=== PATIENT | male | born 1940 | race Caucasian/White ===

== ENCOUNTER 2020-08-05 14:21 | Outpatient (REF) | payer MEDICARE, SELFPAY ==
[2020-08-05 15:05] LABS: MANUAL DIFF FLAG NO
[2020-08-05 15:07] LABS: Basophils Percent Auto 0.3 % (0-2); Eosinophils Absolute Auto 0.1 X10*3/uL (0.0-0.4); Eosinophils Percent Auto 1.1 % (0-4); Hematocrit 33.3 % (42-52); Hemoglobin 10.8 g/dl (14.0-18.0); Imm Gran Abs Auto 0.03 X10*3/uL (0.00-0.03); Imm Gran Pct Auto 0.3 % (0.0-0.4); Lymphocytes Absolute Auto 2.2 X10*3/uL (1.2-4.9); Lymphocytes Percent Auto 25.1 % (20-40); Mean Corpuscular HGB Conc 32.4 g/dl (31.0-36.0); Mean Corpuscular Hemoglobin 29.4 pg (27.0-33.0); Mean Corpuscular Volume 90.7 fL (80-98); Monocytes Absolute Auto 0.6 X10*3/uL (0.1-1.2); Monocytes Percent Auto 7.1 % (2-11); Neutrophils Absolute Auto 5.9 X10*3/uL (2.0-8.3); Neutrophils Percent Auto 66.1 % (45-73); Platelet Count 236 X10*3/uL (160-400); Red Blood Count 3.67 X10*6/uL (4.60-5.80); Red Cell Distribution Width 13.2 % (11.0-16.0); White Blood Count 8.9 X10*3/uL (4.8-10.8)
[2020-08-05 15:17] LABS: Estimated Average Glucose 217 mg/dL; Hemoglobin A1c % 9.2 %
[2020-08-05 15:38] LABS: Alanine Aminotransferase 11 U/L (0-40); Albumin Level 4.3 g/dL (3.5-5.0); Alkaline Phosphatase 71 U/L (39-117); Anion Gap 13 (12-20); Aspartate Amino Transferase 10 U/L (5-37); Bilirubin Total 0.5 mg/dL (0.0-1.0); Blood Urea Nitrogen 25 mg/dL (9-16); Calcium 9.2 mg/dL (8.4-10.2); Carbon Dioxide 28 mmol/L (22-29); Chloride 103 mmol/L (96-108); Cholesterol 125 mg/dL; Estimated Glomerular Filt Rate 54; Glucose Random 172 mg/dL (60-115); HDL Cholesterol 30 mg/dL; LDL Cholesterol Calculated 58 mg/dl; Sodium 139 mmol/L (135-145); Total Protein 7.5 g/dL (6.5-8.0); Triglycerides 185 mg/dL
[2020-08-05 15:38] LABS: Creatinine Urine 34.52 mg/dL; Microalbum/Creatinine Ratio Ur 63.7 ug/mg cr
[2020-08-05 15:58] LABS: Thyroid Stimulating Hormone 2.07 uIU/mL (0.32-4.0)
== END 2020-08-05 14:22 | disposition home or self-care (01) ==
LOC: HO.LAB 14:21
PROVIDERS: PCP Internal Medicine; Visit Provider Internal Medicine
DX: Z00.00 Encounter for general adult medical examination without abnormal findings (principal); E11.21 Type 2 diabetes mellitus with diabetic nephropathy; E78.00 Pure hypercholesterolemia, unspecified; I10 Essential (primary) hypertension
CPT/HCPCS: 36415; 80053; 80061; 82043; 83036; 84443; 85025

== ENCOUNTER → 2020-08-20 11:12 | Outpatient (BNVA) | payer MEDICARE, SELFPAY | PROVIDERS: PCP Internal Medicine; Referring Provider Internal Medicine; Visit Provider Nurse Practitioner Family | DX: Z13.89 Encounter for screening for other disorder (principal) | CPT/HCPCS: 93005; 99212 ==

== ENCOUNTER 2020-08-20 12:36 | Inpatient (IN) | payer MEDICARE, SELFPAY ==
[2020-08-20] VITALS (7 sets, daily range): BP systolic 120–139; BP diastolic 48–67; PULSE 62–73; RESP 12–20; TEMP 35.9–37; O2SAT 95–99; BMI 29.0
--- NOTE | 2020-08-20 12:45 | ED_ITS ---
HPI - Chest Pain General Chief Complaint: Chest Pain Stated Complaint: CHEST PAIN,JAW PAIN Time Seen by Provider: 08/20/20 12:45 Source: patient Mode of arrival: ambulatory Limitations: language barrier History of Present Illness HPI narrative: patient sent down from cardiology clinic. significant cardiac history with Jaw pain x 10 radiating down to his chest. Woke him from sleep at 3am. MD complaint: chest pain Pertinent past history: coronary artery disease Onset (ago): hour(s) Timing of current episode: episodic Related Data Home Medications Medication Instructions Recorded Confirmed amlodipine 10 mg tablet 10 mg PO DAILY 08/20/20 08/20/20 ascorbate calcium (vitamin C) 500 500 mg PO DAILY 08/20/20 08/20/20 mg tablet atorvastatin 40 mg tablet 40 mg PO BEDTIME 08/20/20 08/20/20 docusate sodium 100 mg capsule 100 mg PO BID 08/20/20 08/20/20 ferrous sulfate 324 mg (65 mg 324 mg PO DAILY 08/20/20 08/20/20 iron) tablet,delayed release folic acid 1 mg PO DAILY 08/20/20 08/20/20 gabapentin 300 mg capsule 300 mg PO TID 08/20/20 08/20/20 insulin glargine [Lantus Solostar 15 unit SUBCUT BID 08/20/20 08/20/20 U-100 Insulin] insulin lispro [Humalog KwikPen 30 unit SUBCUT TID 08/20/20 08/20/20 Insulin] lisinopril 40 mg tablet 40 mg PO DAILY 08/20/20 08/20/20 methotrexate sodium 2.5 mg tablet 17.5 mg PO TU 08/20/20 08/20/20 metoprolol succinate 100 mg 100 mg PO DAILY 08/20/20 08/20/20 tablet,extended release 24 hr omeprazole 20 mg capsule,delayed 20 mg PO DAILY 08/20/20 08/20/20 release trazodone 50 mg tablet 50 mg PO BEDTIME 08/20/20 08/20/20 Previous Rx's Medication Instructions Recorded furosemide 40 mg tablet 40 mg PO DAILY 90 Days #90 tab 07/14/20 tamsulosin 0.4 mg capsule 0.4 mg PO BEDTIME #90 cap 07/27/20 Allergies Allergy/AdvReac Type Severity Reaction Status Date / Time naproxen [From NAPROSYN] Allergy Intermediate ITCHY Unverified 06/03/20 15:48 Penicillins [PENICILLINS] Allergy Mild ITCHY Unverified 06/03/20 15:48 sulfasalazine Allergy Unknown anxiety Verified 04/21/20 00:00 Review of Systems Constitutional: Constitutional: Reports no additional constitutional compla ints Eyes: Eyes: Reports no additional eye complaints ENT: Denies dizziness Cardiovascular: Cardiovascular: Reports no additional cardiovascular complaints Respiratory: Respiratory: Reports as per HPI Gastrointestinal: Gastrointestinal: Reports no additional gastrointestinal complaints Musculoskeletal: Musculoskeletal: Reports no additional musculoskeletal complaints Integumentary/Breasts: Skin/Breast: Denies rash Neurologic: Reports system reviewed and no additional complaints, except as documented, Denies dizziness and Denies Sensory deficit (Neuro) Psychiatric: Psychiatric: Denies anxiety [facility] Past Medical History Medical History Aortic stenosis BPH (benign prostatic hyperplasia) CHB (complete heart block) CVA (cerebral vascular accident) Diabetes Diastolic CHF HLD (hyperlipidemia) HTN (hypertension) Hx of cardiac pacemaker Pacemaker (~06/2015) PAF (paroxysmal atrial fibrillation) Surgical History (Updated 08/20/20 @ 16:17 by REGLA Lovelace) History of appendectomy History of lumbar surgery History of prostate surgery Hx of cholecystectomy Family History Family History Father Cancer Mother Cancer Social History Social History (Updated 08/20/20 @ 16:18 by REGLA Lovelace) Household Members: None Alcohol intake: never Smoking Status: Former smoker Years Smoked: smoke for 30 yrs Use of substances other than those prescribed or required for medical reasons: No Advance Directives: No Advance Directives Information Provided: No Physical Exam Vital Signs: Vital Signs: Last Vital Signs Temp 98.2 F 08/20/20 16:23 Pulse 62 08/20/20 16:23 Resp 18 08/20/20 16:23 BP 133/56 L 08/20/20 16:23 Pulse Ox 96 08/20/20 16:23 Body Mass Index 29.0 Const: General: healthy appearing Nutritional Appearance: average body habitus Orientation/consciousness: oriented to person and patient oriented x3 Limitations: no limitations HENMT: Head: Yes normal to inspection Ears: external ears normal General nose exam: Normal external nose present Mouth: Normal oral and palatal mucosa present and oropharynx normal Throat: Yes posterior oropharynx normal Eyes: General: appearance normal, both eyes and all related structures Neck: Other: supple Neck: Yes normal visual inspection Chest: Chest palpation & inspection: normal inspection of the chest Resp: Auscultation: clear to auscultation bilaterally Cardio: Jugular venous distension: no JVD Rate: regular rate Rhythm: regular rhythm Heart sounds: S1 normal heart sound present and S2 normal heart sound present GI: Inspection: Yes normal to inspection Palpation (GI): Soft to palpation, nontender and No hepatosplenomegaly present Auscultation: normal bowel sounds : General: Yes no CVA tenderness Back/Spine/Pelvis: Back: no CVA tenderness Skin: General skin exam: no rashes or lesions noted Neuro: General: oriented to person and patient oriented x3 Cranial nerves: Yes CN's II-XII intact bilaterally Motor exam (neuro): 5/5 motor strength present throughout Sensory Exam: No Sensory deficit (Neuro) Extrem: General: Yes normal to inspection Psych: Appearance: grossly normal Course Course Course Narrative: pain free MDM - Chest Pain MDM Narrative Medical decision making narrative: patient with multiple cardiac risk factors, intermediate troponin will admit Lab Data Result diagrams: 08/20/20 13:24 08/20/20 13:24 Labs: Lab Results 08/20/20 08/20/20 08/20/20 Range/Units 13:24 13:24 13:24 WBC 9.2 (4.8-10.8) X10*3/uL RBC 3.68 L (4.60-5.80) X10*6/uL Hgb 10.9 L (14.0-18.0) g/dl Hct 33.4 L (42-52) % MCV 90.8 (80-98) fL MCH 29.6 (27.0-33.0) pg MCHC 32.6 (31.0-36.0) g/dl RDW 13.4 (11.0-16.0) % Plt Count 228 (160-400) X10*3/uL MPV 11.9 (9.4-12.4) fL Immature Gran % (Auto) 0.3 (0.0-0.4) % Neut % (Auto) 73.7 H (45-73) % Lymph % (Auto) 17.8 L (20-40) % [place] % (Auto) 7.3 (2-11) % Eos % (Auto) 0.7 (0-4) % Baso % (Auto) 0.2 (0-2) % Lymph # (Auto) 1.6 (1.2-4.9) X10*3/uL [place] # (Auto) 0.7 (0.1-1.2) X10*3/uL Eos # (Auto) 0.1 (0.0-0.4) X10*3/uL Baso # (Auto) 0.0 (0.0-0.2) X10*3/uL Abs Immat Gran (auto) 0.03 (0.00-0.03) X10*3/uL Absolute Neuts (auto) 6.8 (2.0-8.3) X10*3/uL Absolute Nucleated RBC 0.000 (0.0-0.012) X10*3/uL Nucleated RBC % (auto) 0.0 (0.0-0.2) /100WBC Sodium 139 (135-145) mmol/L Potassium 4.6 (3.3-5.1) mmol/l Chloride 103 (96-108) mmol/L Carbon Dioxide 27 (22-29) mmol/L Anion Gap 14 (12-20) BUN 27 H (9-16) mg/dL Creatinine 1.46 H (0.5-1.4) mg/dL Estim Creat Clear Calc 45.3 Estimated GFR 47 Random Glucose 206 H (60-115) mg/dL Calcium 9.0 (8.4-10.2) mg/dL Troponin I High Sens 74.0 H (<3.5-35.0) ng/L B-Natriuretic Peptide (<100) pg/mL COVID-19 (HIEU) (Negative) COVID-19 Clin Com 08/20/20 08/20/20 Range/Units 13:56 15:39 WBC (4.8-10.8) X10*3/uL RBC (4.60-5.80) X10*6/uL Hgb (14.0-18.0) g/dl Hct (42-52) % MCV (80-98) fL MCH (27.0-33.0) pg MCHC (31.0-36.0) g/dl RDW (11.0-16.0) % Plt Count (160-400) X10*3/uL MPV (9.4-12.4) fL Immature Gran % (Auto) (0.0-0.4) % Neut % (Auto) (45-73) % Lymph % (Auto) (20-40) % [place] % (Auto) (2-11) % Eos % (Auto) (0-4) % Baso % (Auto) (0-2) % Lymph # (Auto) (1.2-4.9) X10*3/uL [place] # (Auto) (0.1-1.2) X10*3/uL Eos # (Auto) (0.0-0.4) X10*3/uL Baso # (Auto) (0.0-0.2) X10*3/uL Abs Immat Gran (auto) (0.00-0.03) X10*3/uL Absolute Neuts (auto) (2.0-8.3) X10*3/uL Absolute Nucleated RBC (0.0-0.012) X10*3/uL Nucleated RBC % (auto) (0.0-0.2) /100WBC Sodium (135-145) mmol/L Potassium (3.3-5.1) mmol/l Chloride (96-108) mmol/L Carbon Dioxide (22-29) mmol/L Anion Gap (12-20) BUN (9-16) mg/dL Creatinine (0.5-1.4) mg/dL Estim Creat Clear Calc Estimated GFR Random Glucose (60-115) mg/dL Calcium (8.4-10.2) mg/dL Troponin I High Sens (<3.5-35.0) ng/L B-Natriuretic Peptide 221 H (<100) pg/mL COVID-19 (HIEU) Negative (Negative) COVID-19 Clin Com See Note ECG Data ECG #1: Attestation: I personally reviewed and interpreted this ECG as follows: Interpretation: atrial paced with wide QRS complexes flipped ts laterally Discharge Plan Discharge Clinical Impression: Acute coronary syndrome Chest pain Qualifiers: Chest pain type: unspecified Qualified Code(s): R07.9 - Chest pain, unspecified Patient Disposition: Admitted As Inpatient
--- NOTE | 2020-08-20 12:46 | ECG_ITS ---
Test Reason : CP Blood Pressure : / mmHG Vent. Rate : 075 BPM Atrial Rate : 075 BPM P-R Int : 210 ms QRS Dur : 164 ms QT Int : 438 ms P-R-T Axes : 070 -44 119 degrees QTc Int : 489 ms Atrial-sensed ventricular-paced rhythm with prolonged AV conduction Abnormal ECG When compared to the previous EKG of No significant changes seen Referred By: Moreno Azveedo Electronically Signed By:LYNNE MICHAEL MD
[2020-08-20] MEDS: Aspirin 81 MG TAB.CHEW 162 MG PO (13:11)
[2020-08-20] MEDS: Nitroglycerin 2 % Oint 1 GM Packet 1 INCH TRANSDERMA (13:11)
[2020-08-20 13:46] LABS: MANUAL DIFF FLAG NO
[2020-08-20 13:51] LABS: Basophils Percent Auto 0.2 % (0-2); Eosinophils Absolute Auto 0.1 X10*3/uL (0.0-0.4); Eosinophils Percent Auto 0.7 % (0-4); Hematocrit 33.4 % (42-52); Hemoglobin 10.9 g/dl (14.0-18.0); Imm Gran Abs Auto 0.03 X10*3/uL (0.00-0.03); Imm Gran Pct Auto 0.3 % (0.0-0.4); Lymphocytes Absolute Auto 1.6 X10*3/uL (1.2-4.9); Lymphocytes Percent Auto 17.8 % (20-40); Mean Corpuscular HGB Conc 32.6 g/dl (31.0-36.0); Mean Corpuscular Hemoglobin 29.6 pg (27.0-33.0); Mean Corpuscular Volume 90.8 fL (80-98); Mean Platelet Volume 11.9 fL (9.4-12.4); Monocytes Absolute Auto 0.7 X10*3/uL (0.1-1.2); Monocytes Percent Auto 7.3 % (2-11); Neutrophils Absolute Auto 6.8 X10*3/uL (2.0-8.3); Neutrophils Percent Auto 73.7 % (45-73); Platelet Count 228 X10*3/uL (160-400); Red Blood Count 3.68 X10*6/uL (4.60-5.80); Red Cell Distribution Width 13.4 % (11.0-16.0); White Blood Count 9.2 X10*3/uL (4.8-10.8)
[2020-08-20 14:14] LABS: Anion Gap 14 (12-20); Blood Urea Nitrogen 27 mg/dL (9-16); Carbon Dioxide 27 mmol/L (22-29); Chloride 103 mmol/L (96-108); Creatinine Clr Calc Pharmacy 45.3; Estimated Glomerular Filt Rate 47; Glucose Random 206 mg/dL (60-115); Potassium 4.6 mmol/l (3.3-5.1); Sodium 139 mmol/L (135-145)
--- NOTE | 2020-08-20 15:54 | XR_ITS ---
EXAMINATION: XR CHEST CLINICAL INFORMATION: Chest pain COMPARISON: December 06, 2019, August 07, 2016, and July 05, 2015 TECHNIQUE: 2 views of the chest were obtained. FINDINGS: There is a focus of disease seen within the left lower lobe which may be related to pneumonitis or atelectasis. The cardiopericardial silhouette is mildly enlarged. No evidence of pulmonary edema. No pneumothorax or pleural effusion. Dual-chamber pacemaker in place. XR/XR chest 2V IMPRESSION: Small focus of density within the left lower lobe which may be related to atelectasis or pneumonitis.
--- NOTE | 2020-08-20 15:55 | PM.IMHP ---
History of Present Illness Date of Service: 08/20/20 <REGLA Lovelace - Last Filed: 08/20/20 17:07> Chief Complaint: chest pain <REGLA Lovelace Last Filed: 08/20/20 17:07> This is a 80-year-old male with multiple medical problems who presents the emergency department with complaints of chest pain. Patient reports chest pain beginning last evening. He was seen in the cardiology office today and sent to the emergency for evaluation. He reports left-sided chest pain with radiation to his jaw on bilateral sides. Is unable to describe pain. There is pain lateral to his pacemaker which is also uncomfortable and is reproducible on exam. He reports orthopnea and some dyspnea on exertion. He denies any change in his lower extremity. He reports compliance with his medication. In the emergency department he had a paced rhythm. Initial troponin was 74.0. Remainder of his labs were in his baseline. Given multiple cardiac risk factors and elevated troponin the decision was made to admit him for further workup. <REGLA Lovelace - Last Filed: 08/20/20 17:07> Review of Systems Review of Systems: Yes all other systems are reviewed and are negative <REGLA oLvelace - Last Filed: 08/20/20 17:07> Constitutional: Constitutional: Denies chills and Denies fever(s) <REGLA Lovelace - Last Filed: 08/20/20 17:07> ENT: Denies dizziness <REGLA Lovelace Last Filed: 08/20/20 17:07> Cardiovascular: Cardiovascular: Reports chest pain <REGLA Lovelace Last Filed: 08/20/20 17:07> Respiratory: Respiratory: Denies cough <REGLA Lovelace Last Filed: 08/20/20 17:07> Gastrointestinal: Gastrointestinal: Denies abdominal pain <REGLA Lovelace Last Filed: 08/20/20 17:07> Neurologic: Reports system reviewed and no additional complaints, except as documented, Denies dizziness and Denies Sensory deficit (Neuro) <REGLA Lovelace Last Filed: 08/20/20 17:07> [facility] Medical History: Medical History Aortic stenosis BPH (benign prostatic hyperplasia) CHB (complete heart block) CVA (cerebral vascular accident) Diabetes Diastolic CHF HLD (hyperlipidemia) HTN (hypertension) Hx of cardiac pacemaker Pacemaker (~06/2015) PAF (paroxysmal atrial fibrillation) <REGLA Lovelace - Last Filed: 08/20/20 17:07> Family History: Family History Father Cancer Mother Cancer <REGLA Lovelace - Last Filed: 08/20/20 17:07> Surgical History: Surgical History History of appendectomy History of lumbar surgery History of prostate surgery Hx of cholecystectomy <REGLA Lovelace - Last Filed: 08/20/20 17:07> Social History: Social History Household Members: None Alcohol intake: never Smoking Status: Former smoker Years Smoked: smoke for 30 yrs Use of substances other than those prescribed or required for medical reasons: No Advance Directives: No Advance Directives Information Provided: No <REGLA Lovelace Last Filed: 08/20/20 17:07> Meds Allergies/Adverse reactions: Allergies Allergy/AdvReac Type Severity Reaction Status Date / Time naproxen [From NAPROSYN] Allergy Intermediate ITCHY Unverified 06/03/20 15:48 Penicillins [PENICILLINS] Allergy Mild ITCHY Unverified 06/03/20 15:48 sulfasalazine Allergy Unknown anxiety Verified 04/21/20 00:00 <REGLA Lovelace - Last Filed: 08/20/20 17:07> Home medications: Home Medications Medication Instructions Recorded Confirmed Type amlodipine 10 mg tablet 10 mg PO DAILY 08/20/20 08/20/20 History ascorbate calcium (vitamin C) 500 500 mg PO DAILY 08/20/20 08/20/20 History mg tablet atorvastatin 40 mg tablet 40 mg PO BEDTIME 08/20/20 08/20/20 History docusate sodium 100 mg capsule 100 mg PO BID 08/20/20 08/20/20 History ferrous sulfate 324 mg (65 mg 324 mg PO DAILY 08/20/20 08/20/20 History iron) tablet,delayed release folic acid 1 mg PO DAILY 08/20/20 08/20/20 History gabapentin 300 mg capsule 300 mg PO TID 08/20/20 08/20/20 History insulin glargine [Lantus Solostar 15 unit SUBCUT BID 08/20/20 08/20/20 History U-100 Insulin] insulin lispro [Humalog KwikPen 30 unit SUBCUT TID 08/20/20 08/20/20 History Insulin] lisinopril 40 mg tablet 40 mg PO DAILY 08/20/20 08/20/20 History methotrexate sodium 2.5 mg tablet 17.5 mg PO TU 08/20/20 08/20/20 History metoprolol succinate 100 mg 100 mg PO DAILY 08/20/20 08/20/20 History tablet,extended release 24 hr omeprazole 20 mg capsule,delayed 20 mg PO DAILY 08/20/20 08/20/20 History release trazodone 50 mg tablet 50 mg PO BEDTIME 08/20/20 08/20/20 History <REGLA Lovelace - Last Filed: 08/20/20 17:07> Physical Exam Vital Signs and Narrative: Vital Signs: Last Vital Signs Temp 98.1 F 08/20/20 14:43 Pulse 66 08/20/20 14:43 Resp 15 08/20/20 14:43 BP 139/58 L 08/20/20 14:43 Pulse Ox 95 08/20/20 14:43 Body Mass Index 29.0 <REGLA Lovelace - Last Filed: 08/20/20 17:07> Const: Nutritional Appearance: well nourished <REGLA Lovelace Last Filed: 08/20/20 17:07> Orientation/consciousness: patient oriented x3 <REGLA Lovelace - Last Filed: 08/20/20 17:07> HENMT: Head: Yes normocephalic and Yes atraumatic <REGLA Lovelace Last Filed: 08/20/20 17:07> Eyes: Sclerae: sclerae normal <REGLA Lovelace Last Filed: 08/20/20 17:07> Chest: Chest palpation & inspection: normal inspection of the chest <REGLA Lovelace - Last Filed: 08/20/20 17:07> Resp: Effort & Inspection: normal respiratory effort and no respiratory distress <REGLA Lovelace - Last Filed: 08/20/20 17:07> Auscultation: clear to auscultation bilaterally <REGLA Lovelace - Last Filed: 08/20/20 17:07> Cardio: Other: systolic murmur <REGLA Lovelace - Last Filed: 08/20/20 17:07> Rate: regular rate <REGLA Lovelace - Last Filed: 08/20/20 17:07> Rhythm: regular rhythm <REGLA Lovelace - Last Filed: 08/20/20 17:07> GI: Palpation (GI): Soft to palpation and nontender <REGLA Lovelace - Last Filed: 08/20/20 17:07> Skin: General skin exam: no rashes or lesions noted <REGLA Lovelace - Last Filed: 08/20/20 17:07> Neuro: General: patient oriented x3 <REGLA Lovelace - Last Filed: 08/20/20 17:07> Cranial nerves: Yes CN's II-XII intact bilaterally and Yes Bilaterally intact EOM present <REGLA Lovelace - Last Filed: 08/20/20 17:07> Sensory Exam: No Sensory deficit (Neuro) <REGLA Lovelace - Last Filed: 08/20/20 17:07> Extrem: Other: trace edema b/l <REGLA Lovelace - Last Filed: 08/20/20 17:07> General: Yes normal to inspection <REGLA Lovelace - Last Filed: 08/20/20 17:07> Results Labs CBC and Chem 7: : 08/21/20 10:50 08/21/20 05:39 <REGLA Lovelace - Last Filed: 08/20/20 17:07> Labs: Laboratory Results - last 24 hr 08/20/20 08/20/20 08/20/20 13:24 13:24 13:24 MCV 90.8 MCH 29.6 MCHC 32.6 RDW 13.4 Plt Count 228 MPV 11.9 Immature Gran % (Auto) 0.3 Neut % (Auto) 73.7 H Lymph % (Auto) 17.8 L [place] % (Auto) 7.3 Eos % (Auto) 0.7 Baso % (Auto) 0.2 Lymph # (Auto) 1.6 [place] # (Auto) 0.7 Eos # (Auto) 0.1 Baso # (Auto) 0.0 Abs Immat Gran (auto) 0.03 Absolute Neuts (auto) 6.8 Absolute Nucleated RBC 0.000 Nucleated RBC % (auto) 0.0 Anion Gap 14 Estim Creat Clear Calc 45.3 Estimated GFR 47 Random Glucose 206 H Calcium 9.0 Troponin I High Sens 74.0 H <RELGA Lovelace - Last Filed: 08/20/20 17:07> Assessment and Plan (1) Chest pain: Qualifiers: Chest pain type: unspecified Qualified Code(s): R07.9 - Chest pain, unspecified <REGLA Lovelace - Last Filed: 08/20/20 17:07> Status: Acute <REGLA Lovelace - Last Filed: 08/20/20 17:07> This is a 80-year-old male with a history of CVA, hypertension, dyslipidemia, CKD, diabetes, pacemaker who was sent from Cardiology office with chest pain Chest pain No known coronary artery disease but cardiac risk factors including hypertension, dyslipidemia, diabetes Initial troponin 74 Will admit to telemetry and repeat troponin Echo, Cardiology consult Continue home statin, beta-randy. start asa HTN Continue Norvasc, lisinopril, metoprolol Atrial fibrillation EKG with paced rhythm Continue metoprolol No longer on anticoagulation, unclear reason Diabetes Continue Lantus POC, SSI GERD Continue PPI Chronic diastolic CHF Reports some orthopnea, mild leg edema. Check BMP chest x-ray Continue home dose Lasix for now Follow-up echocardiogram CKD 3 Creatinine near baseline Follow BNP Anemia H/H near baseline Follow CBC on methotrexate unclear reason DVT prophylaxis-heparin Code status-full code This case was discussed with Dr. Bentley <REGLA Lovelace - Last Filed: 08/20/20 17:07>
[2020-08-20 16:12] LABS: COVID-19 Test Negative (Negative)
[2020-08-20 16:18] LABS: B Type Natriuretic Peptide 221 pg/mL (<100)
--- NOTE | 2020-08-20 17:31 | PM.EVENT ---
Event Note Date of Service: 08/20/20 Event Note: Addendum to H and P by Mid-level Provider I saw and examined the patient and participated in the cali portion of the E/M service. I agree with the history and exam as documented by PA. Exam: as per PA note. Patient likely has chest pain and concern for ACS. Will admit for rule ACS and work up. Otherwise, I agree with assessment and plan as outlined in the H and P. late entry for 08/20
[2020-08-20 20:27] LABS: Troponin-I High Sensitivity 92.6 ng/L (<3.5-35.0)
[2020-08-20 20:45] LABS: Glucose, Whole Blood 156 mg/dL (60-115)
[2020-08-20] MEDS: traZODone HCL 50 MG TABLET PO (20:51)
[2020-08-20] MEDS: Heparin Sodium,Porcine 5,000 UNIT/ML VIAL 5000 UNIT SUBCUT (20:51)
[2020-08-20] MEDS: Atorvastatin Calcium 40 MG TABLET PO (20:51)
[2020-08-20] MEDS: Gabapentin 300 MG CAPSULE PO (20:51)
[2020-08-20] MEDS: 0.9 % Sodium Chloride Flush 3 ML SYRINGE IVFLUSH (20:51)
[2020-08-20] MEDS: Tamsulosin HCL 0.4 MG CAPSULE PO (20:51)
[2020-08-20] MEDS: Docusate Sodium 100 MG CAPSULE PO (20:51)
[2020-08-21] VITALS (7 sets, daily range): BP systolic 107–140; BP diastolic 49–64; PULSE 63–81; RESP 18–19; TEMP 36–36.7; O2SAT 94–98
[2020-08-21] MEDS: Omeprazole 20 MG CAPSULE.DR PO (05:39)
[2020-08-21] MEDS: Heparin Sodium,Porcine 5,000 UNIT/ML VIAL 5000 UNIT SUBCUT (05:39)
[2020-08-21 06:32] LABS: MANUAL DIFF FLAG NO
[2020-08-21 07:07] LABS: Basophils Percent Auto 0.4 % (0-2); Eosinophils Absolute Auto 0.1 X10*3/uL (0.0-0.4); Eosinophils Percent Auto 1.3 % (0-4); Hematocrit 29.6 % (42-52); Hemoglobin 9.7 g/dl (14.0-18.0); Imm Gran Abs Auto 0.03 X10*3/uL (0.00-0.03); Imm Gran Pct Auto 0.4 % (0.0-0.4); Lymphocytes Percent Auto 26.2 % (20-40); Mean Corpuscular HGB Conc 32.8 g/dl (31.0-36.0); Mean Corpuscular Hemoglobin 29.4 pg (27.0-33.0); Mean Corpuscular Volume 89.7 fL (80-98); Mean Platelet Volume 12.2 fL (9.4-12.4); Monocytes Absolute Auto 0.6 X10*3/uL (0.1-1.2); Monocytes Percent Auto 8.1 % (2-11); Neutrophils Absolute Auto 4.9 X10*3/uL (2.0-8.3); Neutrophils Percent Auto 63.6 % (45-73); Platelet Count 208 X10*3/uL (160-400); Red Cell Distribution Width 13.4 % (11.0-16.0); White Blood Count 7.8 X10*3/uL (4.8-10.8)
[2020-08-21 07:28] LABS: Glucose, Whole Blood 156 mg/dL (60-115)
[2020-08-21] MEDS: Gabapentin 300 MG CAPSULE PO ×3 (07:55→20:34)
[2020-08-21] MEDS: Metoprolol Succinate ER 100 MG TAB.ER.24H PO (07:55)
[2020-08-21] MEDS: Aspirin Enteric Coated 81 MG TABLET.DR PO (07:55)
[2020-08-21] MEDS: 0.9 % Sodium Chloride Flush 3 ML SYRINGE IVFLUSH ×3 (07:55→23:26)
[2020-08-21] MEDS: Ferrous Sulfate 324 MG TABLET.DR PO (07:55)
[2020-08-21] MEDS: Docusate Sodium 100 MG CAPSULE PO ×2 (07:55→20:34)
[2020-08-21] MEDS: Folic Acid 1 MG TABLET PO (07:56)
[2020-08-21] MEDS: lisinopriL 40 MG TABLET PO (07:56)
[2020-08-21] MEDS: amLODIPine Besylate 10 MG TABLET PO (07:56)
[2020-08-21] MEDS: Furosemide 40 MG TABLET PO (07:56)
[2020-08-21] MEDS: Ascorbic Acid 500 MG TABLET PO (07:56)
[2020-08-21] MEDS: Insulin Lispro 100 UNIT/ML 3 ML VIAL SUBCUT ×3 (07:57→20:45)
[2020-08-21 08:01] LABS: Anion Gap 13 (12-20); Blood Urea Nitrogen 31 mg/dL (9-16); Calcium 8.5 mg/dL (8.4-10.2); Carbon Dioxide 27 mmol/L (22-29); Chloride 102 mmol/L (96-108); Cholesterol 97 mg/dL; Creatinine Clr Calc Pharmacy 49.4; Estimated Glomerular Filt Rate 51; Glucose Random 177 mg/dL (60-115); HDL Cholesterol 24 mg/dL; LDL Cholesterol Calculated 53 mg/dl; Potassium 4.3 mmol/l (3.3-5.1); Sodium 138 mmol/L (135-145); Triglycerides 102 mg/dL
[2020-08-21] MEDS: Insulin Glargine,Hum.rec.anlog 100 UNIT/ML 10 ML VIAL 15 UNIT SUBCUT ×2 (09:46→20:45)
--- NOTE | 2020-08-21 10:27 | P.CONCA_ITS ---
History of Present Illness History of Present Illness Date of Service: 08/21/20 Requesting physician: [facility] Consult reason: chest pain Chief complaint: chest pain Narrative: Thank you for inviting us on consult on Rafy, for symptoms of jaw discomfort radiating to his chest. He is a pleasant 80-year-old man, who is active overall over the last couple days he has been having intermittent jaw discomfort bilaterally with radiation to the chest feeling like tightness/pressure. He was seen in the office yesterday, EKG showed ventr icularly paced rhythm, nondiagnostic and therefore was sent to the emergency room for further management as symptoms were concerning for unstable angina. His initial troponin was 74 which increased to 96. He says with a nitro basis chest pressure is much better and rest he has had no discomfort and including going to the bathroom. However if he walks a longer distance in the hallways continues to get those discomfort. He denies any other symptoms. No nausea vomiting, diaphoresis, lightheadedness, syncope. His past medical history of pacemaker placement for complete heart block, moderate aortic stenosis, last echocardiogram in the system is from 2015 which shows mild aortic stenosis. He has insulin-requiring diabetes, hypertension cortical diastolic heart failure. Review of Systems Constitutional: Constitutional: Denies body ache(s), Denies chills, Denies fever(s) and Denies malaise Eyes: Eyes: Reports no additional eye complaints ENT: Reports system reviewed and no additional complaints, except as documented and Denies dizziness Cardiovascular: Cardiovascular: Reports chest pain with activity, Denies lightheadedness, Denies Loss of Consciousness, Denies palpitations and Denies dyspnea Respiratory: Respiratory: Reports no additional respiratory complaints and Denies dyspnea Gastrointestinal: Gastrointestinal: Reports no additional gastrointestinal complaints Musculoskeletal: Musculoskeletal: Reports no additional musculoskeletal complaints Neurologic: Reports system reviewed and no additional complaints, except as documented and Denies dizziness Psychiatric: Psychiatric: Reports no additional psychiatric complaints Endocrine: Endocrine: Denies palpitations Hematologic/Lymphatic: Hematologic/Lymphatic: Reports no additional hematologic/lymphatic complaints Allergic/Immunologic: Allergic/Immunologic: Reports no additional allergic/immunologic complaints [facility] Past Medical History Medical History Aortic stenosis BPH (benign prostatic hyperplasia) CHB (complete heart block) CVA (cerebral vascular accident) Diabetes Diastolic CHF HLD (hyperlipidemia) HTN (hypertension) Hx of cardiac pacemaker Pacemaker (~06/2015) PAF (paroxysmal atrial fibrillation) Family History Family History Father Cancer Mother Cancer Surgical History Surgical History History of appendectomy History of lumbar surgery History of prostate surgery Hx of cholecystectomy Social History Social History Household Members: None Alcohol intake: never Smoking Status: Former smoker Years Smoked: smoke for 30 yrs Use of substances other than those prescribed or required for medical reasons: No Advance Directives: No Advance Directives Information Provided: No Meds Allergies Allergy/AdvReac Type Severity Reaction Status Date / Time naproxen [From NAPROSYN] Allergy Intermediate ITCHY Unverified 06/03/20 15:48 Penicillins [PENICILLINS] Allergy Mild ITCHY Unverified 06/03/20 15:48 sulfasalazine Allergy Unknown anxiety Verified 04/21/20 00:00 Home Medications Medication Instructions Recorded Confirmed Type amlodipine 10 mg tablet 10 mg PO DAILY 08/20/20 08/20/20 History ascorbate calcium (vitamin C) 500 500 mg PO DAILY 08/20/20 08/20/20 History mg tablet atorvastatin 40 mg tablet 40 mg PO BEDTIME 08/20/20 08/20/20 History docusate sodium 100 mg capsule 100 mg PO BID 08/20/20 08/20/20 History ferrous sulfate 324 mg (65 mg 324 mg PO DAILY 08/20/20 08/20/20 History iron) tablet,delayed release folic acid 1 mg PO DAILY 08/20/20 08/20/20 History gabapentin 300 mg capsule 300 mg PO TID 08/20/20 08/20/20 History insulin glargine [Lantus Solostar 15 unit SUBCUT BID 08/20/20 08/20/20 History U-100 Insulin] insulin lispro [Humalog KwikPen 30 unit SUBCUT TID 08/20/20 08/20/20 History Insulin] lisinopril 40 mg tablet 40 mg PO DAILY 08/20/20 08/20/20 History methotrexate sodium 2.5 mg tablet 17.5 mg PO TU 08/20/20 08/20/20 History metoprolol succinate 100 mg 100 mg PO DAILY 08/20/20 08/20/20 History tablet,extended release 24 hr omeprazole 20 mg capsule,delayed 20 mg PO DAILY 08/20/20 08/20/20 History release trazodone 50 mg tablet 50 mg PO BEDTIME 08/20/20 08/20/20 History Physical Exam Vital Signs: Vital Signs: Last Vital Signs Temp 97.5 F 08/21/20 07:39 Pulse 63 08/21/20 07:55 Resp 18 08/21/20 07:39 BP 140/50 H 08/21/20 07:55 Pulse Ox 95 08/21/20 07:39 Body Mass Index 29.0 Const: General: cooperative, no acute distress, alert and awake Nutritional Appearance: average body habitus Orientation/consciousness: patient oriented x3 Limitations: no limitations HENMT: Head: Yes normal to inspection, Yes normocephalic and Yes atraumatic Eyes: General: appearance normal, both eyes and all related structures Neck: Neck: Yes trachea midline, Yes supple and Yes no JVD Chest: Chest palpation & inspection: normal inspection of the chest Resp: Effort & Inspection: normal respiratory effort Auscultation: clear to auscultation bilaterally Cardio: Jugular venous distension: no JVD Palpation: normal PMI Rate: regular rate Rhythm: regular rhythm Heart sounds: S1 normal heart sound present, Murmur heart sound present systolic mid, decrescendo, crescendo, II/ and at the right sternal border and Other heart sounds present (Soft S2, S4 present) GI: Auscultation: normal bowel sounds Skin: General skin exam: no rashes or lesions noted Neuro: General: patient oriented x3 and no focal motor deficits Extrem: General: Yes no clubbing, cyanosis or edema Psych: Appearance: grossly normal Results Labs and Meds Result diagrams: 08/21/20 05:39 08/21/20 05:39 Lab results: Laboratory Results - last 24 hr 08/20/20 08/20/20 08/20/20 13:24 13:24 13:24 WBC 9.2 RBC 3.68 L Hgb 10.9 L Hct 33.4 L MCV 90.8 MCH 29.6 MCHC 32.6 RDW 13.4 Plt Count 228 MPV 11.9 Immature Gran % (Auto) 0.3 Neut % (Auto) 73.7 H Lymph % (Auto) 17.8 L Leake % (Auto) 7.3 Eos % (Auto) 0.7 Baso % (Auto) 0.2 Lymph # (Auto) 1.6 Leake # (Auto) 0.7 Eos # (Auto) 0.1 Baso # (Auto) 0.0 Abs Immat Gran (auto) 0.03 Absolute Neuts (auto) 6.8 Absolute Nucleated RBC 0.000 Nucleated RBC % (auto) 0.0 Sodium 139 Potassium 4.6 Chloride 103 Carbon Dioxide 27 Anion Gap 14 BUN 27 H Creatinine 1.46 H Estim Creat Clear Calc 45.3 Estimated GFR 47 POC Glucose Random Glucose 206 H Calcium 9.0 Troponin I High Sens 74.0 H B-Natriuretic Peptide Triglycerides Cholesterol LDL Cholesterol, Calc HDL Cholesterol COVID-19 (HIEU) COVID-Nacuii 08/20/20 08/20/20 08/20/20 13:56 15:39 19:38 WBC RBC Hgb Hct MCV MCH MCHC RDW Plt Count MPV Immature Gran % (Auto) Neut % (Auto) Lymph % (Auto) Leake % (Auto) Eos % (Auto) Baso % (Auto) Lymph # (Auto) Leake # (Auto) Eos # (Auto) Baso # (Auto) Abs Immat Gran (auto) Absolute Neuts (auto) Absolute Nucleated RBC Nucleated RBC % (auto) Sodium Potassium Chloride Carbon Dioxide Anion Gap BUN Creatinine Estim Creat Clear Calc Estimated GFR POC Glucose Random Glucose Calcium Troponin I High Sens 92.6 H B-Natriuretic Peptide 221 H Triglycerides Cholesterol LDL Cholesterol, Calc HDL Cholesterol COVID-19 (HIEU) Negative COVID-19 Clin Com See Note 08/20/20 08/21/20 08/21/20 20:42 05:39 05:39 WBC 7.8 RBC 3.30 L Hgb 9.7 L Hct 29.6 L MCV 89.7 MCH 29.4 MCHC 32.8 RDW 13.4 Plt Count 208 MPV 12.2 Immature Gran % (Auto) 0.4 Neut % (Auto) 63.6 Lymph % (Auto) 26.2 Leake % (Auto) 8.1 Eos % (Auto) 1.3 Baso % (Auto) 0.4 Lymph # (Auto) 2.0 Leake # (Auto) 0.6 Eos # (Auto) 0.1 Baso # (Auto) 0.0 Abs Immat Gran (auto) 0.03 Absolute Neuts (auto) 4.9 Absolute Nucleated RBC 0.000 Nucleated RBC % (auto) 0.0 Sodium 138 Potassium 4.3 Chloride 102 Carbon Dioxide 27 Anion Gap 13 BUN 31 H Creatinine 1.34 Estim Creat Clear Calc 49.4 Estimated GFR 51 POC Glucose 156 H Random Glucose 177 H Calcium 8.5 Troponin I High Sens B-Natriuretic Peptide Triglycerides 102 Cholesterol 97 D LDL Cholesterol, Calc 53 HDL Cholesterol 24 COVID-19 (HIEU) COVID-19 Clin Com 08/21/20 07:10 WBC RBC Hgb Hct MCV MCH MCHC RDW Plt Count MPV Immature Gran % (Auto) Neut % (Auto) Lymph % (Auto) Leake % (Auto) Eos % (Auto) Baso % (Auto) Lymph # (Auto) Leake # (Auto) Eos # (Auto) Baso # (Auto) Abs Immat Gran (auto) Absolute Neuts (auto) Absolute Nucleated RBC Nucleated RBC % (auto) Sodium Potassium Chloride Carbon Dioxide Anion Gap BUN Creatinine Estim Creat Clear Calc Estimated GFR POC Glucose 156 H Random Glucose Calcium Troponin I High Sens B-Natriuretic Peptide Triglycerides Cholesterol LDL Cholesterol, Calc HDL Cholesterol COVID-19 (HIEU) COVID-19 Clin Com EKG shows normal sinus rhythm with ventricularly paced rhythm Assessment and Plan (1) Acute coronary syndrome: Status: Acute Patient's presentation is highly consistent with acute coronary syndrome. Troponins are mildly elevated. He has multiple risk factors for coronary artery disease given his advanced age, diabetes, hypertension, hyperlipidemia. Clinically still has symptoms with exertion but this has improved at rest. Continue anti ischemic therapy with nitrates. Advised to avoid on a too much activity. Start on IV heparin. Continue aspirin therapy. Continue high- intensity statin therapy, LDL well optimized at current time. Will most likely will require cardiac catheterization, was discussed with him. He is agreeable. Will need transfer to [facility] probably on Sunday after an echocardiogram see below. Advised if worsening symptoms at rest. (2) Aortic stenosis: Status: Acute Aortic stenosis, clinically appears to be at least moderate. Will need echocardiogram prior to transfer to [facility] to assess the s everity as this will need planning in during cardiac catheterization as to the mode of intervention required. This will probably happen on Sunday. Continue medical therapy as above. Will follow with the patient. (3) Pacemaker: Problem details: Biotronik dual chamber Status: Acute Pacemaker function appears to be appropriate on EKG.
[2020-08-21 11:03] LABS: Hematocrit 33.3 % (42-52); Hemoglobin 10.7 g/dl (14.0-18.0); Mean Corpuscular HGB Conc 32.1 g/dl (31.0-36.0); Mean Corpuscular Hemoglobin 29.2 pg (27.0-33.0); Mean Corpuscular Volume 90.7 fL (80-98); Mean Platelet Volume 11.8 fL (9.4-12.4); Platelet Count 236 X10*3/uL (160-400); Red Blood Count 3.67 X10*6/uL (4.60-5.80); Red Cell Distribution Width 13.3 % (11.0-16.0); White Blood Count 8.8 X10*3/uL (4.8-10.8)
[2020-08-21 11:07] LABS: Troponin-I High Sensitivity 85.1 ng/L (<3.5-35.0)
[2020-08-21 11:16] LABS: INTERNATIONAL NORM RATIO 1.1 (0.9-1.1); Prothrombin Time 12.9 SEC (10.8-13.0)
[2020-08-21 11:19] LABS: PTT Heparin Drip 41.2 SEC (53-77.9)
--- NOTE | 2020-08-21 11:33 | HO.PM.IMPN ---
Subjective Subjective Date of Service: 08/21/20 Interval History: Seen in f/u for chest pain, NSTEMI/ACS. He denies pain this morning. Review of Systems Gen: no fever Resp: no sob, no cough CV: no chest, no BANKS, no leg edema GI: No n/v, no abd pain Neuro: No confusion Physical Exam Vital Signs: Vital Signs: Last Vital Signs Temp 97.0 F 08/21/20 10:57 Pulse 69 08/21/20 10:57 Resp 18 08/21/20 10:57 BP 124/52 L 08/21/20 10:57 Pulse Ox 98 08/21/20 10:57 Body Mass Index 29.0 General: AO X 3, no acute distress Resp: CTA bilateral CVS: S1,S2,RRR GI: +BS, NT, no distention Skin: No rash Neuro: motor grossly intact Psych: appropriate affect Objective Data Current Medications Generic Name Dose Route Start Last Admin Trade Name Freq PRN Reason Stop Dose Admin Acetaminophen 650 mg 08/20/20 17:58 Acetaminophen 325 Mg Tablet PO Q6H PRN Pain, Mild (Pain Scale 1-3) Amlodipine Besylate 10 mg 08/21/20 09:00 08/21/20 07:56 Amlodipine Besylate 10 Mg Tablet PO 10 mg DAILY FEROZ Administration Protocol Ascorbic Acid 500 mg 08/21/20 09:00 08/21/20 07:56 Ascorbic Acid 500 Mg Tablet PO 500 mg DAILY FEROZ Administration Aspirin 81 mg 08/21/20 09:00 08/21/20 07:55 Aspirin Enteric Coated 81 Mg Tablet. PO 81 mg DAILY FEROZ Administration Atorvastatin Calcium 40 mg 08/20/20 21:00 08/20/20 20:51 Atorvastatin Calcium 40 Mg Tablet PO 40 mg BEDTIME FEROZ Administration Docusate Sodium 100 mg 08/20/20 21:00 08/21/20 07:55 Docusate Sodium 100 Mg Capsule PO 100 mg BID FEROZ Administration Ferrous Sulfate 324 mg 08/21/20 09:00 08/21/20 07:55 Ferrous Sulfate 324 Mg Tablet. PO 324 mg DAILY FEROZ Administration Folic Acid 1 mg 08/21/20 09:00 08/21/20 07:56 Folic Acid 1 Mg Tablet PO 1 mg DAILY FEROZ Administration Furosemide 40 mg 08/21/20 09:00 08/21/20 07:56 Furosemide 40 Mg Tablet PO 40 mg DAILY FEROZ Administration Protocol Gabapentin 300 mg 08/20/20 21:00 08/21/20 07:55 Gabapentin 300 Mg Capsule PO 300 mg TID FEROZ Administration Heparin Sodium (Porcine) 7,148.64 unit 08/21/20 10:40 Heparin Sodium,Porcine 5,000 Unit/Ml Vial 80 unit/kg (7148.64 unit) IVPUSH BOLUS PRN 80 unit/kg - Heparin Protocol Heparin Sodium (Porcine) 3,574.32 unit 08/21/20 10:40 Heparin Sodium,Porcine 5,000 Unit/Ml Vial 40 unit/kg (3574.32 unit) IVPUSH BOLUS PRN HEPARINPRO Heparin Sodium/Sodium Chloride 25,000 unit in 250 mls @ 0 mls/hr 08/21/20 10:45 IVCONT .Q0M [facility] Protocol Per Protocol Insulin Glargine 15 unit 08/20/20 21:00 08/21/20 09:46 Insulin Glargine,Hum.Rec.Anlog 100 Unit/Ml 10 Ml Vial SUBCUT 15 unit BID FEROZ Administration Insulin Human Lispro 0 unit 08/20/20 17:58 08/21/20 07:57 Insulin Lispro 100 Unit/Ml 3 Ml Vial SUBCUT 2 unit QIDACHS [facility] Administration Protocol Lisinopril 40 mg 08/21/20 09:00 08/21/20 07:56 Lisinopril 40 Mg Tablet PO 40 mg DAILY [facility] Administration Protocol Metoprolol Succinate 100 mg 08/21/20 09:00 08/21/20 07:55 Metoprolol Succinate Er 100 Mg Tab.Er.24h PO 100 mg DAILY [facility] Administration Protocol Omeprazole 20 mg 08/21/20 06:30 08/21/20 05:39 Omeprazole 20 Mg Capsule.Dr PO 20 mg DAILY@0630 [facility] Administration Ondansetron HCl 4 mg 08/20/20 17:58 Ondansetron Hcl 4 Mg/2 Ml Vial IVPUSH Q8H PRN Nausea and Vomiting Pharmacy Consult 1 each 08/20/20 15:01 Consult Rx Perform Med Rec MISCELLANE ONCE PRN Consult order Sodium Chloride 3 ml 08/20/20 17:58 08/21/20 07:55 0.9 % Sodium Chloride Flush 3 Ml Syringe IVFLUSH 3 ml QSHIFT [facility] Administration Tamsulosin HCl 0.4 mg 08/20/20 21:00 08/20/20 20:51 Tamsulosin Hcl 0.4 Mg Capsule PO 0.4 mg BEDTIME FEROZ Administration Trazodone HCl 50 mg 08/20/20 21:00 08/20/20 20:51 Trazodone Hcl 50 Mg Tablet PO 50 mg BEDTIME FEROZ Administration Labs CBC & Chem 7: 08/21/20 10:50 08/21/20 05:39 Assessment and Plan (1) Chest pain: Status: Acute Assessment and Plan: 80-year-old male with a history of CVA, hypertension, dyslipidemia, CKD, diabetes, pacemaker who was sent from Cardiology office with chest pain Chest pain/elevated troponin consistent with ACS -Start IV heparin -ASA, metoprolol, Statin -Echo -To [facility] for cath by sunday HTN--Continue Norvasc, lisinopril, metoprolol Atrial fibrillation EKG with paced rhythm Continue metoprolol Heparin as above Diabetes Continue Lantus POC, SSI GERD Continue PPI Chronic diastolic CHF Reports some orthopnea, mild leg edema. Check BMP chest x-ray Continue home dose Lasix for now Follow-up echocardiogram CKD 3 Creatinine near baseline Follow BNP Anemia H/H near baseline Follow CBC on methotrexate unclear reason DVT prophylaxis-heparin
[2020-08-21 11:41] LABS: Glucose, Whole Blood 231 mg/dL (60-115)
[2020-08-21] MEDS: Heparin Sodium,Porcine/1/2NS 25,000 UNIT/250 ML IV.SOLN 12.51 UNIT IVCONT (12:17)
[2020-08-21 15:53] LABS: Glucose, Whole Blood 136 mg/dL (60-115)
[2020-08-21 18:44] LABS: PTT Heparin Drip > 200.0 SEC (53-77.9)
[2020-08-21 20:26] LABS: PTT Heparin Drip 157.2 SEC (53-77.9)
[2020-08-21] MEDS: Tamsulosin HCL 0.4 MG CAPSULE PO (20:34)
[2020-08-21] MEDS: traZODone HCL 50 MG TABLET PO (20:34)
[2020-08-21] MEDS: Atorvastatin Calcium 40 MG TABLET PO (20:34)
[2020-08-21 20:54] LABS: Glucose, Whole Blood 187 mg/dL (60-115)
[2020-08-21 22:01] LABS: PTT Heparin Drip 111.7 SEC (53-77.9)
[2020-08-21 23:03] LABS: PTT Heparin Drip 73.8 SEC (53-77.9)
[2020-08-22] VITALS (8 sets, daily range): BP systolic 110–139; BP diastolic 53–71; PULSE 62–74; RESP 16–19; TEMP 36–37; O2SAT 96–98
[2020-08-22 05:22] LABS: Hematocrit 32.3 % (42-52); Hemoglobin 10.7 g/dl (14.0-18.0); Mean Corpuscular HGB Conc 33.1 g/dl (31.0-36.0); Mean Corpuscular Hemoglobin 29.4 pg (27.0-33.0); Mean Corpuscular Volume 88.7 fL (80-98); Mean Platelet Volume 11.8 fL (9.4-12.4); Platelet Count 219 X10*3/uL (160-400); Red Blood Count 3.64 X10*6/uL (4.60-5.80); Red Cell Distribution Width 13.2 % (11.0-16.0); White Blood Count 8.8 X10*3/uL (4.8-10.8)
[2020-08-22] MEDS: Omeprazole 20 MG CAPSULE.DR PO (05:30)
[2020-08-22 05:31] LABS: INTERNATIONAL NORM RATIO 1.1 (0.9-1.1)
[2020-08-22 06:00] LABS: PTT Heparin Drip 193.8 SEC (53-77.9)
[2020-08-22 07:35] LABS: Glucose, Whole Blood 140 mg/dL (60-115)
[2020-08-22 07:39] LABS: PTT Heparin Drip 87.9 SEC (53-77.9)
[2020-08-22] MEDS: Insulin Glargine,Hum.rec.anlog 100 UNIT/ML 10 ML VIAL 15 UNIT SUBCUT ×2 (08:40→21:43)
[2020-08-22] MEDS: Gabapentin 300 MG CAPSULE PO ×3 (08:40→21:43)
[2020-08-22] MEDS: 0.9 % Sodium Chloride Flush 3 ML SYRINGE IVFLUSH ×2 (08:40→15:30)
[2020-08-22] MEDS: Metoprolol Succinate ER 100 MG TAB.ER.24H PO (08:40)
[2020-08-22] MEDS: amLODIPine Besylate 10 MG TABLET PO (08:40)
[2020-08-22] MEDS: Ferrous Sulfate 324 MG TABLET.DR PO (08:41)
[2020-08-22] MEDS: Furosemide 40 MG TABLET PO (08:41)
[2020-08-22] MEDS: Folic Acid 1 MG TABLET PO (08:41)
[2020-08-22] MEDS: Ascorbic Acid 500 MG TABLET PO (08:41)
[2020-08-22] MEDS: lisinopriL 40 MG TABLET PO (08:41)
[2020-08-22] MEDS: Docusate Sodium 100 MG CAPSULE PO ×2 (08:41→21:43)
[2020-08-22] MEDS: Aspirin Enteric Coated 81 MG TABLET.DR PO (08:41)
[2020-08-22] MEDS: Heparin Sodium,Porcine/1/2NS 25,000 UNIT/250 ML IV.SOLN 5.36 UNIT IVCONT (11:01)
[2020-08-22 11:41] LABS: Glucose, Whole Blood 190 mg/dL (60-115)
[2020-08-22] MEDS: Insulin Lispro 100 UNIT/ML 3 ML VIAL SUBCUT ×3 (12:04→21:43)
--- NOTE | 2020-08-22 13:16 | HO.PM.IMPN ---
Subjective Subjective Date of Service: 08/22/20 Interval History: Seen in f/u for chest pain, NSTEMI/ACS. No chest pain, hemodynamically stable Physical Exam Vital Signs: Vital Signs: Last Vital Signs Temp 97.2 F 08/22/20 11:42 Pulse 63 08/22/20 11:42 Resp 16 08/22/20 11:42 BP 110/57 L 08/22/20 11:42 Pulse Ox 98 08/22/20 11:42 Body Mass Index 29.0 General: AO X 3, no acute distress Resp: CTA bilateral CVS: S1,S2,RRR GI: +BS, NT, no distention Skin: No rash Neuro: motor grossly intact Psych: appropriate affect Objective Data Current Medications Generic Name Dose Route Start Last Admin Trade Name Freq PRN Reason Stop Dose Admin Acetaminophen 650 mg 08/20/20 17:58 Acetaminophen 325 Mg Tablet PO Q6H PRN Pain, Mild (Pain Scale 1-3) Amlodipine Besylate 10 mg 08/21/20 09:00 08/22/20 08:40 Amlodipine Besylate 10 Mg Tablet PO 10 mg DAILY FEROZ Administration Protocol Ascorbic Acid 500 mg 08/21/20 09:00 08/22/20 08:41 Ascorbic Acid 500 Mg Tablet PO 500 mg DAILY FEROZ Administration Aspirin 81 mg 08/21/20 09:00 08/22/20 08:41 Aspirin Enteric Coated 81 Mg Tablet. PO 81 mg DAILY FEROZ Administration Atorvastatin Calcium 40 mg 08/20/20 21:00 08/21/20 20:34 Atorvastatin Calcium 40 Mg Tablet PO 40 mg BEDTIME FEROZ Administration Docusate Sodium 100 mg 08/20/20 21:00 08/22/20 08:41 Docusate Sodium 100 Mg Capsule PO 100 mg BID FEROZ Administration Ferrous Sulfate 324 mg 08/21/20 09:00 08/22/20 08:41 Ferrous Sulfate 324 Mg Tablet. PO 324 mg DAILY FEROZ Administration Folic Acid 1 mg 08/21/20 09:00 08/22/20 08:41 Folic Acid 1 Mg Tablet PO 1 mg DAILY FEROZ Administration Furosemide 40 mg 08/21/20 09:00 08/22/20 08:41 Furosemide 40 Mg Tablet PO 40 mg DAILY [facility]EROZ Administration Protocol Gabapentin 300 mg 08/20/20 21:00 08/22/20 08:40 Gabapentin 300 Mg Capsule PO 300 mg TID FEROZ Administration Heparin Sodium (Porcine) 7,148.64 unit 12/05/20 10:40 Heparin Sodium,Porcine 5,000 Unit/Ml Vial 80 unit/kg (7148.64 unit) IVPUSH BOLUS PRN 80 unit/kg - Heparin Protocol Heparin Sodium (Porcine) 3,574.32 unit 08/21/20 10:40 Heparin Sodium,Porcine 5,000 Unit/Ml Vial 40 unit/kg (3574.32 unit) IVPUSH BOLUS PRN HEPARINPRO Heparin Sodium/Sodium Chloride 25,000 unit in 250 mls @ 0 mls/hr 08/21/20 10:45 08/22/20 11:01 IVCONT 6 units/kg/hr .Q0M FEROZ 5.36 mls/hr Administration Protocol Per Protocol Insulin Glargine 15 unit 08/20/20 21:00 08/22/20 08:40 Insulin Glargine,Hum.Rec.Anlog 100 Unit/Ml 10 Ml Vial SUBCUT 15 unit BID FEROZ Administration Insulin Human Lispro 0 unit 08/20/20 17:58 08/22/20 12:04 Insulin Lispro 100 Unit/Ml 3 Ml Vial SUBCUT 2 unit QIDACHS [facility] Administration Protocol Lisinopril 40 mg 08/21/20 09:00 08/22/20 08:41 Lisinopril 40 Mg Tablet PO 40 mg DAILY [facility] Administration Protocol Metoprolol Succinate 100 mg 08/21/20 09:00 08/22/20 08:40 Metoprolol Succinate Er 100 Mg Tab.Er.24h PO 100 mg DAILY [facility] Administration Protocol Omeprazole 20 mg 08/21/20 06:30 08/22/20 05:30 Omeprazole 20 Mg Capsule.Dr PO 20 mg DAILY@0630 [facility] Administration Ondansetron HCl 4 mg 08/20/20 17:58 Ondansetron Hcl 4 Mg/2 Ml Vial IVPUSH Q8H PRN Nausea and Vomiting Pharmacy Consult 1 each 08/20/20 15:01 Consult Rx Perform Med Rec MISCELLANE ONCE PRN Consult order Sodium Chloride 3 ml 08/20/20 17:58 08/22/20 08:40 0.9 % Sodium Chloride Flush 3 Ml Syringe IVFLUSH 3 ml QSHIFT [facility]Z Administration Tamsulosin HCl 0.4 mg 08/20/20 21:00 08/21/20 20:34 Tamsulosin Hcl 0.4 Mg Capsule PO 0.4 mg BEDTIME FEROZ Administration Trazodone HCl 50 mg 08/20/20 21:00 08/21/20 20:34 Trazodone Hcl 50 Mg Tablet PO 50 mg BEDTIME FEROZ Administration Labs CBC & Chem 7: 08/22/20 05:09 08/21/20 05:39 Assessment and Plan (1) Chest pain: Status: Acute Assessment and Plan: 80-year-old male with a history of CVA, hypertension, dyslipidemia, CKD, diabetes, pacemaker who was sent from Cardiology office with chest pain Chest pain/elevated troponin consistent with ACS -Start IV heparin -ASA, metoprolol, Statin -Echo first thing tomorrow before transfer to [facility] -To [facility] for cath by sunday HTN--Continue Norvasc, lisinopril, metoprolol Atrial fibrillation EKG with paced rhythm Continue metoprolol Heparin as above Diabetes Continue Lantus POC, SSI GERD Continue PPI Chronic diastolic CHF Reports some orthopnea, mild leg edema. Check BMP chest x-ray Continue home dose Lasix for now Follow-up echocardiogram CKD 3 Creatinine near baseline Follow BNP Anemia H/H near baseline Follow CBC on methotrexate unclear reason DVT prophylaxis-heparin
[2020-08-22 14:17] LABS: PTT Heparin Drip 98.2 SEC (53-77.9)
--- NOTE | 2020-08-22 14:57 | MHC.CM.PN ---
CM contacted pts daughter, Jessica ([phone]) who reports the pt does live alone but has a [employer] that comes in daily. She reports the pt has both a cane and a walker and uses them both depending on how he is feeling. Jessica reports the pt has a aHCP and the PCP on file is accurate. Jessica asks that she be contacted when the pt is clear for DC. Her brother will provide transportation for the pt. Current DC plan is home with resumption of services
[2020-08-22 16:12] LABS: Glucose, Whole Blood 177 mg/dL (60-115)
[2020-08-22 19:55] LABS: Glucose, Whole Blood 194 mg/dL (60-115)
[2020-08-22 20:32] LABS: PTT Heparin Drip 53.9 SEC (53-77.9)
--- NOTE | 2020-08-22 20:32 | PC.NURSE ---
PTT-HD 53.9 no change per protocol. Next PTT-HD order placed for 08/23 0220. Continue to monitor
[2020-08-22] MEDS: Tamsulosin HCL 0.4 MG CAPSULE PO (21:43)
[2020-08-22] MEDS: Atorvastatin Calcium 40 MG TABLET PO (21:43)
[2020-08-22] MEDS: traZODone HCL 50 MG TABLET PO (21:43)
[2020-08-23] MEDS: Acetaminophen 325 MG TABLET 650 MG PO ×2 (02:02→16:02)
[2020-08-23 02:59] VITALS: BP 102/49; PULSE 64; RESP 18; TEMP 36.6; O2SAT 98
[2020-08-23 07:44] VITALS: BP 128/56; PULSE 66; RESP 18; TEMP 36.3; O2SAT 98
[2020-08-23] MEDS: Docusate Sodium 100 MG CAPSULE PO (07:44)
[2020-08-23] MEDS: Furosemide 40 MG TABLET PO (07:44)
[2020-08-23 07:45] VITALS: BP 102/49; PULSE 64
[2020-08-23] MEDS: Omeprazole 20 MG CAPSULE.DR PO (07:45)
[2020-08-23] MEDS: Gabapentin 300 MG CAPSULE PO ×2 (07:45→16:03)
[2020-08-23] MEDS: Ascorbic Acid 500 MG TABLET PO (07:45)
[2020-08-23] MEDS: lisinopriL 40 MG TABLET PO (07:45)
[2020-08-23] MEDS: Aspirin Enteric Coated 81 MG TABLET.DR PO (07:45)
[2020-08-23] MEDS: Folic Acid 1 MG TABLET PO (07:45)
[2020-08-23] MEDS: Metoprolol Succinate ER 100 MG TAB.ER.24H PO (07:45)
[2020-08-23] MEDS: amLODIPine Besylate 10 MG TABLET PO (07:45)
[2020-08-23 07:46] LABS: Glucose, Whole Blood 119 mg/dL (60-115)
[2020-08-23] MEDS: Ferrous Sulfate 324 MG TABLET.DR PO (07:46)
[2020-08-23] MEDS: 0.9 % Sodium Chloride Flush 3 ML SYRINGE IVFLUSH ×2 (07:46→16:03)
[2020-08-23 07:53] LABS: PTT Heparin Drip 50.3 SEC (53-77.9)
[2020-08-23] MEDS: Heparin Sodium,Porcine 5,000 UNIT/ML VIAL 3574.32 UNIT IVPUSH (08:33)
--- NOTE | 2020-08-23 08:36 | PM.DS ---
DS: Providers Provider Date of admission: 08/20/20 15:54 <Fabián Bentley MD - Last Filed: 09/14/20 08:27> Primary care physician: Karolina Carroll MD <Fabián Bentley MD - Last Filed: 09/14/20 08:27> Consults: 08/20/20 15:54 Consult to Cardiology Routine Consulting Provider: Daniel Pina Reason for consultation: chest pain Has provider been notified: No <Fabián Bentley MD - Last Filed: 09/14/20 08:27> DS: Diagnosis Discharge Diagnosis (1) Chest pain: Status: Resolved <Fabián Bentley MD - Last Filed: 09/14/20 08:27> DS: Medications Discharge Medications Home Medications: Home Medications Medication Instructions Recorded Confirmed amlodipine 10 mg tablet 10 mg PO DAILY 08/20/20 08/20/20 ascorbate calcium (vitamin C) 500 500 mg PO DAILY 08/20/20 08/20/20 mg tablet atorvastatin 40 mg tablet 40 mg PO BEDTIME 08/20/20 08/20/20 docusate sodium 100 mg capsule 100 mg PO BID 08/20/20 08/20/20 ferrous sulfate 324 mg (65 mg 324 mg PO DAILY 08/20/20 08/20/20 iron) tablet,delayed release folic acid 1 mg PO DAILY 08/20/20 08/20/20 gabapentin 300 mg capsule 300 mg PO TID 08/20/20 08/20/20 insulin glargine [Lantus Solostar 15 unit SUBCUT BID 08/20/20 08/20/20 U-100 Insulin] insulin lispro [Humalog KwikPen 30 unit SUBCUT TID 08/20/20 08/20/20 Insulin] lisinopril 40 mg tablet 40 mg PO DAILY 08/20/20 08/20/20 methotrexate sodium 2.5 mg tablet 17.5 mg PO TU 08/20/20 08/20/20 metoprolol succinate 100 mg 100 mg PO DAILY 08/20/20 08/20/20 tablet,extended release 24 hr omeprazole 20 mg capsule,delayed 20 mg PO DAILY 08/20/20 08/20/20 release trazodone 50 mg tablet 50 mg PO BEDTIME 12/04/20 12/04/20 Previous Rx's Medication Instructions Recorded furosemide 40 mg tablet 40 mg PO DAILY 90 Days #90 tab 07/14/20 tamsulosin 0.4 mg capsule 0.4 mg PO BEDTIME #90 cap 07/27/20 <Fabián Bentley MD - Last Filed: 09/14/20 08:27> DS: Summary Hospital Course Hospital Course: HPI from admission on 08/20/20:80-year-old male with multiple medical problems (HTN, HLD, , PAF, CKD, ? RA, chronic anemia, GERD) who presents the emergency department with complaints of chest pain. Patient reports chest pain beginning last evening. He was seen in the cardiology office today and sent to the emergency for evaluation. He reports left-sided chest pain with radiation to his jaw on bilateral sides. Is unable to describe pain. There is pain lateral to his pacemaker which is also uncomfortable and is reproducible on exam. He reports orthopnea and some dyspnea on exertion. He denies any change in his lower extremity. He reports compliance with his medication. In the emergency department he had a paced rhythm. Initial troponin was 74.0. Remainder of his labs were in his baseline. Given multiple cardiac risk factors and elevated troponin the decision was made to admit him for further workup. Hospital course: ACS:Patient was admitted for ACS rule, highly sensitive troponin jump from 74 to 92. His ECG showed showed ventriculary paced rythm that is not diagnostic, however given exertional dyspnea and rise in troponin I, ACS was diagnosed. His medical has consisted of high intensity statin, Metoprolol, ASA and IV heparin. Cardiology recommend further management with cardiac catherization which he is agreable to and will therefor be transfer to [facility]. Echocardiogram revealed EF between 50-55% with severe calcification of aortic valve with moderate aortic valve stenosis and no wall motion abnormality, it showed evidence of mild diastolic dysfunction grade 1. HTN--Continue Norvasc 10, lisinopril 40, metoprolol XR 100 HLD--Lipitor 40 Atrial fibrillation--ventricularly paced. Continue Metoprolol, has not been on anticoagulation with no clear reason, eliquis should be considered at discharge Diabetes--- Continue Lantus POC, SSI GERD Continue PPI Chronic diastolic CHF--continue homed Lasix, Echo pending CKD 3 Creatinine near baseline Follow BNP Anemia H/H near baseline BPH--Tamsulosin 0.4 at bedtime He is Methotraxte 2.5 mg , 7 tabs weekly likely for RA, check with PCP office when open <Fabián Bentley MD - Last Filed: 09/14/20 08:27> Status at Discharge Functional status at discharge: independent ambulation <Fabián Bentley MD - Last Filed: 09/14/20 08:27> Overall status at discharge: patient is progressing back to baseline <Fabián Bentley MD - Last Filed: 09/14/20 08:27> Time Spent with Patient Time attestation: Total time spent providing and/or coordinating discharge services: <Fabián Bentley MD - Last Filed: 09/14/20 08:27> Discharge coordination time: Greater than 30 minutes <Fabián Bentley MD - Last Filed: 09/14/20 08:27> Physical Exam Vital Signs: Vital Signs: Last Vital Signs Temp 97.4 F 08/23/20 07:44 Pulse 64 08/23/20 07:45 Resp 18 08/23/20 07:44 BP 102/49 L 08/23/20 07:45 Pulse Ox 98 08/23/20 07:44 Body Mass Index 29.0 <Fabián Bentley MD - Last Filed: 09/14/20 08:27> General: AO X 3, no acute distress Resp: CTA bilateral CVS: S1,S2,RRR GI: +BS, NT, no distention Skin: No rash Neuro: motor grossly intact Psych: appropriate affect <Fabián Bentley MD - Last Filed: 09/14/20 08:27> DS: Data Data Completed and Pending Labs on day of discharge: 08/20/20 12:46 ECG 12 lead EKG Stat EKG Documentation DIRECTED 08/20/20 13:03 Aspirin 162 mg PO ONCE ONE Nitroglycerin 2 % Oint [Nitro-Bid] 1 inch TRANSDERMA ONCE ONE 08/20/20 13:24 Basic Metabolic Panel Stat Complete Blood Count Auto Diff Stat Troponin-I High Sensitivity Stat 08/20/20 13:56 B Type Natriuretic Peptide Stat 08/20/20 15:37 Transfer Order Routine 08/20/20 15:39 COVID-19 ID NOW (Perez) Stat 08/20/20 15:43 Add Laboratory Test Stat 08/20/20 15:54 XR chest 2V Stat 08/20/20 18:00 Heparin Sodium,Porcine 5,000 unit SUBCUT Q12H 08/20/20 19:38 Troponin-I High Sensitivity Routine 08/20/20 20:42 Glucose, Whole Blood Routine 08/21/20 05:39 Basic Metabolic Panel DAILY@0600 Complete Blood Count Auto Diff DAILY@0600 Lipid Panel Routine 08/21/20 07:10 Glucose, Whole Blood Routine 08/21/20 10:16 Troponin-I High Sensitivity Stat 08/21/20 10:45 Heparin Sodium,Porcine 7,148.64 unit IVPUSH ONCE 08/21/20 10:50 Complete Blood Count no Diff Stat PTT Heparin Drip Stat Prothrombin Time INR Stat 08/21/20 10:55 Glucose, Whole Blood Routine 08/21/20 15:37 Glucose, Whole Blood Routine 08/21/20 18:14 PTT Heparin Drip Stat 08/21/20 19:39 PTT Heparin Drip Stat 08/21/20 20:34 Glucose, Whole Blood Routine 08/21/20 20:55 PTT Heparin Drip Stat 08/21/20 22:27 PTT Heparin Drip Stat 08/22/20 05:09 Complete Blood Count no Diff Routine PTT Heparin Drip Stat Prothrombin Time INR Stat 08/22/20 07:13 PTT Heparin Drip Stat 08/22/20 07:29 Glucose, Whole Blood Routine 08/22/20 11:36 Glucose, Whole Blood Routine 08/22/20 14:02 PTT Heparin Drip Stat 08/22/20 16:03 Glucose, Whole Blood Routine 08/22/20 19:47 Glucose, Whole Blood Routine 08/22/20 20:09 PTT Heparin Drip Stat 08/23/20 02:16 PTT Heparin Drip Routine 08/23/20 07:30 PTT Heparin Drip Routine 08/23/20 07:40 Glucose, Whole Blood Routine Laboratory Last Values WBC 8.8 X10*3/uL (4.8-10.8) 08/22/20 05:09 RBC 3.64 X10*6/uL (4.60-5.80) L 08/22/20 05:09 Hgb 10.7 g/dl (14.0-18.0) L 08/22/20 05:09 Hct 32.3 % (42-52) L 08/22/20 05:09 MCV 88.7 fL (80-98) 08/22/20 05:09 MCH 29.4 pg (27.0-33.0) 08/22/20 05:09 MCHC 33.1 g/dl (31.0-36.0) 08/22/20 05:09 RDW 13.2 % (11.0-16.0) 08/22/20 05:09 Plt Count 219 X10*3/uL (160-400) 08/22/20 05:09 MPV 11.8 fL (9.4-12.4) 08/22/20 05:09 Immature Gran % (Auto) 0.4 % (0.0-0.4) 08/21/20 05:39 Neut % (Auto) 63.6 % (45-73) 08/21/20 05:39 Lymph % (Auto) 26.2 % (20-40) 08/21/20 05:39 [place] % (Auto) 8.1 % (2-11) 08/21/20 05:39 Eos % (Auto) 1.3 % (0-4) 08/21/20 05:39 Baso % (Auto) 0.4 % (0-2) 08/21/20 05:39 Lymph # (Auto) 2.0 X10*3/uL (1.2-4.9) 08/21/20 05:39 [place] # (Auto) 0.6 X10*3/uL (0.1-1.2) 08/21/20 05:39 Eos # (Auto) 0.1 X10*3/uL (0.0-0.4) 08/21/20 05:39 Baso # (Auto) 0.0 X10*3/uL (0.0-0.2) 08/21/20 05:39 Abs Immat Gran (auto) 0.03 X10*3/uL (0.00-0.03) 08/21/20 05:39 Absolute Neuts (auto) 4.9 X10*3/uL (2.0-8.3) 08/21/20 05:39 Absolute Nucleated RBC 0.000 X10*3/uL (0.0-0.012) 08/22/20 05:09 Nucleated RBC % (auto) 0.0 /100WBC (0.0-0.2) 08/22/20 05:09 PT 13.0 SEC (10.8-13.0) 08/22/20 05:09 PT Cancelled 08/22/20 05:09 INR 1.1 (0.9-1.1) 08/22/20 05:09 INR Cancelled 08/22/20 05:09 PTT (Heparin Protocol) 50.3 SEC (53-77.9) L 08/23/20 07:30 Sodium 138 mmol/L (135-145) 08/21/20 05:39 Potassium 4.3 mmol/l (3.3-5.1) 08/21/20 05:39 Chloride 102 mmol/L (96-108) 08/21/20 05:39 Carbon Dioxide 27 mmol/L (22-29) 08/21/20 05:39 Anion Gap 13 (-20) 08/21/20 05:39 BUN 31 mg/dL (9-16) H 08/21/20 05:39 Creatinine 1.34 mg/dL (0.5-1.4) 08/21/20 05:39 Estim Creat Clear Calc 49.4 08/21/20 05:39 Estimated GFR 51 08/21/20 05:39 POC Glucose 119 mg/dL (60-115) H 08/23/20 07:40 Random Glucose 177 mg/dL (60-115) H 08/21/20 05:39 Calcium 8.5 mg/dL (8.4-10.2) 08/21/20 05:39 Troponin I High Sens 85.1 ng/L (<3.5-35.0) H 08/21/20 10:16 B-Natriuretic Peptide 221 pg/mL (<100) H 08/20/20 13:56 Triglycerides 102 mg/dL 08/21/20 05:39 Cholesterol 97 mg/dL D 08/21/20 05:39 LDL Cholesterol, Calc 53 mg/dl 08/21/20 05:39 HDL Cholesterol 24 mg/dL 08/21/20 05:39 COVID-19 (HIEU) Negative (Negative) 08/20/20 15:39 COVID-19 Clin Com See Note 08/20/20 15:39 <Fabiánsheldon Bentley MD - Last Filed: 09/14/20 08:27> Discharge Plan Discharge Anticipated Discharge Date/Time: 08/23/20 08:55 <Fabián Bentley MD - Last Filed: 09/14/20 08:27> Patient Disposition: [facility] <Fabián Bentley MD - Last Filed: 09/14/20 08:27> Referrals: Karolina Carroll MD [Primary Care Provider] - <Fabián Bentley MD - Last Filed: 09/14/20 08:27> Discharge Medications: New aspirin 81 mg Tablet,Delayed Release (Dr/Ec) 81 mg PO DAILY Qty: 30 RF: 0 heparin (porcine) 5,000 unit/mL Solution 7,148.64 unit IVPUSH BOLUS PRN (Reason: 80 Unit/Kg - Heparin Protocol) Qty: 1 RF: 0 heparin (porcine) 5,000 unit/mL Solution 3,574.32 unit IVPUSH BOLUS PRN (Reason: HEPARINPRO) Qty: 1 RF: 0 heparin(porcine) in 0.45% NaCl 25,000 unit/250 mL Parenteral Solution 25,000 unit continuous IV infusion .Q0M Qty: 250 RF: 0 insulin lispro [Humalog U-100 Insulin] 100 unit/mL Solution See Protocol unit subcut QIDACHS Qty: 100 RF: 0 Continued furosemide [Lasix] 40 mg tablet 40 mg PO DAILY 90 Days Qty: 90 RF: 1 tamsulosin 0.4 mg capsule 0.4 mg PO BEDTIME Qty: 90 RF: 5 folic acid 1 mg Tablet 1 mg PO DAILY RF: 0 Lantus Solostar U-100 Insulin 100 unit/mL (3 mL) Insulin Pen 15 unit SUBCUT BID RF: 0 trazodone 50 mg tablet 50 mg PO BEDTIME RF: 0 ferrous sulfate 324 mg (65 mg iron) tablet,delayed release (DR/EC) 324 mg PO DAILY RF: 0 omeprazole 20 mg capsule,delayed release(DR/EC) 20 mg PO DAILY RF: 0 amlodipine 10 mg tablet 10 mg PO DAILY RF: 0 atorvastatin 40 mg tablet 40 mg PO BEDTIME RF: 0 docusate sodium 100 mg capsule 100 mg PO BID RF: 0 metoprolol succinate 100 mg tablet extended release 24 hr 100 mg PO DAILY RF: 0 methotrexate sodium 2.5 mg tablet 17.5 mg PO TU RF: 0 lisinopril 40 mg tablet 40 mg PO DAILY RF: 0 gabapentin 300 mg capsule 300 mg PO TID RF: 0 ascorbate calcium (vitamin C) 500 mg tablet 500 mg PO DAILY RF: 0 Discontinued insulin lispro [Humalog KwikPen Insulin] 100 unit/mL Insulin Pen 30 unit SUBCUT TID RF: 0 No Action clopidogrel 75 mg tablet 75 mg PO DAILY RF: 0 insulin lispro 100 unit/mL insulin pen subcut RF: 0 <Fabián Bentley MD - Last Filed: 09/14/20 08:27> Discharge Orders: Discharge Order (Routine); Ordered 08/23/20 Ordered By: Tanika Henry <Fabián Bentley MD - Last Filed: 09/14/20 08:27> Diet: advance to usual diet and diabetic diet <Fabián Bentley MD - Last Filed: 09/14/20 08:27> advance to usual diet and diabetic diet <Tanika Henry MD - Last Filed: 08/24/20 08:08> Activity on Discharge: As tolerated <Fabián Bentley MD - Last Filed: 09/14/20 08:27> As tolerated <Tanika Henry MD - Last Filed: 08/24/20 08:08> Discharge Date/Time: 08/23/20 20:20 <Fabián Bentley MD - Last Filed: 09/14/20 08:27> Care Plan Goals: Work up for ACS <Fabián Bentley MD - Last Filed: 09/14/20 08:27> Health Concerns: Acute coronary syndrome <Fabián Bentley MD - Last Filed: 09/14/20 08:27> Plan of Treatment: Transfer to [facility] for cardiac cath, continue medical therapy with heparin, aspirin, metoprolol, lipitor, norvsc and lisinopril <Fabián Bentley MD - Last Filed: 09/14/20 08:27>
--- NOTE | 2020-08-23 10:33 | PM.PNCARD ---
Subjective Subjective Date of Service: 08/23/20 Interval history: He states that he feels okay and does not have any further chest pain. Review of Systems Denies dizziness Cardiovascular: Reports as per HPI, Reports no additional cardiovascular complaints, Denies Abdominal Distension, Denies chest pain, Denies chest pain at rest, Denies edema, Denies irregular heart rhythm, Denies lightheadedness, Denies Loss of Consciousness and Denies dyspnea Respiratory: Denies dyspnea Reports system reviewed and no additional complaints, except as documented, Denies dizziness and Denies Sensory deficit (Neuro) Physical Exam Vital Signs: Last Vital Signs Temp 97.4 F 08/23/20 07:44 Pulse 64 08/23/20 07:45 Resp 18 08/23/20 07:44 BP 102/49 L 08/23/20 07:45 Pulse Ox 98 08/23/20 07:44 Body Mass Index 29.0 Const General: cooperative, comfortable and no acute distress Orientation/consciousness: patient oriented x3 HENMT Other: Unremarkable Neck Neck: Yes normal visual inspection Chest Chest palpation & inspection: normal inspection of the chest Resp Auscultation: clear to auscultation bilaterally, no crackles and no wheezes Cardio Jugular venous distension: no JVD Palpation: normal PMI Heart sounds: S1 normal heart sound present, S2 abnormal (soft), no gallops, Murmur heart sound present systolic early, III/ and at the right sternal border and no rubs GI Palpation (GI): Soft to palpation Back/Spine/Pelvis Other: unremarkable Skin General skin exam: no rashes or lesions noted Neuro General: patient oriented x3 Sensory Exam: No Sensory deficit (Neuro) Extrem General: Yes no clubbing, cyanosis or edema Psych Mental Status: mental status grossly normal Results Labs and Meds Result diagrams: 08/22/20 05:09 08/21/20 05:39 Lab results: Laboratory Results - last 24 hr 08/22/20 08/22/20 08/22/20 11:36 14:02 16:03 PTT (Heparin Protocol) 98.2 H POC Glucose 190 H 177 H 08/22/20 08/22/20 08/23/20 19:47 20:09 02:16 PTT (Heparin Protocol) 53.9 D 53.0 POC Glucose 194 H 08/23/20 08/23/20 07:30 07:40 PTT (Heparin Protocol) 50.3 L POC Glucose 119 H Progress Note: A&P Assessment and plan (1) NSTEMI (non-ST elevated myocardial infarction): Status: Acute (2) Non-rheumatic aortic stenosis: Status: Acute Assessment and Plan: Admitted from the office due to complaints of chest pain and jaw discomfort. Slight troponin leak. Has not had any further symptoms. Echocardiogram is unchanged and shows the moderate aortic stenosis. We will transfer him to [facility] for cardiac catheterization. Fall Risk Details Current Medications: Current Medications Generic Name Dose Route Start Last Admin Trade Name Freq PRN Reason Stop Dose Admin Acetaminophen 650 mg 08/20/20 17:58 08/23/20 02:02 Acetaminophen 325 Mg Tablet PO 650 mg Q6H PRN Administration Pain, Mild (Pain Scale 1-3) Amlodipine Besylate 10 mg 08/21/20 09:00 08/23/20 07:45 Amlodipine Besylate 10 Mg Tablet PO 10 mg DAILY FEROZ Administration Protocol Ascorbic Acid 500 mg 08/21/20 09:00 08/23/20 07:45 Ascorbic Acid 500 Mg Tablet PO 500 mg DAILY FEROZ Administration Aspirin 81 mg 08/21/20 09:00 08/23/20 07:45 Aspirin Enteric Coated 81 Mg Tablet. PO 81 mg DAILY FEROZ Administration Atorvastatin Calcium 40 mg 08/20/20 21:00 08/22/20 21:43 Atorvastatin Calcium 40 Mg Tablet PO 40 mg BEDTIME FEROZ Administration Docusate Sodium 100 mg 08/20/20 21:00 08/23/20 07:44 Docusate Sodium 100 Mg Capsule PO 100 mg BID FEROZ Administration Ferrous Sulfate 324 mg 08/21/20 09:00 08/23/20 07:46 Ferrous Sulfate 324 Mg Tablet. PO 324 mg DAILY FEROZ Administration Folic Acid 1 mg 08/21/20 09:00 08/23/20 07:45 Folic Acid 1 Mg Tablet PO 1 mg DAILY FEROZ Administration Furosemide 40 mg 08/21/20 09:00 08/23/20 07:44 Furosemide 40 Mg Tablet PO 40 mg DAILY FEROZ Administration Protocol Gabapentin 300 mg 08/20/20 21:00 08/23/20 07:45 Gabapentin 300 Mg Capsule PO 300 mg TID FEROZ Administration Heparin Sodium (Porcine) 7,148.64 unit 08/21/20 10:40 Heparin Sodium,Porcine 5,000 Unit/Ml Vial 80 unit/kg (7148.64 unit) IVPUSH BOLUS PRN 80 unit/kg - Heparin Protocol Heparin Sodium (Porcine) 3,574.32 unit 08/21/20 10:40 08/23/20 08:33 Heparin Sodium,Porcine 5,000 Unit/Ml Vial 40 unit/kg (3574.32 unit) 3,574.32 unit IVPUSH Administration BOLUS PRN HEPARINPRO Heparin Sodium/Sodium Chloride 25,000 unit in 250 mls @ 0 mls/hr 08/21/20 10:45 08/23/20 08:34 IVCONT 5 units/kg/hr .Q0M FEROZ 4.47 mls/hr Titration Protocol Per Protocol Insulin Glargine 15 unit 08/20/20 21:00 08/23/20 08:12 Insulin Glargine,Hum.Rec.Anlog 100 Unit/Ml 10 Ml Vial SUBCUT Not Given BID [facility] Insulin Human Lispro 0 unit 08/20/20 17:58 08/23/20 07:49 Insulin Lispro 100 Unit/Ml 3 Ml Vial SUBCUT Not Given QIDACHS [facility] Protocol Lisinopril 40 mg 08/21/20 09:00 08/23/20 07:45 Lisinopril 40 Mg Tablet PO 40 mg DAILY [facility] Administration Protocol Metoprolol Succinate 100 mg 08/21/20 09:00 08/23/20 07:45 Metoprolol Succinate Er 100 Mg Tab.Er.24h PO 100 mg DAILY [facility] Administration Protocol Omeprazole 20 mg 08/21/20 06:30 08/23/20 07:45 Omeprazole 20 Mg Capsule.Dr PO 20 mg DAILY@0630 [facility] Administration Ondansetron HCl 4 mg 08/20/20 17:58 Ondansetron Hcl 4 Mg/2 Ml Vial IVPUSH Q8H PRN Nausea and Vomiting Pharmacy Consult 1 each 08/20/20 15:01 Consult Rx Perform Med Rec MISCELLANE ONCE PRN Consult order Sodium Chloride 3 ml 08/20/20 17:58 08/23/20 07:46 0.9 % Sodium Chloride Flush 3 Ml Syringe IVFLUSH 3 ml QSHIFT FEROZ Administration Tamsulosin HCl 0.4 mg 08/20/20 21:00 08/22/20 21:43 Tamsulosin Hcl 0.4 Mg Capsule PO 0.4 mg BEDTIME [facility] Administration Trazodone HCl 50 mg 08/20/20 21:00 08/22/20 21:43 Trazodone Hcl 50 Mg Tablet PO 50 mg BEDTIME FEROZ Administration Time Spent With Patient Time: Total time spent is greater than 50% in coordination of care (as documented) at patient's floor/unit and/or counseling patient: Time with patient: 15 - 24 minutes
--- NOTE | 2020-08-23 11:31 | MHC.INPTTRAN ---
patient admitted 08/20 from his cardiology office d/t jaw pain as well as left arm pain with chest pressure/tightness. troponins: 74/92.6/85.1. Patient did receive sublingual nitro with chest pain while in the hospital with good effect, chest pain/tightness develops with excertion. Echocardiogram was done this am, decision was made to transfer for cardiac cath to r/o ACS. Patient has been on a heparin gtt, PTT-HS @ 0800 50.3, a 40un/kg bolus was given and the gtt was increased by 2 un/kg/hr. Now running at 5un/kg/hr (4.46ml/hr) Next PTT-HD is due for 1430. Patient is alert and oriented x 3, serbian speaking only. V-pacing on tele (history of complete heart block). Pt is ambulatory to the bathroom with steady gait and cane.
[2020-08-23 11:32] LABS: Glucose, Whole Blood 142 mg/dL (60-115)
[2020-08-23 11:41] VITALS: BP 105/47; PULSE 60; RESP 18; TEMP 35.9; O2SAT 99
--- NOTE | 2020-08-23 11:44 | MHC.CM.PN ---
Patient is being transferred acutely to [facility] for cariac cath.
[2020-08-23 15:06] LABS: PTT Heparin Drip 124.1 SEC (53-77.9)
[2020-08-23 15:45] VITALS: BP 118/56; PULSE 61; RESP 19; TEMP 36.6; O2SAT 99
--- NOTE | 2020-08-23 15:54 | CA_ITS ---
Transthoracic Echocardiogram Patient (Last, First, Middle): Rafy Crystal, Gender: Male Date of : 1940 Age: 80 Procedure Date: 08/23/2020 Procedure Type: Transthoracic Echocardiogram Location: [facility] [place] Height: 175.26 cm Weight: 89.36 kg BSA: 2.05 m2 Heart Rate: bpm BP: 102 / 49 mmHg Embedded Software Test Engineer: Referring MD: Kristi ARAUZ Symptoms: chest pain, dizziness Study Quality: Fair ECG Rhythm: Sinus Conclusions: - The left ventricular systolic function is low normal. The visually estimated ejection fraction is between 50-55%. - There is severe calcification of the aortic valve. There is moderate aortic valve stenosis. - There is mild mitral annular calcification. There is mild mitral valve regurgitation. - There is mild to moderate tricuspid valve regurgitation. Findings Left Ventricle Normal left ventricular cavity size. There is moderately increased left ventricular wall thickness. The left ventricular systolic function is low normal. The visually estimated ejection fraction is between 50-55%. There is no evidence of regional wall motion abnormalities. There is paradoxical septal motion consistent with a right ventricular pacemaker. E/E prime ratio is >15, consistent with elevated filling pressures. Evidence suggests grade I (mild) diastolic dysfunction. Right Ventricle Normal right ventricular cavity size and systolic function. Atria The left atrium is moderately dilated. The right atrium is normal in size. Aortic Valve There is severe calcification of the aortic valve. There is moderate aortic valve stenosis. The peak aortic velocity is 2.78 m/s with a calculated peak gradient of 31 mmHg. The mean gradient is 17 mmHg. The aortic valve area is 1.00 cm2. There is trace (trivial) aortic valve regurgitation. Mitral Valve There is mild mitral annular calcification. There is mild mitral valve regurgitation. There is no mitral valve stenosis. Pulmonic Valve The pulmonic valve was not well visualized. Tricuspid Valve Normal tricuspid valve structure. There is mild to moderate tricuspid valve regurgitation. The pulmonary artery systolic pressure is normal. Great Vessels The aortic annulus, sinuses of valsalva, and asc aorta are normal in size. Venous The inferior vena cava is normal in size and collapses greater than 50% with inspiration. Pericardium/Pleural There is a trivial pericardial effusion. Prior Study Comparison No significant change compared to prior study dated: 12/02/2019. Measurements 2D Linear Measurements IVSd: 1.54 0.6-0.9/0.6-1.0 cm LVIDd: 3.89 3.9-5.3/4.2-5.9 cm LVIDd Index: 1.90 2.4-3.2/2.2-3.1 cm/m2 LVIDs: 2.62 2.0-3.6 cm LVPWd: 1.41 0.7-1.1 cm Ao Root: 2.80 2.1-3.5 cm LA Diam: 4.40 2.7-3.8/3.0-4.0 cm LAIDs Index: 2.15 1.5-2.3 cm/m2 LV Mass: 271.60 67-162/88-224 g LV Mass Index: 132.49 43-95/49-115 g/m2 LVOT Diam: 2.00 3.0+(-)1.3 cm 2D Systolic Function EF 4C: 21.10 >55% EF 2C: 41.70 >55% Mitral Valve MV Pk E: 0.81 MV PK A: 1.17 MV Decel Time: 151.00 E/A: 0.70 E'Lateral: 3.38 E'Medial: 3.48 E/E' Med: 23.10 E/E' Lat: 23.80 PHT: 44.00 MVA PHT: 5.00 Decel [place]: 5.32 Aortic Valve AoV Pk Ziggy: 2.78 AoV Mn Ziggy: 1.95 AoV VTI: 0.74 AoV Pk Grad: 31.00 Aov Mn Grad: 17.00 VANI Cont.VTI: 1.00 LVOT LVOT Pk Ziggy: 0.84 LVOT Mn Ziggy: 0.60 LVOT VTI: 0.24 LVOT Pk Grad: 3.00 LVOT Mn Grad: 2.00 LVOT Diam: 2.00 LVOT Area: 3.14 Diastolic Function MV Pk E: 0.81 MV Pk A: 1.17 E/A: 0.70 E'Medial: 3.48 E/E' Med: 23.10 E' Laterial: 3.38 E/E' Lat: 23.80 Tricuspid Valve TR Pk Ziggy: 2.72 TR Pk Grad: 30.00 RA Press: 3.00 RVSP: 33.00 Great Vessels Aorta Ao Root-2D: 2.80 2.0-3.7 cm Ao Asc: 3.20 2.1-3.4 cm Pulmonary Valve PV Pk Ziggy: 1.43 Peak PV Grad: 8.00 Updated in Other Vendor System with Status of Final Saleem Hill MD electronically signed on 08/23/2020 10:32:37 AM with status of Final
[2020-08-23 16:27] LABS: Glucose, Whole Blood 102 mg/dL (60-115)
[2020-08-23 16:32] LABS: PTT Heparin Drip 89.2 SEC (53-77.9)
[2020-08-23] MEDS: Heparin Sodium,Porcine/1/2NS 25,000 UNIT/250 ML IV.SOLN 0.89 UNIT IVCONT ×2 (16:54→20:26)
--- NOTE | 2020-08-23 18:29 | HO.PM.IMPN ---
Subjective Subjective Date of Service: 08/23/20 Interval History: patient being followed for acute coronary syndrome patient denies any chest pain just returned from echocardiogram. Review of Systems General no headache , no dizziness no fever chills. CVS no chest pain, no palpitation. Respiratory no cough,no respiratory distress. Gastrointestinal no nausea, no vomiting, no abdominal pain Physical Exam Vital Signs: Vital Signs: Last Vital Signs Temp 97.8 F 08/23/20 15:45 Pulse 61 08/23/20 15:45 Resp 19 08/23/20 15:45 BP 118/56 L 08/23/20 15:45 Pulse Ox 99 08/23/20 15:45 Body Mass Index 29.0 General patient resting comfortably in no acute distress. Neck is supple no JVD. CVS regular rate rhythm, systolic murmur Respiratory lungs clear to auscultation, no respiratory distress Gastrointestinal abdomen soft, nontender, bowel sounds audible Extremities no edema. Neuro nonfocal patient moving all 4 extremity speech clear. Skin no rash Objective Data Current Medications Generic Name Dose Route Start Last Admin Trade Name Christq PRN Reason Stop Dose Admin Acetaminophen 650 mg 08/20/20 17:58 08/23/20 16:02 Acetaminophen 325 Mg Tablet PO 650 mg Q6H PRN Administration Pain, Mild (Pain Scale 1-3) Amlodipine Besylate 10 mg 08/21/20 09:00 08/23/20 07:45 Amlodipine Besylate 10 Mg Tablet PO 10 mg DAILY FEROZ Administration Protocol Ascorbic Acid 500 mg 08/21/20 09:00 08/23/20 07:45 Ascorbic Acid 500 Mg Tablet PO 500 mg DAILY FEROZ Administration Aspirin 81 mg 08/21/20 09:00 08/23/20 07:45 Aspirin Enteric Coated 81 Mg Tablet. PO 81 mg DAILY FEROZ Administration Atorvastatin Calcium 40 mg 08/20/20 21:00 08/22/20 21:43 Atorvastatin Calcium 40 Mg Tablet PO 40 mg BEDTIME FEROZ Administration Docusate Sodium 100 mg 08/20/20 21:00 08/23/20 07:44 Docusate Sodium 100 Mg Capsule PO 100 mg BID FERZO Administration Ferrous Sulfate 324 mg 08/21/20 09:00 08/23/20 07:46 Ferrous Sulfate 324 Mg Tablet. PO 324 mg DAILY FEROZ Administration Folic Acid 1 mg 08/21/20 09:00 08/23/20 07:45 Folic Acid 1 Mg Tablet PO 1 mg DAILY FEROZ Administration Furosemide 40 mg 08/21/20 09:00 08/23/20 07:44 Furosemide 40 Mg Tablet PO 40 mg DAILY [facility] Administration Protocol Gabapentin 300 mg 08/20/20 21:00 08/23/20 16:03 Gabapentin 300 Mg Capsule PO 300 mg TID FEROZ Administration Heparin Sodium (Porcine) 7,148.64 unit 08/21/20 10:40 Heparin Sodium,Porcine 5,000 Unit/Ml Vial 80 unit/kg (7148.64 unit) IVPUSH BOLUS PRN 80 unit/kg - Heparin Protocol Heparin Sodium (Porcine) 3,574.32 unit 08/21/20 10:40 08/23/20 08:33 Heparin Sodium,Porcine 5,000 Unit/Ml Vial 40 unit/kg (3574.32 unit) 3,574.32 unit IVPUSH Administration BOLUS PRN HEPARINPRO Heparin Sodium/Sodium Chloride 25,000 unit in 250 mls @ 0 mls/hr 08/21/20 10:45 08/23/20 16:54 IVCONT 1 units/kg/hr .Q0M [facility] 0.89 mls/hr Administration Protocol Per Protocol Insulin Glargine 15 unit 08/20/20 21:00 08/23/20 08:12 Insulin Glargine,Hum.Rec.Anlog 100 Unit/Ml 10 Ml Vial SUBCUT Not Given BID [facility] Insulin Human Lispro 0 unit 08/20/20 17:58 08/23/20 17:55 Insulin Lispro 100 Unit/Ml 3 Ml Vial SUBCUT Not Given QIDACHS [facility] Protocol Lisinopril 40 mg 08/21/20 09:00 08/23/20 07:45 Lisinopril 40 Mg Tablet PO 40 mg DAILY [facility] Administration Protocol Metoprolol Succinate 100 mg 08/21/20 09:00 08/23/20 07:45 Metoprolol Succinate Er 100 Mg Tab.Er.24h PO 100 mg DAILY [facility] Administration Protocol Omeprazole 20 mg 08/21/20 06:30 08/23/20 07:45 Omeprazole 20 Mg Capsule.Dr PO 20 mg DAILY@0630 [facility] Administration Ondansetron HCl 4 mg 08/20/20 17:58 Ondansetron Hcl 4 Mg/2 Ml Vial IVPUSH Q8H PRN Nausea and Vomiting Pharmacy Consult 1 each 08/20/20 15:01 Consult Rx Perform Med Rec MISCELLANE ONCE PRN Consult order Sodium Chloride 3 ml 08/20/20 17:58 08/23/20 16:03 0.9 % Sodium Chloride Flush 3 Ml Syringe IVFLUSH 3 ml QSHIFT FEROZ Administration Tamsulosin HCl 0.4 mg 08/20/20 21:00 08/22/20 21:43 Tamsulosin Hcl 0.4 Mg Capsule PO 0.4 mg BEDTIME FEROZ Administration Trazodone HCl 50 mg 08/20/20 21:00 08/22/20 21:43 Trazodone Hcl 50 Mg Tablet PO 50 mg BEDTIME FEROZ Administration Labs CBC & Chem 7: 08/22/20 05:09 08/21/20 05:39 Assessment and Plan (1) Non-rheumatic aortic stenosis: Status: Acute (2) NSTEMI (non-ST elevated myocardial infarction): Status: Acute (3) Acute coronary syndrome: Status: Acute (4) Chest pain: Status: Acute (5) Pacemaker: Problem details: Biotronik dual chamber Status: Acute (6) PAF (paroxysmal atrial fibrillation): Status: Acute (7) HLD (hyperlipidemia): Status: Acute (8) HTN (hypertension): Status: Acute Assessment and Plan: 80-year-old male with a history of CVA, hypertension, dyslipidemia, CKD, diabetes, pacemaker who was sent from Cardiology office with chest pain Chest pain/elevated troponin consistent with ACS continue IV heparin,ASA, metoprolol, Statin, echo obtained report is pending patient is being transferred to [facility] for cardiac catheterization, case discussed with Dr. Hill HTN-- BP stable will continue Continue Norvasc, lisinopril, and metoprolol Atrial fibrillation EKG with paced rhythm continue metoprolol and heparin Diabetes blood sugars stable,Continue Lantus and POC, SSI GERD Continue PPI Chronic diastolic CHF no evidence of acute congestive heart failure continue home dose of Lasix follow echocardiogram, BNP 221 close to baseline CKD 3 Creatinine near baseline Anemia H/H near baseline, hematocrit greater than 30 DVT prophylaxis-heparin
== END 2020-08-23 20:20 | disposition short-term general hospital (02) | DRG 311 ==
LOC: HO.ED 14:46 → HO.IMC 17:27
PROVIDERS: Physician Assistant Medical; Admitting Provider Internal Medicine; Emergency Provider Emergency Medicine; PCP Internal Medicine; Visit Provider Hospitalist
DX: I24.9 Acute ischemic heart disease, unspecified (principal); I69.954 Hemiplegia and hemiparesis following unspecified cerebrovascular disease affecting left non-dominant side; I50.32 Chronic diastolic (congestive) heart failure; I13.0 Hypertensive heart and chronic kidney disease with heart failure and stage 1 through stage 4 chronic kidney disease, or unspecified chronic kidney disease; E78.5 Hyperlipidemia, unspecified; Z95.0 Presence of cardiac pacemaker; I48.0 Paroxysmal atrial fibrillation; E11.22 Type 2 diabetes mellitus with diabetic chronic kidney disease; N18.30 Chronic kidney disease, stage 3 unspecified; I35.0 Nonrheumatic aortic (valve) stenosis; D63.1 Anemia in chronic kidney disease; Z20.828 Contact with and (suspected) exposure to other viral communicable diseases; Z87.891 Personal history of nicotine dependence; Z88.0 Allergy status to penicillin; Z88.2 Allergy status to sulfonamides; Z88.6 Allergy status to analgesic agent; Z79.4 Long term (current) use of insulin; Z79.82 Long term (current) use of aspirin; Z79.899 Other long term (current) drug therapy
CPT/HCPCS: 36415; 71046; 80048; 80061; 82947; 83880; 84484; 85025; 85027; 85610; 85730; 87635; 93005; 93306; 99212; 99285

== ENCOUNTER 2020-08-31 08:46 | Outpatient (REF) | payer MEDICARE, SELFPAY ==
[2020-08-31 11:39] LABS: Hematocrit 30.5 % (42-52); Hemoglobin 9.8 g/dl (14.0-18.0); Mean Corpuscular HGB Conc 32.1 g/dl (31.0-36.0); Mean Corpuscular Hemoglobin 29.3 pg (27.0-33.0); Mean Platelet Volume 11.8 fL (9.4-12.4); Platelet Count 244 X10*3/uL (160-400); Red Blood Count 3.35 X10*6/uL (4.60-5.80); Red Cell Distribution Width 13.9 % (11.0-16.0); White Blood Count 8.5 X10*3/uL (4.8-10.8)
[2020-08-31 12:13] LABS: Anion Gap 14 (12-20); Blood Urea Nitrogen 35 mg/dL (9-16); Calcium 8.4 mg/dL (8.4-10.2); Carbon Dioxide 23 mmol/L (22-29); Chloride 109 mmol/L (96-108); Estimated Glomerular Filt Rate 50; Glucose Random 95 mg/dL (60-115); Potassium 4.5 mmol/l (3.3-5.1); Sodium 141 mmol/L (135-145)
== END 2020-08-31 08:47 | disposition home or self-care (01) ==
LOC: HO.LAB 08:46
PROVIDERS: PCP Internal Medicine; Visit Provider Internal Medicine
DX: I21.4 Non-ST elevation (NSTEMI) myocardial infarction (principal); I35.0 Nonrheumatic aortic (valve) stenosis; I48.0 Paroxysmal atrial fibrillation; I10 Essential (primary) hypertension; E11.8 Type 2 diabetes mellitus with unspecified complications; Z95.0 Presence of cardiac pacemaker
CPT/HCPCS: 36415; 80048; 85027; 85610; 99212

== ENCOUNTER → 2020-09-16 12:30 | Outpatient (BNVA) | payer MEDICARE, SELFPAY | PROVIDERS: PCP Internal Medicine; Visit Provider Internal Medicine | DX: I21.4 Non-ST elevation (NSTEMI) myocardial infarction (principal); I25.5 Ischemic cardiomyopathy; I35.0 Nonrheumatic aortic (valve) stenosis; I48.0 Paroxysmal atrial fibrillation; I65.22 Occlusion and stenosis of left carotid artery; I10 Essential (primary) hypertension; E11.8 Type 2 diabetes mellitus with unspecified complications; K92.2 Gastrointestinal hemorrhage, unspecified; Z95.0 Presence of cardiac pacemaker; Z87.891 Personal history of nicotine dependence | CPT/HCPCS: 99212 ==

== ENCOUNTER 2020-09-27 09:14 | Outpatient (REF) | payer MEDICARE, SELFPAY ==
[2020-09-27 10:52] LABS: Hematocrit 23.5 % (42-52); Hemoglobin 7.5 g/dl (14.0-18.0); Mean Corpuscular HGB Conc 31.9 g/dl (31.0-36.0); Mean Corpuscular Hemoglobin 29.4 pg (27.0-33.0); Mean Corpuscular Volume 92.2 fL (80-98); Mean Platelet Volume 11.2 fL (9.4-12.4); Platelet Count 278 X10*3/uL (160-400); Red Blood Count 2.55 X10*6/uL (4.60-5.80); Red Cell Distribution Width 14.6 % (11.0-16.0); White Blood Count 6.9 X10*3/uL (4.8-10.8)
== END 2020-09-27 09:15 | disposition home or self-care (01) ==
LOC: HO.LAB 09:14
PROVIDERS: PCP Internal Medicine; Visit Provider Internal Medicine
DX: I21.4 Non-ST elevation (NSTEMI) myocardial infarction (principal)
CPT/HCPCS: 36415; 85027

== ENCOUNTER → 2020-10-01 13:02 | Outpatient (BNVA) | payer MEDICARE, SELFPAY | PROVIDERS: PCP Internal Medicine; Visit Provider Internal Medicine Gastroenterology | DX: D64.9 Anemia, unspecified (principal); K92.2 Gastrointestinal hemorrhage, unspecified; I21.4 Non-ST elevation (NSTEMI) myocardial infarction | CPT/HCPCS: Q3014 ==

== ENCOUNTER 2020-10-02 09:23 | Outpatient (REF) | payer MEDICARE, SELFPAY ==
[2020-10-02 09:57] LABS: MANUAL DIFF FLAG NO
[2020-10-02 10:00] LABS: Basophils Percent Auto 0.3 % (0-2); Eosinophils Absolute Auto 0.1 X10*3/uL (0.0-0.4); Eosinophils Percent Auto 1.9 % (0-4); Hematocrit 25.3 % (42-52); Hemoglobin 7.9 g/dl (14.0-18.0); Imm Gran Abs Auto 0.01 X10*3/uL (0.00-0.03); Imm Gran Pct Auto 0.1 % (0.0-0.4); Immature Retic Fraction 12.4 % (2.3-13.4); Lymphocytes Absolute Auto 1.8 X10*3/uL (1.2-4.9); Lymphocytes Percent Auto 25.4 % (20-40); Mean Corpuscular HGB Conc 31.2 g/dl (31.0-36.0); Mean Corpuscular Hemoglobin 29.3 pg (27.0-33.0); Mean Corpuscular Volume 93.7 fL (80-98); Mean Platelet Volume 10.8 fL (9.4-12.4); Monocytes Absolute Auto 0.6 X10*3/uL (0.1-1.2); Monocytes Percent Auto 8.7 % (2-11); Neutrophils Absolute Auto 4.6 X10*3/uL (2.0-8.3); Neutrophils Percent Auto 63.6 % (45-73); Platelet Count 257 X10*3/uL (160-400); Red Cell Distribution Width 14.6 % (11.0-16.0); Retic HGB Equivalent 29.2 pg (30.0-35.0); Reticulocyte Percent 2.1 % (0.5-1.8); Reticulocytes Absolute 0.057 X10*6/uL (0.026-0.095); White Blood Count 7.2 X10*3/uL (4.8-10.8)
[2020-10-02 10:24] LABS: Alanine Aminotransferase 12 U/L (0-40); Albumin Level 3.8 g/dL (3.5-5.0); Alkaline Phosphatase 66 U/L (39-117); Anion Gap 13 (12-20); Aspartate Amino Transferase 10 U/L (5-37); Bilirubin Total 0.3 mg/dL (0.0-1.0); Blood Urea Nitrogen 14 mg/dL (9-16); Calcium 8.4 mg/dL (8.4-10.2); Carbon Dioxide 24 mmol/L (22-29); Chloride 108 mmol/L (96-108); Estimated Glomerular Filt Rate > 60; Glucose Random 101 mg/dL (60-115); Lactate Dehydrogenase 140 U/L (118-273); Potassium 4.4 mmol/l (3.3-5.1); Sodium 141 mmol/L (135-145); Total Protein 6.8 g/dL (6.5-8.0)
[2020-10-02 11:23] LABS: INTERNATIONAL NORM RATIO 1.1 (0.9-1.1); Prothrombin Time 13.3 SEC (10.8-13.0)
== END 2020-10-02 09:24 | disposition home or self-care (01) ==
LOC: HO.LAB 09:23
PROVIDERS: PCP Internal Medicine; Visit Provider Internal Medicine Gastroenterology
DX: D64.9 Anemia, unspecified (principal)
CPT/HCPCS: 36415; 80053; 83615; 85025; 85045; 85610

== ENCOUNTER → 2020-10-07 10:43 | Outpatient (BNVA) | payer MEDICARE, SELFPAY | PROVIDERS: PCP Internal Medicine; Visit Provider Nurse Practitioner Family | DX: I21.4 Non-ST elevation (NSTEMI) myocardial infarction (principal); I25.10 Atherosclerotic heart disease of native coronary artery without angina pectoris; I25.5 Ischemic cardiomyopathy; D64.9 Anemia, unspecified; I10 Essential (primary) hypertension; I35.0 Nonrheumatic aortic (valve) stenosis; I44.2 Atrioventricular block, complete; I48.0 Paroxysmal atrial fibrillation; Z98.890 Other specified postprocedural states | CPT/HCPCS: Q3014 ==

== ENCOUNTER 2020-10-09 10:36 | Outpatient (REF) | payer MEDICARE, SELFPAY ==
[2020-10-09 11:04] LABS: MANUAL DIFF FLAG NO
[2020-10-09 11:08] LABS: Basophils Percent Auto 0.2 % (0-2); Eosinophils Absolute Auto 0.2 X10*3/uL (0.0-0.4); Eosinophils Percent Auto 1.7 % (0-4); Hematocrit 26.9 % (42-52); Hemoglobin 8.4 g/dl (14.0-18.0); Imm Gran Abs Auto 0.04 X10*3/uL (0.00-0.03); Imm Gran Pct Auto 0.4 % (0.0-0.4); Lymphocytes Absolute Auto 1.3 X10*3/uL (1.2-4.9); Mean Corpuscular HGB Conc 31.2 g/dl (31.0-36.0); Mean Corpuscular Hemoglobin 28.9 pg (27.0-33.0); Mean Corpuscular Volume 92.4 fL (80-98); Mean Platelet Volume 11.7 fL (9.4-12.4); Monocytes Absolute Auto 0.7 X10*3/uL (0.1-1.2); Neutrophils Absolute Auto 7.3 X10*3/uL (2.0-8.3); Neutrophils Percent Auto 76.7 % (45-73); Platelet Count 255 X10*3/uL (160-400); Red Blood Count 2.91 X10*6/uL (4.60-5.80); Red Cell Distribution Width 14.6 % (11.0-16.0); White Blood Count 9.6 X10*3/uL (4.8-10.8)
[2020-10-09 12:00] LABS: Ferritin 93 ng/mL (20-250)
== END 2020-10-09 10:37 | disposition home or self-care (01) ==
LOC: HO.LAB 10:36
PROVIDERS: PCP Internal Medicine; Visit Provider Internal Medicine Gastroenterology
DX: D64.9 Anemia, unspecified (principal)
CPT/HCPCS: 36415; 82728; 85025

== ENCOUNTER 2020-10-18 06:55 | Day surgery (SDC) | payer MEDICARE, SELFPAY ==
[2020-10-12 14:20] VITALS: BMI 25.7
--- NOTE | 2020-10-12 14:38 | P.CONAN_ITS ---
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 Underwent PCI. Remaining on DAPT. Cardiology recommend GI w/u. Case reviewed with Dr Artem FRYE Past Medical History Medical History Acute coronary syndrome Aortic stenosis BPH (benign prostatic hyperplasia) CAD (coronary artery disease) CHB (complete heart block) CVA (cerebral vascular accident) Diastolic CHF Essential hypertension HLD (hyperlipidemia) HTN (hypertension) Hx of cardiac pacemaker Left carotid stenosis Non-rheumatic aortic stenosis Normally functioning cardiac pacemaker present On anticoagulant therapy On beta randy at home Pacemaker (~06/2015) PAF (paroxysmal atrial fibrillation) Rheumatoid arthritis Type 2 diabetes mellitus with unspecified complications Family History Family History Father Cancer Mother Cancer Surgical History Surgical History H/O colonoscopy History of appendectomy History of esophagogastroduodenoscopy History of lumbar surgery History of prostate surgery Hx of cholecystectomy S/P cardiac cath (~08/2020) Social History Social History Household Members: None Alcohol intake: former Smoking Status: Former smoker Tobacco Type: Cigarette Years Smoked: 25 Smoked in Last 30 Days: No Smoking Quit Date: 2009 Use of substances other than those prescribed or required for medical reasons: No Advance Directives Information Provided: No Recently lost weight without trying: No service: No Current occupational status: retired Narrative Narrative: Per cardiology, patient is not a good cadidate for CABG d/t porcelain aorta and underwent PCI of proximal left circumflex and left main into proximal LAD. Cardiology aware of GI eval of dark stools and recommend no disruption of DAPT. Meds Allergies Allergy/AdvReac Type Severity Reaction Status Date / Time naproxen [From NAPROSYN] Allergy Intermediate ITCHY Verified 10/18/20 08:36 sulfasalazine Allergy Intermediate anxiety Verified 10/18/20 08:36 Penicillins [PENICILLINS] Allergy Mild ITCHY Verified 10/18/20 08:36 Home Medications Medication Instructions Recorded Confirmed Type Lantus Solostar U-100 Insulin 15 unit SUBCUT BID 08/20/20 10/12/20 History ascorbate calcium (vitamin C) 500 500 mg PO DAILY 08/20/20 10/12/20 History mg tablet atorvastatin 40 mg tablet 40 mg PO BEDTIME 08/20/20 10/12/20 History docusate sodium 100 mg capsule 100 mg PO BID 08/20/20 10/12/20 History ferrous sulfate 324 mg (65 mg 324 mg PO DAILY 08/20/20 10/12/20 History iron) tablet,delayed release gabapentin 300 mg capsule 300 mg PO TID 08/20/20 10/12/20 History methotrexate sodium 2.5 mg tablet 17.5 mg PO TU 08/20/20 10/12/20 History metoprolol succinate 100 mg 100 mg PO DAILY 08/20/20 10/12/20 History tablet,extended release 24 hr omeprazole 20 mg capsule,delayed 20 mg PO DAILY 08/20/20 10/12/20 History release trazodone 50 mg tablet 50 mg PO BEDTIME 08/20/20 10/12/20 History clopidogrel 75 mg tablet 75 mg PO DAILY 08/31/20 10/12/20 History insulin lispro 100 unit/mL unit SUBCUT 08/31/20 10/07/20 History subcutaneous pen furosemide 20 mg tablet 20 mg PO DAILY 09/16/20 10/12/20 History sacubitril 49 mg-valsartan 51 mg 1 tab PO BID 09/16/20 10/12/20 History tablet Exam Exam Date and Time: October 12, 2020 1438 Height,Weight and Vital Signs: Height 5 ft 5 in Weight 70.307 kg Pertinent Lab Results Pertinent Lab Results: Laboratory Tests 10/02/20 10/09/20 09:40 10:45 WBC 9.6 Hgb 8.4 L Hct 26.9 L Plt Count 255 Sodium 141 Potassium 4.4 Chloride 108 Carbon Dioxide 24 BUN 14 D Creatinine 1.16 Narrative Narrative: Pacer BIOTRONIK interr 10/07/20 DDD-60 AP 1%, RVP 100% Battery 70% EKG 08/2020 Asensed, Vpaced rhythm with prolonged AV conduction ECHO 08/2020 LVEF 50-55% Severe calc of aortic valve. mod Mild MAC, mild MR mild to mod TR Assessment and Plan Assessment Anesthesia Assessment: Chart Reviewed Documented by User: Manuela Duque 10/18/20 09:38 PMFSH Past Medical History Medical History Acute coronary syndrome Aortic stenosis BPH (benign prostatic hyperplasia) CAD (coronary artery disease) CHB (complete heart block) CVA (cerebral vascular accident) Diastolic CHF Essential hypertension HLD (hyperlipidemia) HTN (hypertension) Hx of cardiac pacemaker Left carotid stenosis Non-rheumatic aortic stenosis Normally functioning cardiac pacemaker present On anticoagulant therapy On beta randy at home Pacemaker (~06/2015) PAF (paroxysmal atrial fibrillation) Rheumatoid arthritis Type 2 diabetes mellitus with unspecified complications Family History Family History Father Cancer Mother Cancer Surgical History Surgical History H/O colonoscopy History of appendectomy History of esophagogastroduodenoscopy History of lumbar surgery History of prostate surgery Hx of cholecystectomy S/P cardiac cath (~08/2020) Social History Social History Household Members: None Alcohol intake: former Smoking Status: Former smoker Tobacco Type: Cigarette Years Smoked: 25 Smoked in Last 30 Days: No Smoking Quit Date: 2009 Use of substances other than those prescribed or required for medical reasons: No Advance Directives Information Provided: No Recently lost weight without trying: No service: No Current occupational status: retired Meds Allergies Allergy/AdvReac Type Severity Reaction Status Date / Time naproxen [From NAPROSYN] Allergy Intermediate ITCHY Verified 10/18/20 08:36 sulfasalazine Allergy Intermediate anxiety Verified 10/18/20 08:36 Penicillins [PENICILLINS] Allergy Mild ITCHY Verified 10/18/20 08:36 Home Medications Medication Instructions Recorded Confirmed Type Lantus Solostar U-100 Insulin 15 unit SUBCUT BID 08/20/20 10/12/20 History ascorbate calcium (vitamin C) 500 500 mg PO DAILY 08/20/20 10/12/20 History mg tablet atorvastatin 40 mg tablet 40 mg PO BEDTIME 08/20/20 10/12/20 History docusate sodium 100 mg capsule 100 mg PO BID 08/20/20 10/12/20 History ferrous sulfate 324 mg (65 mg 324 mg PO DAILY 08/20/20 10/12/20 History iron) tablet,delayed release gabapentin 300 mg capsule 300 mg PO TID 08/20/20 10/12/20 History methotrexate sodium 2.5 mg tablet 17.5 mg PO TU 08/20/20 10/12/20 History metoprolol succinate 100 mg 100 mg PO DAILY 08/20/20 10/12/20 History tablet,extended release 24 hr omeprazole 20 mg capsule,delayed 20 mg PO DAILY 08/20/20 10/12/20 History release trazodone 50 mg tablet 50 mg PO BEDTIME 08/20/20 10/12/20 History clopidogrel 75 mg tablet 75 mg PO DAILY 08/31/20 10/12/20 History insulin lispro 100 unit/mL unit SUBCUT 08/31/20 10/07/20 History subcutaneous pen furosemide 20 mg tablet 20 mg PO DAILY 09/16/20 10/12/20 History sacubitril 49 mg-valsartan 51 mg 1 tab PO BID 09/16/20 10/12/20 History tablet Exam Airway Mallampati Class: II (Edentulous) TM Dist: >3cm Loose/Missing/Broken Teeth: Upper and Lower Heart: RRR Lungs: CTA Assessment and Plan Assessment Anesthesia Assessment: Anesthesia Plan Discussed and Chart Reviewed (Pt was instructed not to stop his ASA or plavix, however his last dose ws 10/15/20. Consulted with his eco industrial development consultant Dr. Hill who advises to proceed, and to instruct pt to take Plavix 300 mg and ASA 81 mg tonight, then proceed with usual regimen tomorrow. Dr. Shelton aar of plan.) Final Anesthetic Review NPO: Yes ASA Class: IV Final Preanesthetic Review: Meds/Allgs Chart Reviewed, Consent Obtained/Reviewed and Anes Risks/Benef Reviewed Patient Risk: High Procedure Risk: Intermediate Anesthetic Plan Anesthetic Plan: MAC: Disposition: Standard PACU
[2020-10-18 08:25] VITALS: BP 131/47; PULSE 78; RESP 18; TEMP 36.1; O2SAT 99
[2020-10-18 08:28] LABS: Glucose, Whole Blood 92 mg/dL (60-115)
[2020-10-18] MEDS: Lactated Ringers 1,000 ML 50 ML IVCONT (09:12)
--- NOTE | 2020-10-18 09:31 | P.OP_ITS ---
Operative Note Operative Note Date of Service: 10/18/20 Narrative: Pre-op diagnosis: GI Bleeding, anemia Post-op diagnosis: other (Gastritis, healed duodenal ulcer) Procedure: FLEXIBLE TRANSORAL UPPER GASTROINTESTINAL ENDOSCOPY Consent: Indications for the procedure and potential complications of bleeding, perforation, reaction to medications and missed diagnosis were discussed with the patient and informed consent was obtained. Instrument: Olympus GIF H 190 mid size upper endoscope Monitoring: Vital signs and clinical assessment, continuous EKG monitoring, Pulse oximetry, Carbon Dioxide monitoring and blood pressure monitoring were done throughout the procedure. Procedure: The patient was placed in the left lateral decubitis position and pre-procedure medications were administered and a bite block was placed. The endoscope was inserted into the mouth and advanced under direct vision to the third part of duodenum. A careful inspection was made as the upper endoscope was withdrawn including a retroflexed examination of the proximal stomach; Findings and interventions are described below. Findings: Larynx: Normal Esophagus: GE junction at 38 cms. 1 cms tongue of suspected Reese's Stomach: Mild gastric erythema with nodular appearing gastric mucosa. Biopsies were not obtained since pt is to resume Plavix today. Grade 2 flap valve on retroflexed examination of the cardia. Duodenum: Scar of healed ulcer in the apex of the bulb and normal descending duodenum Intervention: Biopsies as noted above Impression and Post Procedure Diagnosis: Endoscopy Findings: ESOPHAGUS: 1 cms tongue of suspected Reese's - no biopsies were obtained since pt is on Plavix and aspirin STOMACH: Nodular gastritis DUODENUM: Scar of healed ulcer in the apex of the bulb Plan: Await pathology results. Needs repeat EGD with esophageal biopsies in 1 year once he is able to hold Plavix. Patient has an appointment on 11/18/20 in the GI [facility] with Jose Shelton M.D. Above findings were reviewed with the patient. Repeat CBC today. Surgeon: Jose Shelton MD Anesthesia: MAC (GLASS CUTTER HAND Cuff and Dr Anti) Estimated blood loss (mL): 0 Pathology: none sent Condition: stable Disposition: PACU
--- NOTE | 2020-10-18 09:31 | MHC.SHP ---
Pre-Procedural Eval Section B Chief Complaint: anemia Details of Present Illness: Complains of decreased appetite and some difficulty swallowing Patient denies symptoms of heartburn, nausea, vomiting. Weight loss of 8 to 10 lbs. Notes intermittent black stools alternating with normal stools - last episode of black stools was a week ago. Relevant Family History (Specify if Yes): Yes Relevant Social History: Tobacco Use (past smoker) Present Medications: see Short Stay Collaborative assessment Medical History: Significant History (Acute coronary syndrome Aortic stenosis BPH (benign prostatic hyperplasia) CHB (complete heart block) CVA (cerebral vascular accident) Diastolic CHF Essential hypertension HLD (hyperlipidemia) HTN (hypertension) Hx of cardiac pacemaker Left carotid stenosis Non-rheumatic aortic stenosis Normally fun) History of Previous Operations: Relevant previous surgery/procedure and date(s) (History of appendectomy History of esophagogastroduodenoscopy History of lumbar surgery History of prostate surgery Hx of cholecystectomy) Allergies: Allergies Allergy/AdvReac Type Severity Reaction Status Date / Time naproxen [From NAPROSYN] Allergy Intermediate ITCHY Verified 10/18/20 08:36 sulfasalazine Allergy Intermediate anxiety Verified 10/18/20 08:36 Penicillins [PENICILLINS] Allergy Mild ITCHY Verified 10/18/20 08:36 Review of Systems Sugical H&P ROS: Negative: Cardiovascular and Yes, Specify: Respiratory (shortness of breath) and Gastrointestinal (decreased appetite) Exam Surgical H&P Exam: Normal: Lungs and Normal: Abdomen and Significant Findings: Heart (III/ systolic murmur and at the right sternal border ) and Significant Findings: Extremities (1-2+ pitting edema) Plan Diagnosis/Plan: Unchanged I have reviewed the history and physical and performed a pertinent physical examination on my patient. No changes have occurred unless specified.
[2020-10-18 10:06] VITALS: BP 98/41; PULSE 73; RESP 20; TEMP 36.2; O2SAT 99
[2020-10-18 10:21] VITALS: BP 121/44; PULSE 82; RESP 20; TEMP 36.2; O2SAT 98
[2020-10-18 10:51] LABS: Hematocrit 25.6 % (42-52); Mean Corpuscular HGB Conc 31.3 g/dl (31.0-36.0); Mean Corpuscular Hemoglobin 29.2 pg (27.0-33.0); Mean Corpuscular Volume 93.4 fL (80-98); Platelet Count 249 X10*3/uL (160-400); Red Blood Count 2.74 X10*6/uL (4.60-5.80); Red Cell Distribution Width 14.7 % (11.0-16.0)
--- NOTE | 2020-10-18 10:58 | HO.POSTANES ---
Post Anesthesia Evaluation Post Anesthesia Evaluation Vital Signs: Vital Signs Temp Pulse Resp BP Pulse Ox 10/18/20 10:21 97.1 F 82 20 121/44 L 98 10/18/20 10:06 97.1 F 73 20 98/41 L 99 10/18/20 08:25 96.9 F 78 18 131/47 L 99 Anesthesia: Monitored Mental Status: Awake Pain Control: Satisfactory Nausea/Vomiting: None Hydration: Adequate Anesthesia-Related Issues: No Anes. Related Issues (Reinforced plavix/asa orders for today.)
[2020-10-18 18:40] LABS: Folate > 20.0 ng/mL (> or = 4.0); Vitamin B12 258 pg/mL (200-900)
== END 2020-10-18 10:46 | disposition home or self-care (01) ==
PROVIDERS: PCP Internal Medicine; Visit Provider Internal Medicine Gastroenterology
PROC: 0DJ08ZZ Inspection of Upper Intestinal Tract, Via Natural or Artificial Opening Endoscopic (ICD-10-PCS; CPT 43235; principal; 2020-10-18 09:40)
DX: D64.9 Anemia, unspecified (principal); K29.70 Gastritis, unspecified, without bleeding; K26.9 Duodenal ulcer, unspecified as acute or chronic, without hemorrhage or perforation; I11.0 Hypertensive heart disease with heart failure; I50.30 Unspecified diastolic (congestive) heart failure; E11.9 Type 2 diabetes mellitus without complications; I48.0 Paroxysmal atrial fibrillation; Z79.01 Long term (current) use of anticoagulants; Z95.0 Presence of cardiac pacemaker; M06.9 Rheumatoid arthritis, unspecified; Z90.49 Acquired absence of other specified parts of digestive tract; Z79.82 Long term (current) use of aspirin; Z79.4 Long term (current) use of insulin; Z79.899 Other long term (current) drug therapy
CPT/HCPCS: 43235; 36415; 82607; 82746; 82947; 85027

== ENCOUNTER 2020-10-28 10:52 | Outpatient (REF) | payer MEDICARE, SELFPAY ==
--- NOTE | ~2020-10-28 | US_ITS ---
EXAMINATION: US VENOUS WITH DOPPLER LOWER EXTREMITY, LEFT CLINICAL INFORMATION: Leg edema COMPARISON: None TECHNIQUE: Ultrasound of the deep veins is performed from the hip to the calf with compression sonography and color and pulse Doppler assessment. Spectral analysis with color-flow imaging is performed. FINDINGS: The left common femoral vein could not be compressed completely due to patient discomfort. Otherwise there is normal venous compression and respiratory variation and augmented flow. The visualized common femoral vein, superficial femoral vein, profunda femoral vein, popliteal vein, and the trifurcation region shows no evidence of deep venous thrombosis. There is no significant popliteal fossa cyst. There is a small lymph node in the left groin measuring 1.5 x 1.2 x 0.9 cm. US/US venous duplex LE LT IMPRESSION: No DVT demonstrated in the left lower extremity.
== END 2020-10-28 10:53 | disposition home or self-care (01) ==
LOC: HO.US 10:52
PROVIDERS: PCP Internal Medicine; Visit Provider Internal Medicine
DX: R60.9 Edema, unspecified (principal)
CPT/HCPCS: 93971

== ENCOUNTER → 2020-11-18 12:38 | Outpatient (BNVA) | payer MEDICARE, SELFPAY | PROVIDERS: PCP Internal Medicine; Visit Provider Internal Medicine Gastroenterology | CPT/HCPCS: Q3014 ==

== ENCOUNTER 2020-11-22 10:54 | Outpatient (REF) | payer MEDICARE, SELFPAY ==
[2020-11-22 12:38] LABS: MANUAL DIFF FLAG NO
[2020-11-22 12:46] LABS: Basophils Percent Auto 0.3 % (0-2); Eosinophils Absolute Auto 0.1 X10*3/uL (0.0-0.4); Eosinophils Percent Auto 1.1 % (0-4); Hematocrit 31.6 % (42-52); Hemoglobin 9.9 g/dl (14.0-18.0); Imm Gran Abs Auto 0.02 X10*3/uL (0.00-0.03); Imm Gran Pct Auto 0.2 % (0.0-0.4); Lymphocytes Absolute Auto 1.7 X10*3/uL (1.2-4.9); Lymphocytes Percent Auto 17.7 % (20-40); Mean Corpuscular HGB Conc 31.3 g/dl (31.0-36.0); Mean Corpuscular Hemoglobin 27.9 pg (27.0-33.0); Mean Platelet Volume 11.3 fL (9.4-12.4); Monocytes Absolute Auto 0.6 X10*3/uL (0.1-1.2); Monocytes Percent Auto 6.2 % (2-11); Neutrophils Absolute Auto 7.2 X10*3/uL (2.0-8.3); Neutrophils Percent Auto 74.5 % (45-73); Platelet Count 380 X10*3/uL (160-400); Red Blood Count 3.55 X10*6/uL (4.60-5.80); Red Cell Distribution Width 14.1 % (11.0-16.0); White Blood Count 9.7 X10*3/uL (4.8-10.8)
[2020-11-22 13:13] LABS: B Type Natriuretic Peptide 266 pg/mL (<100)
[2020-11-22 13:33] LABS: Alanine Aminotransferase 11 U/L (0-40); Alkaline Phosphatase 64 U/L (39-117); Anion Gap 16 (12-20); Aspartate Amino Transferase 12 U/L (5-37); Bilirubin Total 0.4 mg/dL (0.0-1.0); Blood Urea Nitrogen 56 mg/dL (9-16); Calcium 9.1 mg/dL (8.4-10.2); Carbon Dioxide 27 mmol/L (22-29); Chloride 99 mmol/L (96-108); Estimated Glomerular Filt Rate 35; Glucose Random 245 mg/dL (60-115); Sodium 137 mmol/L (135-145); Total Protein 7.9 g/dL (6.5-8.0)
== END 2020-11-22 10:55 | disposition home or self-care (01) ==
LOC: HO.LAB 10:54
PROVIDERS: PCP Internal Medicine; Visit Provider Nurse Practitioner Family
DX: I11.0 Hypertensive heart disease with heart failure (principal); I50.40 Unspecified combined systolic (congestive) and diastolic (congestive) heart failure; I25.10 Atherosclerotic heart disease of native coronary artery without angina pectoris; I25.5 Ischemic cardiomyopathy; I35.0 Nonrheumatic aortic (valve) stenosis; I48.0 Paroxysmal atrial fibrillation; D64.9 Anemia, unspecified; I25.2 Old myocardial infarction; Z86.79 Personal history of other diseases of the circulatory system; Z79.02 Long term (current) use of antithrombotics/antiplatelets; Z79.82 Long term (current) use of aspirin; Z95.0 Presence of cardiac pacemaker
CPT/HCPCS: 36415; 80053; 83880; 85025; 99212

== ENCOUNTER → 2021-01-10 13:01 | Outpatient (BNVA) | payer MEDICARE, SELFPAY | PROVIDERS: PCP Internal Medicine; Visit Provider Internal Medicine | DX: Z45.018 Encounter for adjustment and management of other part of cardiac pacemaker (principal); I21.4 Non-ST elevation (NSTEMI) myocardial infarction; I25.5 Ischemic cardiomyopathy; I35.0 Nonrheumatic aortic (valve) stenosis; I48.0 Paroxysmal atrial fibrillation; I65.22 Occlusion and stenosis of left carotid artery; I10 Essential (primary) hypertension; E11.8 Type 2 diabetes mellitus with unspecified complications; K92.2 Gastrointestinal hemorrhage, unspecified | CPT/HCPCS: 99212 ==

== ENCOUNTER 2021-02-04 09:08 | Outpatient (REF) | payer MEDICARE, SELFPAY ==
--- NOTE | ~2021-02-04 | XR_ITS ---
EXAMINATION: XR HIP, LEFT CLINICAL INFORMATION: Left hip arthritis COMPARISON: None TECHNIQUE: Two views of the left hip. FINDINGS: Bone alignment is normal. No fracture or dislocation is seen. There are are small left acetabular osteophytes. The joint space is otherwise normal. There is evidence of atherosclerotic disease. XR/XR hip LT min 2V IMPRESSION: Mild arthritis at the left hip joint.
[2021-02-04 10:08] LABS: MANUAL DIFF FLAG NO
[2021-02-04 10:13] LABS: Basophils Percent Auto 0.3 % (0-2); Eosinophils Absolute Auto 0.1 X10*3/uL (0.0-0.4); Eosinophils Percent Auto 1.8 % (0-4); Hematocrit 23.1 % (42-52); Hemoglobin 7.4 g/dl (14.0-18.0); Imm Gran Abs Auto 0.04 X10*3/uL (0.00-0.03); Imm Gran Pct Auto 0.5 % (0.0-0.4); Lymphocytes Absolute Auto 2.1 X10*3/uL (1.2-4.9); Lymphocytes Percent Auto 29.1 % (20-40); Mean Corpuscular Hemoglobin 27.9 pg (27.0-33.0); Mean Corpuscular Volume 87.2 fL (80-98); Mean Platelet Volume 11.4 fL (9.4-12.4); Monocytes Absolute Auto 0.6 X10*3/uL (0.1-1.2); Monocytes Percent Auto 8.2 % (2-11); Neutrophils Absolute Auto 4.4 X10*3/uL (2.0-8.3); Neutrophils Percent Auto 60.1 % (45-73); Platelet Count 224 X10*3/uL (160-400); Red Blood Count 2.65 X10*6/uL (4.60-5.80); Red Cell Distribution Width 16.1 % (11.0-16.0); White Blood Count 7.3 X10*3/uL (4.8-10.8)
[2021-02-04 10:53] LABS: Alanine Aminotransferase 8 U/L (0-40); Albumin Level 3.9 g/dL (3.5-5.0); Alkaline Phosphatase 70 U/L (39-117); Anion Gap 15 (12-20); Aspartate Amino Transferase 9 U/L (5-37); Bilirubin Total 0.3 mg/dL (0.0-1.0); Blood Urea Nitrogen 48 mg/dL (9-16); Calcium 8.8 mg/dL (8.4-10.2); Carbon Dioxide 28 mmol/L (22-29); Chloride 100 mmol/L (96-108); Cholesterol 111 mg/dL; Estimated Glomerular Filt Rate 33; Glucose Random 219 mg/dL (60-115); HDL Cholesterol 28 mg/dL; LDL Cholesterol Calculated 59 mg/dl; Potassium 5.2 mmol/L (3.3-5.1); Sodium 138 mmol/L (135-145); Total Protein 6.9 g/dL (6.5-8.0); Triglycerides 121 mg/dL
[2021-02-04 11:03] LABS: Estimated Average Glucose 229 mg/dL; Hemoglobin A1c % 9.6 %
== END 2021-02-04 09:09 | disposition home or self-care (01) ==
LOC: HO.XRAY 09:08
PROVIDERS: PCP Internal Medicine; Visit Provider Internal Medicine
DX: I12.9 Hypertensive chronic kidney disease with stage 1 through stage 4 chronic kidney disease, or unspecified chronic kidney disease (principal); E11.22 Type 2 diabetes mellitus with diabetic chronic kidney disease; N18.9 Chronic kidney disease, unspecified; D63.1 Anemia in chronic kidney disease; E78.2 Mixed hyperlipidemia; R27.0 Ataxia, unspecified; M16.12 Unilateral primary osteoarthritis, left hip
CPT/HCPCS: 36415; 73502; 80053; 80061; 83036; 85025

== ENCOUNTER → 2021-02-17 12:27 | Outpatient (BNVA) | payer MEDICARE, SELFPAY | PROVIDERS: PCP Internal Medicine; Visit Provider Internal Medicine | DX: I21.4 Non-ST elevation (NSTEMI) myocardial infarction (principal); I25.5 Ischemic cardiomyopathy; I35.0 Nonrheumatic aortic (valve) stenosis; I48.0 Paroxysmal atrial fibrillation; I65.22 Occlusion and stenosis of left carotid artery; I10 Essential (primary) hypertension; E11.8 Type 2 diabetes mellitus with unspecified complications; K92.2 Gastrointestinal hemorrhage, unspecified; Z95.0 Presence of cardiac pacemaker | CPT/HCPCS: 99212 ==

== ENCOUNTER → 2021-03-14 12:02 | Outpatient (BNVA) | payer MEDICARE, SELFPAY | PROVIDERS: PCP Internal Medicine; Referring Provider Internal Medicine; Visit Provider Internal Medicine | DX: Z45.018 Encounter for adjustment and management of other part of cardiac pacemaker (principal); I21.4 Non-ST elevation (NSTEMI) myocardial infarction; I25.5 Ischemic cardiomyopathy; I35.0 Nonrheumatic aortic (valve) stenosis; I48.0 Paroxysmal atrial fibrillation; I65.22 Occlusion and stenosis of left carotid artery; I10 Essential (primary) hypertension; E11.8 Type 2 diabetes mellitus with unspecified complications; K92.2 Gastrointestinal hemorrhage, unspecified | CPT/HCPCS: 99212 ==

== ENCOUNTER → 2021-03-23 13:01 | Outpatient (BNVA) | payer MEDICARE, SELFPAY | PROVIDERS: PCP Internal Medicine; Visit Provider Internal Medicine | DX: I21.4 Non-ST elevation (NSTEMI) myocardial infarction (principal); I10 Essential (primary) hypertension; I25.5 Ischemic cardiomyopathy; I35.0 Nonrheumatic aortic (valve) stenosis; I48.0 Paroxysmal atrial fibrillation; I65.22 Occlusion and stenosis of left carotid artery; E11.8 Type 2 diabetes mellitus with unspecified complications; K92.2 Gastrointestinal hemorrhage, unspecified; Z95.0 Presence of cardiac pacemaker | CPT/HCPCS: 99212 ==

== ENCOUNTER 2021-03-30 10:41 | Outpatient (REF) | payer MEDICARE, SELFPAY ==
[2021-03-30 13:16] LABS: Hematocrit 29.3 % (42-52); Hemoglobin 8.8 g/dl (14.0-18.0); Mean Corpuscular Volume 93.3 fL (80-98); Mean Platelet Volume 11.3 fL (9.4-12.4); Platelet Count 317 X10*3/uL (160-400); Red Blood Count 3.14 X10*6/uL (4.60-5.80)
[2021-03-30 13:25] LABS: Anion Gap 14 (12-20); Blood Urea Nitrogen 24 mg/dL (9-16); Calcium 9.1 mg/dL (8.4-10.2); Carbon Dioxide 21 mmol/L (22-29); Chloride 110 mmol/L (96-108); Estimated Glomerular Filt Rate 48; Glucose Random 162 mg/dL (60-115); Potassium 4.9 mmol/L (3.3-5.1); Sodium 140 mmol/L (135-145)
== END 2021-03-30 10:42 | disposition home or self-care (01) ==
LOC: HO.LAB 10:41
PROVIDERS: PCP Internal Medicine; Referring Provider Internal Medicine; Visit Provider Internal Medicine
DX: I21.4 Non-ST elevation (NSTEMI) myocardial infarction (principal); I25.5 Ischemic cardiomyopathy; I35.0 Nonrheumatic aortic (valve) stenosis; I48.0 Paroxysmal atrial fibrillation; I65.22 Occlusion and stenosis of left carotid artery; I10 Essential (primary) hypertension; E11.8 Type 2 diabetes mellitus with unspecified complications; K92.2 Gastrointestinal hemorrhage, unspecified; Z95.0 Presence of cardiac pacemaker; Z79.899 Other long term (current) drug therapy
CPT/HCPCS: 36415; 80048; 85027; 93005; 99212

== ENCOUNTER → 2021-04-07 09:35 | Outpatient (BNVA) | payer MEDICARE, SELFPAY | PROVIDERS: PCP Internal Medicine; Visit Provider Internal Medicine Gastroenterology | DX: K92.2 Gastrointestinal hemorrhage, unspecified (principal); D64.9 Anemia, unspecified | CPT/HCPCS: 99212 ==

== ENCOUNTER 2021-04-11 10:43 | Inpatient (IN) | payer MEDICARE, SELFPAY ==
[2021-04-11] VITALS (11 sets, daily range): BP systolic 111–123; BP diastolic 54–65; PULSE 90–120; RESP 18–26; TEMP 36.7–36.8; O2SAT 93–99; BMI 30.2
--- NOTE | ~2021-04-11 | XR_ITS ---
EXAMINATION: XR CHEST CLINICAL INFORMATION: Chest pain. COMPARISON: None TECHNIQUE: Frontal view of the chest was obtained. FINDINGS: The lungs are well-expanded with increased pulmonary vascularity but no acute infiltrate seen. Heart size is borderline normal. There are pacer electrodes in right atrium and right ventricle. No gross bony abnormality seen. XR/XR chest 1V IMPRESSION: Mild pulmonary vascular congestion with borderline normal heart.
--- NOTE | 2021-04-11 11:00 | PC.NURSE ---
Pt alert and oriented x3, he reports last night he started having chest pain that radiates to jaw. Pt has pacemaker but does not remember when it was placed. He states he gets chest pain every 2 to 3 months. He does have a VALET MANAGER and a visiting nurse to assist him at home. Since arriving to the ed pt's HR has been in the low 100s, he denies SOB/difficulty breathing. Pt in no apparent distress, resting quietly. Lab results pending.
--- NOTE | 2021-04-11 11:50 | ED.CHESTPAIN ---
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 Patient had a SLNitro in the ambulance with improvement. Patient feels that the pain is the same as his heart pain. Patient has a pacemaker and had cardiac cath in 09/05. Patient is unsure if he has a stent. Patient gets chest pain every 2 month or three months. Pain radiates up into his jaw. MD complaint: chest pain Pertinent past history: coronary artery disease and prior AR Onset (ago): hour(s) Timing of current episode: episodic Prior episodes: Yes Onset: during rest Pain location: substernal Pain radiation: jaw/teeth Severity: mild Quality: sharp Relieving factors: nothing Risk Factors Coronary artery disease risk factors: diabetes, hyperlipidemia, hypertension and family history of CAD before age 50 Related Data Home Medications Medication Instructions Recorded Confirmed Lantus Solostar U-100 Insulin 15 unit SUBCUT BID 08/20/20 04/07/21 ascorbate calcium (vitamin C) 500 500 mg PO DAILY 08/20/20 04/07/21 mg tablet atorvastatin 40 mg tablet 40 mg PO BEDTIME 08/20/20 04/07/21 docusate sodium 100 mg capsule 100 mg PO BID 08/20/20 04/07/21 ferrous sulfate 324 mg (65 mg 324 mg PO DAILY 08/20/20 04/07/21 iron) tablet,delayed release omeprazole 20 mg capsule,delayed 20 mg PO DAILY 08/20/20 04/07/21 release trazodone 50 mg tablet 50 mg PO BEDTIME 08/20/20 04/07/21 insulin lispro 100 unit/mL unit SUBCUT 08/31/20 04/07/21 subcutaneous pen gabapentin 300 mg capsule 300 mg PO BID cap 11/18/20 04/07/21 ticagrelor 90 mg tablet 90 mg PO BID 03/14/21 04/07/21 aspirin 81 mg tablet,delayed 81 mg PO DAILY 03/23/21 04/07/21 release pantoprazole 40 mg tablet,delayed 40 mg PO DAILY 03/23/21 04/07/21 release Previous Rx's Medication Instructions Recorded tamsulosin 0.4 mg capsule 0.4 mg PO BEDTIME #90 cap 07/27/20 insulin lispro [Humalog U-100 See Protocol SUBCUT QIDACHS #100 ml 08/23/20 Insulin] folic acid 1 mg tablet 1 mg PO DAILY #90 tab 10/06/20 Allergies Allergy/AdvReac Type Severity Reaction Status Date / Time naproxen [From NAPROSYN] Allergy Intermediate ITCHY Verified 04/07/21 09:37 sulfasalazine Allergy Intermediate anxiety Verified 04/07/21 09:37 Penicillins [PENICILLINS] Allergy Mild ITCHY Verified 04/07/21 09:37 Review of Systems Constitutional: Constitutional: Reports no additional constitutional complaints Eyes: Eyes: Reports no additional eye complaints ENT: Denies dizziness Cardiovascular: Cardiovascular: Reports no additional cardiovascular complaints Respiratory: Respiratory: Reports as per HPI Gastrointestinal: Gastrointestinal: Reports no additional gastrointestinal complaints Musculoskeletal: Musculoskeletal: Reports no additional musculoskeletal complaints Integumentary/Breasts: Skin/Breast: Denies rash Neurologic: Denies dizziness and Denies Sensory deficit (Neuro) Psychiatric: Psychiatric: Denies anxiety [facility] Past Medical History Medical History Acute coronary syndrome Aortic stenosis BPH (benign prostatic hyperplasia) CAD (coronary artery disease) CHB (complete heart block) CVA (cerebral vascular accident) Diastolic CHF Essential hypertension HLD (hyperlipidemia) HTN (hypertension) Hx of cardiac pacemaker Left carotid stenosis Non-rheumatic aortic stenosis Normally functioning cardiac pacemaker present On anticoagulant therapy On beta randy at home Pacemaker (~06/2015) PAF (paroxysmal atrial fibrillation) Rheumatoid arthritis Type 2 diabetes mellitus with unspecified complications Surgical History H/O colonoscopy History of appendectomy History of esophagogastroduodenoscopy History of lumbar surgery History of prostate surgery Hx of cholecystectomy S/P cardiac cath (~08/2020) Status post biventricular pacemaker (~10/2020) Family History Family History Father Cancer Mother Cancer Social History Social History Household Members: Other Household Members Other:: 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 Alcohol intake: former Patient Tobacco Use Status: Former Tobacco user Years Smoked: 25 Advance Directives: Yes Advance Directives Information Provided: Yes Advance Directives on File: No service: No Current occupational status: retired Physical Exam Vital Signs: Vital Signs: Last Vital Signs Temp 98.0 F 04/11/21 11:29 Pulse 96 04/11/21 12:36 Resp 22 H 04/11/21 12:36 BP 113/54 L 04/11/21 12:36 Pulse Ox 97 04/11/21 12:36 Body Mass Index 30.2 Const: Other: elderly male General: healthy appearing Nutritional Appearance: average body habitus Orientation/consciousness: oriented to person and patient oriented x3 Limitations: no limitations HENMT: Head: Yes normal to inspection Ears: external ears normal General nose exam: Normal external nose present Mouth: Normal oral and palatal mucosa present and oropharynx normal Throat: Yes posterior oropharynx normal Eyes: General: appearance normal, both eyes and all related structures Neck: Other: supple Neck: Yes normal visual inspection Chest: Chest palpation & inspection: normal inspection of the chest Resp: Other: basilar crackles Cardio: Jugular venous distension: no JVD Rate: regular rate Rhythm: regular rhythm Heart sounds: S1 normal heart sound present and S2 normal heart sound present GI: Inspection: Yes normal to inspection Palpation (GI): Soft to palpation, nontender and No hepatosplenomegaly present Auscultation: normal bowel sounds : General: Yes no CVA tenderness Back/Spine/Pelvis: Back: no CVA tenderness Skin: General skin exam: no rashes or lesions noted Neuro: General: oriented to person and patient oriented x3 Cranial nerves: Yes CN's II-XII intact bilaterally Motor exam (neuro): 5/5 motor strength present throughout Sensory Exam: No Sensory deficit (Neuro) Extrem: Other: 2+ edema bilaterally Psych: Appearance: grossly normal Course Reevaluation(s) Reevaluation #1: Patient with positive troponin and high BNP. Definitely looks like he had a cardiac event over the past few days. Will give ASA, NTP and lasix and admit for NSTEMI and CHF Time: 13:28 Reevaluation #2: I spent 40 minutes of critical care, with interventions, assessments, speaking to patient, consultants, and family. Discussed with Dr. Hill Time: 13:28 MDM - Chest Pain Lab Data Result diagrams: 04/11/21 12:13 04/11/21 12:13 Labs: Lab Results 07/04/11/21 04/11/21 Range/Units 12:13 12:13 12:13 WBC 7.4 (4.8-10.8) X10*3/uL RBC 2.77 L (4.60-5.80) X10*6/uL Hgb 7.9 L (14.0-18.0) g/dl Hct 25.3 L (42-52) % MCV 91.3 (80-98) fL MCH 28.5 (27.0-33.0) pg MCHC 31.2 (31.0-36.0) g/dl RDW 15.1 (11.0-16.0) % Plt Count 361 (160-400) X10*3/uL MPV 10.9 (9.4-12.4) fL Immature Gran % (Auto) 0.4 (0.0-0.4) % Neut % (Auto) 78.5 H (45-73) % Lymph % (Auto) 13.8 L (20-40) % [place] % (Auto) 6.5 (2-11) % Eos % (Auto) 0.4 (0-4) % Baso % (Auto) 0.4 (0-2) % Lymph # (Auto) 1.0 L (1.2-4.9) X10*3/uL [place] # (Auto) 0.5 (0.1-1.2) X10*3/uL Eos # (Auto) 0.0 (0.0-0.4) X10*3/uL Baso # (Auto) 0.0 (0.0-0.2) X10*3/uL Abs Immat Gran (auto) 0.03 (0.00-0.03) X10*3/uL Absolute Neuts (auto) 5.8 (2.0-8.3) X10*3/uL Absolute Nucleated RBC 0.000 (0.0-0.012) X10*3/uL Nucleated RBC % (auto) 0.0 (0.0-0.2) /100WBC Sodium 138 (135-145) mmol/L Potassium 4.6 (3.3-5.1) mmol/L Chloride 107 (96-108) mmol/L Carbon Dioxide 22 (22-29) mmol/L Anion Gap 14 (12-20) BUN 27 H (9-16) mg/dL Creatinine 1.70 H (0.5-1.4) mg/dL Estim Creat Clear Calc 33.0 Estimated GFR 39 Random Glucose 207 H (60-115) mg/dL Calcium 8.5 D (8.4-10.2) mg/dL Troponin I High Sens 1254.0 H* (<3.5-35.0) ng/L B-Natriuretic Peptide 1556 H (<100) pg/mL Imaging Data Chest x-ray: Radiologist's impression: vascular congestion ECG Data ECG #1: Attestation: I personally reviewed and interpreted this ECG as follows: Interpretation: sinus with ventricular pacing at [address] or twave changes Discharge Plan Discharge Clinical Impression: Chest discomfort, NSTEMI (non-ST elevated myocardial infarction) Congestive heart failure (CHF) Qualifiers: Heart failure type: combined systolic and diastolic Heart failure chronicity: acute on chronic Qualified Code(s): I50.43 - Acute on chronic combined systolic (congestive) and diastolic (congestive) heart failure Patient Disposition: Admitted As Inpatient
--- NOTE | 2021-04-11 12:02 | ECG_ITS ---
Test Reason : CP LAST NIGHT Blood Pressure : / mmHG Vent. Rate : 103 BPM Atrial Rate : 103 BPM P-R Int : 144 ms QRS Dur : 142 ms QT Int : 388 ms P-R-T Axes : 077 -67 115 degrees QTc Int : 508 ms Atrial-sensed ventricular-paced rhythm Abnormal ECG When compared with ECG of 20-AUG-2020 13:00, Vent. rate has increased BY 28 BPM Referred By: Moreno Azevedo Electronically Signed By:MAGUE BULL
[2021-04-11] MEDS: Nitroglycerin 2 % Oint 1 GM Packet 1 INCH TRANSDERMA (12:18)
[2021-04-11 12:20] LABS: MANUAL DIFF FLAG NO
[2021-04-11 12:23] LABS: Basophils Percent Auto 0.4 % (0-2); Eosinophils Percent Auto 0.4 % (0-4); Hematocrit 25.3 % (42-52); Hemoglobin 7.9 g/dl (14.0-18.0); Imm Gran Abs Auto 0.03 X10*3/uL (0.00-0.03); Imm Gran Pct Auto 0.4 % (0.0-0.4); Lymphocytes Percent Auto 13.8 % (20-40); Mean Corpuscular HGB Conc 31.2 g/dl (31.0-36.0); Mean Corpuscular Hemoglobin 28.5 pg (27.0-33.0); Mean Corpuscular Volume 91.3 fL (80-98); Mean Platelet Volume 10.9 fL (9.4-12.4); Monocytes Absolute Auto 0.5 X10*3/uL (0.1-1.2); Monocytes Percent Auto 6.5 % (2-11); Neutrophils Absolute Auto 5.8 X10*3/uL (2.0-8.3); Neutrophils Percent Auto 78.5 % (45-73); Platelet Count 361 X10*3/uL (160-400); Red Blood Count 2.77 X10*6/uL (4.60-5.80); Red Cell Distribution Width 15.1 % (11.0-16.0); White Blood Count 7.4 X10*3/uL (4.8-10.8)
[2021-04-11 12:46] LABS: Anion Gap 14 (12-20); Blood Urea Nitrogen 27 mg/dL (9-16); Calcium 8.5 mg/dL (8.4-10.2); Carbon Dioxide 22 mmol/L (22-29); Chloride 107 mmol/L (96-108); Estimated Glomerular Filt Rate 39; Glucose Random 207 mg/dL (60-115); Potassium 4.6 mmol/L (3.3-5.1); Sodium 138 mmol/L (135-145)
[2021-04-11 12:58] LABS: B Type Natriuretic Peptide 1556 pg/mL (<100)
--- NOTE | 2021-04-11 13:13 | PC.NURSE ---
Critical Troponin (7537), Dr. Azevedo was notified.
[2021-04-11] MEDS: Furosemide 40 MG/4 ML VIAL IVPUSH (13:46)
[2021-04-11] MEDS: Aspirin Enteric Coated 81 MG TABLET.DR 162 MG PO (13:47)
[2021-04-11 14:03] LABS: COVID-19 Test Negative (Negative)
--- NOTE | 2021-04-11 14:57 | P.HPHOSP_ITS ---
History of Present Illness Date of Service: 04/11/21 Chief Complaint: chest pain This is an 81-year-old male with a past medical history of CAD status post stenting drug-eluting stent on dual antiplatelet with aspirin and Brilinta(for full details, see Dr. Hill is outpatient clinic note from 03/30/2021), rec ent GI bleed managed conservatively at [facility], paroxysmal atrial fibrillation, type 2 diabetes mellitus who presented to the hospital with complaints of substernal chest pain which radiated to his jaw which he 1st noticed yesterday evening while ambulating to the bathroom. Patient reports that his pain did not really subside and so he presented to the emergency room. History is obtained with the help of a rn procedure. It appears that the patient has quite a complex coronary history. He has had multiple cardiac catheterizations with stenting in the proximal circumflex as well as left main into the proximal LAD. He has been deemed a nonsurgical candidate by cardiothoracic surgery. It also appears that at the end of February 2021 patient was admitted to [facility] for what appears to be a gastrointestinal bleed. Due to his high risk cardiac history, he was managed conservatively with IV PPI and required transfusion of multiple packed red cells. During 1 of the recent admissions, he also was found to have a left- sided stroke and upon interrogation of his pacemaker was noted that he had paroxysmal AFib. Upon arrival to the emergency room, his workup revealed an elevated high sensitivity of 1254 and a BNP of 1556. His EKG was atrial sensed, ventricular paced. His chest x-ray was consistent with acute CHF findings. The case was discussed with the powerhouse mechanic supervisor by the ED provider and decision was made to admit the patient here Review of Systems Review of Systems: General - denies fevers or chills, denies weakness or fatigue HEENT -denies blurred vision, denies headache, denies sore throat Cardiovascular - +chest pain Respiratory - +sob GI- denies abdominal pain, nausea, vomiting, diarrhea, no dark blood - denies flank pain, denies dysuria, denies frequency or urgency Musculoskeletal - denies back pain, denies hip pain, denies knee pain, denies shoulder pain Neurological - denies any focal weakness or numbness Skin, denies any bruising or redness Psychiatric - denies any suicidal ideation, hallucinations, homicidal ideation Endocrinology - denies intolerance to hot / cold temperatures [facility] Medical History Acute coronary syndrome Aortic stenosis BPH (benign prostatic hyperplasia) CAD (coronary artery disease) CHB (complete heart block) CVA (cerebral vascular accident) Diastolic CHF Essential hypertension HLD (hyperlipidemia) HTN (hypertension) Hx of cardiac pacemaker Left carotid stenosis Non-rheumatic aortic stenosis Normally functioning cardiac pacemaker present On anticoagulant therapy On beta randy at home Pacemaker (~06/2015) PAF (paroxysmal atrial fibrillation) Rheumatoid arthritis Type 2 diabetes mellitus with unspecified complications Family History Father Cancer Mother Cancer Surgical History H/O colonoscopy History of appendectomy History of esophagogastroduodenoscopy History of lumbar surgery History of prostate surgery Hx of cholecystectomy S/P cardiac cath (~08/2020) Status post biventricular pacemaker (~10/2020) Social History Household Members: Other Household Members 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 Alcohol intake: former Patient Tobacco Use Status: Former Tobacco user Years Smoked: 25 Advance Directives: Yes Advance Directives Information Provided: Yes Advance Directives on File: No service: No Current occupational status: retired Meds Allergies Allergy/AdvReac Type Severity Reaction Status Date / Time naproxen [From NAPROSYN] Allergy Intermediate ITCHY Verified 04/07/21 09:37 sulfasalazine Allergy Intermediate anxiety Verified 04/07/21 09:37 Penicillins [PENICILLINS] Allergy Mild ITCHY Verified 04/07/21 09:37 Active Medications: Current Medications Generic Name Dose Route Start Last Admin Trade Name Freq PRN Reason Stop Dose Admin Acetaminophen 650 mg 04/11/21 14:27 Acetaminophen 325 Mg Tablet PO Q6H PRN Pain, Mild (Pain Scale 1-3) Aspirin 162 mg 04/11/21 13:45 04/11/21 13:47 Aspirin Enteric Coated 81 Mg Tablet.Dr PO 162 mg DAILY FEROZ Administration Heparin Sodium/Sodium Chloride 25,000 unit in 250 mls @ 0 mls/hr 04/11/21 15:00 IVCONT .Q0M FEROZ Protocol Per Protocol Insulin Glargine 10 unit 04/11/21 21:00 Insulin Glargine,Hum.Rec.Anlog 100 Unit/Ml 10 Ml Vial SUBCUT BEDTIME [facility] Insulin Human Lispro 0 unit 04/11/21 16:30 Insulin Lispro 100 Unit/Ml 3 Ml Vial SUBCUT QIDACHS [facility] Protocol Omeprazole 40 mg 04/11/21 16:30 Omeprazole 40 Mg Capsule.Dr PO BID@0630,3030 [facility] Ondansetron HCl 4 mg 04/11/21 14:27 Ondansetron Hcl 4 Mg/2 Ml Vial IVPUSH Q8H PRN Nausea and Vomiting Pharmacy Consult 1 each 04/11/21 13:29 Consult Rx Perform Med Rec MISCELLANE ONCE PRN Consult order Sodium Chloride 3 ml 04/11/21 16:00 0.9 % Sodium Chloride Flush 3 Ml Syringe IVFLUSH QSHIFT [facility] Home Medications Medication Instructions Recorded Confirmed Last Taken Type Lantus Solostar U-100 Insulin 20 unit SUBCUT BEDTIME 08/20/20 04/11/21 04/10/21 History ferrous sulfate 324 mg (65 mg 324 mg PO DAILY 08/20/20 04/11/21 04/10/21 History iron) tablet,delayed release trazodone 50 mg tablet 50 mg PO BEDTIME 08/20/20 04/11/21 04/10/21 History gabapentin 300 mg capsule 300 mg PO TID cap 11/18/20 04/11/21 04/10/21 History ticagrelor 90 mg tablet 90 mg PO BID 03/14/21 04/11/21 04/10/21 History aspirin 81 mg tablet,delayed 81 mg PO DAILY 03/23/21 04/11/21 04/10/21 History release pantoprazole 40 mg tablet,delayed 40 mg PO DAILY 03/23/21 04/11/21 04/10/21 History release amlodipine 10 mg PO DAILY 04/11/21 04/11/21 04/10/21 History atorvastatin 80 mg PO BEDTIME 04/11/21 04/11/21 04/10/21 History insulin lispro [Humalog U-100 See Rx Instructions .ROUTE .COMPLEX 04/11/21 04/11/21 04/10/21 History Insulin] sacubitril-valsartan [Entresto] 1 tab PO BID 0704/11/21 04/10/21 History Physical Exam Vital Signs and Narrative: Vital Signs: Last Vital Signs Temp 98.0 F 04/11/21 11:29 Pulse 98 04/11/21 13:45 Resp 25 H 04/11/21 13:45 BP 120/58 L 04/11/21 13:45 Pulse Ox 99 04/11/21 13:45 Body Mass Index 30.2 Const: Other: Constitutional - Awake and Alert, No apparent distress Eyes - PERRLA, EOMI Cardiovascular - S1S2, audible 3rd heart sound, 2+ bilateral pittind edema Respiratory - trace rales at the bilateral bases Gastrointestinal - NT / ND; +BS; No rebound or guarding - No CVA tenderness Extremities - no calf tenderness bilaterally, no swelling Musculoskeletal - Normal inspection, normal ROM Skin - Warm/Dry Neurological - Awake and alert, oriented to place and time Psychological - Appropriate affect Results Labs CBC and Chem 7: 04/11/21 12:13 04/11/21 12:13 Labs: Laboratory Results - last 24 hr 04/11/21 04/11/21 04/11/21 12:13 12:13 12:13 MCV 91.3 MCH 28.5 MCHC 31.2 RDW 15.1 Plt Count 361 MPV 10.9 Immature Gran % (Auto) 0.4 Neut % (Auto) 78.5 H Lymph % (Auto) 13.8 L [place] % (Auto) 6.5 Eos % (Auto) 0.4 Baso % (Auto) 0.4 Lymph # (Auto) 1.0 L [place] # (Auto) 0.5 Eos # (Auto) 0.0 Baso # (Auto) 0.0 Abs Immat Gran (auto) 0.03 Absolute Neuts (auto) 5.8 Absolute Nucleated RBC 0.000 Nucleated RBC % (auto) 0.0 Anion Gap 14 Estim Creat Clear Calc 33.0 Estimated GFR 39 Random Glucose 207 H Calcium 8.5 D Troponin I High Sens 1254.0 H* B-Natriuretic Peptide 1556 H COVID-19 (HIEU) COVID-19 Clin Com 04/11/21 13:41 MCV MCH MCHC RDW Plt Count MPV Immature Gran % (Auto) Neut % (Auto) Lymph % (Auto) [place] % (Auto) Eos % (Auto) Baso % (Auto) Lymph # (Auto) [place] # (Auto) Eos # (Auto) Baso # (Auto) Abs Immat Gran (auto) Absolute Neuts (auto) Absolute Nucleated RBC Nucleated RBC % (auto) Anion Gap Estim Creat Clear Calc Estimated GFR Random Glucose Calcium Troponin I High Sens B-Natriuretic Peptide COVID-19 (HIEU) Negative COVID-19 Clin Com See Note Imaging Radiologist's Impressions: Impressions Chest X-Ray 04/11/21 12:02 IMPRESSION: Mild pulmonary vascular congestion with borderline normal heart. Assessment and Plan (1) NSTEMI (non-ST elevated myocardial infarction): Status: Acute (2) Congestive heart failure (CHF): Qualifiers: Heart failure chronicity: acute on chronic Heart failure type: combined systolic and diastolic Qualified Code(s): I50.43 - Acute on chronic combined systolic (congestive) and diastolic (congestive) heart failure Status: Acute This is an 81 yo M with a PMH of CAD - s/p multiple stents on DAPT with asa+brillinta, recent GI bleed (managed conservatively), PAF no on OAC due to GI bleed, who presents to the hospital with complaints of chest pain and will be admitted for the management of his NSTEMI. 1. NSTEMI known advanced CAD -- deemded not a surgical candidate for CABG d/w the Dr. Hill -- will treat with IV heparin drip. (The risk of bleeding was discussed with the patients daughter Jessica over the phone with the help of rn procedure. She understood the risks and is agreeable on IV heparin gtt). Will transfuse 1 unit PRBC now and trend h/h q6 hours. Will start heparin gtt without initial loading bolus. continue DAPT, continue statin, add low dose BB - metoprolol 12.5mg BID will get limited echo to eval for wall motion trend HS-trop 2. Acute CHF, diastolic Echo from [facility] records from December showed preserved EF with grade 2 diastolic dysfunction received IV lasix 40mg in the ED, still appears voluem overloaded, will give lower dose of 20mg monitor renal function closely 3. Recent GI bleed no evidence of active GI bleed at this time. He is on iron replacement at home, hence FOBT maybe be false positive. Will instead give GI prophylaxis and increase his PPI to BID Check h/h q6 hours while on heparin gtt 4. DM lantus 10 units qhs + sliding scale POC QIDAC 5. CKD stage 4 monitor renal function continue other baseline meds as appropriate. DVT pptx -- on IV heparin gtt HCP - Daughter Jessica Full Code Goals of care discussion held with keisha Lopez on the phone with Michelle olivares. She reports that her fathers wishes were to do everything possible to treat his medical condition and hence she wishes for him to be full code. She has been made aware that his condition is very tenuous and that he may decompensate. Quality Stroke Does the patient have a stroke diagnosis?: No VTE Prior VTE?: No VTE Risk Level:: Medical - moderate - high VTE Device Contraindication: N/A - Device Ordered VTE Drug Contraindication: N/A - Med Ordered
--- NOTE | 2021-04-11 15:30 | PC.NURSE ---
Repeat troponin 2331.2, Dr. Azevedo aware.
[2021-04-11 15:33] LABS: INTERNATIONAL NORM RATIO 1.1 (0.9-1.1); Prothrombin Time 12.2 SEC (9.9-13.0)
[2021-04-11 15:36] LABS: PTT Heparin Drip 39.7 SEC (53-77.9)
[2021-04-11] MEDS: Metoprolol Tartrate 12.5 MG HALFTAB PO (15:43)
[2021-04-11] MEDS: Heparin Sodium,Porcine/1/2NS 25,000 UNIT/250 ML IV.SOLN 9.6 UNIT IVCONT (15:45)
[2021-04-11] MEDS: Gabapentin 300 MG CAPSULE PO ×2 (16:11→22:05)
[2021-04-11] MEDS: 0.9 % Sodium Chloride Flush 3 ML SYRINGE IVFLUSH (16:11)
--- NOTE | 2021-04-11 16:15 | PC.NURSE ---
1 UNIT RBC READY,RN AWARE
--- NOTE | 2021-04-11 16:15 | PC.NURSE ---
Heparin infusing per protocol and as documented, pt tolerating well. Vss stable, no sob/difficulty breathing, no apparent distress noted. Awaiting bed assignment.
[2021-04-11] MEDS: Omeprazole 40 MG CAPSULE.DR PO (16:26)
--- NOTE | 2021-04-11 16:30 | PC.NURSE ---
Case management at bedside
--- NOTE | 2021-04-11 16:33 | MHC.CM.PN ---
CM met with admitted pt, bed assignment pending, with manager medical writing, as pt is Hungarian speaking only. IMM reviewed and signed 04/11/21@4684. HCP/daughter Jessica Crystal ([phone]). HCP is not on file. Copy requested. PCP Dr. Carroll. Pt tells CM he has a [employer]-40 hours/week during day and 19 hours/nightly. Pt states [employer] transports him to MD visits. Pt states he has daily [facility] for medication management. Pt is unsure what company provides these services. Pt tells CM he has a cane, walker and Wheelchair. Also has diabetic testing supplies and bathroom modifications. D/C plan per pt is home with resumption of services. Transport is [employer] vs wheelchair van. CM will follow for d/c needs.
[2021-04-11 16:36] LABS: Glucose, Whole Blood 153 mg/dL (60-115)
[2021-04-11] MEDS: Insulin Lispro 100 UNIT/ML 3 ML VIAL SUBCUT ×2 (16:39→22:47)
[2021-04-11] MEDS: Furosemide 20 MG/2 ML VIAL IVPUSH (18:30)
--- NOTE | 2021-04-11 19:19 | PC.NURSE ---
Pt difficult stick, second IV line established by Dr. Azevedo via ultra sound. Blood verified and is currently infusing as documented, without difficulty. Pt tolerating well. vss, no sob/difficulty breathing, no apparent distress noted. Pt awaiting bed placement
[2021-04-11] MEDS: Ticagrelor 90 MG TABLET PO (22:05)
[2021-04-11] MEDS: Atorvastatin Calcium 80 MG TABLET PO (22:05)
[2021-04-11] MEDS: Tamsulosin HCL 0.4 MG CAPSULE PO (22:05)
[2021-04-11] MEDS: Insulin Glargine,Hum.rec.anlog 100 UNIT/ML 10 ML VIAL 10 UNIT SUBCUT (22:05)
[2021-04-11] MEDS: traZODone HCL 50 MG TABLET PO (22:05)
[2021-04-11 22:07] LABS: Glucose, Whole Blood 199 mg/dL (60-115)
[2021-04-11 22:11] LABS: Hematocrit 29.7 % (42-52); Hemoglobin 9.3 g/dl (14.0-18.0); Mean Corpuscular HGB Conc 31.3 g/dl (31.0-36.0); Mean Corpuscular Hemoglobin 29.1 pg (27.0-33.0); Mean Corpuscular Volume 92.8 fL (80-98); Platelet Count 356 X10*3/uL (160-400); Red Cell Distribution Width 15.3 % (11.0-16.0); White Blood Count 8.8 X10*3/uL (4.8-10.8)
[2021-04-11 22:35] LABS: PTT Heparin Drip 106.7 SEC (53-77.9)
[2021-04-12] VITALS (11 sets, daily range): BP systolic 92–121; BP diastolic 46–80; PULSE 82–101; RESP 14–20; TEMP 36.5–36.8; O2SAT 96–100
[2021-04-12] MEDS: 0.9 % Sodium Chloride Flush 3 ML SYRINGE IVFLUSH ×3 (00:03→21:00)
[2021-04-12 04:28] LABS: Hematocrit 27.1 % (42-52); Hemoglobin 8.7 g/dl (14.0-18.0); Mean Corpuscular HGB Conc 32.1 g/dl (31.0-36.0); Mean Corpuscular Hemoglobin 29.2 pg (27.0-33.0); Mean Corpuscular Volume 90.9 fL (80-98); Platelet Count 331 X10*3/uL (160-400); Red Blood Count 2.98 X10*6/uL (4.60-5.80); Red Cell Distribution Width 14.9 % (11.0-16.0); White Blood Count 8.3 X10*3/uL (4.8-10.8)
[2021-04-12 04:36] LABS: PTT Heparin Drip 79.7 SEC (53-77.9)
[2021-04-12 05:05] LABS: Anion Gap 14 (12-20); Blood Urea Nitrogen 27 mg/dL (9-16); Calcium 8.4 mg/dL (8.4-10.2); Carbon Dioxide 21 mmol/L (22-29); Chloride 107 mmol/L (96-108); Creatinine Clr Calc Pharmacy 37.7; Estimated Glomerular Filt Rate 45; Glucose Random 140 mg/dL (60-115); Potassium 4.1 mmol/L (3.3-5.1); Sodium 138 mmol/L (135-145)
[2021-04-12 05:09] LABS: Troponin-I High Sensitivity 2117.5 ng/L (<3.5-35.0)
--- NOTE | 2021-04-12 07:30 | CA_ITS ---
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 The visually estimated ejection fraction is between 25-30%. - Wall motion difficult to assess. Globally hypokinetic, with additional regionality in the mid to distal inferior septum, inferolateral wall. Distal part of inferior wall appears akinetic. Most basal inferior wall also akinetic. - There is moderate aortic valve stenosis. - There is moderate mitral valve regurgitation. - There is mild to moderate tricuspid valve regurgitation. - Mild pulmonary hypertension is present. Findings Left Ventricle Normal left ventricular cavity size. There is moderately increased left ventricular wall thickness. The left ventricular systolic function is severely decreased. The visually estimated ejection fraction is between 25 30%. There is evidence of regional wall motion abnormalities. E/E prime ratio is >15, consistent with elevated filling pressures. Evidence suggests grade I (mild) diastolic dysfunction. Wall motion difficult to assess. Globally hypokinetic With additional regionality in the mid to distal inferior septum, inferolateral wall. Distal part of inferior wall appears akinetic. Most basal inferior wall also akinetic. Right Ventricle Normal right ventricular cavity size and systolic function. Atria The left atrium is moderately dilated. The right atrium is normal in size. Aortic Valve There is moderate calcification of the aortic valve. There is moderate aortic valve stenosis. The peak aortic velocity is 2.55 m/s with a calculated peak gradient of 26 mmHg. The mean gradient is 17 mmHg. The aortic valve area is 1.12 cm2. There is no aortic valve regurgitation. Mitral Valve There is mild mitral annular calcification. There is moderate mitral valve regurgitation. There is no mitral valve stenosis. Pulmonic Valve The pulmonic valve was not well visualized. Tricuspid Valve There is mild to moderate tricuspid valve regurgitation. The right ventricular systolic pressure is 47 mmHg. Mild pulmonary hypertension is present. Great Vessels The asc aorta is normal in size. Venous The inferior vena cava is normal in size and collapses greater than 50% with inspiration. Pericardium/Pleural There is a small loculated pericardial effusion overlying the left ventricle and right atrium. There are no definitive echocardiographic findings of tamponade physiology. Prior Study Comparison Significant changes compared to prior study dated: 08/23/2020. Measurements 2D Linear Measurements IVSd: 1.24 0.6-0.9/0.6-1.0 cm LVIDd: 5.35 3.9-5.3/4.2-5.9 cm LVIDd Index: 2.89 2.4-3.2/2.2-3.1 cm/m2 LVIDs: 4.61 2.0-3.6 cm LVPWd: 1.12 0.7-1.1 cm Ao Root: 3.10 2.1-3.5 cm LV Mass: 317.39 67-162/88-224 g LV Mass Index: 171.56 43-95/49-115 g/m2 LVOT Diam: 2.10 3.0+(-)1.3 cm 2D Systolic Function EF 4C: 32.50 >55% EF 2C: 30.60 >55% EF BiP: 28.00 >55% Mitral Valve MV Pk E: 0.88 MV PK A: 1.04 MV Decel Time: 102.00 E/A: 0.80 E'Lateral: 5.33 E'Medial: 4.57 E/E' Med: 19.20 E/E' Lat: 16.50 PHT: 30.00 MVA PHT: 7.33 Decel [place]: 8.58 MR Vol - PW Dopp: 43.20 MR VTI: 1.44 MR ERO: 30.00 MR Alias Ziggy: 0.59 MR RAD: 0.60 Aortic Valve AoV Pk Ziggy: 2.55 AoV Mn Ziggy: 1.91 AoV VTI: 0.58 AoV Pk Grad: 26.00 Aov Mn Grad: 17.00 VANI Cont.VTI: 1.12 LVOT LVOT Pk Ziggy: 0.82 LVOT Mn Ziggy: 0.55 LVOT VTI: 0.19 LVOT Pk Grad: 3.00 LVOT Mn Grad: 1.00 LVOT Diam: 2.10 LVOT Area: 3.46 Diastolic Function MV Pk E: 0.88 MV Pk A: 1.04 E/A: 0.80 E'Medial: 4.57 E/E' Med: 19.20 E' Laterial: 5.33 E/E' Lat: 16.50 Tricuspid Valve TR Pk Ziggy: 3.12 TR Pk Grad: 39.00 RA Press: 3.00 RVSP: 47.00 Great Vessels Aorta Ao Root-2D: 3.10 2.0-3.7 cm Pulmonary Valve PV Pk Ziggy: 1.07 Peak PV Grad: 5.00 Updated in Other Vendor System with Status of Final Saleem Hill MD electronically signed on 04/12/2021 5:02:37 PM with status of Final
[2021-04-12 08:02] LABS: Glucose, Whole Blood 140 mg/dL (60-115)
[2021-04-12] MEDS: Ferrous Sulfate 324 MG TABLET.DR PO (09:31)
[2021-04-12] MEDS: Aspirin Enteric Coated 81 MG TABLET.DR PO (09:31)
[2021-04-12] MEDS: Gabapentin 300 MG CAPSULE PO ×3 (09:31→20:59)
[2021-04-12] MEDS: Ticagrelor 90 MG TABLET PO ×2 (09:32→21:00)
[2021-04-12] MEDS: Furosemide 20 MG/2 ML VIAL IVPUSH (09:32)
[2021-04-12] MEDS: Omeprazole 40 MG CAPSULE.DR PO ×2 (09:32→16:47)
[2021-04-12] MEDS: Folic Acid 1 MG TABLET PO (09:32)
--- NOTE | 2021-04-12 10:02 | HO.PM.IMPN ---
Subjective Subjective Date of Service: 04/12/21 Interval History: seen and examined no chest pain feeling regular ROS General - no fevers or chills Cardiovascular - no chest pain Respiratory - no shortness of breath or cough Abdominal- no abdominal pain, nausea, vomiting, diarrhea Physical Exam Vital Signs: Vital Signs: Last Vital Signs Temp 98.0 F 04/12/21 08:00 Pulse 98 04/12/21 08:00 Resp 20 04/12/21 08:00 BP 121/80 04/12/21 08:00 Pulse Ox 98 04/12/21 08:00 Body Mass Index 30.2 Const: Other: Constitutional - Awake and Alert, No apparent distress Eyes - PERRLA, EOMI Cardiovascular - S1S2, edema persists, still 1-2+ Respiratory - no rales Gastrointestinal - NT / ND; +BS; No rebound or guarding - No CVA tenderness Extremities - no calf tenderness bilaterally, no swelling Musculoskeletal - Normal inspection, normal ROM Skin - Warm/Dry Neurological - Awake and alert, oriented to place and time Psychological - Appropriate affect Objective Data Current Medications Generic Name Dose Route Start Last Admin Trade Name Christq PRN Reason Stop Dose Admin Acetaminophen 650 mg 04/11/21 14:27 Acetaminophen 325 Mg Tablet PO Q6H PRN Pain, Mild (Pain Scale 1-3) Aspirin 81 mg 04/12/21 09:00 04/12/21 09:31 Aspirin Enteric Coated 81 Mg Tablet. PO 81 mg DAILY FEROZ Administration Atorvastatin Calcium 80 mg 04/11/21 21:00 04/11/21 22:05 Atorvastatin Calcium 80 Mg Tablet PO 80 mg BEDTIME FEROZ Administration Ferrous Sulfate 324 mg 04/12/21 09:00 04/12/21 09:31 Ferrous Sulfate 324 Mg Tablet. PO 324 mg DAILY FEROZ Administration Folic Acid 1 mg 04/12/21 09:00 04/12/21 09:32 Folic Acid 1 Mg Tablet PO 1 mg DAILY FEROZ Administration Furosemide 20 mg 04/11/21 18:00 04/12/21 09:32 Furosemide 20 Mg/2 Ml Vial IVPUSH 20 mg BID@0900,1800 FEROZ Administration Protocol Gabapentin 300 mg 04/11/21 15:00 04/12/21 09:31 Gabapentin 300 Mg Capsule PO 300 mg TID FEROZ Administration Heparin Sodium (Porcine) 6,400 unit 04/11/21 15:03 Heparin Sodium,Porcine 5,000 Unit/Ml Vial 80 unit/kg (6400 unit) IVPUSH PROTOCOL BOLUS PRN 80 unit/kg - Heparin Protocol Protocol Heparin Sodium (Porcine) 3,200 unit 04/11/21 15:03 Heparin Sodium,Porcine 5,000 Unit/Ml Vial 40 unit/kg (3200 unit) IVPUSH PROTOCOL BOLUS PRN 40 unit/kg - Heparin Protocol Protocol Heparin Sodium/Sodium Chloride 25,000 unit in 250 mls @ 0 mls/hr 04/11/21 15:15 04/12/21 05:03 IVCONT 7 units/kg/hr .Q0M FEROZ 5.6 mls/hr Titration Protocol Per Protocol Insulin Glargine 10 unit 04/11/21 21:00 04/11/21 22:05 Insulin Glargine,Hum.Rec.Anlog 100 Unit/Ml 10 Ml Vial SUBCUT 10 unit BEDTIME EFROZ Administration Insulin Human Lispro 0 unit 04/11/21 16:30 04/12/21 08:13 Insulin Lispro 100 Unit/Ml 3 Ml Vial SUBCUT Not Given QIDACHS [facility] Protocol Metoprolol Tartrate 12.5 mg 04/11/21 15:30 04/12/21 03:30 Metoprolol Tartrate 12.5 Mg Halftab PO Not Given Q12H [facility] Protocol Omeprazole 40 mg 04/11/21 16:30 04/12/21 09:32 Omeprazole 40 Mg Capsule.Dr PO 40 mg BID@0630,1630 FEROZ Administration Ondansetron HCl 4 mg 04/11/21 14:27 Ondansetron Hcl 4 Mg/2 Ml Vial IVPUSH Q8H PRN Nausea and Vomiting Pharmacy Consult 1 each 04/11/21 13:29 Consult Rx Perform Med Rec MISCELLANE ONCE PRN Consult order Sodium Chloride 3 ml 04/11/21 16:00 04/12/21 09:31 0.9 % Sodium Chloride Flush 3 Ml Syringe IVFLUSH 3 ml QSHIFT FEROZ Administration Tamsulosin HCl 0.4 mg 04/11/21 21:00 04/11/21 22:05 Tamsulosin Hcl 0.4 Mg Capsule PO 0.4 mg BEDTIME FEROZ Administration Ticagrelor 90 mg 04/11/21 21:00 04/12/21 09:32 Ticagrelor 90 Mg Tablet PO 90 mg BID FEROZ Administration Trazodone HCl 50 mg 04/11/21 21:00 04/11/21 22:05 Trazodone Hcl 50 Mg Tablet PO 50 mg BEDTIME FEROZ Administration Labs CBC & Chem 7: 04/12/21 04:23 04/12/21 04:23 Labs: Laboratory Results - last 24 hr 04/11/21 04/11/21 04/11/21 12:13 12:13 12:13 WBC 7.4 RBC 2.77 L Hgb 7.9 L Hct 25.3 L MCV 91.3 MCH 28.5 MCHC 31.2 RDW 15.1 Plt Count 361 MPV 10.9 Immature Gran % (Auto) 0.4 Neut % (Auto) 78.5 H Lymph % (Auto) 13.8 L [place] % (Auto) 6.5 Eos % (Auto) 0.4 Baso % (Auto) 0.4 Lymph # (Auto) 1.0 L [place] # (Auto) 0.5 Eos # (Auto) 0.0 Baso # (Auto) 0.0 Abs Immat Gran (auto) 0.03 Absolute Neuts (auto) 5.8 Absolute Nucleated RBC 0.000 Nucleated RBC % (auto) 0.0 PT INR PTT (Heparin Protocol) Sodium 138 Potassium 4.6 Chloride 107 Carbon Dioxide 22 Anion Gap 14 BUN 27 H Creatinine 1.70 H Estim Creat Clear Calc 33.0 Estimated GFR 39 POC Glucose Random Glucose 207 H Calcium 8.5 D Troponin I High Sens 1254.0 H* B-Natriuretic Peptide 1556 H COVID-19 (HIEU) COVID-19 Clin Com Blood Type Antibody Screen Crossmatch 04/11/21 04/11/21 04/11/21 13:41 15:18 15:18 WBC RBC Hgb Hct MCV MCH MCHC RDW Plt Count MPV Immature Gran % (Auto) Neut % (Auto) Lymph % (Auto) [place] % (Auto) Eos % (Auto) Baso % (Auto) Lymph # (Auto) [place] # (Auto) Eos # (Auto) Baso # (Auto) Abs Immat Gran (auto) Absolute Neuts (auto) Absolute Nucleated RBC Nucleated RBC % (auto) PT 12.2 INR 1.1 PTT (Heparin Protocol) 39.7 L Sodium Potassium Chloride Carbon Dioxide Anion Gap BUN Creatinine Estim Creat Clear Calc Estimated GFR POC Glucose Random Glucose Calcium Troponin I High Sens 2331.2 H* D B-Natriuretic Peptide COVID-19 (HIEU) Negative COVID-19 Clin Com See Note Blood Type Antibody Screen Crossmatch 04/11/21 04/11/21 04/11/21 15:18 16:32 22:02 WBC RBC Hgb Hct MCV MCH MCHC RDW Plt Count MPV Immature Gran % (Auto) Neut % (Auto) Lymph % (Auto) [place] % (Auto) Eos % (Auto) Baso % (Auto) Lymph # (Auto) [place] # (Auto) Eos # (Auto) Baso # (Auto) Abs Immat Gran (auto) Absolute Neuts (auto) Absolute Nucleated RBC Nucleated RBC % (auto) PT INR PTT (Heparin Protocol) Sodium Potassium Chloride Carbon Dioxide Anion Gap BUN Creatinine Estim Creat Clear Calc Estimated GFR POC Glucose 153 H 199 H Random Glucose Calcium Troponin I High Sens B-Natriuretic Peptide COVID-19 ([facility]IEU) COVID-Novaled Clin Com Blood Type A Positive Antibody Screen NEGATIVE Crossmatch See Detail 04/11/21 04/11/21 04/12/21 22:06 22:06 04:23 WBC 8.8 RBC 3.20 L Hgb 9.3 L Hct 29.7 L MCV 92.8 MCH 29.1 MCHC 31.3 RDW 15.3 Plt Count 356 MPV 11.0 Immature Gran % (Auto) Neut % (Auto) Lymph % (Auto) [place] % (Auto) Eos % (Auto) Baso % (Auto) Lymph # (Auto) [place] # (Auto) Eos # (Auto) Baso # (Auto) Abs Immat Gran (auto) Absolute Neuts (auto) Absolute Nucleated RBC 0.000 Nucleated RBC % (auto) 0.0 PT INR PTT (Heparin Protocol) 106.7 H D Sodium Potassium Chloride Carbon Dioxide Anion Gap BUN Creatinine Estim Creat Clear Calc Estimated GFR POC Glucose Random Glucose Calcium Troponin I High Sens 2117.5 H* B-Natriuretic Peptide COVID-19 ([facility]IEU) COVID-19 [place] [place] Com Blood Type Antibody Screen Crossmatch 04/12/21 04/12/21 04/12/21 04:23 04:23 04:23 WBC 8.3 RBC 2.98 L Hgb 8.7 L Hct 27.1 L MCV 90.9 MCH 29.2 MCHC 32.1 RDW 14.9 Plt Count 331 MPV 11.0 Immature Gran % (Auto) Neut % (Auto) Lymph % (Auto) [place] % (Auto) Eos % (Auto) Baso % (Auto) Lymph # (Auto) [place] # (Auto) Eos # (Auto) Baso # (Auto) Abs Immat Gran (auto) Absolute Neuts (auto) Absolute Nucleated RBC 0.000 Nucleated RBC % (auto) 0.0 PT INR PTT (Heparin Protocol) 79.7 H D Sodium 138 Potassium 4.1 Chloride 107 Carbon Dioxide 21 L Anion Gap 14 BUN 27 H Creatinine 1.49 H Estim Creat Clear Calc 37.7 Estimated GFR 45 POC Glucose Random Glucose 140 H Calcium 8.4 Troponin I High Sens B-Natriuretic Peptide COVID-19 ([facility]IEU) COVID-19 [place] [place] Com Blood Type Antibody Screen Crossmatch 04/12/21 07:58 WBC RBC Hgb Hct MCV MCH MCHC RDW Plt Count MPV Immature Gran % (Auto) Neut % (Auto) Lymph % (Auto) [place] % (Auto) Eos % (Auto) Baso % (Auto) Lymph # (Auto) [place] # (Auto) Eos # (Auto) Baso # (Auto) Abs Immat Gran (auto) Absolute Neuts (auto) Absolute Nucleated RBC Nucleated RBC % (auto) PT INR PTT (Heparin Protocol) Sodium Potassium Chloride Carbon Dioxide Anion Gap BUN Creatinine Estim Creat Clear Calc Estimated GFR POC Glucose 140 H Random Glucose Calcium Troponin I High Sens B-Natriuretic Peptide COVID-19 ([facility]IEU) COVID-19 Clin Com Blood Type Antibody Screen Crossmatch Imaging Chest x-ray: Radiologist's impression: Impressions Chest X-Ray 04/11/21 12:02 IMPRESSION: Mild pulmonary vascular congestion with borderline normal heart. Assessment and Plan (1) NSTEMI (non-ST elevated myocardial infarction): Status: Acute (2) Congestive heart failure (CHF): Status: Acute Assessment and Plan: This is an 81 yo M with a PMH of CAD - s/p multiple stents on DAPT with asa+brillinta, recent GI bleed (managed conservatively), PAF no on OAC due to GI bleed, who presents to the hospital with complaints of chest pain and will be admitted for the management of his NSTEMI. 1. NSTEMI known advanced CAD -- deemded not a surgical candidate for CABG continue heparin gtt x 48 hours, DAPT, continue statin, add low dose BB - metoprolol 12.5mg BID will get limited echo to eval for wall motion HS trop I down trending from peak of 2331 2. Acute CHF, diastolic [place] [facility] [place] showed preserved EF with grade 2 diastolic dysfunction continue IV lasix BID today 3. Recent GI bleed ([place] [facility] [place] no evidence of GI bleed continue trending h/h while on heparin s/p 1 unit PRBC at time of admission 4. DM lantus 10 units qhs + sliding scale POC QIDAC 5. CKD stage 4 monitor renal function improving with diuresis continue other baseline meds as appropriate. DVT pptx -- on IV heparin gtt HCP - Keisha Lopez Full Code Goals of care discussion held with keisha Lopez (at the time of admission) on the phone with industrial electrician. She reports that her fathers wishes were to do everything possible to treat his medical condition and hence she wishes for him to be full code. She has been made aware that his condition is very tenuous and that he may decompensate. Quality Stroke Does the patient have a stroke diagnosis?: No VTE Prior VTE?: No VTE Risk Level:: Medical - moderate - high VTE Device Contraindication: N/A - Device Ordered VTE Drug Contraindication: N/A - Med Ordered
--- NOTE | 2021-04-12 10:25 | MHC.CLN ---
RE: WT LOSS 2-13# PREVIOUS WT HX REVEALS 194# (11/2019) CURRENTLY DOES NOT TRIGGER FOR SIGNIFICANT WT LOSS AT THIS TIME
[2021-04-12 10:30] LABS: Hematocrit 28.5 % (42-52); Hemoglobin 9.1 g/dl (14.0-18.0)
[2021-04-12 10:57] LABS: PTT Heparin Drip 59.6 SEC (53-77.9)
--- NOTE | 2021-04-12 10:57 | PM.CNCAR ---
History of Present Illness History of Present Illness Date of Service: 04/12/21 Consult reason: myocardial infarction Chief complaint: chest pain Narrative: This is a cardiology consultation regarding chest pain and elevated troponins. He has a very complicated patient with numerous hospitalizations in the last few months. Around 08/2020, he was admitted with anginal-type complaints. Diagnosed to have NSTEMI. Underwent cardiac catheterization that showed multivessel CAD including left main stenosis. He also has moderate aortic stenosis. He was seen by Cardiac surgery but deemed too high a risk due to severe calcification of the ascending aorta. We then saw him in the office and arranged elective date for intervention but he was admitted with acute symptoms and hence had to go for urgent stenting of the proximal circumflex as well as left main into the proximal LAD. Subsequently, he was seen by GI due to concerns for black stools and underwent endoscopy workup. Another admission where it seems that he was in cardiogenic shock. He had mechanical assist support with a balloon pump. Pacemaker upgraded to SPA [employer]ORDINATOR-P. Successfully recovered and was discharged home. Then another admission to [facility] when he was also in hypoxic respiratory failure. Then sent over to [facility] where it seems that he was treated for UTI and secondary NSTEMI and possibly some heart failure as well. He recovered from that as well. Then another admission to [facility] when he again had NSTEMI. He was offered cardiac catheterization but patient declined it. Most recent cardiac catheterization was from few weeks ago where he had congestive heart failure, left-sided stroke, acute kidney injury among others. It seems that he also got some blood transfusion for anemia. Then another admission few days ago, when he had severe anemia and hemoglobin was around 5. It seems he got transfused several units of blood. This time, he is admitted because of an episode of chest pain around 05:00 or so. Last for about an hour and then resolved completely. Now back to his usual self. Review of Systems Review of Systems: Yes all other systems are reviewed and are negative Cardiovascular: Cardiovascular: Reports as per HPI, Reports no additional cardiovascular complaints, Denies acrocyanosis, Denies cool extremities, Denies painful fingertips, Reports chest pain, Reports chest pain at rest, Denies diaphoresis, Denies syncope, Denies irregular heart rhythm, Denies claudication, Denies leg edema, Denies lightheadedness, Denies palpitations and Denies dyspnea Respiratory: Respiratory: Denies dyspnea Neurologic: Denies syncope Endocrine: Endocrine: Denies palpitations [facility] Past Medical History Medical History Acute coronary syndrome Aortic stenosis BPH (benign prostatic hyperplasia) CAD (coronary artery disease) CHB (complete heart block) CVA (cerebral vascular accident) Diastolic CHF Essential hypertension HLD (hyperlipidemia) HTN (hypertension) Hx of cardiac pacemaker Left carotid stenosis Non-rheumatic aortic stenosis Normally functioning cardiac pacemaker present On anticoagulant therapy On beta randy at home Pacemaker (~06/2015) PAF (paroxysmal atrial fibrillation) Rheumatoid arthritis Type 2 diabetes mellitus with unspecified complications Family History Family History Father Cancer Mother Cancer Surgical History Surgical History H/O colonoscopy History of appendectomy History of esophagogastroduodenoscopy History of lumbar surgery History of prostate surgery Hx of cholecystectomy S/P cardiac cath (~08/2020) Status post biventricular pacemaker (~10/2020) Social History Social History Household Members: Children Household Members Other:: around the clock [employer] services Alcohol intake: former Patient Tobacco Use Status: Former Tobacco user Years Smoked: 25 Use of substances other than those prescribed or required for medical reasons: No Currently Displaying Signs/Symptoms of Drug Intoxication Withdrawal: No Have you been hit, kicked, punched, or otherwise hurt by someone within the past year? If so, by whom?: No Do you feel safe in your current relationship?: No Current Relationship Is there a partner from a previous relationship who is making you feel unsafe now?: No Are you made to feel afraid or neglected: No [employer] Healthcare Practices: pentecostalism Advance Directives: Yes Advance Directives Information Provided: Yes Advance Directives on File: No Advance Directives Date on File: 04/12/21 Do you have thoughts of harming others: None Do you have a plan to hurt others: No Plan How much weight loss: 2-13 pounds Eating poorly because of decreased appetite: Yes Nutrition Risks: No Nutritional Risk Poor oral hygiene: No service: No Current occupational status: retired Meds Allergies Allergy/AdvReac Type Severity Reaction Status Date / Time naproxen [From NAPROSYN] Allergy Intermediate ITCHY Verified 04/07/21 09:37 sulfasalazine Allergy Intermediate anxiety Verified 04/07/21 09:37 Penicillins [PENICILLINS] Allergy Mild ITCHY Verified 04/07/21 09:37 Active Medications: Current Medications Generic Name Dose Route Start Last Admin Trade Name Freq PRN Reason Stop Dose Admin Acetaminophen 650 mg 04/11/21 14:27 Acetaminophen 325 Mg Tablet PO Q6H PRN Pain, Mild (Pain Scale 1-3) Aspirin 81 mg 04/12/21 09:00 04/12/21 09:31 Aspirin Enteric Coated 81 Mg Tablet. PO 81 mg DAILY FEROZ Administration Atorvastatin Calcium 80 mg 04/11/21 21:00 04/11/21 22:05 Atorvastatin Calcium 80 Mg Tablet PO 80 mg BEDTIME FEROZ Administration Ferrous Sulfate 324 mg 04/12/21 09:00 04/12/21 09:31 Ferrous Sulfate 324 Mg Tablet. PO 324 mg DAILY FEROZ Administration Folic Acid 1 mg 04/12/21 09:00 04/12/21 09:32 Folic Acid 1 Mg Tablet PO 1 mg DAILY FEROZ Administration Furosemide 20 mg 04/11/21 18:00 04/12/21 09:32 Furosemide 20 Mg/2 Ml Vial IVPUSH 20 mg BID@0900,1800 FEROZ Administration Protocol Gabapentin 300 mg 04/11/21 15:00 04/12/21 09:31 Gabapentin 300 Mg Capsule PO 300 mg TID FEROZ Administration Heparin Sodium (Porcine) 6,400 unit 04/11/21 15:03 Heparin Sodium,Porcine 5,000 Unit/Ml Vial 80 unit/kg (6400 unit) IVPUSH PROTOCOL BOLUS PRN 80 unit/kg - Heparin Protocol Protocol Heparin Sodium (Porcine) 3,200 unit 04/11/21 15:03 Heparin Sodium,Porcine 5,000 Unit/Ml Vial 40 unit/kg (3200 unit) IVPUSH PROTOCOL BOLUS PRN 40 unit/kg - Heparin Protocol Protocol Heparin Sodium/Sodium Chloride 25,000 unit in 250 mls @ 0 mls/hr 04/11/21 15:15 04/12/21 05:03 IVCONT 04/13/21 15:14 7 units/kg/hr .Q0M FEROZ 5.6 mls/hr Titration Protocol Per Protocol Insulin Glargine 10 unit 04/11/21 21:00 04/11/21 22:05 Insulin Glargine,Hum.Rec.Anlog 100 Unit/Ml 10 Ml Vial SUBCUT 10 unit BEDTIME FEROZ Administration Insulin Human Lispro 0 unit 04/11/21 16:30 04/12/21 08:13 Insulin Lispro 100 Unit/Ml 3 Ml Vial SUBCUT Not Given QIDACHS [facility] Protocol Metoprolol Tartrate 12.5 mg 04/11/21 15:30 04/12/21 03:30 Metoprolol Tartrate 12.5 Mg Halftab PO Not Given Q12H [facility] Protocol Omeprazole 40 mg 04/11/21 16:30 04/12/21 09:32 Omeprazole 40 Mg Capsule. PO 40 mg BID@0630,5640 FEROZ Administration Ondansetron HCl 4 mg 04/11/21 14:27 Ondansetron Hcl 4 Mg/2 Ml Vial IVPUSH Q8H PRN Nausea and Vomiting Pharmacy Consult 1 each 04/11/21 13:29 Consult Rx Perform Med Rec MISCELLANE ONCE PRN Consult order Sodium Chloride 3 ml 04/11/21 16:00 04/12/21 09:31 0.9 % Sodium Chloride Flush 3 Ml Syringe IVFLUSH 3 ml QSHIFT FEROZ Administration Tamsulosin HCl 0.4 mg 04/11/21 21:00 04/11/21 22:05 Tamsulosin Hcl 0.4 Mg Capsule PO 0.4 mg BEDTIME FEROZ Administration Ticagrelor 90 mg 04/11/21 21:00 04/12/21 09:32 Ticagrelor 90 Mg Tablet PO 90 mg BID FEROZ Administration Trazodone HCl 50 mg 04/11/21 21:00 04/11/21 22:05 Trazodone Hcl 50 Mg Tablet PO 50 mg BEDTIME FEROZ Administration Home Medications Medication Instructions Recorded Confirmed Last Taken Type Lantus Solostar U-100 Insulin 20 unit SUBCUT BEDTIME 08/20/20 04/11/21 04/10/21 History ferrous sulfate 324 mg (65 mg 324 mg PO DAILY 08/20/20 04/11/21 04/10/21 History iron) tablet,delayed release trazodone 50 mg tablet 50 mg PO BEDTIME 08/20/20 04/11/21 04/10/21 History gabapentin 300 mg capsule 300 mg PO TID cap 11/18/20 04/11/21 04/10/21 History ticagrelor 90 mg tablet 90 mg PO BID 03/14/21 04/11/21 04/10/21 History aspirin 81 mg tablet,delayed 81 mg PO DAILY 03/23/21 04/11/21 04/10/21 History release pantoprazole 40 mg tablet,delayed 40 mg PO DAILY 03/23/21 04/11/21 04/10/21 History release amlodipine 10 mg PO DAILY 04/11/21 04/11/21 04/10/21 History atorvastatin 80 mg PO BEDTIME 04/11/21 04/11/21 04/10/21 History insulin lispro [Humalog U-100 See Rx Instructions .ROUTE .COMPLEX 04/11/21 04/11/21 04/10/21 History Insulin] sacubitril-valsartan [Entresto] 1 tab PO BID 04/11/21 04/11/21 04/10/21 History Physical Exam Vital Signs: Vital Signs: Last Vital Signs Temp 98.0 F 04/12/21 08:00 Pulse 98 04/12/21 08:00 Resp 20 04/12/21 08:00 BP 121/80 04/12/21 08:00 Pulse Ox 98 04/12/21 08:00 Body Mass Index 30.2 Const: General: cooperative and no acute distress HENMT: Other: Unremarkable Neck: Neck: Yes normal visual inspection Chest: Chest palpation & inspection: normal inspection of the chest Resp: Auscultation: clear to auscultation bilaterally, no crackles and no wheezes Cardio: Jugular venous distension: no JVD Palpation: normal PMI Heart sounds: S1 normal heart sound present, S2 normal heart sound present, no gallops, Murmur heart sound present systolic III/ and at the right sternal border and no rubs GI: Palpation (GI): Soft to palpation Back/Spine/Pelvis: Other: unremarkable Skin: General skin exam: no rashes or lesions noted Neuro: Cranial nerves: Yes Other cranial nerve findings present Extrem: General: Yes no clubbing, cyanosis or edema Psych: Mental Status: other Results Labs and Meds Result diagrams: 04/12/21 10:10 04/12/21 04:23 Lab results: Laboratory Results - last 24 hr 04/11/21 04/11/21 04/11/21 12:13 12:13 12:13 WBC 7.4 RBC 2.77 L Hgb 7.9 L Hct 25.3 L MCV 91.3 MCH 28.5 MCHC 31.2 RDW 15.1 Plt Count 361 MPV 10.9 Immature Gran % (Auto) 0.4 Neut % (Auto) 78.5 H Lymph % (Auto) 13.8 L [place] % (Auto) 6.5 Eos % (Auto) 0.4 Baso % (Auto) 0.4 Lymph # (Auto) 1.0 L [place] # (Auto) 0.5 Eos # (Auto) 0.0 Baso # (Auto) 0.0 Abs Immat Gran (auto) 0.03 Absolute Neuts (auto) 5.8 Absolute Nucleated RBC 0.000 Nucleated RBC % (auto) 0.0 PT INR PTT (Heparin Protocol) Sodium 138 Potassium 4.6 Chloride 107 Carbon Dioxide 22 Anion Gap 14 BUN 27 H Creatinine 1.70 H Estim Creat Clear Calc 33.0 Estimated GFR 39 POC Glucose Random Glucose 207 H Calcium 8.5 D Troponin I High Sens 1254.0 H* B-Natriuretic Peptide 1556 H COVID-19 (HIEU) COVID-[facility] Blood Type Antibody Screen Crossmatch 04/11/21 04/11/21 04/11/21 13:41 15:18 15:18 WBC RBC Hgb Hct MCV MCH MCHC RDW Plt Count MPV Immature Gran % (Auto) Neut % (Auto) Lymph % (Auto) [place] % (Auto) Eos % (Auto) Baso % (Auto) Lymph # (Auto) [place] # (Auto) Eos # (Auto) Baso # (Auto) Abs Immat Gran (auto) Absolute Neuts (auto) Absolute Nucleated RBC Nucleated RBC % (auto) PT 12.2 INR 1.1 PTT (Heparin Protocol) 39.7 L Sodium Potassium Chloride Carbon Dioxide Anion Gap BUN Creatinine Estim Creat Clear Calc Estimated GFR POC Glucose Random Glucose Calcium Troponin I High Sens 2331.2 H* D B-Natriuretic Peptide COVID-19 (HIEU) Negative COVID-[facility] Com See Note Blood Type Antibody Screen Crossmatch 04/11/21 04/11/21 04/11/21 15:18 16:32 22:02 WBC RBC Hgb Hct MCV MCH MCHC RDW Plt Count MPV Immature Gran % (Auto) Neut % (Auto) Lymph % (Auto) [place] % (Auto) Eos % (Auto) Baso % (Auto) Lymph # (Auto) [place] # (Auto) Eos # (Auto) Baso # (Auto) Abs Immat Gran (auto) Absolute Neuts (auto) Absolute Nucleated RBC Nucleated RBC % (auto) PT INR PTT (Heparin Protocol) Sodium Potassium Chloride Carbon Dioxide Anion Gap BUN Creatinine Estim Creat Clear Calc Estimated GFR POC Glucose 153 H 199 H Random Glucose Calcium Troponin I High Sens B-Natriuretic Peptide COVID-19 (HIEU) COVID-[facility] Blood Type A Positive Antibody Screen NEGATIVE Crossmatch See Detail 04/11/21 04/11/21 04/12/21 22:06 22:06 04:23 WBC 8.8 RBC 3.20 L Hgb 9.3 L Hct 29.7 L MCV 92.8 MCH 29.1 MCHC 31.3 RDW 15.3 Plt Count 356 MPV 11.0 Immature Gran % (Auto) Neut % (Auto) Lymph % (Auto) [place] % (Auto) Eos % (Auto) Baso % (Auto) Lymph # (Auto) [place] # (Auto) Eos # (Auto) Baso # (Auto) Abs Immat Gran (auto) Absolute Neuts (auto) Absolute Nucleated RBC 0.000 Nucleated RBC % (auto) 0.0 PT INR PTT (Heparin Protocol) 106.7 H D Sodium Potassium Chloride Carbon Dioxide Anion Gap BUN Creatinine Estim Creat Clear Calc Estimated GFR POC Glucose Random Glucose Calcium Troponin I High Sens 2117.5 H* B-Natriuretic Peptide COVID-19 (HIEU) COVID-[facility] Blood Type Antibody Screen Crossmatch 04/12/21 04/12/21 04/12/21 04:23 04:23 04:23 WBC 8.3 RBC 2.98 L Hgb 8.7 L Hct 27.1 L MCV 90.9 MCH 29.2 MCHC 32.1 RDW 14.9 Plt Count 331 MPV 11.0 Immature Gran % (Auto) Neut % (Auto) Lymph % (Auto) [place] % (Auto) Eos % (Auto) Baso % (Auto) Lymph # (Auto) [place] # (Auto) Eos # (Auto) Baso # (Auto) Abs Immat Gran (auto) Absolute Neuts (auto) Absolute Nucleated RBC 0.000 Nucleated RBC % (auto) 0.0 PT INR PTT (Heparin Protocol) 79.7 H D Sodium 138 Potassium 4.1 Chloride 107 Carbon Dioxide 21 L Anion Gap 14 BUN 27 H Creatinine 1.49 H Estim Creat Clear Calc 37.7 Estimated GFR 45 POC Glucose Random Glucose 140 H Calcium 8.4 Troponin I High Sens B-Natriuretic Peptide COVID-19 (HIEU) COVID-19 [employer] Blood Type Antibody Screen Crossmatch 04/12/21 04/12/21 07:58 10:10 WBC RBC Hgb 9.1 L Hct 28.5 L MCV MCH MCHC RDW Plt Count MPV Immature Gran % (Auto) Neut % (Auto) Lymph % (Auto) [place] % (Auto) Eos % (Auto) Baso % (Auto) Lymph # (Auto) [place] # (Auto) Eos # (Auto) Baso # (Auto) Abs Immat Gran (auto) Absolute Neuts (auto) Absolute Nucleated RBC Nucleated RBC % (auto) PT INR PTT (Heparin Protocol) Sodium Potassium Chloride Carbon Dioxide Anion Gap BUN Creatinine Estim Creat Clear Calc Estimated GFR POC Glucose 140 H Random Glucose Calcium Troponin I High Sens B-Natriuretic Peptide COVID-19 (HIEU) COVID-19 [employer] Blood Type Antibody Screen Crossmatch ECG Attestation: I personally reviewed and interpreted this ECG as follows: Interpretation: EKG shows atrial sensed rhythm at 103/Min with ventricular pacing. Imaging Radiologist's impression: Impressions Chest X-Ray 04/11/21 12:02 IMPRESSION: Mild pulmonary vascular congestion with borderline normal heart. Assessment and Plan (1) NSTEMI (non-ST elevated myocardial infarction): Status: Acute (2) PAF (paroxysmal atrial fibrillation): Status: Acute (3) Non-rheumatic aortic stenosis: Status: Acute (4) Hemorrhage of gastrointestinal tract, unspecified: Qualifiers: GI bleed type/associated pathology: unspecified gastrointestinal hemorrhage type Qualified Code(s): K92.2 - Gastrointestinal hemorrhage, unspecified Status: Acute High sensitivity troponins are clearly elevated suggesting a non ST elevation myocardial infarction. 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 Status post CELESTINO to left main into proximal LAD, CELESTINO to left circumflex; most recently cardiac catheterization showed severe ostial left circumflex stenosis status post angioplasty. He also had other lesions including D1 and in the PDA. He was on nitro patch but due to low blood pressure this was stopped. Off beta blockers too due to low BP. May resume the beta-blockers at a lower dose. Continue IV heparin for 48 hours. He is also on dual antiplatelet therapy. Options are limited and I will discuss with interventional cardiology again. Guarded prognosis. Procedures Date of Service Date of Service: 04/12/21
[2021-04-12 11:02] LABS: Glucose, Whole Blood 193 mg/dL (60-115)
[2021-04-12] MEDS: Insulin Lispro 100 UNIT/ML 3 ML VIAL SUBCUT ×2 (11:59→21:29)
[2021-04-12 16:29] LABS: Glucose, Whole Blood 123 mg/dL (60-115)
[2021-04-12] MEDS: Heparin Sodium,Porcine/1/2NS 25,000 UNIT/250 ML IV.SOLN 5.6 UNIT IVCONT (16:45)
[2021-04-12] MEDS: Metoprolol Tartrate 12.5 MG HALFTAB PO (16:47)
[2021-04-12 18:48] LABS: PTT Heparin Drip 48.4 SEC (53-77.9)
[2021-04-12] MEDS: Heparin Sodium,Porcine 5,000 UNIT/ML VIAL 3200 UNIT IVPUSH (19:26)
[2021-04-12] MEDS: Tamsulosin HCL 0.4 MG CAPSULE PO (20:59)
[2021-04-12] MEDS: traZODone HCL 50 MG TABLET PO (21:00)
[2021-04-12] MEDS: Atorvastatin Calcium 80 MG TABLET PO (21:00)
[2021-04-12 21:15] LABS: Glucose, Whole Blood 152 mg/dL (60-115)
[2021-04-12] MEDS: Insulin Glargine,Hum.rec.anlog 100 UNIT/ML 10 ML VIAL 10 UNIT SUBCUT (21:29)
[2021-04-12] MEDS: Acetaminophen 325 MG TABLET 650 MG PO (23:38)
[2021-04-13] VITALS (9 sets, daily range): BP systolic 100–125; BP diastolic 51–60; PULSE 76–105; RESP 18–23; TEMP 36.2–36.6; O2SAT 96–100
[2021-04-13 01:55] LABS: Hematocrit 26.3 % (42-52); Hemoglobin 8.5 g/dl (14.0-18.0); Mean Corpuscular HGB Conc 32.3 g/dl (31.0-36.0); Mean Corpuscular Hemoglobin 29.4 pg (27.0-33.0); Mean Platelet Volume 11.2 fL (9.4-12.4); Platelet Count 326 X10*3/uL (160-400); Red Blood Count 2.89 X10*6/uL (4.60-5.80); Red Cell Distribution Width 14.9 % (11.0-16.0); White Blood Count 8.1 X10*3/uL (4.8-10.8)
[2021-04-13 02:08] LABS: PTT Heparin Drip 94.6 SEC (53-77.9)
[2021-04-13 02:17] LABS: Anion Gap 12 (12-20); Blood Urea Nitrogen 30 mg/dL (9-16); Calcium 8.7 mg/dL (8.4-10.2); Carbon Dioxide 25 mmol/L (22-29); Chloride 106 mmol/L (96-108); Creatinine Clr Calc Pharmacy 35.1; Estimated Glomerular Filt Rate 42; Glucose Random 124 mg/dL (60-115); Potassium 4.1 mmol/L (3.3-5.1); Sodium 139 mmol/L (135-145)
[2021-04-13] MEDS: Metoprolol Tartrate 12.5 MG HALFTAB PO ×2 (02:20→15:00)
[2021-04-13] MEDS: Omeprazole 40 MG CAPSULE.DR PO ×2 (06:19→16:24)
[2021-04-13 07:09] LABS: Glucose, Whole Blood 119 mg/dL (60-115)
[2021-04-13 08:31] LABS: PTT Heparin Drip 55.9 SEC (53-77.9)
[2021-04-13] MEDS: Gabapentin 300 MG CAPSULE PO ×3 (08:42→19:45)
[2021-04-13] MEDS: Ferrous Sulfate 324 MG TABLET.DR PO (08:42)
[2021-04-13] MEDS: Folic Acid 1 MG TABLET PO (08:42)
[2021-04-13] MEDS: 0.9 % Sodium Chloride Flush 3 ML SYRINGE IVFLUSH ×2 (08:42→15:00)
[2021-04-13] MEDS: Aspirin Enteric Coated 81 MG TABLET.DR PO (08:42)
[2021-04-13] MEDS: Ticagrelor 90 MG TABLET PO ×2 (08:42→21:54)
[2021-04-13] MEDS: Acetaminophen 325 MG TABLET 650 MG PO ×2 (08:57→17:46)
[2021-04-13 11:10] LABS: Glucose, Whole Blood 157 mg/dL (60-115)
[2021-04-13] MEDS: Insulin Lispro 100 UNIT/ML 3 ML VIAL SUBCUT ×2 (11:45→16:24)
--- NOTE | 2021-04-13 11:58 | P.PNCA_ITS ---
Subjective Subjective Date of Service: 04/13/21 Interval history: He feels ok. No further angina. Review of Systems Review of Systems Yes all other systems are reviewed and are negative Cardiovascular: Reports as per HPI, Reports no additional cardiovascular complaints, Denies acrocyanosis, Denies cool extremities, Denies painful fingertips, Reports chest pain, Reports chest pain at rest, Denies diaphoresis, Denies syncope, Denies irregular heart rhythm, Denies claudication, Denies leg edema, Denies lightheadedness, Denies palpitations and Denies dyspnea Respiratory: Denies dyspnea Denies syncope Endocrine: Denies palpitations Physical Exam Vital Signs: Last Vital Signs Temp 97.2 F 04/13/21 11:11 Pulse 105 H 04/13/21 11:11 Resp 20 04/13/21 11:11 BP 110/58 L 04/13/21 11:11 Pulse Ox 99 04/13/21 11:11 Body Mass Index 30.2 Const General: cooperative and no acute distress [facility] Other: Unremarkable Neck Neck: Yes normal visual inspection Chest Chest palpation & inspection: normal inspection of the chest Resp Auscultation: clear to auscultation bilaterally, no crackles and no wheezes Cardio Jugular venous distension: no JVD Palpation: normal PMI Heart sounds: S1 normal heart sound present, S2 normal heart sound present, no gallops, Murmur heart sound present systolic III/ and at the right sternal border and no rubs GI Palpation (GI): Soft to palpation Back/Spine/Pelvis Other: unremarkable Skin General skin exam: no rashes or lesions noted Neuro Cranial nerves: Yes Other cranial nerve findings present Extrem General: Yes no clubbing, cyanosis or edema Psych Mental Status: other Results Labs and Meds Result diagrams: 04/13/21 01:38 04/13/21 01:38 Lab results: Laboratory Results - last 24 hr 04/12/21 04/12/21 04/12/21 16:26 18:22 21:08 WBC RBC Hgb Hct MCV MCH MCHC RDW Plt Count MPV Absolute Nucleated RBC Nucleated RBC % (auto) PTT (Heparin Protocol) 48.4 L Sodium Potassium Chloride Carbon Dioxide Anion Gap BUN Creatinine Estim Creat Clear Calc Estimated GFR POC Glucose 123 H 152 H Random Glucose Calcium 04/13/21 04/13/21 04/13/21 01:29 01:38 01:38 WBC 8.1 RBC 2.89 L Hgb 8.5 L Hct 26.3 L MCV 91.0 MCH 29.4 MCHC 32.3 RDW 14.9 Plt Count 326 MPV 11.2 Absolute Nucleated RBC 0.000 Nucleated RBC % (auto) 0.0 PTT (Heparin Protocol) 94.6 H D Sodium 139 Potassium 4.1 Chloride 106 Carbon Dioxide 25 Anion Gap 12 BUN 30 H Creatinine 1.60 H Estim Creat Clear Calc 35.1 Estimated GFR 42 POC Glucose Random Glucose 124 H Calcium 8.7 04/13/21 04/13/21 04/13/21 07:05 08:15 10:59 WBC RBC Hgb Hct MCV MCH MCHC RDW Plt Count MPV Absolute Nucleated RBC Nucleated RBC % (auto) PTT (Heparin Protocol) 55.9 D Sodium Potassium Chloride Carbon Dioxide Anion Gap BUN Creatinine Estim Creat Clear Calc Estimated GFR POC Glucose 119 H 157 H Random Glucose Calcium Progress Note: A&P Assessment and plan (1) NSTEMI (non-ST elevated myocardial infarction): Status: Acute (2) PAF (paroxysmal atrial fibrillation): Status: Acute (3) Non-rheumatic aortic stenosis: Status: Acute (4) Hemorrhage of gastrointestinal tract, unspecified: Status: Acute Assessment and Plan: High sensitivity troponins are clearly elevated suggesting a non ST elevation myocardial infarction. 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 Status post CELESTINO to left main into proximal L AD, CELESTINO to left circumflex; most recently cardiac catheterization showed severe ostial left circumflex stenosis status post angioplasty. He also had other lesions including D1 and in the PDA. He was on nitro patch but due to low blood pressure this was stopped. Off beta blockers too due to low BP. On beta- blockers at a lower dose. Continue IV heparin. He is also on dual antiplatelet therapy. Discussed with interventional cardiology (); plans for another cath this sunday. Will follow. Fall Risk Details Current Medications: Current Medications Generic Name Dose Route Start Last Admin Trade Name Freq PRN Reason Stop Dose Admin Acetaminophen 650 mg 04/11/21 14:27 04/13/21 08:57 Acetaminophen 325 Mg Tablet PO 650 mg Q6H PRN Administration Pain, Mild (Pain Scale 1-3) Aspirin 81 mg 04/12/21 09:00 04/13/21 08:42 Aspirin Enteric Coated 81 Mg Tablet. PO 81 mg DAILY FEROZ Administration Atorvastatin Calcium 80 mg 04/11/21 21:00 04/12/21 21:00 Atorvastatin Calcium 80 Mg Tablet PO 80 mg BEDTIME FEROZ Administration Ferrous Sulfate 324 mg 04/12/21 09:00 04/13/21 08:42 Ferrous Sulfate 324 Mg Tablet. PO 324 mg DAILY FEROZ Administration Folic Acid 1 mg 04/12/21 09:00 04/13/21 08:42 Folic Acid 1 Mg Tablet PO 1 mg DAILY FEROZ Administration Gabapentin 300 mg 04/11/21 15:00 04/13/21 08:42 Gabapentin 300 Mg Capsule PO 300 mg TID FEROZ Administration Heparin Sodium (Porcine) 6,400 unit 04/11/21 15:03 Heparin Sodium,Porcine 5,000 Unit/Ml Vial 80 unit/kg (6400 unit) IVPUSH PROTOCOL BOLUS PRN 80 unit/kg - Heparin Protocol Protocol Heparin Sodium (Porcine) 3,200 unit 04/11/21 15:03 04/12/21 19:26 Heparin Sodium,Porcine 5,000 Unit/Ml Vial 40 unit/kg (3200 unit) 3,200 unit IVPUSH Administration PROTOCOL BOLUS PRN 40 unit/kg - Heparin Protocol Protocol Heparin Sodium/Sodium Chloride 25,000 unit in 250 mls @ 0 mls/hr 04/11/21 15:15 04/13/21 08:49 IVCONT 6 units/kg/hr .Q0M FEROZ 4.8 mls/hr Titration Protocol Per Protocol Insulin Glargine 10 unit 04/11/21 21:00 04/12/21 21:29 Insulin Glargine,Hum.Rec.Anlog 100 Unit/Ml 10 Ml Vial SUBCUT 10 unit BEDTIME FEROZ Administration Insulin Human Lispro 0 unit 04/11/21 16:30 04/13/21 11:45 Insulin Lispro 100 Unit/Ml 3 Ml Vial SUBCUT 2 unit QIDACHS FEROZ Administration Protocol Metoprolol Tartrate 12.5 mg 04/11/21 15:30 04/13/21 02:20 Metoprolol Tartrate 12.5 Mg Halftab PO 12.5 mg Q12H FEROZ Administration Protocol Omeprazole 40 mg 04/11/21 16:30 04/13/21 06:19 Omeprazole 40 Mg Capsule. PO 40 mg BID@0630,1630 FEROZ Administration Ondansetron HCl 4 mg 04/11/21 14:27 Ondansetron Hcl 4 Mg/2 Ml Vial IVPUSH Q8H PRN Nausea and Vomiting Pharmacy Consult 1 each 04/11/21 13:29 Consult Rx Perform Med Rec MISCELLANE ONCE PRN Consult order Sodium Chloride 3 ml 04/11/21 16:00 04/13/21 08:42 0.9 % Sodium Chloride Flush 3 Ml Syringe IVFLUSH 3 ml QSHIFT FEROZ Administration Tamsulosin HCl 0.4 mg 04/11/21 21:00 04/12/21 20:59 Tamsulosin Hcl 0.4 Mg Capsule PO 0.4 mg BEDTIME FEROZ Administration Ticagrelor 90 mg 04/11/21 21:00 04/13/21 08:42 Ticagrelor 90 Mg Tablet PO 90 mg BID FEROZ Administration Trazodone HCl 50 mg 04/11/21 21:00 04/12/21 21:00 Trazodone Hcl 50 Mg Tablet PO 50 mg BEDTIME FEROZ Administration Time Spent With Patient Time: Total time spent is greater than 50% in coordination of care (as documente d) at patient's floor/unit and/or counseling patient: Time with patient: less than 15 minutes Progress Note: Quality Stroke Does the patient have a stroke diagnosis?: No Procedures Date of Service Date of Service: 04/13/21
--- NOTE | 2021-04-13 13:10 | MHC.CM.PN ---
Male 81 DX NSTEMI Per cardiology, a cath is planned this Sunday. CM will follow.
[2021-04-13 13:53] LABS: PTT Heparin Drip 57.9 SEC (53-77.9)
--- NOTE | 2021-04-13 15:16 | HO.PM.IMPN ---
Subjective Subjective Date of Service: 04/13/21 Interval History: seen and examined with floor RN TRANSPORT who interprets no chest pain no sob Physical Exam Vital Signs: Vital Signs: Last Vital Signs Temp 97.5 F 04/13/21 15:10 Pulse 97 04/13/21 15:10 Resp 18 04/13/21 15:10 BP 125/60 04/13/21 15:10 Pulse Ox 100 04/13/21 15:10 Body Mass Index 30.2 Const: Other: Constitutional - Awake and Alert, No apparent distress Eyes - PERRLA, EOMI Cardiovascular - S1S2, edema persists, still 1-2+ Respiratory - no rales Gastrointestinal - NT / ND; +BS; No rebound or guarding - No CVA tenderness Extremities - no calf tenderness bilaterally, no swelling Musculoskeletal - Normal inspection, normal ROM Skin - Warm/Dry Neurological - Awake and alert, oriented to place and time Psychological - Appropriate affect Objective Data Current Medications Generic Name Dose Route Start Last Admin Trade Name Freq PRN Reason Stop Dose Admin Acetaminophen 650 mg 04/11/21 14:27 04/13/21 08:57 Acetaminophen 325 Mg Tablet PO 650 mg Q6H PRN Administration Pain, Mild (Pain Scale 1-3) Aspirin 81 mg 04/12/21 09:00 04/13/21 08:42 Aspirin Enteric Coated 81 Mg Tablet. PO 81 mg DAILY FEROZ Administration Atorvastatin Calcium 80 mg 04/11/21 21:00 04/12/21 21:00 Atorvastatin Calcium 80 Mg Tablet PO 80 mg BEDTIME FEROZ Administration Ferrous Sulfate 324 mg 04/12/21 09:00 04/13/21 08:42 Ferrous Sulfate 324 Mg Tablet. PO 324 mg DAILY FEROZ Administration Folic Acid 1 mg 04/12/21 09:00 04/13/21 08:42 Folic Acid 1 Mg Tablet PO 1 mg DAILY FEROZ Administration Gabapentin 300 mg 04/11/21 15:00 04/13/21 15:00 Gabapentin 300 Mg Capsule PO 300 mg TID FEROZ Administration Heparin Sodium (Porcine) 6,400 unit 04/11/21 15:03 Heparin Sodium,Porcine 5,000 Unit/Ml Vial 80 unit/kg (6400 unit) IVPUSH PROTOCOL BOLUS PRN 80 unit/kg - Heparin Protocol Protocol Heparin Sodium (Porcine) 3,200 unit 04/11/21 15:03 04/12/21 19:26 Heparin Sodium,Porcine 5,000 Unit/Ml Vial 40 unit/kg (3200 unit) 3,200 unit IVPUSH Administration PROTOCOL BOLUS PRN 40 unit/kg - Heparin Protocol Protocol Heparin Sodium/Sodium Chloride 25,000 unit in 250 mls @ 0 mls/hr 04/11/21 15:15 04/13/21 14:02 IVCONT 6 units/kg/hr .Q0M FEROZ 4.8 mls/hr Titration Protocol Per Protocol Insulin Glargine 10 unit 04/11/21 21:00 04/12/21 21:29 Insulin Glargine,Hum.Rec.Anlog 100 Unit/Ml 10 Ml Vial SUBCUT 10 unit BEDTIME FEROZ Administration Insulin Human Lispro 0 unit 04/11/21 16:30 04/13/21 11:45 Insulin Lispro 100 Unit/Ml 3 Ml Vial SUBCUT 2 unit QIDACHS FEROZ Administration Protocol Metoprolol Tartrate 12.5 mg 04/11/21 15:30 04/13/21 15:00 Metoprolol Tartrate 12.5 Mg Halftab PO 12.5 mg Q12H FEROZ Administration Protocol Omeprazole 40 mg 04/11/21 16:30 04/13/21 06:19 Omeprazole 40 Mg Capsule.Dr PO 40 mg BID@0630,1630 FEROZ Administration Ondansetron HCl 4 mg 04/11/21 14:27 Ondansetron Hcl 4 Mg/2 Ml Vial IVPUSH Q8H PRN Nausea and Vomiting Pharmacy Consult 1 each 04/11/21 13:29 Consult Rx Perform Med Rec MISCELLANE ONCE PRN Consult order Sodium Chloride 3 ml 04/11/21 16:00 04/13/21 15:00 0.9 % Sodium Chloride Flush 3 Ml Syringe IVFLUSH 3 ml QSHIFT FEROZ Administration Tamsulosin HCl 0.4 mg 04/11/21 21:00 04/12/21 20:59 Tamsulosin Hcl 0.4 Mg Capsule PO 0.4 mg BEDTIME FEROZ Administration Ticagrelor 90 mg 04/11/21 21:00 04/13/21 08:42 Ticagrelor 90 Mg Tablet PO 90 mg BID FEROZ Administration Trazodone HCl 50 mg 04/11/21 21:00 04/12/21 21:00 Trazodone Hcl 50 Mg Tablet PO 50 mg BEDTIME FEROZ Administration Labs CBC & Chem 7: 04/13/21 01:38 07/28/21 01:38 Labs: Laboratory Results - last 24 hr 04/12/21 04/12/21 04/12/21 16:26 18:22 21:08 MCV MCH MCHC RDW Plt Count MPV Absolute Nucleated RBC Nucleated RBC % (auto) PTT (Heparin Protocol) 48.4 L Anion Gap Estim Creat Clear Calc Estimated GFR POC Glucose 123 H 152 H Random Glucose Calcium 04/13/21 04/13/21 04/13/21 01:29 01:38 01:38 MCV 91.0 MCH 29.4 MCHC 32.3 RDW 14.9 Plt Count 326 MPV 11.2 Absolute Nucleated RBC 0.000 Nucleated RBC % (auto) 0.0 PTT (Heparin Protocol) 94.6 H D Anion Gap 12 Estim Creat Clear Calc 35.1 Estimated GFR 42 POC Glucose Random Glucose 124 H Calcium 8.7 04/13/21 04/13/21 04/13/21 07:05 08:15 10:59 MCV MCH MCHC RDW Plt Count MPV Absolute Nucleated RBC Nucleated RBC % (auto) PTT (Heparin Protocol) 55.9 D Anion Gap Estim Creat Clear Calc Estimated GFR POC Glucose 119 H 157 H Random Glucose Calcium 04/13/21 13:21 MCV MCH MCHC RDW Plt Count MPV Absolute Nucleated RBC Nucleated RBC % (auto) PTT (Heparin Protocol) 57.9 Anion Gap Estim Creat Clear Calc Estimated GFR POC Glucose Random Glucose Calcium Assessment and Plan (1) NSTEMI (non-ST elevated myocardial infarction): Status: Acute Assessment and Plan: This is an 81 yo M with a PMH of CAD - s/p multiple stents on DAPT with asa+brillinta, recent GI bleed (managed conservatively), PAF no on OAC due to GI bleed, who presents to the hospital with complaints of chest pain and will be admitted for the management of his NSTEMI. 1. NSTEMI known advanced CAD -- deemded not a surgical candidate for CABG previously at [facility] continue heparin gtt -- plan for cardiac cath at [facility], timing to be determined continue statin, bb continue heparin gtt x 48 hours, DAPT, continue statin, add low dose BB - metoprolol 12.5mg BID will get limited echo to eval for wall motion HS trop I down trending from peak of 2331 2. Acute CHF, systolic + diastolic Echo from [facility] records from December showed preserved EF with grade 2 diastolic dysfunction, repeat during this admission shows EF 25-30% + grade 1 diastolic CHF hold lasix, SCr slight bump up and BP on softer side diursed with neg 1.5L balance 3. Recent GI bleed (at [facility]) no evidence of GI bleed continue trending h/h while on heparin s/p 1 unit PRBC at time of admission h/h stable 4. DM lantus 10 units qhs + sliding scale POC QIDAC 5. CKD stage 4 monitor continue other baseline meds as appropriate. DVT pptx -- on IV heparin gtt HCP - Keisha Lopez Full Code Goals of care discussion held with keisha Lopez (at the time of admission) on the phone with radio station engineer. She reports that her fathers wishes were to do everything possible to treat his medical condition and hence she wishes for him to be full code. She has been made aware that his condition is very tenuous and that he may decompensate. Quality Stroke Does the patient have a stroke diagnosis?: No VTE Prior VTE?: No VTE Risk Level:: Medical - moderate - high VTE Device Contraindication: N/A - Device Ordered VTE Drug Contraindication: N/A - Med Ordered
[2021-04-13 15:49] LABS: Glucose, Whole Blood 159 mg/dL (60-115)
[2021-04-13] MEDS: Heparin Sodium,Porcine/1/2NS 25,000 UNIT/250 ML IV.SOLN 4.8 UNIT IVCONT (16:45)
[2021-04-13 20:26] LABS: Glucose, Whole Blood 110 mg/dL (60-115)
[2021-04-13] MEDS: Atorvastatin Calcium 80 MG TABLET PO (21:54)
[2021-04-13] MEDS: traZODone HCL 50 MG TABLET PO (21:54)
[2021-04-13] MEDS: Insulin Glargine,Hum.rec.anlog 100 UNIT/ML 10 ML VIAL 10 UNIT SUBCUT (21:54)
[2021-04-13] MEDS: Tamsulosin HCL 0.4 MG CAPSULE PO (21:54)
[2021-04-14 03:07] VITALS: BP 108/46; PULSE 73; RESP 18; TEMP 36.4; O2SAT 98
[2021-04-14] MEDS: Metoprolol Tartrate 12.5 MG HALFTAB PO ×2 (03:11→15:38)
[2021-04-14] MEDS: Omeprazole 40 MG CAPSULE.DR PO ×2 (05:33→15:39)
[2021-04-14] MEDS: Acetaminophen 325 MG TABLET 650 MG PO ×2 (05:34→11:12)
[2021-04-14 06:41] LABS: Hematocrit 25.3 % (42-52); Mean Corpuscular HGB Conc 31.6 g/dl (31.0-36.0); Mean Corpuscular Hemoglobin 28.7 pg (27.0-33.0); Mean Corpuscular Volume 90.7 fL (80-98); Mean Platelet Volume 11.4 fL (9.4-12.4); Platelet Count 316 X10*3/uL (160-400); Red Blood Count 2.79 X10*6/uL (4.60-5.80); White Blood Count 6.9 X10*3/uL (4.8-10.8)
[2021-04-14 06:46] LABS: PTT Heparin Drip 64.4 SEC (53-77.9)
[2021-04-14 07:03] LABS: Glucose, Whole Blood 108 mg/dL (60-115)
[2021-04-14 07:16] LABS: Anion Gap 13 (12-20); Blood Urea Nitrogen 23 mg/dL (9-16); Calcium 8.7 mg/dL (8.4-10.2); Carbon Dioxide 23 mmol/L (22-29); Chloride 109 mmol/L (96-108); Creatinine Clr Calc Pharmacy 45.3; Estimated Glomerular Filt Rate 56; Glucose Random 109 mg/dL (60-115); Sodium 141 mmol/L (135-145)
[2021-04-14 07:22] VITALS: BP 110/58; PULSE 80; RESP 18; TEMP 36.2; O2SAT 100
--- NOTE | 2021-04-14 09:12 | MHC.CM.PN ---
Addendum entered by Maryuri Navarro 04/14/21 09:19: Patient ambulated independently with use of a walker. He has TAILER OFF services 40h/wk. Original Note: Male 81 DX Chest pain. He is independent. DP Acute care transfer to [facility] via ALS for Cardiac cath.
--- NOTE | 2021-04-14 10:16 | PM.DS ---
DS: Providers Provider Date of Service: 04/14/21 Date of admission: 04/11/21 14:22 Primary care physician: Karolina Carroll MD Consults: 04/12/21 08:34 Consult to Cardiology Routine Consulting Provider: [facility] Cardiovascular Services Reason for consultation: nstemi DS: Diagnosis Discharge Diagnosis (1) NSTEMI (non-ST elevated myocardial infarction): Status: Acute DS: Medications Discharge Medications Home Medications: Home Medications Medication Instructions Recorded Confirmed ferrous sulfate 324 mg (65 mg 324 mg PO DAILY 08/20/20 04/11/21 iron) tablet,delayed release insulin glargine 100 unit/mL (3 20 unit SUBCUT BEDTIME 08/20/20 04/11/21 mL) subcutaneous pen (Lantus Solostar U-100 Insulin) trazodone 50 mg tablet 50 mg PO BEDTIME 08/20/20 04/11/21 gabapentin 300 mg capsule 300 mg PO TID cap 11/18/20 04/11/21 ticagrelor 90 mg tablet 90 mg PO BID 03/14/21 04/11/21 aspirin 81 mg tablet,delayed 81 mg PO DAILY 03/23/21 04/11/21 release pantoprazole 40 mg tablet,delayed 40 mg PO DAILY 03/23/21 04/11/21 release atorvastatin 80 mg tablet 80 mg PO BEDTIME 04/11/21 04/11/21 insulin lispro 100 unit/mL See Rx Instructions .ROUTE .COMPLEX 04/11/21 04/11/21 subcutaneous solution (Humalog U-100 Insulin) sacubitril 49 mg-valsartan 51 mg 1 tab PO BID 04/11/21 04/11/21 tablet (Entresto) Previous Rx's Medication Instructions Recorded tamsulosin 0.4 mg capsule 0.4 mg PO BEDTIME #90 cap 07/27/20 folic acid 1 mg tablet 1 mg PO DAILY #90 tab 10/06/20 heparin (porcine) 25,000 unit/250 25,000 unit CONTINUOUS IV INFUSION 04/14/21 mL in 0.45 % sodium chloride IV .Q0M #1 ml soln metoprolol tartrate 25 mg tablet 12.5 mg PO BID #30 tab 04/14/21 DS: Summary Hospital Course Hospital Course: Discharge Diagnosi: 1. NSTEMI 2. Acute on chronic combined systolic and diastolic heart failure 3. Chronic anemia, recent GI bleed 4. DM 5. CKD stage 4 HPI: This is an 81-year-old male with a past medical history of CAD status post stenting drug-eluting stent on dual antiplatelet with aspirin and Brilinta(for full details, see Dr. Hill is outpatient clinic note from 03/30/2021), recent GI bleed managed conservatively at [facility], paroxysmal atrial fibrillation, type 2 diabetes mellitus who presented to the hospital with complaints of substernal chest pain which radiated to his jaw which he 1st noticed yesterday evening while ambulating to the bathroom.? Patient reports that his pain did not really subside and so he presented to the emergency room. History is obtained with the help of a roofing machine operator. It appears that the patient has quite a complex coronary history.? He has had multiple cardiac catheterizations with stenting in the proximal circumflex as well as left main into the proximal LAD.? He has been deemed a nonsurgical candidate by cardiothoracic surgery.? It also appears that at the end of February 2021 patient was admitted to [facility] for what appears to be a gastrointestinal bleed.? Due to his high risk cardiac history, he was managed conservatively with IV PPI and required transfusion of multiple packed red cells.? During 1 of the recent admissions, he also was found to have a left-sided stroke and upon interrogation of his pacemaker was noted that he had paroxysmal AFib. Upon arrival to the emergency room, his workup revealed an elevated high sensitivity of 1254 and a BNP of 1556. His EKG was atrial sensed, ventricular paced.? His chest x-ray was consistent with acute CHF findings.? The case was discussed with the iap displays analyst by the ED provider and decision was made to admit the patient here Hospital Course: Patient was started on IV heparin drip and Cardiology was consulted. He was continued on his baseline dual antiplatelet therapy with aspirin and Brilinta. Patient was also transfused 1 unit packed red cells, however had no gastrointestinal bleeding in the hospital. Patient was previously on multiple antihypertensives which were discontinued in the past due to low blood pressure. He was initiated on metoprolol 12.5 mg twice daily. He also had CHF and was diuresed with IV Lasix. He underwent a 2D echo which showed reduced ejection fraction which was changed from his echo performed at [facility] in December 2019. Case was discussed with interventional cardiology (Dr. Ortiz) and decision was made to transfer the patient to [facility] for cardiac catheterization. Time Spent with Patient Time attestation: Total time spent providing and/or coordinating discharge services: Discharge coordination time: Greater than 30 minutes Quality: Stroke Does the patient have a stroke diagnosis?: No Physical Exam Vital Signs: Vital Signs: Last Vital Signs Temp 97.2 F 04/14/21 07:22 Pulse 80 04/14/21 07:22 Resp 18 04/14/21 07:22 BP 110/58 L 04/14/21 07:22 Pulse Ox 100 04/14/21 07:22 Body Mass Index 30.2 General - no acute distress, appears comfortable Cardiovascular - regular rate and rhythm, S1-S2 Lungs - normal respiratory effort, clear to auscultation bilaterally, no wheezing Abdomen - soft, nontender, no rebound or guarding Extremities - no edema bilaterally Neuro - awake and alert, no focal deficits DS: Data Data Completed and Pending Labs on day of discharge: Laboratory Results - last 24 hr 04/13/21 04/13/21 04/13/21 10:59 13:21 15:43 WBC RBC Hgb Hct MCV MCH MCHC RDW Plt Count MPV Absolute Nucleated RBC Nucleated RBC % (auto) PTT (Heparin Protocol) 57.9 Sodium Potassium Chloride Carbon Dioxide Anion Gap BUN Creatinine Estim Creat Clear Calc Estimated GFR POC Glucose 157 H 159 H Random Glucose Calcium 04/13/21 04/14/21 04/14/21 20:19 05:55 05:55 WBC 6.9 RBC 2.79 L Hgb 8.0 L Hct 25.3 L MCV 90.7 MCH 28.7 MCHC 31.6 RDW 15.0 Plt Count 316 MPV 11.4 Absolute Nucleated RBC 0.000 Nucleated RBC % (auto) 0.0 PTT (Heparin Protocol) 64.4 Sodium Potassium Chloride Carbon Dioxide Anion Gap BUN Creatinine Estim Creat Clear Calc Estimated GFR POC Glucose 110 Random Glucose Calcium 04/14/21 04/14/21 05:55 06:57 WBC RBC Hgb Hct MCV MCH MCHC RDW Plt Count MPV Absolute Nucleated RBC Nucleated RBC % (auto) PTT (Heparin Protocol) Sodium 141 Potassium 4.0 Chloride 109 H Carbon Dioxide 23 Anion Gap 13 BUN 23 H Creatinine 1.24 Estim Creat Clear Calc 45.3 Estimated GFR 56 POC Glucose 108 Random Glucose 109 Calcium 8.7 Discharge Plan Discharge Patient Disposition: Xfer Acute Care Hospital Discharge Diagnosis: NSTEMI Referrals: [facility] [Outside] - 1 Week Karolina Carroll MD [Primary Care Provider] - 1 Week Discharge Medications: New metoprolol tartrate 25 mg tablet 12.5 mg PO BID Qty: 30 RF: 0 heparin(porcine) in 0.45% NaCl 25,000 unit/250 mL Parenteral Solution 25,000 unit continuous IV infusion .Q0M Qty: 1 RF: 0 Continued tamsulosin 0.4 mg capsule 0.4 mg PO BEDTIME Qty: 90 RF: 5 folic acid 1 mg tablet 1 mg PO DAILY Qty: 90 RF: 1 Lantus Solostar U-100 Insulin 100 unit/mL (3 mL) Insulin Pen 20 unit SUBCUT BEDTIME RF: 0 atorvastatin 80 mg Tablet 80 mg PO BEDTIME RF: 0 insulin lispro [Humalog U-100 Insulin] 100 unit/mL solution See Rx Instructions unit .ROUTE .COMPLEX RF: 0 trazodone 50 mg tablet 50 mg PO BEDTIME RF: 0 ferrous sulfate 324 mg (65 mg iron) tablet,delayed release (DR/EC) 324 mg PO DAILY RF: 0 gabapentin 300 mg capsule 300 mg PO TID RF: 0 ticagrelor 90 mg tablet 90 mg PO BID RF: 0 pantoprazole 40 mg tablet,delayed release (DR/EC) 40 mg PO DAILY RF: 0 aspirin 81 mg tablet,delayed release (DR/EC) 81 mg PO DAILY RF: 0 Held Entresto 49-51 mg Tablet 1 tab PO BID RF: 0 Hold Instructions: Resume on 04/21/21. Hold until evluated at [facility] Discontinued amlodipine 10 mg tablet 10 mg PO DAILY RF: 0 Discharge Orders: Discharge Order (Routine); Ordered 04/14/21 Ordered By: Alex Machuca Diet: advance to usual diet Activity on Discharge: As tolerated Stand Alone Forms: Patient Portal Discharge page Care Plan Goals: To stay healthy and out of the hospital. Health Concerns: NSTEMI Plan of Treatment: You are being transferred to [facility] for further care. Assessment: 81-year-old male with a history of complex coronary disease who presented to the hospital with NSTEMI. Was treated with IV heparin. Case was discussed by Cardiology with Interventional Cardiology and determination made for transfer to [facility] for cardiac catheterization.
[2021-04-14 10:57] LABS: Glucose, Whole Blood 157 mg/dL (60-115)
[2021-04-14] MEDS: Aspirin Enteric Coated 81 MG TABLET.DR PO (11:03)
[2021-04-14] MEDS: Folic Acid 1 MG TABLET PO (11:03)
[2021-04-14] MEDS: 0.9 % Sodium Chloride Flush 3 ML SYRINGE IVFLUSH (11:03)
[2021-04-14] MEDS: Insulin Lispro 100 UNIT/ML 3 ML VIAL SUBCUT (11:04)
[2021-04-14] MEDS: Ferrous Sulfate 324 MG TABLET.DR PO (11:04)
[2021-04-14] MEDS: Gabapentin 300 MG CAPSULE PO ×2 (11:04→15:39)
[2021-04-14] MEDS: Ticagrelor 90 MG TABLET PO (11:04)
[2021-04-14 11:11] VITALS: BP 121/70; PULSE 84; RESP 16; TEMP 36.1; O2SAT 100
--- NOTE | 2021-04-14 11:26 | P.PNCA_ITS ---
Subjective Subjective Date of Service: 04/14/21 Interval history: Feels OK. No chest pain. Review of Systems Review of Systems Yes all other systems are reviewed and are negative Cardiovascular: Reports as per HPI, Reports no additional cardiovascular complaints, Denies acrocyanosis, Denies cool extremities, Denies painful fingertips, Reports chest pain, Reports chest pain at rest, Denies diaphoresis, Denies syncope, Denies irregular heart rhythm, Denies claudication, Denies leg edema, Denies lightheadedness, Denies palpitations and Denies dyspnea Respiratory: Denies dyspnea Denies syncope Endocrine: Denies palpitations Physical Exam Vital Signs: Last Vital Signs Temp 97 F 04/14/21 11:11 Pulse 84 04/14/21 11:11 Resp 16 04/14/21 11:11 BP 121/70 04/14/21 11:11 Pulse Ox 100 04/14/21 11:11 Body Mass Index 30.2 Const General: cooperative and no acute distress HENCO Other: Unremarkable Neck Neck: Yes normal visual inspection Chest Chest palpation & inspection: normal inspection of the chest Resp Auscultation: clear to auscultation bilaterally, no crackles and no wheezes Cardio Jugular venous distension: no JVD Palpation: normal PMI Heart sounds: S1 normal heart sound present, S2 normal heart sound present, no gallops, Murmur heart sound present systolic III/ and at the right sternal border and no rubs GI Palpation (GI): Soft to palpation Back/Spine/Pelvis Other: unremarkable Skin General skin exam: no rashes or lesions noted Neuro Cranial nerves: Yes Other cranial nerve findings present Extrem General: Yes no clubbing, cyanosis or edema Psych Mental Status: other Results Labs and Meds Result diagrams: 04/14/21 05:55 04/14/21 05:55 Lab results: Laboratory Results - last 24 hr 04/13/21 04/13/21 04/13/21 13:21 15:43 20:19 WBC RBC Hgb Hct MCV MCH MCHC RDW Plt Count MPV Absolute Nucleated RBC Nucleated RBC % (auto) PTT (Heparin Protocol) 57.9 Sodium Potassium Chloride Carbon Dioxide Anion Gap BUN Creatinine Estim Creat Clear Calc Estimated GFR POC Glucose 159 H 110 Random Glucose Calcium 04/14/21 04/14/21 04/14/21 05:55 05:55 05:55 WBC 6.9 RBC 2.79 L Hgb 8.0 L Hct 25.3 L MCV 90.7 MCH 28.7 MCHC 31.6 RDW 15.0 Plt Count 316 MPV 11.4 Absolute Nucleated RBC 0.000 Nucleated RBC % (auto) 0.0 PTT (Heparin Protocol) 64.4 Sodium 141 Potassium 4.0 Chloride 109 H Carbon Dioxide 23 Anion Gap 13 BUN 23 H Creatinine 1.24 Estim Creat Clear Calc 45.3 Estimated GFR 56 POC Glucose Random Glucose 109 Calcium 8.7 04/14/21 04/14/21 06:57 10:49 WBC RBC Hgb Hct MCV MCH MCHC RDW Plt Count MPV Absolute Nucleated RBC Nucleated RBC % (auto) PTT (Heparin Protocol) Sodium Potassium Chloride Carbon Dioxide Anion Gap BUN Creatinine Estim Creat Clear Calc Estimated GFR POC Glucose 108 157 H Random Glucose Calcium Progress Note: A&P Assessment and plan (1) NSTEMI (non-ST elevated myocardial infarction): Status: Acute (2) PAF (paroxysmal atrial fibrillation): Status: Acute (3) Non-rheumatic aortic stenosis: Status: Acute (4) Hemorrhage of gastrointestinal tract, unspecified: Status: Acute Assessment and Plan: High sensitivity troponins are clearly elevated suggesting a non ST elevation myocardial infarction. 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 Status post CELESTINO to left main into proximal LAD, CELESTINO to left circumflex; most recently cardiac catheterization showed severe ostial left circumflex stenosis status post angioplasty. He also had other lesions including D1 and in the PDA. He was on nitro patch but due to low blood pressure this was stopped. He was off beta blockers too due to low BP, but now back on at a lower dose. Continue IV heparin. He is also on dual antiplatelet therapy. Discussed with interventional cardiology (); plans for another cath this sunday. Transferred to [facility]. Fall Risk Details Current Medications: Current Medications Generic Name Dose Route Start Last Admin Trade Name Freq PRN Reason Stop Dose Admin Acetaminophen 650 mg 04/11/21 14:27 04/14/21 11:12 Acetaminophen 325 Mg Tablet PO 650 mg Q6H PRN Administration Pain, Mild (Pain Scale 1-3) Aspirin 81 mg 04/12/21 09:00 04/14/21 11:03 Aspirin Enteric Coated 81 Mg Tablet. PO 81 mg DAILY FEROZ Administration Atorvastatin Calcium 80 mg 04/11/21 21:00 04/13/21 21:54 Atorvastatin Calcium 80 Mg Tablet PO 80 mg BEDTIME FEROZ Administration Ferrous Sulfate 324 mg 04/12/21 09:00 04/14/21 11:04 Ferrous Sulfate 324 Mg Tablet. PO 324 mg DAILY FEROZ Administration Folic Acid 1 mg 04/12/21 09:00 04/14/21 11:03 Folic Acid 1 Mg Tablet PO 1 mg DAILY FEROZ Administration Gabapentin 300 mg 04/11/21 15:00 04/14/21 11:04 Gabapentin 300 Mg Capsule PO 300 mg TID FEROZ Administration Heparin Sodium (Porcine) 6,400 unit 04/11/21 15:03 Heparin Sodium,Porcine 5,000 Unit/Ml Vial 80 unit/kg (6400 unit) IVPUSH PROTOCOL BOLUS PRN 80 unit/kg - Heparin Protocol Protocol Heparin Sodium (Porcine) 3,200 unit 04/11/21 15:03 04/12/21 19:26 Heparin Sodium,Porcine 5,000 Unit/Ml Vial 40 unit/kg (3200 unit) 3,200 unit IVPUSH Administration PROTOCOL BOLUS PRN 40 unit/kg - Heparin Protocol Protocol Heparin Sodium/Sodium Chloride 25,000 unit in 250 mls @ 0 mls/hr 04/11/21 15:15 04/13/21 16:45 IVCONT 6 units/kg/hr .Q0M FEROZ 4.8 mls/hr Administration Protocol Per Protocol Insulin Glargine 10 unit 04/11/21 21:00 04/13/21 21:54 Insulin Glargine,Hum.Rec.Anlog 100 Unit/Ml 10 Ml Vial SUBCUT 10 unit BEDTIME FEROZ Administration Insulin Human Lispro 0 unit 04/11/21 16:30 04/14/21 11:04 Insulin Lispro 100 Unit/Ml 3 Ml Vial SUBCUT 2 unit QIDACHS FEROZ Administration Protocol Metoprolol Tartrate 12.5 mg 04/11/21 15:30 04/14/21 03:11 Metoprolol Tartrate 12.5 Mg Halftab PO 12.5 mg Q12H FEROZ Administration Protocol Omeprazole 40 mg 04/11/21 16:30 04/14/21 05:33 Omeprazole 40 Mg Capsule. PO 40 mg BID@0630,1630 FEROZ Administration Ondansetron HCl 4 mg 04/11/21 14:27 Ondansetron Hcl 4 Mg/2 Ml Vial IVPUSH Q8H PRN Nausea and Vomiting Pharmacy Consult 1 each 04/11/21 13:29 Consult Rx Perform Med Rec MISCELLANE ONCE PRN Consult order Sodium Chloride 3 ml 04/11/21 16:00 04/14/21 11:03 0.9 % Sodium Chloride Flush 3 Ml Syringe IVFLUSH 3 ml QSHIFT FEROZ Administration Tamsulosin HCl 0.4 mg 04/11/21 21:00 04/13/21 21:54 Tamsulosin Hcl 0.4 Mg Capsule PO 0.4 mg BEDTIME FEROZ Administration Ticagrelor 90 mg 04/11/21 21:00 04/14/21 11:04 Ticagrelor 90 Mg Tablet PO 90 mg BID FEROZ Administration Trazodone HCl 50 mg 04/11/21 21:00 04/13/21 21:54 Trazodone Hcl 50 Mg Tablet PO 50 mg BEDTIME FEROZ Administration Time Spent With Patient Time: Total time spent is greater than 50% in coordination of care (as documented) at patient's floor/unit and/or counseling patient: Time with patient: less than 15 minutes Progress Note: Quality Stroke Does the patient have a stroke diagnosis?: No Procedures Date of Service Date of Service: 04/14/21
[2021-04-14] MEDS: Heparin Sodium,Porcine/1/2NS 25,000 UNIT/250 ML IV.SOLN 4.8 UNIT IVCONT (15:29)
[2021-04-14 15:38] VITALS: BP 111/59; PULSE 75; RESP 18; TEMP 36.3; O2SAT 100
[2021-04-14 16:22] LABS: Glucose, Whole Blood 111 mg/dL (60-115)
== END 2021-04-14 18:45 | disposition short-term general hospital (02) | DRG 280 ==
LOC: HO.ED 13:34 → HO.EDOVER 15:28 → HO.IMC 04-12 07:22
PROVIDERS: Hospitalist; Admitting Provider Family Medicine; Emergency Provider Emergency Medicine; PCP Internal Medicine; Visit Provider Family Medicine
DX: I21.4 Non-ST elevation (NSTEMI) myocardial infarction (principal); I50.43 Acute on chronic combined systolic (congestive) and diastolic (congestive) heart failure; I13.0 Hypertensive heart and chronic kidney disease with heart failure and stage 1 through stage 4 chronic kidney disease, or unspecified chronic kidney disease; N18.4 Chronic kidney disease, stage 4 (severe); I48.0 Paroxysmal atrial fibrillation; E11.22 Type 2 diabetes mellitus with diabetic chronic kidney disease; I25.10 Atherosclerotic heart disease of native coronary artery without angina pectoris; I35.0 Nonrheumatic aortic (valve) stenosis; Z20.822 Contact with and (suspected) exposure to COVID-19; Z95.0 Presence of cardiac pacemaker; D63.1 Anemia in chronic kidney disease; Z87.891 Personal history of nicotine dependence; Z88.0 Allergy status to penicillin; Z88.2 Allergy status to sulfonamides; Z95.1 Presence of aortocoronary bypass graft; Z88.6 Allergy status to analgesic agent; Z79.4 Long term (current) use of insulin; Z79.82 Long term (current) use of aspirin; Z79.899 Other long term (current) drug therapy
CPT/HCPCS: 36415; 71045; 80048; 82947; 83880; 84484; 85014; 85018; 85025; 85027; 85610; 85730; 86850; 86900; 86901; 86923; 87635; 93005; 93306; 99285; J1940; P9016

== ENCOUNTER 2021-05-04 10:32 | Inpatient (IN) | payer MEDICARE, SELFPAY ==
[2021-05-04] VITALS (11 sets, daily range): BP systolic 100–115; BP diastolic 39–57; PULSE 83–102; RESP 13–18; TEMP 36.4–36.7; O2SAT 96–100; BMI 29.5
--- NOTE | 2021-05-04 11:08 | ECG_ITS ---
Test Reason : ANEMIA Blood Pressure : / mmHG Vent. Rate : 090 BPM Atrial Rate : 090 BPM P-R Int : 154 ms QRS Dur : 150 ms QT Int : 400 ms P-R-T Axes : 065 -78 111 degrees QTc Int : 489 ms Atrial-sensed ventricular-paced rhythm Abnormal ECG When compared with ECG of 11-APR-2021 12:20, Vent. rate has decreased BY 13 BPM Referred By: Santi Anguiano Electronically Signed By:SULMA BARRIOS
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
[2021-05-04 11:28] LABS: MANUAL DIFF FLAG NO
[2021-05-04 11:33] LABS: Basophils Percent Auto 0.2 % (0-2); Eosinophils Percent Auto 0.5 % (0-4); Imm Gran Abs Auto 0.03 X10*3/uL (0.00-0.03); Imm Gran Pct Auto 0.3 % (0.0-0.4); Lymphocytes Absolute Auto 1.3 X10*3/uL (1.2-4.9); Lymphocytes Percent Auto 15.2 % (20-40); Mean Corpuscular HGB Conc 31.8 g/dl (31.0-36.0); Mean Corpuscular Hemoglobin 29.3 pg (27.0-33.0); Mean Corpuscular Volume 92.1 fL (80-98); Mean Platelet Volume 11.1 fL (9.4-12.4); Monocytes Absolute Auto 0.6 X10*3/uL (0.1-1.2); Monocytes Percent Auto 6.4 % (2-11); Neutrophils Absolute Auto 6.8 X10*3/uL (2.0-8.3); Neutrophils Percent Auto 77.4 % (45-73); Platelet Count 269 X10*3/uL (160-400); Red Blood Count 1.91 X10*6/uL (4.60-5.80); Red Cell Distribution Width 14.6 % (11.0-16.0); White Blood Count 8.8 X10*3/uL (4.8-10.8)
[2021-05-04 11:45] LABS: Hemoglobin 5.6 g/dl (14.0-18.0)
[2021-05-04 11:46] LABS: Hematocrit 17.6 % (42-52)
[2021-05-04 12:08] LABS: Alanine Aminotransferase 9 U/L (0-40); Albumin Level 3.8 g/dL (3.5-5.0); Alkaline Phosphatase 52 U/L (39-117); Anion Gap 16 (12-20); Aspartate Amino Transferase 7 U/L (5-37); Bilirubin Total 0.4 mg/dL (0.0-1.0); Blood Urea Nitrogen 61 mg/dL (9-16); Calcium 8.9 mg/dL (8.4-10.2); Carbon Dioxide 22 mmol/L (22-29); Chloride 103 mmol/L (96-108); Creatinine Clr Calc Pharmacy 27.7; Estimated Glomerular Filt Rate 34; Glucose Random 261 mg/dL (60-115); Potassium 4.4 mmol/L (3.3-5.1); Sodium 137 mmol/L (135-145); Total Protein 6.6 g/dL (6.5-8.0)
[2021-05-04] MEDS: Acetaminophen 325 MG TABLET 650 MG PO (12:27)
[2021-05-04 13:54] LABS: COVID-19 Test Negative (Negative); IDNOW Serial# 9DD0AD1C
--- NOTE | 2021-05-04 14:18 | PHA.MEDREC ---
MED REC COMPLETE, N O ISSUES Pharmacy Consult ? Medication Reconciliation Pharmacy has completed the medication reconciliation.
--- NOTE | 2021-05-04 14:19 | PC.NURSE ---
jordy [facility] [phone]
[2021-05-04] MEDS: Pantoprazole Sodium 40 MG/10 ML VIAL 80 MG IVPUSH (15:44)
--- NOTE | 2021-05-04 16:08 | P.HPHOSP_ITS ---
History of Present Illness Date of Service: 05/04/21 Chief Complaint: melena 81M presented with melena for 3 days. last episode AM of presentation. denies sob or chest pain, denies hematemisis. patient had recent NSTEMI with LAD CELESTINO placement 04/15/2021 at [facility], followed by episodes of melena and EGD on 04/22/21 that was reported as unremarkable, was transfused at that time, continued on PPI and restarted on aspirin and brillinta. he had also had EGD 10/18/20 with suspected barretts, gastritis, and healed duodenal ulcer. in ED patient's hgb 5.6, given 1 unit prbc. labs also significant for JAMA with creaitnine of 1.93, up from 1.6 on 04/22. Review of Systems Review of Systems: Constitutional: Denies fever, denies Chills Eyes: denies blurry vision ENT: denies sore throat CVS: denies chest pain Respiratory: Denies dyspnea GI: melena : denies dysuria MSK: denies neck pain Skin: denies rash Neuro: denies specific motor weakness Psych: denies suicidal ideation Endocrine: denies heat/cold intolerance Hematologic: denies easy bleeding Allergy: denies hives [facility] Medical History Acute coronary syndrome Aortic stenosis BPH (benign prostatic hyperplasia) CAD (coronary artery disease) CHB (complete heart block) Congestive heart failure (CHF) CVA (cerebral vascular accident) Diastolic CHF Essential hypertension Hemorrhage of gastrointestinal tract, unspecified HLD (hyperlipidemia) HTN (hypertension) Hx of cardiac pacemaker Left carotid stenosis Non-rheumatic aortic stenosis Normally functioning cardiac pacemaker present On anticoagulant therapy On beta randy at home Pacemaker (~06/2015) PAF (paroxysmal atrial fibrillation) Rheumatoid arthritis Type 2 diabetes mellitus with unspecified complications Family History Father Cancer Mother Cancer Surgical History H/O colonoscopy History of appendectomy History of esophagogastroduodenoscopy History of lumbar surgery History of prostate surgery Hx of cholecystectomy S/P cardiac cath (~08/2020) Status post biventricular pacemaker (~10/2020) Social History Household Members: Children Household Members Other:: around the clock [employer] services Alcohol intake: former Patient Tobacco Use Status: Former Tobacco user Years Smoked: 25 Use of substances other than those prescribed or required for medical reasons: No Advance Directives: Yes Advance Directives Information Provided: No Advance Directives on File: No Advance Directives Date on File: 04/12/21 service: No Current occupational status: retired Meds Allergies Allergy/AdvReac Type Severity Reaction Status Date / Time naproxen [From NAPROSYN] Allergy Intermediate ITCHY Verified 04/07/21 09:37 sulfasalazine Allergy Intermediate anxiety Verified 04/07/21 09:37 Penicillins [PENICILLINS] Allergy Mild ITCHY Verified 04/07/21 09:37 Active Medications: Current Medications Generic Name Dose Route Start Last Admin Trade Name Freq PRN Reason Stop Dose Admin Aspirin 81 mg 05/05/21 09:00 Aspirin Enteric Coated 81 Mg Tablet. PO DAILY [facility] Atorvastatin Calcium 40 mg 05/05/21 09:00 Atorvastatin Calcium 40 Mg Tablet PO DAILY [facility] Dextrose 25 gm 05/04/21 15:58 Dextrose 50 % 25 Gm/50 Ml Vial IVPUSH Q15M PRN per Hypoglycemia Standing Ord. Protocol Ferrous Sulfate 324 mg 05/05/21 09:00 Ferrous Sulfate 324 Mg Tablet. PO DAILY [facility] Folic Acid 1 mg 05/05/21 09:00 Folic Acid 1 Mg Tablet PO DAILY [facility] Gabapentin 300 mg 05/04/21 21:00 Gabapentin 300 Mg Capsule PO TID [facility] Glucose 15 gm 05/04/21 15:58 Glucose Gel 15 Gm Gel..Gram. PO Q15M PRN per Hypoglycemia Standing Ord. Protocol Insulin Glargine 20 unit 05/04/21 21:00 Insulin Glargine,Hum.Rec.Anlog 100 Unit/Ml 10 Ml Vial SUBCUT BEDTIME [facility] Insulin Human Lispro 0 unit 05/04/21 16:30 Insulin Lispro 100 Unit/Ml 3 Ml Vial SUBCUT QIDACHS [facility] Protocol Metoprolol Succinate 25 mg 05/05/21 09:00 Metoprolol Succinate Er 25 Mg Tab.Er.24h PO DAILY [facility] Protocol Non-Formulary Medication 1 drop 05/04/21 21:00 Tobramycin-Lotepred [Zylet] EYE-BOTH TID [facility] Pantoprazole Sodium 40 mg 05/04/21 16:30 Pantoprazole Sodium 40 Mg/10 Ml Vial IVPUSH BID@0665,9040 [facility] Pharmacy Consult 1 each 05/04/21 12:57 Consult Rx Perform Med Rec MISCELLANE ONCE PRN Consult order Tamsulosin HCl 0.4 mg 05/04/21 21:00 Tamsulosin Hcl 0.4 Mg Capsule PO BEDTIME [facility] Ticagrelor 90 mg 05/04/21 21:00 Ticagrelor 90 Mg Tablet PO BID [facility] Trazodone HCl 50 mg 05/04/21 21:00 Trazodone Hcl 50 Mg Tablet PO BEDTIME [facility] Home Medications Medication Instructions Recorded Confirmed Last Taken Type ferrous sulfate 324 mg (65 mg 324 mg PO DAILY 08/20/20 05/04/21 05/04/21 History iron) tablet,delayed release insulin glargine 100 unit/mL (3 20 unit SUBCUT BEDTIME 08/20/20 05/04/21 05/03/21 History mL) subcutaneous pen (Lantus Solostar U-100 Insulin) trazodone 50 mg tablet 50 mg PO BEDTIME 08/20/20 05/04/21 05/03/21 History gabapentin 300 mg capsule 300 mg PO TID cap 11/18/20 05/04/21 05/04/21 History ticagrelor 90 mg tablet 90 mg PO BID 03/14/21 05/04/21 05/04/21 History aspirin 81 mg tablet,delayed 81 mg PO DAILY 03/23/21 05/04/21 05/04/21 History release pantoprazole 40 mg tablet,delayed 40 mg PO DAILY@0630 03/23/21 05/04/21 05/04/21 History release acetaminophen 325 mg tablet 975 mg PO Q6H PRN 05/04/21 05/04/21 Unknown History atorvastatin 40 mg tablet 40 mg PO DAILY 05/04/21 05/04/21 05/04/21 History docusate sodium 100 mg capsule 100 mg PO BID PRN 05/04/21 05/04/21 Unknown History insulin lispro 100 unit/mL 5 unit SUBCUT TIDAC 05/04/21 05/04/21 Unknown History subcutaneous pen (Humalog KwikPen (U-100) Insulin) metoprolol succinate 25 mg 25 mg PO DAILY 05/04/21 05/04/2121 History tablet,extended release 24 hr tobramycin 0.3 %-lotepred 0.5 % 1 drp OPHTHALMIC (EYE) TID 05/04/21 05/04/21 Unknown History eye drops,suspension (Zylet) torsemide 20 mg tablet 20 mg PO DAILY 05/04/21 05/04/21 05/04/21 History Physical Exam Vital Signs and Narrative: Vital Signs: Last Vital Signs Temp 98.0 F 05/04/21 15:16 Pulse 85 05/04/21 15:16 Resp 17 05/04/21 15:16 BP 103/43 L 05/04/21 15:16 Pulse Ox 100 05/04/21 15:16 Body Mass Index 29.5 General: no acute distress HEENT: atraumatic Neck: normal to visual inspection CVS: S1, S2, RRR Resp: CTA bilateral Chest: non tender GI: soft, non tender, non distended : no CVA tenderness Skin: no rashes Extremities: no edema Neuro: Oriented X3, grossly intact Psych: cooperative Results Labs CBC and Chem 7: 05/04/21 11:22 05/04/21 11:22 Labs: Laboratory Results - last 24 hr 05/04/21 05/04/21 05/04/21 11:22 11:22 11:42 Hgb 5.6 L* D MCV 92.1 MCH 29.3 MCHC 31.8 RDW 14.6 Plt Count 269 MPV 11.1 Immature Gran % (Auto) 0.3 Neut % (Auto) 77.4 H Lymph % (Auto) 15.2 L [place] % (Auto) 6.4 Eos % (Auto) 0.5 Baso % (Auto) 0.2 Lymph # (Auto) 1.3 [place] # (Auto) 0.6 Eos # (Auto) 0.0 Baso # (Auto) 0.0 Abs Immat Gran (auto) 0.03 Absolute Neuts (auto) 6.8 Absolute Nucleated RBC 0.000 Nucleated RBC % (auto) 0.0 Anion Gap 16 Creatinine 1.93 H Estim Creat Clear Calc 27.7 Estimated GFR 34 Random Glucose 261 H D Calcium 8.9 Total Bilirubin 0.4 AST 7 ALT 9 Alkaline Phosphatase 52 D Total Protein 6.6 Albumin 3.8 COVID-19 (HIEU) COVID-19 Clin Com Blood Type A Positive Antibody Screen NEGATIVE Crossmatch See Detail 05/04/21 13:31 Hgb MCV MCH MCHC RDW Plt Count MPV Immature Gran % (Auto) Neut % (Auto) Lymph % (Auto) [place] % (Auto) Eos % (Auto) Baso % (Auto) Lymph # (Auto) [place] # (Auto) Eos # (Auto) Baso # (Auto) Abs Immat Gran (auto) Absolute Neuts (auto) Absolute Nucleated RBC Nucleated RBC % (auto) Anion Gap Creatinine Estim Creat Clear Calc Estimated GFR Random Glucose Calcium Total Bilirubin AST ALT Alkaline Phosphatase Total Protein Albumin COVID-19 (HIEU) Negative COVID-19 Clin Com See Note Blood Type Antibody Screen Crossmatch Assessment and Plan (1) Acute GI bleeding: Status: Acute 81M presented with melena acute blood loss anemia IV PPI will transfuse a second unit, monitor prbc GI eval recent NSTEMI and LAD CELESTINO and ischemic cardiomyopathy with EF 25-30% d/w cardio and GI, will continue DAPL for now, monitor closely continue statin toprol DM inuslin vte prophylaxis - mechanical due to gi bleed Quality Stroke Does the patient have a stroke diagnosis?: No VTE Prior VTE?: No VTE Risk Level:: Medical - moderate - high VTE Device Contraindication: N/A - Device Ordered VTE Drug Contraindication: Treatment Not Indicated
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
[2021-05-04] MEDS: Insulin Lispro 100 UNIT/ML 3 ML VIAL SUBCUT (18:23)
--- NOTE | 2021-05-04 19:14 | PM.EVENT ---
Event Note Date of Service: 05/04/21 Event Note: GI Consult-Full note dictated-Hx via patient and daughter, Jessica, via a medical records custodian, and from the EMR. Imp: 81 yo on Brilinta and aspirin for CAD, s/p a stent placement earlier this month at [facility]. He has had UGI bleeds in the past and at [facility] earlier this month. The most recent EGD at [facility] earlier this month was reportedly negative. This AM he awoke with melena and weakness. His stools were brown up until this AM. His w/u in the ER revealed a significant drop in Hgb. He has had no BM's nor bleeding since this AM. He describes a colonoscopy at [facility] 2-3 years ago. Diff dx: Recurrent UGI bleed due to PUD, AVM, Dieulafoy lesion. A small bowel or colonic source may need to be ruled out as well. Rec: Cardiology consult. I will try to obtain his GI records from [facility]. Will plan for an EGD on 05/06(sooner if things worsen). Full consent obtained for the EGD, including risks of bleeding and perforation. If the EGD is negative he may then need a small bowel video capsule study and a colonoscopy for further evaluation. Continue PPI. Hold Iron for now. Check PT/INR. F/U Hgb and transfuse PRN. D/W patient and his daughter, Jessica, in detail and they are comfortable with this plan. Thanks.
--- NOTE | 2021-05-04 20:26 | CONS_ITS ---
DATE OF SERVICE: 05/04/2021 REASON FOR CONSULTATION: Melena and anemia. HISTORY OF PRESENT ILLNESS: This has been obtained from the patient and his daughter, Jessica, with a medical staff physician, as well as from the medical record. The patient is an 81-year-old male, who had been at [facility] earlier this month for placement of a coronary artery stent in relation to underlying coronary artery disease. He seems to have had a history of previous GI bleeding and had at least 2 upper endoscopies here at [place]. His most recent upper endoscopy here was earlier this year, which revealed some evidence of scarring from previous ulcer disease in the duodenum, but no evidence of any active bleeding at that time. This procedure was done in early October by Dr. Shelton. There was some evidence of some gastric nodularity; however, biopsies were not obtained at that time due to the fact that he was on Plavix and aspirin. He was also noted to have some changes of reflux and possibly a small area of Reese's esophagus. However, again, there was no evidence of any active bleeding. He also had an upper endoscopy in [address] Schulz, in which she describes some gastritis, but no other significant abnormalities. She also performed an upper endoscopy on him in 2013 with the finding of some gastritis as well. He does describe a colonoscopy at [facility] several years ago, which was reportedly unremarkable. During the hospitalization at [facility] earlier this month for the placement of coronary artery stent, he describes upper GI bleeding. The discharge summary from [facility] was available and the report describes a negative upper endoscopy. The upper endoscopy report was available for my review and was indeed unremarkable. Since discharge from [facility], he has been on Brilinta and aspirin, as well as iron. He reports that his bowel movements have been normal at home without any melena nor hematochezia. Up until this morning, he describes his bowel movements have been brown. However, this morning, he awoke and had a black stool with weakness. He came to the ER and was found to have a significant drop in his hemoglobin to a level of 5.6 as compared to 8.0 in April 14. His BUN was also elevated at 61 with a creatinine of 1.9 compared to a BUN of 23 and creatinine of 1.2 on April 14. Since the episode of black stool this morning at home, he has had no further bowel movements. He denies any hematochezia. He denies any upper GI symptoms such as significant heartburn, dysphagia, nor vomiting. At home, he was taking pantoprazole daily. He denies use of any recent NSAIDs, tobacco nor alcohol. He presently denies any abdominal pains nor jaundice. CURRENT MEDICATIONS: Include IV pantoprazole, acetaminophen, aspirin 81 mg, atorvastatin, folic acid, gabapentin, insulin, metoprolol, Brilinta, tamsulosin, and trazodone. PAST MEDICAL HISTORY: Coronary artery disease with recently placed stent as above. Multiple upper endoscopies as described above without any definitive findings of bleeding lesions, although there was some scarring in the duodenum consistent with possible old ulcer disease and some mild gastritis. Other medical issues include congestive heart failure, previous stroke, hypertension, hyperlipidemia, pacemaker, carotid artery disease, atrial fibrillation, and diabetes mellitus. PAST SURGICAL HISTORY: Surgeries include appendectomy, back surgery, prostate surgery, cholecystectomy, and pacemaker. SOCIAL HISTORY: He is single. He currently does not smoke nor use any alcohol. FAMILY HISTORY: Noncontributory. PHYSICAL EXAMINATION: GENERAL: The patient is a pleasant, elderly alert male, in no distress. SKIN: Warm and dry. HEENT: Anicteric sclerae. NECK: Supple without lymphadenopathy. ABDOMEN: Soft, nondistended, nontender. LABORATORY DATA: As above. His LFTs are normal. IMPRESSION: Given the patient's clinical history of the recurrent melena and significant drop in hemoglobin, this speaks for an upper GI bleed. His elevated BUN out of proportion to creatinine would also go long with that. However, as described above, he has had multiple upper endoscopies that have not been particularly revealing whatsoever. At this point, he appears stable. Even though he had a reported negative upper endoscopy earlier this month, I would recommend a repeat upper endoscopy while here in the hospital for re-evaluation given the recurrent presumed UGI bleeding and drop in hemoglobin. This will be done with monitored anesthesia care. Full consent has been obtained for that from the patient and his daughter, including risks of bleeding and perforation. Prior to that, he will have cardiology consultation. If the upper endoscopy is again not revealing, I would then recommend further consideration of workup with small bowel video capsule study and possible colonoscopy. In the meantime, I will continue his IV PPI and monitor his hemoglobin. I would hold his iron for the time being. I shall check a PT with INR. This has all been discussed with the patient and his daughter in detail and they are comfortable with the plan. Thank you for the consultation. MD DURAN Hull/EUGENE / [id number] MTDD
[2021-05-04] MEDS: Insulin Glargine,Hum.rec.anlog 100 UNIT/ML 10 ML VIAL 20 UNIT SUBCUT (22:00)
[2021-05-04] MEDS: traZODone HCL 50 MG TABLET PO (22:00)
[2021-05-04] MEDS: Tamsulosin HCL 0.4 MG CAPSULE PO (22:00)
[2021-05-04] MEDS: Gabapentin 300 MG CAPSULE PO (22:00)
[2021-05-04 22:43] LABS: Glucose, Whole Blood 168 mg/dL (60-115)
[2021-05-05 01:00] VITALS: BP 112/43; PULSE 106; RESP 14; O2SAT 95
[2021-05-05] MEDS: 0.9 % Sodium Chloride Flush 3 ML SYRINGE IVFLUSH ×4 (05:23→21:04)
[2021-05-05] MEDS: Pantoprazole Sodium 40 MG/10 ML VIAL IVPUSH ×2 (05:27→17:10)
[2021-05-05 05:55] VITALS: BMI 28.4
--- NOTE | 2021-05-05 06:24 | PC.NURSE ---
ADMITTED TO [facility] [place] AT APPROX 0515 VIA STRETCHER FROM ER. PATIENT CALM, COOPERATIVE. NO BLEEDING NOTED AT THIS TIME. DENIES PAIN. VITALS STABLE, VPACED ON MONITOR. PATIENT VAGUE HISTORIAN - HOSPICE OFFICE COORDINATOR NOT AVAILABLE DURING THIS SHIFT, FRISIAN SPEAKING STAFF HELPED W/ ADMISSION QUESTIONS. PATIENT REPORTED USING CANE AND WALKER AT HOME - UNABLE TO ANSWER ALL QUESTIONS. PATIENT RESTING QUIETLY - ORIENTED TO ROOM AND CALL HUMMEL. MADE HIGH FALL RISK, TELESITTER PLACED IN ROOM FOR ADDITIONAL SAFETY PRECAUTIONS.
[2021-05-05 06:36] LABS: Hematocrit 24.9 % (42-52); Hemoglobin 8.4 g/dl (14.0-18.0); Mean Corpuscular HGB Conc 33.7 g/dl (31.0-36.0); Mean Corpuscular Volume 91.9 fL (80-98); Mean Platelet Volume 11.7 fL (9.4-12.4); Platelet Count 279 X10*3/uL (160-400); Red Blood Count 2.71 X10*6/uL (4.60-5.80); Red Cell Distribution Width 14.1 % (11.0-16.0); White Blood Count 9.7 X10*3/uL (4.8-10.8)
[2021-05-05 06:56] LABS: Prothrombin Time 11.5 SEC (9.9-13.0)
[2021-05-05 07:11] LABS: Anion Gap 13 (12-20); Blood Urea Nitrogen 51 mg/dL (9-16); Calcium 8.8 mg/dL (8.4-10.2); Carbon Dioxide 24 mmol/L (22-29); Chloride 106 mmol/L (96-108); Creatinine Clr Calc Pharmacy 33.3; Estimated Glomerular Filt Rate 42; Glucose Fasting 127 mg/dL (60-99); Potassium 4.1 mmol/L (3.3-5.1); Sodium 139 mmol/L (135-145)
[2021-05-05 07:39] LABS: Glucose, Whole Blood 130 mg/dL (60-115)
[2021-05-05 07:46] VITALS: BP 107/51; PULSE 105; RESP 19; TEMP 36.6; O2SAT 97
[2021-05-05 08:44] VITALS: BP 107/51; PULSE 103
[2021-05-05] MEDS: Ticagrelor 90 MG TABLET PO ×2 (08:44→21:03)
[2021-05-05] MEDS: Folic Acid 1 MG TABLET PO (08:44)
[2021-05-05] MEDS: Gabapentin 300 MG CAPSULE PO ×3 (08:44→21:03)
[2021-05-05] MEDS: Aspirin Enteric Coated 81 MG TABLET.DR PO (08:44)
[2021-05-05] MEDS: Metoprolol Succinate ER 25 MG TAB.ER.24H PO (08:44)
[2021-05-05] MEDS: Atorvastatin Calcium 40 MG TABLET PO (08:44)
--- NOTE | 2021-05-05 10:39 | P.CONCA_ITS ---
History of Present Illness History of Present Illness Date of Service: 05/05/21 Consult reason: pre-op evaluation Chief complaint: rectal bleed Narrative: This is a cardiology consultation regarding preoperative risk stratification prior to endoscopy and possible colonoscopy. He is well known to us. Numerous hospitalizations in the last 7-8 months. Probably around 10-15 or so between [facility] and [facility]. He has had numerous cardiac catheterizations in the same time.. These include, left main into LAD, circumflex PCI; angioplasty for InStent restenoses of circumflex stent in February; stenting of left main into LAD, beginning of April. He has had recurrent episodes of GI bleeding as well and has had multiple prior endoscopies. Recently had another endoscopy in [facility]. Now he presents again with GI bleeding. He states that he has been doing okay from cardiac standpoint however in the last few days after the recent stenting. No chest pain of anginal type or shortness of breath or other complaints. However, due to melena, he is now readmitted and noted to have very low hemoglobin. From the cardiac standpoint he remains on aspirin and Brilinta. We have been asked to see him for further evaluation before he goes for GI procedures. Other procedures include upgrade of his pacemaker to [employer] due to cardiomyopathy that was done few months ago. Review of Systems Review of Systems: Yes all other systems are reviewed and are negative Cardiovascular: Cardiovascular: Reports as per HPI, Reports no additional cardiovascular complaints, Denies acrocyanosis, Denies cool extremities, Denies painful fingertips, Denies chest pain, Denies chest pain at rest, Denies diaphoresis, Denies syncope, Denies irregular heart rhythm, Denies claudication, Denies leg edema, Denies lightheadedness, Denies palpitations and Denies dyspnea Respiratory: Respiratory: Denies dyspnea Gastrointestinal: Gastrointestinal: Reports melena and Reports hematochezia Neurologic: Denies syncope Endocrine: Endocrine: Denies palpitations [facility] Past Medical History Medical History Acute coronary syndrome Aortic stenosis BPH (benign prostatic hyperplasia) CAD (coronary artery disease) CHB (complete heart block) Congestive heart failure (CHF) CVA (cerebral vascular accident) Diastolic CHF Essential hypertension Hemorrhage of gastrointestinal tract, unspecified HLD (hyperlipidemia) HTN (hypertension) Hx of cardiac pacemaker Left carotid stenosis Non-rheumatic aortic stenosis Normally functioning cardiac pacemaker present On anticoagulant therapy On beta randy at home Pacemaker (~06/2015) PAF (paroxysmal atrial fibrillation) Rheumatoid arthritis Type 2 diabetes mellitus with unspecified complications Family History Family History Father Cancer Mother Cancer Surgical History Surgical History H/O colonoscopy History of appendectomy History of esophagogastroduodenoscopy History of lumbar surgery History of prostate surgery Hx of cholecystectomy S/P cardiac cath (~08/2020) Status post biventricular pacemaker (~10/2020) Social History Social History Household Members: Family Household Members Other:: around the clock [employer] ([employer]) ELECTRICAL services Housing: Apartment Do you presently have visiting nurse or other home services: Yes Alcohol intake: former Patient Tobacco Use Status: Former Tobacco user Years Smoked: 25 Use of substances other than those prescribed or required for medical reasons: No Currently Displaying Signs/Symptoms of Drug Intoxication Withdrawal: No Have you been hit, kicked, punched, or otherwise hurt by someone within the past year? If so, by whom?: No Do you feel safe in your current relationship?: Yes Is there a partner from a previous relationship who is making you feel unsafe now?: No Are you made to feel afraid or neglected: No Spiritual Healthcare Practices: NONE Orthodox Healthcare Practices: NONE Cultural Healthcare Practices: NONE Advance Directives: Yes Advance Directives Information Provided: No Advance Directives on File: No Advance Directives Date on File: 04/12/21 Do you have thoughts of harming others: None Do you have a plan to hurt others: No Plan Recently lost weight without trying: No Eating poorly because of decreased appetite: No Nutrition Risks: No Nutritional Risk Poor oral hygiene: No service: No Current occupational status: retired Meds Allergies Allergy/AdvReac Type Severity Reaction Status Date / Time naproxen [From NAPROSYN] Allergy Intermediate ITCHY Verified 04/07/21 09:37 sulfasalazine Allergy Intermediate anxiety Verified 04/07/21 09:37 Penicillins [PENICILLINS] Allergy Mild ITCHY Verified 04/07/21 09:37 Active Medications: Current Medications Generic Name Dose Route Start Last Admin Trade Name Freq PRN Reason Stop Dose Admin Aspirin 81 mg 05/05/21 09:00 05/05/21 08:44 Aspirin Enteric Coated 81 Mg Tablet.Dr PO 81 mg DAILY FEROZ Administration Atorvastatin Calcium 40 mg 05/05/21 09:00 05/05/21 08:44 Atorvastatin Calcium 40 Mg Tablet PO 40 mg DAILY FEROZ Administration Dextrose 25 gm 05/04/21 15:58 Dextrose 50 % 25 Gm/50 Ml Vial IVPUSH Q15M PRN per Hypoglycemia Standing Ord. Protocol Folic Acid 1 mg 05/05/21 09:00 05/05/21 08:44 Folic Acid 1 Mg Tablet PO 1 mg DAILY FEROZ Administration Gabapentin 300 mg 05/04/21 21:00 05/05/21 08:44 Gabapentin 300 Mg Capsule PO 300 mg TID [facility] Administration Glucose 15 gm 05/04/21 15:58 Glucose Gel 15 Gm Gel..Gram. PO Q15M PRN per Hypoglycemia Standing Ord. Protocol Insulin Glargine 20 unit 05/04/21 21:00 05/04/21 22:00 Insulin Glargine,Hum.Rec.Anlog 100 Unit/Ml 10 Ml Vial SUBCUT 20 unit BEDTIME [facility] Administration Insulin Human Lispro 0 unit 05/04/21 16:30 05/05/21 07:41 Insulin Lispro 100 Unit/Ml 3 Ml Vial SUBCUT Not Given QIDACHS [facility] Protocol Metoprolol Succinate 25 mg 05/05/21 09:00 05/05/21 08:44 Metoprolol Succinate Er 25 Mg Tab.Er.24h PO 25 mg DAILY [facility] Administration Protocol Non-Formulary Medication 1 drop 05/04/21 21:00 Tobramycin-Lotepred [Zylet] EYE-BOTH TID [facility] Pantoprazole Sodium 40 mg 05/04/21 16:30 05/05/21 05:27 Pantoprazole Sodium 40 Mg/10 Ml Vial IVPUSH 40 mg [id number] [facility] Administration Pharmacy Consult 1 each 05/04/21 12:57 Consult Rx Perform Med Rec MISCELLANE ONCE PRN Consult order Sodium Chloride 3 ml 05/05/21 00:00 05/05/21 08:44 0.9 % Sodium Chloride Flush 3 Ml Syringe IVFLUSH 3 ml QSHIFT [facility] Administration Tamsulosin HCl 0.4 mg 05/04/21 21:00 05/04/21 22:00 Tamsulosin Hcl 0.4 Mg Capsule PO 0.4 mg BEDTIME FEROZ Administration Ticagrelor 90 mg 05/04/21 21:00 05/05/21 08:44 Ticagrelor 90 Mg Tablet PO 90 mg BID FEROZ Administration Trazodone HCl 50 mg 05/04/21 21:00 05/04/21 22:00 Trazodone Hcl 50 Mg Tablet PO 50 mg BEDTIME FEROZ Administration Home Medications Medication Instructions Recorded Confirmed Last Taken Type ferrous sulfate 324 mg (65 mg 324 mg PO DAILY 08/20/20 05/04/21 05/04/21 History iron) tablet,delayed release insulin glargine 100 unit/mL (3 20 unit SUBCUT BEDTIME 08/20/20 05/04/21 05/03/21 History mL) subcutaneous pen (Lantus Solostar U-100 Insulin) trazodone 50 mg tablet 50 mg PO BEDTIME 08/20/20 05/04/21 05/03/21 History gabapentin 300 mg capsule 300 mg PO TID cap 11/18/20 05/04/21 05/04/21 History ticagrelor 90 mg tablet 90 mg PO BID 03/14/21 05/04/21 05/04/21 History aspirin 81 mg tablet,delayed 81 mg PO DAILY 03/23/21 05/04/21 05/04/21 History release pantoprazole 40 mg tablet,delayed 40 mg PO DAILY@0630 03/23/21 05/04/21 05/04/21 History release acetaminophen 325 mg tablet 975 mg PO Q6H PRN 05/04/21 05/04/21 Unknown History atorvastatin 40 mg tablet 40 mg PO DAILY 05/04/21 05/04/21 05/04/21 History docusate sodium 100 mg capsule 100 mg PO BID PRN 05/04/21 05/04/21 Unknown History insulin lispro 100 unit/mL 5 unit SUBCUT TIDAC 05/04/21 05/04/21 Unknown History subcutaneous pen (Humalog KwikPen (U-100) Insulin) metoprolol succinate 25 mg 25 mg PO DAILY 05/04/21 05/04/21 05/04/21 History tablet,extended release 24 hr tobramycin 0.3 %-lotepred 0.5 % 1 drp OPHTHALMIC (EYE) TID 05/04/21 05/04/21 Unknown History eye drops,suspension (Zylet) torsemide 20 mg tablet 20 mg PO DAILY 05/04/21 05/04/21 05/04/21 History Physical Exam Vital Signs: Vital Signs: Last Vital Signs Temp 97.9 F 05/05/21 07:46 Pulse 103 H 05/05/21 08:44 Resp 19 05/05/21 07:46 BP 107/51 L 05/05/21 08:44 Pulse Ox 97 05/05/21 07:46 Body Mass Index 28.4 Const: General: cooperative and no acute distress HENMT: Other: Unremarkable Neck: Neck: Yes normal visual inspection Chest: Chest palpation & inspection: normal inspection of the chest Resp: Auscultation: clear to auscultation bilaterally, no crackles and no wheezes Cardio: Jugular venous distension: no JVD Palpation: normal PMI Heart sounds: S1 normal heart sound present, S2 normal heart sound present, no gallops, Murmur heart sound present (3/6 MARSHAL aortic area) and no rubs GI: Palpation (GI): Soft to palpation Back/Spine/Pelvis: Other: unremarkable Skin: General skin exam: no rashes or lesions noted Neuro: Cranial nerves: Yes Other cranial nerve findings present Extrem: General: Yes no clubbing, cyanosis or edema Psych: Mental Status: other Results Labs and Meds Result diagrams: 05/05/21 05:23 05/05/21 05:23 Lab results: Laboratory Results - last 24 hr 05/04/21 05/04/21 05/04/21 11:22 11:22 11:42 WBC 8.8 RBC 1.91 L D Hgb 5.6 L* D Hct 17.6 L* D MCV 92.1 MCH 29.3 MCHC 31.8 RDW 14.6 Plt Count 269 MPV 11.1 Immature Gran % (Auto) 0.3 Neut % (Auto) 77.4 H Lymph % (Auto) 15.2 L Walsh % (Auto) 6.4 Eos % (Auto) 0.5 Baso % (Auto) 0.2 Lymph # (Auto) 1.3 Walsh # (Auto) 0.6 Eos # (Auto) 0.0 Baso # (Auto) 0.0 Abs Immat Gran (auto) 0.03 Absolute Neuts (auto) 6.8 Absolute Nucleated RBC 0.000 Nucleated RBC % (auto) 0.0 PT INR Sodium 137 Potassium 4.4 Chloride 103 Carbon Dioxide 22 Anion Gap 16 BUN 61 H D Creatinine 1.93 H Estim Creat Clear Calc 27.7 Estimated GFR 34 POC Glucose Random Glucose 261 H D Fasting Glucose Calcium 8.9 Total Bilirubin 0.4 AST 7 ALT 9 Alkaline Phosphatase 52 D Total Protein 6.6 Albumin 3.8 COVID-19 (HIEU) COVID-19 Clin Com Blood Type A Positive Antibody Screen NEGATIVE Crossmatch See Detail 05/04/21 05/04/21 05/05/21 13:31 22:31 05:23 WBC 9.7 RBC 2.71 L D Hgb 8.4 L D Hct 24.9 L D MCV 91.9 MCH 31.0 MCHC 33.7 RDW 14.1 Plt Count 279 MPV 11.7 Immature Gran % (Auto) Neut % (Auto) Lymph % (Auto) Walsh % (Auto) Eos % (Auto) Baso % (Auto) Lymph # (Auto) Walsh # (Auto) Eos # (Auto) Baso # (Auto) Abs Immat Gran (auto) Absolute Neuts (auto) Absolute Nucleated RBC 0.000 Nucleated RBC % (auto) 0.0 PT INR Sodium Potassium Chloride Carbon Dioxide Anion Gap BUN Creatinine Estim Creat Clear Calc Estimated GFR POC Glucose 168 H Random Glucose Fasting Glucose Calcium Total Bilirubin AST ALT Alkaline Phosphatase Total Protein Albumin COVID-19 (HIEU) Negative COVID-19 Clin Com See Note Blood Type Antibody Screen Crossmatch 05/05/21 05/05/21 05/05/21 05:23 05:23 07:33 WBC RBC Hgb Hct MCV MCH MCHC RDW Plt Count MPV Immature Gran % (Auto) Neut % (Auto) Lymph % (Auto) Walsh % (Auto) Eos % (Auto) Baso % (Auto) Lymph # (Auto) Walsh # (Auto) Eos # (Auto) Baso # (Auto) Abs Immat Gran (auto) Absolute Neuts (auto) Absolute Nucleated RBC Nucleated RBC % (auto) PT 11.5 INR 1.0 Sodium 139 Potassium 4.1 Chloride 106 Carbon Dioxide 24 Anion Gap 13 BUN 51 H Creatinine 1.58 H Estim Creat Clear Calc 33.3 Estimated GFR 42 POC Glucose 130 H Random Glucose Fasting Glucose 127 H Calcium 8.8 Total Bilirubin AST ALT Alkaline Phosphatase Total Protein Albumin COVID-19 (HIEU) COVID-19 Clin Com Blood Type Antibody Screen Crossmatch ECG Interpretation: EKG shows atrial sensed ventricular paced rhythm at 90/Min. Assessment and Plan (1) Preoperative cardiovascular examination: Status: Acute (2) Acute blood loss anemia: Status: Acute (3) Atherosclerotic cardiovascular disease: Status: Acute (4) Ischemic cardiomyopathy: Status: Acute Pertinent studies reviewed. Last hemoglobin from today is 8.4 but yesterday upon arrival it was 5.6. He has been running low hemoglobin is overall due to recurrent GI bleeding. Creatinine is 1.58. BUN is 51. Potassium is 4.1. Last echocardiogram from March showed LVEF of 25-30% with multiple wall motion abnormalities. There was moderate aortic stenosis, moderate mitral regurgitation, [id number] tricuspid regurgitation and mild pulmonary hypertension as well. Most recent cardiac catheterization is from April 18 and at that time, he had drug-eluting stenting of left main to LAD. As mentioned earlier, previous stents from left main into LAD and circumflex as well as balloon inflation of ISR of circumflex stent. Overall, complicated situation as he clearly needs the dual antiplatelet therapy because of multiple prior PCIs but he also has recurrent GI bleeding. For now, due to recent stenting just a couple of weeks ago, still needs to continue the anti-platelet drugs without interruption. With regard to the when GI procedures as planned, may proceed. He will be at high cardiac risk, not modifiable. He has also been seen by cardiac surgery in the past who declined surgery and hence there were no other alternatives apart from multiple PCIs that he has had in the past. Will follow up with you. Procedures Date of Service Date of Service: 05/05/21
[2021-05-05 11:19] VITALS: BP 113/54; PULSE 84; RESP 18; TEMP 36.4; O2SAT 100
[2021-05-05 11:28] LABS: Glucose, Whole Blood 141 mg/dL (60-115)
--- NOTE | 2021-05-05 11:58 | HO.PM.IMPN ---
Subjective Subjective Date of Service: 05/05/21 Interval History: feels well, no further bleeding Constitutional Constitutional: Reports no additional constitutional complaints Eyes Eyes: Reports no additional eye complaints Physical Exam Vital Signs: Vital Signs: Last Vital Signs Temp 97.5 F 05/05/21 11:19 Pulse 84 05/05/21 11:19 Resp 18 05/05/21 11:19 BP 113/54 L 05/05/21 11:19 Pulse Ox 100 05/05/21 11:19 Body Mass Index 28.4 General: AO X 3, no acute distress Resp: CTA bilateral CVS: S1,S2,RRR GI: soft, non tender, non distended Neuro: motor grossly intact Psych: appropriate affect Objective Data Current Medications Generic Name Dose Route Start Last Admin Trade Name Freq PRN Reason Stop Dose Admin Aspirin 81 mg 05/05/21 09:00 05/05/21 08:44 Aspirin Enteric Coated 81 Mg Tablet. PO 81 mg DAILY FEROZ Administration Atorvastatin Calcium 40 mg 05/05/21 09:00 05/05/21 08:44 Atorvastatin Calcium 40 Mg Tablet PO 40 mg DAILY FEROZ Administration Dextrose 25 gm 05/04/21 15:58 Dextrose 50 % 25 Gm/50 Ml Vial IVPUSH Q15M PRN per Hypoglycemia Standing Ord. Protocol Folic Acid 1 mg 05/05/21 09:00 05/05/21 08:44 Folic Acid 1 Mg Tablet PO 1 mg DAILY FEROZ Administration Gabapentin 300 mg 05/04/21 21:00 05/05/21 08:44 Gabapentin 300 Mg Capsule PO 300 mg TID FEROZ Administration Glucose 15 gm 05/04/21 15:58 Glucose Gel 15 Gm Gel..Gram. PO Q15M PRN per Hypoglycemia Standing Ord. Protocol Insulin Glargine 20 unit 05/04/21 21:00 05/04/21 22:00 Insulin Glargine,Hum.Rec.Anlog 100 Unit/Ml 10 Ml Vial SUBCUT 20 unit BEDTIME FEROZ Administration Insulin Human Lispro 0 unit 05/04/21 16:30 05/05/21 11:41 Insulin Lispro 100 Unit/Ml 3 Ml Vial SUBCUT Not Given QIDACHS [facility] Protocol Metoprolol Succinate 25 mg 05/05/21 09:00 05/05/21 08:44 Metoprolol Succinate Er 25 Mg Tab.Er.24h PO 25 mg DAILY FEROZ Administration Protocol Non-Formulary Medication 1 drop 05/04/21 21:00 Tobramycin-Lotepred [Zylet] EYE-BOTH TID FEROZ Pantoprazole Sodium 40 mg 05/04/21 16:30 05/05/21 05:27 Pantoprazole Sodium 40 Mg/10 Ml Vial IVPUSH 40 mg [id number] [facility] Administration Pharmacy Consult 1 each 05/04/21 12:57 Consult Rx Perform Med Rec MISCELLANE ONCE PRN Consult order Sodium Chloride 3 ml 05/05/21 00:00 05/05/21 08:44 0.9 % Sodium Chloride Flush 3 Ml Syringe IVFLUSH 3 ml QSHIFT FEROZ Administration Tamsulosin HCl 0.4 mg 05/04/21 21:00 05/04/21 22:00 Tamsulosin Hcl 0.4 Mg Capsule PO 0.4 mg BEDTIME FEROZ Administration Ticagrelor 90 mg 05/04/21 21:00 05/05/21 08:44 Ticagrelor 90 Mg Tablet PO 90 mg BID FEROZ Administration Trazodone HCl 50 mg 05/04/21 21:00 05/04/21 22:00 Trazodone Hcl 50 Mg Tablet PO 50 mg BEDTIME FEROZ Administration Labs CBC & Chem 7: 05/05/21 05:23 05/05/21 05:23 Labs: Laboratory Results - last 24 hr 05/04/21 05/04/21 05/04/21 11:22 11:42 13:31 MCV MCH MCHC RDW Plt Count MPV Absolute Nucleated RBC Nucleated RBC % (auto) PT INR Anion Gap 16 Estim Creat Clear Calc 27.7 Estimated GFR 34 POC Glucose Random Glucose 261 H D Fasting Glucose Calcium 8.9 Total Bilirubin 0.4 AST 7 ALT 9 Alkaline Phosphatase 52 D Total Protein 6.6 Albumin 3.8 COVID-19 ([facility]IEU) Negative COVID-19 Clin Com See Note Blood Type A Positive Antibody Screen NEGATIVE Crossmatch See Detail 05/04/21 05/05/21 05/05/21 22:31 05:23 05:23 MCV 91.9 MCH 31.0 MCHC 33.7 RDW 14.1 Plt Count 279 MPV 11.7 Absolute Nucleated RBC 0.000 Nucleated RBC % (auto) 0.0 PT INR Anion Gap 13 Estim Creat Clear Calc 33.3 Estimated GFR 42 POC Glucose 168 H Random Glucose Fasting Glucose 127 H Calcium 8.8 Total Bilirubin AST ALT Alkaline Phosphatase Total Protein Albumin COVID-19 ([facility]U) COVID-19 Clin Com Blood Type Antibody Screen Crossmatch 05/05/21 05/05/21 05/05/21 05:23 07:33 11:22 MCV MCH MCHC RDW Plt Count MPV Absolute Nucleated RBC Nucleated RBC % (auto) PT 11.5 INR 1.0 Anion Gap Estim Creat Clear Calc Estimated GFR POC Glucose 130 H 141 H Random Glucose Fasting Glucose Calcium Total Bilirubin AST ALT Alkaline Phosphatase Total Protein Albumin COVID-19 ([facility]IEU) COVID-19 Clin Com Blood Type Antibody Screen Crossmatch Assessment and Plan (1) NSTEMI (non-ST elevated myocardial infarction): Status: Acute Assessment and Plan: 81M presented with melena acute blood loss anemia IV PPI transfused 2 units prbc on 05/04, hgb responded appropriately 5.6 to 8.4 plan for EGD 05/06 recent NSTEMI and LAD CELESTINO and ischemic cardiomyopathy with EF 25-30% d/w cardio and GI, will continue DAPL, monitor closely continue statin toprol DM inuslin vte prophylaxis - mechanical due to gi bleed Quality Stroke Does the patient have a stroke diagnosis?: No VTE Prior VTE?: No VTE Risk Level:: Medical - moderate - high VTE Device Contraindication: N/A - Device Ordered VTE Drug Contraindication: Treatment Not Indicated
--- NOTE | 2021-05-05 13:41 | MHC.SHP ---
Pre-Procedural Eval Section A Date of Service: 05/06/21 The patient is an INPATIENT: Yes The History & Physical has been completed within 30 days and I have reviewed it.: Yes Section B Chief Complaint: rectal bleed Allergies: Allergies Allergy/AdvReac Type Severity Reaction Status Date / Time naproxen [From NAPROSYN] Allergy Intermediate ITCHY Verified 04/07/21 09:37 sulfasalazine Allergy Intermediate anxiety Verified 04/07/21 09:37 Penicillins [PENICILLINS] Allergy Mild ITCHY Verified 04/07/21 09:37 Plan I have reviewed the history and physical and performed a pertinent physical examination on my patient. No changes have occurred unless specified.
[2021-05-05 15:17] VITALS: BP 98/50; PULSE 63; RESP 19; TEMP 36.6; O2SAT 100
[2021-05-05 16:16] LABS: Glucose, Whole Blood 142 mg/dL (60-115)
[2021-05-05 19:02] VITALS: BP 102/53; PULSE 78; RESP 19; TEMP 36.6; O2SAT 100
[2021-05-05 20:49] LABS: Glucose, Whole Blood 136 mg/dL (60-115)
[2021-05-05] MEDS: Tamsulosin HCL 0.4 MG CAPSULE PO (21:03)
[2021-05-05] MEDS: traZODone HCL 50 MG TABLET PO (21:03)
[2021-05-06] VITALS (16 sets, daily range): BP systolic 82–131; BP diastolic 29–65; PULSE 72–103; RESP 16–20; TEMP 36.1–36.8; O2SAT 98–100
[2021-05-06] MEDS: Pantoprazole Sodium 40 MG/10 ML VIAL IVPUSH (05:39)
[2021-05-06 06:34] LABS: Hematocrit 24.8 % (42-52); Hemoglobin 8.1 g/dl (14.0-18.0); Mean Corpuscular HGB Conc 32.7 g/dl (31.0-36.0); Mean Corpuscular Volume 91.9 fL (80-98); Mean Platelet Volume 11.5 fL (9.4-12.4); Platelet Count 291 X10*3/uL (160-400); Red Cell Distribution Width 14.4 % (11.0-16.0); White Blood Count 8.2 X10*3/uL (4.8-10.8)
[2021-05-06 07:02] LABS: Anion Gap 13 (12-20); Blood Urea Nitrogen 39 mg/dL (9-16); Carbon Dioxide 24 mmol/L (22-29); Chloride 106 mmol/L (96-108); Creatinine Clr Calc Pharmacy 37.1; Estimated Glomerular Filt Rate 48; Glucose Fasting 96 mg/dL (60-99); Potassium 4.1 mmol/L (3.3-5.1); Sodium 139 mmol/L (135-145)
[2021-05-06 07:29] LABS: Glucose, Whole Blood 112 mg/dL (60-115)
--- NOTE | 2021-05-06 09:01 | MHC.CM.PN ---
CM met with Patient at bedside and addressed IMM, providing him with the original and placing a copy on the chart. CM also spoke with Daughter/HCP/Jessica, with the assist of [employer] over the phone. Patient lives in an apartment and his Comes and goes, Jessica/Daughter assists QD, Jarad TEASEL SETTER(AM & PM) and Ade MAE QD for meds.Jessica states that Patient is never alone. PCP is DR. Karolina Carroll. Patient has a cane, walker and w/c that he uses. Patient's goal for dc is home/resume services and CM has initiated and will follow for dc planning.
[2021-05-06] MEDS: Atorvastatin Calcium 40 MG TABLET PO (09:08)
[2021-05-06] MEDS: Gabapentin 300 MG CAPSULE PO ×3 (09:08→20:14)
[2021-05-06] MEDS: Metoprolol Succinate ER 25 MG TAB.ER.24H PO (09:08)
[2021-05-06] MEDS: Ticagrelor 90 MG TABLET PO ×2 (09:08→20:14)
[2021-05-06] MEDS: 0.9 % Sodium Chloride Flush 3 ML SYRINGE IVFLUSH (09:14)
--- NOTE | 2021-05-06 11:03 | PM.PNCARD ---
Subjective Subjective Date of Service: 05/06/21 Principal diagnosis: GI bleeding, anemia, CAD Interval history: Patient overall says he is feeling better. The bleeding has been minor this morning. Plan for procedure today. No chest discomfort. Review of Systems Constitutional: Reports no additional constitutional complaints Cardiovascular: Denies chest pain, Denies lightheadedness, Denies Loss of Consciousness and Denies dyspnea on exertion Respiratory: Reports no additional respiratory complaints and Denies dyspnea on exertion Gastrointestinal: Reports melena Genitourinary: Reports no additional male genitourinary complaints Musculoskeletal: Reports no additional musculoskeletal complaints Physical Exam Vital Signs: Last Vital Signs Temp 97.7 F 05/06/21 08:00 Pulse 97 05/06/21 09:08 Resp 20 05/06/21 08:00 BP 111/56 L 05/06/21 09:08 Pulse Ox 99 05/06/21 08:00 Body Mass Index 28.4 Const General: cooperative, comfortable and no acute distress Orientation/consciousness: patient oriented x3 Neck Neck: Yes trachea midline, Yes supple and Yes no JVD Resp Effort & Inspection: normal respiratory effort Auscultation: clear to auscultation bilaterally Cardio Jugular venous distension: no JVD Rate: regular rate Rhythm: regular rhythm Heart sounds: S1 normal heart sound present, S2 normal heart sound present, no click, no gallops and no murmurs GI Auscultation: normal bowel sounds Neuro General: patient oriented x3 Extrem General: Yes no clubbing, cyanosis or edema Results Labs and Meds Result diagrams: 05/06/21 05:15 05/06/21 05:15 Lab results: Laboratory Results - last 24 hr 05/05/21 05/05/21 05/05/21 11:22 16:10 20:41 WBC RBC Hgb Hct MCV MCH MCHC RDW Plt Count MPV Absolute Nucleated RBC Nucleated RBC % (auto) Sodium Potassium Chloride Carbon Dioxide Anion Gap BUN Creatinine Estim Creat Clear Calc Estimated GFR POC Glucose 141 H 142 H 136 H Fasting Glucose Calcium 05/06/21 05/06/21 05/06/21 05:15 05:15 07:21 WBC 8.2 RBC 2.70 L Hgb 8.1 L Hct 24.8 L MCV 91.9 MCH 30.0 MCHC 32.7 RDW 14.4 Plt Count 291 MPV 11.5 Absolute Nucleated RBC 0.000 Nucleated RBC % (auto) 0.0 Sodium 139 Potassium 4.1 Chloride 106 Carbon Dioxide 24 Anion Gap 13 BUN 39 H Creatinine 1.42 H Estim Creat Clear Calc 37.1 Estimated GFR 48 POC Glucose 112 Fasting Glucose 96 Calcium 9.0 Progress Note: A&P Assessment and plan (1) Acute blood loss anemia: Status: Acute Assessment and Plan: Patient presents with severe anemia with symptoms suggestive acute GI blood loss. Plan to undergo repeat endoscopy. This is very important to determine the source of bleeding and hopefully control the source of bleeding. He is moderate to high risk for perioperative cardiovascular complication given his recent PCI. Will continue dual antiplatelet therapy without stopping. (2) Atherosclerotic cardiovascular disease: Status: Acute Assessment and Plan: CAD with multiple PCIs in the past with recent PCI of left main into LAD for significant coronary artery disease. History of ischemic cardiomyopathy. Continue uninterrupted dual antiplatelet therapy if possible. Transfuse as needed to maintain hematocrit above 30. Continue other cardiac meds including high-intensity statin therapy. Blood pressure is optimized. Will sign of the case unless cardiology care is further needed. Please re-consult Fall Risk Details Current Medications: Current Medications Generic Name Dose Route Start Last Admin Trade Name Freq PRN Reason Stop Dose Admin Aspirin 81 mg 05/05/21 09:00 05/06/21 09:09 Aspirin Enteric Coated 81 Mg Tablet.Dr PO Not Given DAILY FEROZ Atorvastatin Calcium 40 mg 05/05/21 09:00 05/06/21 09:08 Atorvastatin Calcium 40 Mg Tablet PO 40 mg DAILY FEROZ Administration Dextrose 25 gm 05/04/21 15:58 Dextrose 50 % 25 Gm/50 Ml Vial IVPUSH Q15M PRN per Hypoglycemia Standing Ord. Protocol Folic Acid 1 mg 05/05/21 09:00 05/06/21 09:09 Folic Acid 1 Mg Tablet PO Not Given DAILY FEROZ Gabapentin 300 mg 05/04/21 21:00 05/06/21 09:08 Gabapentin 300 Mg Capsule PO 300 mg TID FEROZ Administration Glucose 15 gm 05/04/21 15:58 Glucose Gel 15 Gm Gel..Gram. PO Q15M PRN per Hypoglycemia Standing Ord. Protocol Insulin Glargine 20 unit 05/04/21 21:00 05/05/21 21:04 Insulin Glargine,Hum.Rec.Anlog 100 Unit/Ml 10 Ml Vial SUBCUT Not Given BEDTIME [facility] Insulin Human Lispro 0 unit 05/04/21 16:30 05/06/21 07:36 Insulin Lispro 100 Unit/Ml 3 Ml Vial SUBCUT Not Given QIDACHS [facility] Protocol Metoprolol Succinate 25 mg 05/05/21 09:00 05/06/21 09:08 Metoprolol Succinate Er 25 Mg Tab.Er.24h PO 25 mg DAILY FEROZ Administration Protocol Pantoprazole Sodium 40 mg 05/04/21 16:30 05/06/21 05:39 Pantoprazole Sodium 40 Mg/10 Ml Vial IVPUSH 40 mg BID@[id number] [facility] Administration Pharmacy Consult 1 each 05/04/21 12:57 Consult Rx Perform Med Rec MISCELLANE ONCE PRN Consult order Sodium Chloride 3 ml 05/05/21 00:00 05/06/21 09:14 0.9 % Sodium Chloride Flush 3 Ml Syringe IVFLUSH 3 ml QSHIFT FEROZ Administration Tamsulosin HCl 0.4 mg 05/04/21 21:00 05/05/21 21:03 Tamsulosin Hcl 0.4 Mg Capsule PO 0.4 mg BEDTIME FEROZ Administration Ticagrelor 90 mg 05/04/21 21:00 05/06/21 09:08 Ticagrelor 90 Mg Tablet PO 90 mg BID FEROZ Administration Trazodone HCl 50 mg 05/04/21 21:00 05/05/21 21:03 Trazodone Hcl 50 Mg Tablet PO 50 mg BEDTIME FEROZ Administration Time Spent With Patient Time: Total time spent is greater than 50% in coordination of care (as documented) at patient's floor/unit and/or counseling patient: Time with patient: 25 - 35 minutes Progress Note: Quality Stroke Does the patient have a stroke diagnosis?: No Procedures Date of Service Date of Service: 05/06/21
[2021-05-06 11:34] LABS: Glucose, Whole Blood 111 mg/dL (60-115)
--- NOTE | 2021-05-06 12:18 | HO.PM.IMPN ---
Subjective Subjective Date of Service: 05/06/21 Interval History: feeling well, had a little more melena today Constitutional Constitutional: Reports no additional constitutional complaints Eyes Eyes: Reports no additional eye complaints Physical Exam Vital Signs: Vital Signs: Last Vital Signs Temp 97.8 F 05/06/21 11:42 Pulse 94 05/06/21 11:42 Resp 20 05/06/21 11:42 BP 109/54 L 05/06/21 11:42 Pulse Ox 100 05/06/21 11:42 Body Mass Index 28.4 General: AO X 3, no acute distress Resp: CTA bilateral CVS: S1,S2,RRR GI: soft, non tender, non distended Neuro: motor grossly intact Psych: appropriate affect Objective Data Current Medications Generic Name Dose Route Start Last Admin Trade Name Freq PRN Reason Stop Dose Admin Aspirin 81 mg 05/05/21 09:00 05/06/21 09:09 Aspirin Enteric Coated 81 Mg Tablet.Dr PO Not Given DAILY FEROZ Atorvastatin Calcium 40 mg 05/05/21 09:00 05/06/21 09:08 Atorvastatin Calcium 40 Mg Tablet PO 40 mg DAILY FEROZ Administration Dextrose 25 gm 05/04/21 15:58 Dextrose 50 % 25 Gm/50 Ml Vial IVPUSH Q15M PRN per Hypoglycemia Standing Ord. Protocol Folic Acid 1 mg 05/05/21 09:00 05/06/21 09:09 Folic Acid 1 Mg Tablet PO Not Given DAILY FEROZ Gabapentin 300 mg 05/04/21 21:00 05/06/21 09:08 Gabapentin 300 Mg Capsule PO 300 mg TID FEROZ Administration Glucose 15 gm 05/04/21 15:58 Glucose Gel 15 Gm Gel..Gram. PO Q15M PRN per Hypoglycemia Standing Ord. Protocol Insulin Glargine 20 unit 05/04/21 21:00 05/05/21 21:04 Insulin Glargine,Hum.Rec.Anlog 100 Unit/Ml 10 Ml Vial SUBCUT Not Given BEDTIME [facility] Insulin Human Lispro 0 unit 05/04/21 16:30 05/06/21 11:46 Insulin Lispro 100 Unit/Ml 3 Ml Vial SUBCUT Not Given QIDACHS [facility] Protocol Metoprolol Succinate 25 mg 05/05/21 09:00 05/06/21 09:08 Metoprolol Succinate Er 25 Mg Tab.Er.24h PO 25 mg DAILY FEROZ Administration Protocol Pantoprazole Sodium 40 mg 05/04/21 16:30 05/06/21 05:39 Pantoprazole Sodium 40 Mg/10 Ml Vial IVPUSH 40 mg BID@[id number] FEROZ Administration Pharmacy Consult 1 each 05/04/21 12:57 Consult Rx Perform Med Rec MISCELLANE ONCE PRN Consult order Sodium Chloride 3 ml 05/05/21 00:00 05/06/21 09:14 0.9 % Sodium Chloride Flush 3 Ml Syringe IVFLUSH 3 ml QSHIFT FEROZ Administration Tamsulosin HCl 0.4 mg 05/04/21 21:00 05/05/21 21:03 Tamsulosin Hcl 0.4 Mg Capsule PO 0.4 mg BEDTIME FEROZ Administration Ticagrelor 90 mg 05/04/21 21:00 05/06/21 09:08 Ticagrelor 90 Mg Tablet PO 90 mg BID FEROZ Administration Trazodone HCl 50 mg 05/04/21 21:00 05/05/21 21:03 Trazodone Hcl 50 Mg Tablet PO 50 mg BEDTIME FEROZ Administration Labs CBC & Chem 7: 05/06/21 05:15 05/06/21 05:15 Labs: Laboratory Results - last 24 hr 05/05/21 05/05/21 05/06/21 16:10 20:41 05:15 MCV 91.9 MCH 30.0 MCHC 32.7 RDW 14.4 Plt Count 291 MPV 11.5 Absolute Nucleated RBC 0.000 Nucleated RBC % (auto) 0.0 Anion Gap Estim Creat Clear Calc Estimated GFR POC Glucose 142 H 136 H Fasting Glucose Calcium 05/06/21 05/06/21 05/06/21 05:15 07:21 11:31 MCV MCH MCHC RDW Plt Count MPV Absolute Nucleated RBC Nucleated RBC % (auto) Anion Gap 13 Estim Creat Clear Calc 37.1 Estimated GFR 48 POC Glucose 112 111 Fasting Glucose 96 Calcium 9.0 Assessment and Plan (1) NSTEMI (non-ST elevated myocardial infarction): Status: Acute Assessment and Plan: 81M presented with melena acute blood loss anemia IV PPI transfused 2 units prbc on 05/04, hgb responded appropriately 5.6 to 8.4, stable at 8.1 today plan for EGD today recent NSTEMI and LAD CELESTINO and ischemic cardiomyopathy with EF 25-30% d/w cardio and GI, will continue DAPL, monitor closely continue statin toprol DM inuslin vte prophylaxis - mechanical due to gi bleed Quality Stroke Does the patient have a stroke diagnosis?: No VTE Prior VTE?: No VTE Risk Level:: Medical - moderate - high VTE Device Contraindication: N/A - Device Ordered VTE Drug Contraindication: Treatment Not Indicated
--- NOTE | 2021-05-06 13:22 | PC.NURSE ---
pt rojas snyder this am dr gonzalez aware okay to proceed
--- NOTE | 2021-05-06 14:05 | P.CONAN_ITS ---
[facility] Active Problems Active Problems: All Active Problems (Updated 05/05/21 @ 10:52 by Saleem smith MD) Preoperative cardiovascular examination (Acute) Atherosclerotic cardiovascular disease (Acute) Acute blood loss anemia (Acute) Acute GI bleeding (Acute) Anemia (Acute) Status post biventricular pacemaker (Acute ~10/2020) HFrEF (heart failure with reduced ejection fraction) (Acute) Dizziness (Acute) NSTEMI (non-ST elevated myocardial infarction) (Acute) Ischemic cardiomyopathy (Acute) Anemia (Acute) CAD (coronary artery disease) (Acute) S/P cardiac cath (Acute ~08/2020) Left carotid stenosis (Acute) Type 2 diabetes mellitus with unspecified complications (Acute) Essential hypertension (Acute) Normally functioning cardiac pacemaker present (Acute) CHB (complete heart block) (Acute) CVA (cerebral vascular accident) (Acute) Past Medical History Medical History Acute coronary syndrome Aortic stenosis BPH (benign prostatic hyperplasia) CAD (coronary artery disease) CHB (complete heart block) Congestive heart failure (CHF) CVA (cerebral vascular accident) Diastolic CHF Essential hypertension Hemorrhage of gastrointestinal tract, unspecified HLD (hyperlipidemia) HTN (hypertension) Hx of cardiac pacemaker Left carotid stenosis Non-rheumatic aortic stenosis Normally functioning cardiac pacemaker present On anticoagulant therapy On beta randy at home Pacemaker (~06/2015) PAF (paroxysmal atrial fibrillation) Rheumatoid arthritis Type 2 diabetes mellitus with unspecified complications Family History Family History Father Cancer Mother Cancer Family history of problems with anesthesia: No Surgical History Surgical History H/O colonoscopy History of appendectomy History of esophagogastroduodenoscopy History of lumbar surgery History of prostate surgery Hx of cholecystectomy S/P cardiac cath (~08/2020) Status post biventricular pacemaker (~10/2020) History of Problems with Anesthesia: No Social History Social History Household Members: Family Household Members Other:: [employer] Housing: Apartment Do you presently have visiting nurse or other home services: Yes Alcohol intake: former Patient Tobacco Use Status: Former Tobacco user Years Smoked: 25 Use of substances other than those prescribed or required for medical reasons: No Currently Displaying Signs/Symptoms of Drug Intoxication Withdrawal: No Have you been hit, kicked, punched, or otherwise hurt by someone within the past year? If so, by whom?: No Do you feel safe in your current relationship?: Yes Is there a partner from a previous relationship who is making you feel unsafe now?: No Are you made to feel afraid or neglected: No Spiritual Healthcare Practices: NONE Yazidi Healthcare Practices: NONE Cultural Healthcare Practices: NONE Are you DNR?: No Advance Directives: Yes Advance Directives Information Provided: No Advance Directives on File: No Advance Directives Date on File: 04/12/21 Do you have thoughts of harming others: None Do you have a plan to hurt others: No Plan Recently lost weight without trying: No Eating poorly because of decreased appetite: No Nutrition Risks: No Nutritional Risk Poor oral hygiene: No service: No Current occupational status: retired Meds Allergies Allergy/AdvReac Type Severity Reaction Status Date / Time naproxen [From NAPROSYN] Allergy Intermediate ITCHY Verified 04/07/21 09:37 sulfasalazine Allergy Intermediate anxiety Verified 04/07/21 09:37 Penicillins [PENICILLINS] Allergy Mild ITCHY Verified 04/07/21 09:37 Active Medications: Current Medications Generic Name Dose Route Start Last Admin Trade Name Moreno PRN Reason Stop Dose Admin Aspirin 81 mg 05/05/21 09:00 05/06/21 09:09 Aspirin Enteric Coated 81 Mg Tablet. PO Not Given DAILY FEROZ Atorvastatin Calcium 40 mg 05/05/21 09:00 05/06/21 09:08 Atorvastatin Calcium 40 Mg Tablet PO 40 mg DAILY FEROZ Administration Dextrose 25 gm 05/04/21 15:58 Dextrose 50 % 25 Gm/50 Ml Vial IVPUSH Q15M PRN per Hypoglycemia Standing Ord. Protocol Folic Acid 1 mg 05/05/21 09:00 05/06/21 09:09 Folic Acid 1 Mg Tablet PO Not Given DAILY FEROZ Gabapentin 300 mg 05/04/21 21:00 05/06/21 09:08 Gabapentin 300 Mg Capsule PO 300 mg TID FEROZ Administration Glucose 15 gm 05/04/21 15:58 Glucose Gel 15 Gm Gel..Gram. PO Q15M PRN per Hypoglycemia Standing Ord. Protocol Insulin Glargine 20 unit 05/04/21 21:00 05/05/21 21:04 Insulin Glargine,Hum.Rec.Anlog 100 Unit/Ml 10 Ml Vial SUBCUT Not Given BEDTIME [facility] Insulin Human Lispro 0 unit 05/04/21 16:30 05/06/21 11:46 Insulin Lispro 100 Unit/Ml 3 Ml Vial SUBCUT Not Given QIDACHS [facility] Protocol Metoprolol Succinate 25 mg 05/05/21 09:00 05/06/21 09:08 Metoprolol Succinate Er 25 Mg Tab.Er.24h PO 25 mg DAILY [facility] Administration Protocol Pantoprazole Sodium 40 mg 05/04/21 16:30 05/06/21 05:39 Pantoprazole Sodium 40 Mg/10 Ml Vial IVPUSH 40 mg BID@[id number],6460 [facility] Administration Pharmacy Consult 1 each 05/04/21 12:57 Consult Rx Perform Med Rec MISCELLANE ONCE PRN Consult order Sodium Chloride 3 ml 05/05/21 00:00 05/06/21 09:14 0.9 % Sodium Chloride Flush 3 Ml Syringe IVFLUSH 3 ml QSHIFT [facility] Administration Tamsulosin HCl 0.4 mg 05/04/21 21:00 05/05/21 21:03 Tamsulosin Hcl 0.4 Mg Capsule PO 0.4 mg BEDTIME [facility] Administration Ticagrelor 90 mg 05/04/21 21:00 05/06/21 09:08 Ticagrelor 90 Mg Tablet PO 90 mg BID [facility] Administration Trazodone HCl 50 mg 05/04/21 21:00 05/05/21 21:03 Trazodone Hcl 50 Mg Tablet PO 50 mg BEDTIME [facility] Administration Home Medications Medication Instructions Recorded Confirmed Last Taken Type ferrous sulfate 324 mg (65 mg 324 mg PO DAILY 08/20/20 05/04/21 05/04/21 History iron) tablet,delayed release insulin glargine 100 unit/mL (3 20 unit SUBCUT BEDTIME 08/20/20 05/04/21 05/03/21 History mL) subcutaneous pen (Lantus Solostar U-100 Insulin) trazodone 50 mg tablet 50 mg PO BEDTIME 08/20/20 05/04/21 05/03/21 History gabapentin 300 mg capsule 300 mg PO TID cap 11/18/20 05/04/21 05/04/21 History ticagrelor 90 mg tablet 90 mg PO BID 03/14/21 05/04/21 05/04/21 History aspirin 81 mg tablet,delayed 81 mg PO DAILY 03/23/21 05/04/21 05/04/21 History release pantoprazole 40 mg tablet,delayed 40 mg PO DAILY@0630 03/23/21 05/04/21 05/04/21 History release acetaminophen 325 mg tablet 975 mg PO Q6H PRN 05/04/21 05/04/21 Unknown History atorvastatin 40 mg tablet 40 mg PO DAILY 05/04/21 05/04/21 05/04/21 History docusate sodium 100 mg capsule 100 mg PO BID PRN 05/04/21 05/04/21 Unknown History insulin lispro 100 unit/mL 5 unit SUBCUT TIDAC 05/04/21 05/04/21 Unknown History subcutaneous pen (Humalog KwikPen (U-100) Insulin) metoprolol succinate 25 mg 25 mg PO DAILY 05/04/21 05/04/21 05/04/21 History tablet,extended release 24 hr tobramycin 0.3 %-lotepred 0.5 % 1 drp OPHTHALMIC (EYE) TID 05/04/21 05/04/21 Unknown History eye drops,suspension (Zylet) torsemide 20 mg tablet 20 mg PO DAILY 05/04/21 05/04/21 05/04/21 History Exam Exam Date and Time: May 06, 2021 1405 Height,Weight and Vital Signs: Height 5 ft 3 in Weight 72.9 kg Last Vital Signs Temp 97.8 F 05/06/21 13:19 Pulse 79 05/06/21 13:19 Resp 18 05/06/21 13:19 BP 113/45 L 05/06/21 13:19 Pulse Ox 99 05/06/21 13:19 Pertinent Lab Results Pertinent Lab Results: Laboratory Tests 05/04/21 05/04/21 05/04/21 11:22 11:22 11:42 WBC 8.8 RBC 1.91 L D Hgb 5.6 L* D Hct 17.6 L* D MCV 92.1 MCH 29.3 MCHC 31.8 RDW 14.6 Plt Count 269 MPV 11.1 Immature Gran % (Auto) 0.3 Neut % (Auto) 77.4 H Lymph % (Auto) 15.2 L Holmes % (Auto) 6.4 Eos % (Auto) 0.5 Baso % (Auto) 0.2 Lymph # (Auto) 1.3 Holmes # (Auto) 0.6 Eos # (Auto) 0.0 Baso # (Auto) 0.0 Abs Immat Gran (auto) 0.03 Absolute Neuts (auto) 6.8 Absolute Nucleated RBC 0.000 Nucleated RBC % (auto) 0.0 PT INR Sodium 137 Potassium 4.4 Chloride 103 Carbon Dioxide 22 Anion Gap 16 BUN 61 H D Creatinine 1.93 H Estim Creat Clear Calc 27.7 Estimated GFR 34 POC Glucose Random Glucose 261 H D Fasting Glucose Calcium 8.9 Total Bilirubin 0.4 AST 7 ALT 9 Alkaline Phosphatase 52 D Total Protein 6.6 Albumin 3.8 COVID-19 (HIEU) COVID-19 Clin Com Blood Type A Positive Antibody Screen NEGATIVE Crossmatch See Detail 05/04/21 05/04/21 05/05/21 13:31 22:31 05:23 WBC 9.7 RBC 2.71 L D Hgb 8.4 L D Hct 24.9 L D MCV 91.9 MCH 31.0 MCHC 33.7 RDW 14.1 Plt Count 279 MPV 11.7 Immature Gran % (Auto) Neut % (Auto) Lymph % (Auto) Holmes % (Auto) Eos % (Auto) Baso % (Auto) Lymph # (Auto) Holmes # (Auto) Eos # (Auto) Baso # (Auto) Abs Immat Gran (auto) Absolute Neuts (auto) Absolute Nucleated RBC 0.000 Nucleated RBC % (auto) 0.0 PT INR Sodium Potassium Chloride Carbon Dioxide Anion Gap BUN Creatinine Estim Creat Clear Calc Estimated GFR POC Glucose 168 H Random Glucose Fasting Glucose Calcium Total Bilirubin AST ALT Alkaline Phosphatase Total Protein Albumin COVID-19 (HIEU) Negative COVID-19 Clin Com See Note Blood Type Antibody Screen Crossmatch 05/05/21 05/05/21 05/05/21 05:23 05:23 07:33 WBC RBC Hgb Hct MCV MCH MCHC RDW Plt Count MPV Immature Gran % (Auto) Neut % (Auto) Lymph % (Auto) Holmes % (Auto) Eos % (Auto) Baso % (Auto) Lymph # (Auto) Holmes # (Auto) Eos # (Auto) Baso # (Auto) Abs Immat Gran (auto) Absolute Neuts (auto) Absolute Nucleated RBC Nucleated RBC % (auto) PT 11.5 INR 1.0 Sodium 139 Potassium 4.1 Chloride 106 Carbon Dioxide 24 Anion Gap 13 BUN 51 H Creatinine 1.58 H Estim Creat Clear Calc 33.3 Estimated GFR 42 POC Glucose 130 H Random Glucose Fasting Glucose 127 H Calcium 8.8 Total Bilirubin AST ALT Alkaline Phosphatase Total Protein Albumin COVID-19 (HIEU) COVID-19 [facility] Blood Type Antibody Screen Crossmatch 05/05/21 05/05/21 05/05/21 11:22 16:10 20:41 WBC RBC Hgb Hct MCV MCH MCHC RDW Plt Count MPV Immature Gran % (Auto) Neut % (Auto) Lymph % (Auto) Holmes % (Auto) Eos % (Auto) Baso % (Auto) Lymph # (Auto) Holmes # (Auto) Eos # (Auto) Baso # (Auto) Abs Immat Gran (auto) Absolute Neuts (auto) Absolute Nucleated RBC Nucleated RBC % (auto) PT INR Sodium Potassium Chloride Carbon Dioxide Anion Gap BUN Creatinine Estim Creat Clear Calc Estimated GFR POC Glucose 141 H 142 H 136 H Random Glucose Fasting Glucose Calcium Total Bilirubin AST ALT Alkaline Phosphatase Total Protein Albumin COVID-19 ([facility]IEU) COVID-[employer] [facility] Blood Type Antibody Screen Crossmatch 05/06/21 05/06/21 05/06/21 05:15 05:15 07:21 WBC 8.2 RBC 2.70 L Hgb 8.1 L Hct 24.8 L MCV 91.9 MCH 30.0 MCHC 32.7 RDW 14.4 Plt Count 291 MPV 11.5 Immature Gran % (Auto) Neut % (Auto) Lymph % (Auto) Holmes % (Auto) Eos % (Auto) Baso % (Auto) Lymph # (Auto) Holmes # (Auto) Eos # (Auto) Baso # (Auto) Abs Immat Gran (auto) Absolute Neuts (auto) Absolute Nucleated RBC 0.000 Nucleated RBC % (auto) 0.0 PT INR Sodium 139 Potassium 4.1 Chloride 106 Carbon Dioxide 24 Anion Gap 13 BUN 39 H Creatinine 1.42 H Estim Creat Clear Calc 37.1 Estimated GFR 48 POC Glucose 112 Random Glucose Fasting Glucose 96 Calcium 9.0 Total Bilirubin AST ALT Alkaline Phosphatase Total Protein Albumin COVID-19 (HIEU) COVID-[employer] [facility] Blood Type Antibody Screen Crossmatch 05/06/21 11:31 WBC RBC Hgb Hct MCV MCH MCHC RDW Plt Count MPV Immature Gran % (Auto) Neut % (Auto) Lymph % (Auto) Holmes % (Auto) Eos % (Auto) Baso % (Auto) Lymph # (Auto) Holmes # (Auto) Eos # (Auto) Baso # (Auto) Abs Immat Gran (auto) Absolute Neuts (auto) Absolute Nucleated RBC Nucleated RBC % (auto) PT INR Sodium Potassium Chloride Carbon Dioxide Anion Gap BUN Creatinine Estim Creat Clear Calc Estimated GFR POC Glucose 111 Random Glucose Fasting Glucose Calcium Total Bilirubin AST ALT Alkaline Phosphatase Total Protein Albumin COVID-19 (HIEU) COVID-19 Clin Com Blood Type Antibody Screen Crossmatch Airway Mallampati Class: II (Edentulous) TM Dist: >3cm Neck ROM: Full Heart: rrr Lungs: cta Assessment and Plan Assessment Anesthesia Assessment: Anesthesia Plan Discussed and Chart Reviewed Final Anesthetic Review Family History of Problems with Anesthesia: No History of Problems with Anesthesia: No NPO: Yes ASA Class: III Final Preanesthetic Review: No Changes in Pt Med Stat, Meds/Allgs Chart Reviewed and Consent Obtained/Reviewed Patient Risk: Intermediate Procedure Risk: Intermediate Anesthetic Plan Anesthetic Plan: MAC: Disposition: Standard PACU
--- NOTE | 2021-05-06 14:47 | P.BOP_ITS ---
Brief Operative Note Date of Service: 05/06/21 Pre-op diagnosis: GI Bleed Post-op diagnosis: other (Hiatal hernia, ? of gastric AVM on lesser curvature) Procedure: EGD Surgeon: Oc Bettencourt Anesthesia: MAC Was an Outpatient Coordinator used for this Procedure?: No Estimated blood loss (mL): 0 Pathology: none sent Condition: stable Disposition: PACU
--- NOTE | 2021-05-06 14:48 | PM.EVENT ---
Event Note Date of Service: 05/06/21 Event Note: GI-EGD-Full note dictated Findings: 1. Hiatal hernia 2. ? Small areas of Reese's esophagus, no esophagitis nor any lesions 3. ? of 4-5 mm nonbleeding gastric AVM on lesser curvature of stomach 4. Nodular proximal stomach Rec: Advance diet, change to po PPI. Will discuss colonoscopy with him and his daughter for 05/09/2021. Hold Iron. Follow Hgb. Thanks
[2021-05-06 16:58] LABS: Glucose, Whole Blood 119 mg/dL (60-115)
[2021-05-06] MEDS: traZODone HCL 50 MG TABLET PO (20:14)
[2021-05-06] MEDS: Tamsulosin HCL 0.4 MG CAPSULE PO (20:14)
[2021-05-06 20:55] LABS: Glucose, Whole Blood 195 mg/dL (60-115)
[2021-05-07] VITALS (9 sets, daily range): BP systolic 93–113; BP diastolic 40–58; PULSE 67–82; RESP 16–18; TEMP 36.4–36.9; O2SAT 99–100
[2021-05-07] MEDS: 0.9 % Sodium Chloride Flush 3 ML SYRINGE IVFLUSH ×3 (01:31→15:57)
[2021-05-07] MEDS: Acetaminophen 325 MG TABLET 650 MG PO ×2 (04:17→12:22)
[2021-05-07] MEDS: Omeprazole 20 MG CAPSULE.DR PO (06:44)
[2021-05-07 06:55] LABS: Hematocrit 23.5 % (42-52); Hemoglobin 7.7 g/dl (14.0-18.0); Mean Corpuscular HGB Conc 32.8 g/dl (31.0-36.0); Mean Corpuscular Hemoglobin 30.4 pg (27.0-33.0); Mean Corpuscular Volume 92.9 fL (80-98); Mean Platelet Volume 11.3 fL (9.4-12.4); Platelet Count 290 X10*3/uL (160-400); Red Blood Count 2.53 X10*6/uL (4.60-5.80); Red Cell Distribution Width 14.6 % (11.0-16.0); White Blood Count 8.3 X10*3/uL (4.8-10.8)
[2021-05-07 06:57] LABS: Anion Gap 13 (12-20); Blood Urea Nitrogen 29 mg/dL (9-16); Calcium 8.5 mg/dL (8.4-10.2); Carbon Dioxide 22 mmol/L (22-29); Chloride 109 mmol/L (96-108); Estimated Glomerular Filt Rate 51; Glucose Fasting 115 mg/dL (60-99); Sodium 140 mmol/L (135-145)
[2021-05-07 07:48] LABS: Glucose, Whole Blood 116 mg/dL (60-115)
[2021-05-07] MEDS: Folic Acid 1 MG TABLET PO (08:40)
[2021-05-07] MEDS: Atorvastatin Calcium 40 MG TABLET PO (08:40)
[2021-05-07] MEDS: Aspirin Enteric Coated 81 MG TABLET.DR PO (08:40)
[2021-05-07] MEDS: Gabapentin 300 MG CAPSULE PO ×3 (08:41→22:04)
[2021-05-07] MEDS: Ticagrelor 90 MG TABLET PO ×2 (08:41→22:04)
--- NOTE | 2021-05-07 10:09 | HO.PM.IMPN ---
Subjective Subjective Date of Service: 05/07/21 Interval History: feeling well Cardiovascular Cardiovascular: Reports no additional cardiovascular complaints Respiratory Respiratory: Reports no additional respiratory complaints Physical Exam Vital Signs: Vital Signs: Last Vital Signs Temp 97.9 F 05/07/21 08:00 Pulse 67 05/07/21 08:00 Resp 18 05/07/21 08:00 BP 113/50 L 05/07/21 08:00 Pulse Ox 100 05/07/21 03:27 Body Mass Index 28.4 General: AO X 3, no acute distress Resp:? CTA bilateral CVS: S1,S2,RRR GI: soft, non tender, non distended Neuro:? motor grossly intact Psych: appropriate affect Objective Data Current Medications Generic Name Dose Route Start Last Admin Trade Name Freq PRN Reason Stop Dose Admin Acetaminophen 650 mg 05/07/21 04:02 05/07/21 04:17 Acetaminophen 325 Mg Tablet PO 650 mg Q6H PRN Administration Pain, Mild (Pain Scale 1-3) Aspirin 81 mg 05/05/21 09:00 05/07/21 08:40 Aspirin Enteric Coated 81 Mg Tablet. PO 81 mg DAILY FEROZ Administration Atorvastatin Calcium 40 mg 05/05/21 09:00 05/07/21 08:40 Atorvastatin Calcium 40 Mg Tablet PO 40 mg DAILY FEROZ Administration Bisacodyl 10 mg 05/08/21 18:00 Bisacodyl 5 Mg Tablet.Dr CASAS 05/08/21 18:01 ONCE ONE Dextrose 25 gm 05/04/21 15:58 Dextrose 50 % 25 Gm/50 Ml Vial IVPUSH Q15M PRN per Hypoglycemia Standing Ord. Protocol Folic Acid 1 mg 05/05/21 09:00 05/07/21 08:40 Folic Acid 1 Mg Tablet PO 1 mg DAILY FEROZ Administration Gabapentin 300 mg 05/04/21 21:00 05/07/21 08:41 Gabapentin 300 Mg Capsule PO 300 mg TID FEROZ Administration Glucose 15 gm 05/04/21 15:58 Glucose Gel 15 Gm Gel..Gram. PO Q15M PRN per Hypoglycemia Standing Ord. Protocol Insulin Glargine 20 unit 05/04/21 21:00 05/06/21 20:21 Insulin Glargine,Hum.Rec.Anlog 100 Unit/Ml 10 Ml Vial SUBCUT Not Given BEDTIME [facility] Insulin Human Lispro 0 unit 05/04/21 16:30 05/07/21 08:33 Insulin Lispro 100 Unit/Ml 3 Ml Vial SUBCUT Not Given QIDACHS [facility] Protocol Metoprolol Succinate 25 mg 05/05/21 09:00 05/06/21 09:08 Metoprolol Succinate Er 25 Mg Tab.Er.24h PO 25 mg DAILY FEROZ Administration Protocol Omeprazole 20 mg 05/07/21 06:30 05/07/21 06:44 Omeprazole 20 Mg Capsule.Dr PO 20 mg DAILY@0630 FEROZ Administration Ondansetron HCl 4 mg 05/06/21 14:04 Ondansetron Hcl 4 Mg/2 Ml Vial IVPUSH ONCE PRN Nausea and Vomiting Pharmacy Consult 1 each 05/04/21 12:57 Consult Rx Perform Med Rec MISCELLANE ONCE PRN Consult order Polyethylene Glycol/Electrolytes 4,000 ml 05/08/21 16:00 Peg 3350/Na Sulf,Bicarb,Cl/Kcl 4,000 Ml Soln.Recon PO 05/08/21 16:01 ONCE ONE Sodium Chloride 3 ml 05/05/21 00:00 05/07/21 01:31 0.9 % Sodium Chloride Flush 3 Ml Syringe IVFLUSH 3 ml QSHIFT FEROZ Administration Tamsulosin HCl 0.4 mg 05/04/21 21:00 05/06/21 20:14 Tamsulosin Hcl 0.4 Mg Capsule PO 0.4 mg BEDTIME FEROZ Administration Ticagrelor 90 mg 05/04/21 21:00 05/07/21 08:41 Ticagrelor 90 Mg Tablet PO 90 mg BID FEROZ Administration Trazodone HCl 50 mg 05/04/21 21:00 05/06/21 20:14 Trazodone Hcl 50 Mg Tablet PO 50 mg BEDTIME FEROZ Administration Labs CBC & Chem 7: 05/07/21 05:25 05/07/21 05:25 Labs: Laboratory Results - last 24 hr 05/06/21 05/06/21 05/06/21 11:31 16:48 20:47 MCV MCH MCHC RDW Plt Count MPV Absolute Nucleated RBC Nucleated RBC % (auto) Anion Gap Estim Creat Clear Calc Estimated GFR POC Glucose 111 119 H 195 H Fasting Glucose Calcium 05/07/21 05/07/21 05/07/21 05:25 05:25 07:11 MCV 92.9 MCH 30.4 MCHC 32.8 RDW 14.6 Plt Count 290 MPV 11.3 Absolute Nucleated RBC 0.000 Nucleated RBC % (auto) 0.0 Anion Gap 13 Estim Creat Clear Calc 39.0 Estimated GFR 51 POC Glucose 116 H Fasting Glucose 115 H Calcium 8.5 Assessment and Plan (1) NSTEMI (non-ST elevated myocardial infarction): Status: Acute Assessment and Plan: 81M presented with melena acute blood loss anemia po PPI transfused 2 units prbc on 05/04, hgb responded appropriately 5.6 to 8.4, 7.7 today EGD 05/06 showed 1. Hiatal hernia 2. ? Small areas of Reese's esophagus, no esophagitis nor any lesions 3. ? of 4-5 mm nonbleeding gastric AVM on lesser curvature of stomach 4. Nodular proximal stomach plan for colonoscopy 05/09 recent NSTEMI and LAD CELESTINO and ischemic cardiomyopathy with EF 25-30% d/w cardio and GI, continue DAPL, monitor closely continue statin toprol DM inuslin vte prophylaxis - mechanical due to gi bleed Quality Stroke Does the patient have a stroke diagnosis?: No VTE Prior VTE?: No VTE Risk Level:: Medical - moderate - high VTE Device Contraindication: N/A - Device Ordered VTE Drug Contraindication: Treatment Not Indicated
[2021-05-07] MEDS: Metoprolol Succinate ER 25 MG TAB.ER.24H PO (10:58)
[2021-05-07 11:11] LABS: Glucose, Whole Blood 135 mg/dL (60-115)
[2021-05-07 12:46] LABS: Glucose, Whole Blood 253 mg/dL (60-115)
[2021-05-07] MEDS: Insulin Lispro 100 UNIT/ML 3 ML VIAL SUBCUT (12:48)
[2021-05-07 16:30] LABS: Glucose, Whole Blood 85 mg/dL (60-115)
--- NOTE | 2021-05-07 19:11 | HO.POSTANES ---
Post Anesthesia Evaluation Post Anesthesia Evaluation Vital Signs: Vital Signs Temp Pulse Resp BP Pulse Ox 05/07/21 19:08 97.6 F 73 16 110/58 L 100 05/07/21 16:00 97.8 F 70 16 93/40 L 100 05/07/21 14:05 100 05/07/21 12:00 97.5 F 74 18 94/48 L 100 05/07/21 10:58 67 113/50 L 05/07/21 08:00 97.9 F 67 18 113/50 L 05/07/21 07:59 97.9 F 67 18 113/50 L Anesthesia: Monitored Mental Status: Awake Pain Control: Satisfactory Nausea/Vomiting: None Hydration: Adequate Anesthesia-Related Issues: No Anes. Related Issues
[2021-05-07 20:49] LABS: Glucose, Whole Blood 103 mg/dL (60-115)
--- NOTE | 2021-05-07 21:53 | MHC.SHP ---
Pre-Procedural Eval Section A Date of Service: 05/09/21 The patient is an INPATIENT: Yes The History & Physical has been completed within 30 days and I have reviewed it.: Yes Section B Chief Complaint: rectal bleed Allergies: Allergies Allergy/AdvReac Type Severity Reaction Status Date / Time naproxen [From NAPROSYN] Allergy Intermediate ITCHY Verified 04/07/21 09:37 sulfasalazine Allergy Intermediate anxiety Verified 04/07/21 09:37 Penicillins [PENICILLINS] Allergy Mild ITCHY Verified 04/07/21 09:37 Plan I have reviewed the history and physical and performed a pertinent physical examination on my patient. No changes have occurred unless specified.
[2021-05-07] MEDS: Tamsulosin HCL 0.4 MG CAPSULE PO (22:04)
[2021-05-07] MEDS: traZODone HCL 50 MG TABLET PO (22:04)
[2021-05-07] MEDS: Insulin Glargine,Hum.rec.anlog 100 UNIT/ML 10 ML VIAL 20 UNIT SUBCUT (22:04)
[2021-05-08] VITALS (7 sets, daily range): BP systolic 107–134; BP diastolic 46–68; PULSE 69–86; RESP 16–18; TEMP 35.9–37.2; O2SAT 97–100
[2021-05-08] MEDS: Acetaminophen 325 MG TABLET 650 MG PO (01:15)
[2021-05-08] MEDS: 0.9 % Sodium Chloride Flush 3 ML SYRINGE IVFLUSH ×4 (04:34→22:21)
[2021-05-08] MEDS: Omeprazole 20 MG CAPSULE.DR PO (05:50)
[2021-05-08 06:31] LABS: Hematocrit 23.7 % (42-52); Hemoglobin 7.9 g/dl (14.0-18.0); Mean Corpuscular HGB Conc 33.3 g/dl (31.0-36.0); Mean Corpuscular Volume 92.9 fL (80-98); Mean Platelet Volume 10.9 fL (9.4-12.4); Platelet Count 316 X10*3/uL (160-400); Red Blood Count 2.55 X10*6/uL (4.60-5.80); Red Cell Distribution Width 14.7 % (11.0-16.0)
[2021-05-08 07:15] LABS: Anion Gap 12 (12-20); Blood Urea Nitrogen 23 mg/dL (9-16); Calcium 8.6 mg/dL (8.4-10.2); Carbon Dioxide 23 mmol/L (22-29); Chloride 109 mmol/L (96-108); Creatinine Clr Calc Pharmacy 39.3; Estimated Glomerular Filt Rate 51; Glucose Fasting 50 mg/dL (60-99); Potassium 3.8 mmol/L (3.3-5.1); Sodium 140 mmol/L (135-145)
[2021-05-08 07:47] LABS: Glucose, Whole Blood 52 mg/dL (60-115)
[2021-05-08] MEDS: Metoprolol Succinate ER 25 MG TAB.ER.24H PO (07:59)
[2021-05-08] MEDS: Folic Acid 1 MG TABLET PO (07:59)
[2021-05-08] MEDS: Aspirin Enteric Coated 81 MG TABLET.DR PO (07:59)
[2021-05-08] MEDS: Atorvastatin Calcium 40 MG TABLET PO (07:59)
[2021-05-08] MEDS: Ticagrelor 90 MG TABLET PO ×2 (07:59→22:20)
[2021-05-08] MEDS: Gabapentin 300 MG CAPSULE PO ×3 (07:59→22:20)
[2021-05-08 09:07] LABS: Glucose, Whole Blood 92 mg/dL (60-115)
--- NOTE | 2021-05-08 10:11 | HO.PM.IMPN ---
Subjective Subjective Date of Service: 05/08/21 Interval History: no complaints Cardiovascular Cardiovascular: Reports no additional cardiovascular complaints Respiratory Respiratory: Reports no additional respiratory complaints Physical Exam Vital Signs: Vital Signs: Last Vital Signs Temp 96.7 F L 05/08/21 08:00 Pulse 86 05/08/21 08:00 Resp 18 05/08/21 08:00 BP 134/63 05/08/21 08:00 Pulse Ox 97 05/08/21 08:00 Body Mass Index 28.4 General: AO X 3, no acute distress Resp: CTA bilateral CVS: S1,S2,RRR GI: soft, non tender, non distended Neuro: motor grossly intact Psych: appropriate affect Objective Data Current Medications Generic Name Dose Route Start Last Admin Trade Name Freq PRN Reason Stop Dose Admin Acetaminophen 650 mg 05/07/21 04:02 05/08/21 01:15 Acetaminophen 325 Mg Tablet PO 650 mg Q6H PRN Administration Pain, Mild (Pain Scale 1-3) Aspirin 81 mg 05/05/21 09:00 05/08/21 07:59 Aspirin Enteric Coated 81 Mg Tablet. PO 81 mg DAILY FEROZ Administration Atorvastatin Calcium 40 mg 05/05/21 09:00 05/08/21 07:59 Atorvastatin Calcium 40 Mg Tablet PO 40 mg DAILY FEROZ Administration Bisacodyl 10 mg 05/08/21 18:00 Bisacodyl 5 Mg Tablet.Dr CASAS 05/08/21 18:01 ONCE ONE Dextrose 25 gm 05/04/21 15:58 Dextrose 50 % 25 Gm/50 Ml Vial IVPUSH Q15M PRN per Hypoglycemia Standing Ord. Protocol Folic Acid 1 mg 05/05/21 09:00 05/08/21 07:59 Folic Acid 1 Mg Tablet PO 1 mg DAILY FEROZ Administration Gabapentin 300 mg 05/04/21 21:00 05/08/21 07:59 Gabapentin 300 Mg Capsule PO 300 mg TID FEROZ Administration Glucose 15 gm 05/04/21 15:58 Glucose Gel 15 Gm Gel..Gram. PO Q15M PRN per Hypoglycemia Standing Ord. Protocol Insulin Glargine 20 unit 05/04/21 21:00 05/07/21 22:04 Insulin Glargine,Hum.Rec.Anlog 100 Unit/Ml 10 Ml Vial SUBCUT 20 unit BEDTIME FEROZ Administration Insulin Human Lispro 0 unit 05/04/21 16:30 05/08/21 07:59 Insulin Lispro 100 Unit/Ml 3 Ml Vial SUBCUT Not Given QIDACHS [facility] Protocol Metoprolol Succinate 25 mg 05/05/21 09:00 05/08/21 07:59 Metoprolol Succinate Er 25 Mg Tab.Er.24h PO 25 mg DAILY FEROZ Administration Protocol Omeprazole 20 mg 05/07/21 06:30 05/08/21 05:50 Omeprazole 20 Mg Capsule.Dr PO 20 mg DAILY@0630 FEROZ Administration Ondansetron HCl 4 mg 05/06/21 14:04 Ondansetron Hcl 4 Mg/2 Ml Vial IVPUSH ONCE PRN Nausea and Vomiting Pharmacy Consult 1 each 05/04/21 12:57 Consult Rx Perform Med Rec MISCELLANE ONCE PRN Consult order Polyethylene Glycol/Electrolytes 4,000 ml 05/08/21 16:00 Peg 3350/Na Sulf,Bicarb,Cl/Kcl 4,000 Ml Soln.Recon PO 05/08/21 16:01 ONCE ONE Sodium Chloride 3 ml 05/05/21 00:00 05/08/21 07:59 0.9 % Sodium Chloride Flush 3 Ml Syringe IVFLUSH 3 ml QSHIFT FEROZ Administration Tamsulosin HCl 0.4 mg 05/04/21 21:00 05/07/21 22:04 Tamsulosin Hcl 0.4 Mg Capsule PO 0.4 mg BEDTIME FEROZ Administration Ticagrelor 90 mg 05/04/21 21:00 05/08/21 07:59 Ticagrelor 90 Mg Tablet PO 90 mg BID FEROZ Administration Trazodone HCl 50 mg 05/04/21 21:00 05/07/21 22:04 Trazodone Hcl 50 Mg Tablet PO 50 mg BEDTIME FEROZ Administration Labs CBC & Chem 7: 05/08/21 05:43 05/08/21 05:44 Labs: Laboratory Results - last 24 hr 05/07/21 05/07/21 05/07/21 11:07 12:42 16:26 MCV MCH MCHC RDW Plt Count MPV Absolute Nucleated RBC Nucleated RBC % (auto) Anion Gap Estim Creat Clear Calc Estimated GFR POC Glucose 135 H 253 H 85 Fasting Glucose Calcium 05/07/21 05/08/21 05/08/21 20:46 05:43 05:44 MCV 92.9 MCH 31.0 MCHC 33.3 RDW 14.7 Plt Count 316 MPV 10.9 Absolute Nucleated RBC 0.000 Nucleated RBC % (auto) 0.0 Anion Gap 12 Estim Creat Clear Calc 39.3 Estimated GFR 51 POC Glucose 103 Fasting Glucose 50 L* Calcium 8.6 05/08/21 05/08/21 07:27 09:02 MCV MCH MCHC RDW Plt Count MPV Absolute Nucleated RBC Nucleated RBC % (auto) Anion Gap Estim Creat Clear Calc Estimated GFR POC Glucose 52 L* 92 Fasting Glucose Calcium Assessment and Plan (1) NSTEMI (non-ST elevated myocardial infarction): Status: Acute Assessment and Plan: 81M presented with melena acute blood loss anemia po PPI transfused 2 units prbc on 05/04, hgb responded appropriately 5.6 to 8.4, 7.9 today EGD 05/06 showed 1. Hiatal hernia 2. ? Small areas of Reese's esophagus, no esophagitis nor any lesions 3. ? of 4-5 mm nonbleeding gastric AVM on lesser curvature of stomach 4. Nodular proximal stomach plan for colonoscopy 05/09, prep today recent NSTEMI and LAD CELESTINO and ischemic cardiomyopathy with EF 25-30% d/w cardio and GI, continue DAPL, monitor closely continue statin toprol DM inuslin vte prophylaxis - mechanical due to gi bleed Quality Stroke Does the patient have a stroke diagnosis?: No VTE Prior VTE?: No VTE Risk Level:: Medical - moderate - high VTE Device Contraindication: N/A - Device Ordered VTE Drug Contraindication: Treatment Not Indicated
[2021-05-08 11:23] LABS: Glucose, Whole Blood 158 mg/dL (60-115)
[2021-05-08 16:10] LABS: Glucose, Whole Blood 83 mg/dL (60-115)
[2021-05-08] MEDS: PEG 3350/Na Sulf,Bicarb,Cl/KCL 4,000 ML SOLN.RECON 4000 ML PO (16:29)
[2021-05-08] MEDS: bisacodyL 5 MG TABLET.DR 10 MG PO (16:29)
[2021-05-08 20:31] LABS: Glucose, Whole Blood 63 mg/dL (60-115)
[2021-05-08] MEDS: traZODone HCL 50 MG TABLET PO (22:20)
[2021-05-08] MEDS: Tamsulosin HCL 0.4 MG CAPSULE PO (22:21)
[2021-05-09] VITALS (13 sets, daily range): BP systolic 97–125; BP diastolic 45–88; PULSE 73–95; RESP 16–20; TEMP 36.2–37.1; O2SAT 95–100
[2021-05-09 04:42] LABS: MANUAL DIFF FLAG NO
[2021-05-09 04:57] LABS: Basophils Percent Auto 0.3 % (0-2); Eosinophils Absolute Auto 0.1 X10*3/uL (0.0-0.4); Eosinophils Percent Auto 2.1 % (0-4); Hematocrit 27.6 % (42-52); Imm Gran Abs Auto 0.03 X10*3/uL (0.00-0.03); Imm Gran Pct Auto 0.4 % (0.0-0.4); Lymphocytes Absolute Auto 1.5 X10*3/uL (1.2-4.9); Lymphocytes Percent Auto 23.1 % (20-40); Mean Corpuscular HGB Conc 32.6 g/dl (31.0-36.0); Mean Corpuscular Hemoglobin 30.4 pg (27.0-33.0); Mean Corpuscular Volume 93.2 fL (80-98); Monocytes Absolute Auto 0.6 X10*3/uL (0.1-1.2); Monocytes Percent Auto 8.5 % (2-11); Neutrophils Absolute Auto 4.4 X10*3/uL (2.0-8.3); Neutrophils Percent Auto 65.6 % (45-73); Platelet Count 347 X10*3/uL (160-400); Red Blood Count 2.96 X10*6/uL (4.60-5.80); Red Cell Distribution Width 14.9 % (11.0-16.0); White Blood Count 6.7 X10*3/uL (4.8-10.8)
[2021-05-09 05:21] LABS: Anion Gap 15 (12-20); Blood Urea Nitrogen 17 mg/dL (9-16); Calcium 8.5 mg/dL (8.4-10.2); Carbon Dioxide 21 mmol/L (22-29); Chloride 105 mmol/L (96-108); Creatinine Clr Calc Pharmacy 42.8; Estimated Glomerular Filt Rate 57; Glucose Fasting 100 mg/dL (60-99); Potassium 4.1 mmol/L (3.3-5.1); Sodium 137 mmol/L (135-145)
[2021-05-09] MEDS: Acetaminophen 325 MG TABLET 650 MG PO (06:03)
[2021-05-09 07:17] LABS: Glucose, Whole Blood 108 mg/dL (60-115)
[2021-05-09] MEDS: Atorvastatin Calcium 40 MG TABLET PO (08:31)
[2021-05-09] MEDS: Ticagrelor 90 MG TABLET PO ×2 (08:31→21:03)
[2021-05-09] MEDS: Aspirin Enteric Coated 81 MG TABLET.DR PO (08:31)
[2021-05-09] MEDS: Folic Acid 1 MG TABLET PO (08:31)
[2021-05-09] MEDS: Gabapentin 300 MG CAPSULE PO ×3 (08:31→21:03)
[2021-05-09] MEDS: Metoprolol Succinate ER 25 MG TAB.ER.24H PO (08:32)
[2021-05-09] MEDS: 0.9 % Sodium Chloride Flush 3 ML SYRINGE IVFLUSH ×3 (08:32→21:03)
[2021-05-09 10:10] LABS: Glucose, Whole Blood 113 mg/dL (60-115)
--- NOTE | 2021-05-09 10:24 | HO.ANESPROP2 ---
FORMERLY [facility] Active Problems Active Problems: All Active Problems (Updated 05/05/21 @ 10:52 by Saleem Hill MD) Preoperative cardiovascular examination (Acute) Atherosclerotic cardiovascular disease (Acute) Acute blood loss anemia (Acute) Acute GI bleeding (Acute) Anemia (Acute) Status post biventricular pacemaker (Acute ~10/2020) HFrEF (heart failure with reduced ejection fraction) (Acute) Dizziness (Acute) NSTEMI (non-ST elevated myocardial infarction) (Acute) Ischemic cardiomyopathy (Acute) Anemia (Acute) CAD (coronary artery disease) (Acute) S/P cardiac cath (Acute ~08/2020) Left carotid stenosis (Acute) Type 2 diabetes mellitus with unspecified complications (Acute) Essential hypertension (Acute) Normally functioning cardiac pacemaker present (Acute) CHB (complete heart block) (Acute) CVA (cerebral vascular accident) (Acute) Past Medical History Medical History Acute coronary syndrome Aortic stenosis BPH (benign prostatic hyperplasia) CAD (coronary artery disease) CHB (complete heart block) Congestive heart failure (CHF) CVA (cerebral vascular accident) Diastolic CHF Essential hypertension Hemorrhage of gastrointestinal tract, unspecified HLD (hyperlipidemia) HTN (hypertension) Hx of cardiac pacemaker Left carotid stenosis Non-rheumatic aortic stenosis Normally functioning cardiac pacemaker present On anticoagulant therapy On beta randy at home Pacemaker (~06/2015) PAF (paroxysmal atrial fibrillation) Rheumatoid arthritis Type 2 diabetes mellitus with unspecified complications Family History Family History Father Cancer Mother Cancer Family history of problems with anesthesia: No Surgical History Surgical History H/O colonoscopy History of appendectomy History of esophagogastroduodenoscopy History of lumbar surgery History of prostate surgery Hx of cholecystectomy S/P cardiac cath (~08/2020) Status post biventricular pacemaker (~10/2020) History of Problems with Anesthesia: No Social History Social History Household Members: Family Household Members Other:: 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 If so, by whom?: No Do you feel safe in your current relationship?: Yes Is there a partner from a previous relationship who is making you feel unsafe now?: No Are you made to feel afraid or neglected: No Spiritual Healthcare Practices: NONE Restorationism Healthcare Practices: NONE Cultural Healthcare Practices: NONE Are you DNR?: No Advance Directives: Yes Advance Directives Information Provided: No Advance Directives on File: No Advance Directives Date on File: 04/12/21 Do you have thoughts of harming others: None Do you have a plan to hurt others: No Plan Recently lost weight without trying: No Eating poorly because of decreased appetite: No Nutrition Risks: No Nutritional Risk Poor oral hygiene: No service: No Current occupational status: retired Meds Allergies Allergy/AdvReac Type Severity Reaction Status Date / Time naproxen [From NAPROSYN] Allergy Intermediate ITCHY Verified 04/07/21 09:37 sulfasalazine Allergy Intermediate anxiety Verified 04/07/21 09:37 Penicillins [PENICILLINS] Allergy Mild ITCHY Verified 04/07/21 09:37 Active Medications: Current Medications Generic Name Dose Route Start Last Admin Trade Name Freq PRN Reason Stop Dose Admin Acetaminophen 650 mg 05/07/21 04:02 05/09/21 06:03 Acetaminophen 325 Mg Tablet PO 650 mg Q6H PRN Administration Pain, Mild (Pain Scale 1-3) Aspirin 81 mg 05/05/21 09:00 05/09/21 08:31 Aspirin Enteric Coated 81 Mg Tablet. PO 81 mg DAILY FEROZ Administration Atorvastatin Calcium 40 mg 05/05/21 09:00 05/09/21 08:31 Atorvastatin Calcium 40 Mg Tablet PO 40 mg DAILY FEROZ Administration Dextrose 25 gm 05/04/21 15:58 Dextrose 50 % 25 Gm/50 Ml Vial IVPUSH Q15M PRN per Hypoglycemia Standing Ord. Protocol Folic Acid 1 mg 05/05/21 09:00 05/09/21 08:31 Folic Acid 1 Mg Tablet PO 1 mg DAILY FEROZ Administration Gabapentin 300 mg 05/04/21 21:00 05/09/21 08:31 Gabapentin 300 Mg Capsule PO 300 mg TID FEROZ Administration Glucose 15 gm 05/04/21 15:58 Glucose Gel 15 Gm Gel..Gram. PO Q15M PRN per Hypoglycemia Standing Ord. Protocol Insulin Glargine 20 unit 05/04/21 21:00 05/08/21 21:48 Insulin Glargine,Hum.Rec.Anlog 100 Unit/Ml 10 Ml Vial SUBCUT Not Given BEDTIME [facility] Insulin Human Lispro 0 unit 05/04/21 16:30 05/09/21 08:32 Insulin Lispro 100 Unit/Ml 3 Ml Vial SUBCUT Not Given QIDACHS [facility] Protocol Metoprolol Succinate 25 mg 05/05/21 09:00 05/09/21 08:32 Metoprolol Succinate Er 25 Mg Tab.Er.24h PO 25 mg DAILY [facility] Administration Protocol Omeprazole 20 mg 05/07/21 06:30 05/09/21 06:03 Omeprazole 20 Mg Capsule.Dr PO Not Given DAILY@0630 [facility] Ondansetron HCl 4 mg 05/06/21 14:04 Ondansetron Hcl 4 Mg/2 Ml Vial IVPUSH ONCE PRN Nausea and Vomiting Pharmacy Consult 1 each 05/04/21 12:57 Consult Rx Perform Med Rec MISCELLANE ONCE PRN Consult order Sodium Chloride 3 ml 05/05/21 00:00 05/09/21 08:32 0.9 % Sodium Chloride Flush 3 Ml Syringe IVFLUSH 3 ml QSHIFT [facility] Administration Tamsulosin HCl 0.4 mg 05/04/21 21:00 05/08/21 22:21 Tamsulosin Hcl 0.4 Mg Capsule PO 0.4 mg BEDTIME [facility] Administration Ticagrelor 90 mg 05/04/21 21:00 05/09/21 08:31 Ticagrelor 90 Mg Tablet PO 90 mg BID [facility] Administration Trazodone HCl 50 mg 05/04/21 21:00 05/08/21 22:20 Trazodone Hcl 50 Mg Tablet PO 50 mg BEDTIME [facility] Administration Home Medications Medication Instructions Recorded Confirmed Last Taken Type ferrous sulfate 324 mg (65 mg 324 mg PO DAILY 08/20/20 05/04/21 05/04/21 History iron) tablet,delayed release insulin glargine 100 unit/mL (3 20 unit SUBCUT BEDTIME 08/20/20 05/04/21 05/03/21 History mL) subcutaneous pen (Lantus Solostar U-100 Insulin) trazodone 50 mg tablet 50 mg PO BEDTIME 08/20/20 05/04/21 05/03/21 History gabapentin 300 mg capsule 300 mg PO TID cap 11/18/20 05/04/21 05/04/21 History ticagrelor 90 mg tablet 90 mg PO BID 03/14/21 05/04/21 05/04/21 History aspirin 81 mg tablet,delayed 81 mg PO DAILY 03/23/21 05/04/21 05/04/21 History release pantoprazole 40 mg tablet,delayed 40 mg PO DAILY@0630 03/23/21 05/04/21 05/04/21 History release acetaminophen 325 mg tablet 975 mg PO Q6H PRN 05/04/21 05/04/21 Unknown History atorvastatin 40 mg tablet 40 mg PO DAILY 05/04/21 05/04/21 05/04/21 History docusate sodium 100 mg capsule 100 mg PO BID PRN 05/04/21 05/04/21 Unknown History insulin lispro 100 unit/mL 5 unit SUBCUT TIDAC 05/04/21 05/04/21 Unknown History subcutaneous pen (Humalog KwikPen (U-100) Insulin) metoprolol succinate 25 mg 25 mg PO DAILY 05/04/21 05/04/21 05/04/21 History tablet,extended release 24 hr tobramycin 0.3 %-lotepred 0.5 % 1 drp OPHTHALMIC (EYE) TID 05/04/21 05/04/21 Unknown History eye drops,suspension (Zylet) torsemide 20 mg tablet 20 mg PO DAILY 05/04/21 05/04/21 05/04/21 History Exam Exam Date and Time: May 09, 2021 1024 Height,Weight and Vital Signs: Height 5 ft 3 in Weight 72.9 kg Last Vital Signs Temp 97.2 F 05/09/21 10:16 Pulse 83 05/09/21 10:16 Resp 16 05/09/21 10:16 BP 121/58 L 05/09/21 10:16 Pulse Ox 100 05/09/21 10:16 Pertinent Lab Results Pertinent Lab Results: Laboratory Tests 05/04/21 05/04/21 05/04/21 11:22 11:22 11:42 WBC 8.8 RBC 1.91 L D Hgb 5.6 L* D Hct 17.6 L* D MCV 92.1 MCH 29.3 MCHC 31.8 RDW 14.6 Plt Count 269 MPV 11.1 Immature Gran % (Auto) 0.3 Neut % (Auto) 77.4 H Lymph % (Auto) 15.2 L [place] % (Auto) 6.4 Eos % (Auto) 0.5 Baso % (Auto) 0.2 Lymph # (Auto) 1.3 [place] # (Auto) 0.6 Eos # (Auto) 0.0 Baso # (Auto) 0.0 Abs Immat Gran (auto) 0.03 Absolute Neuts (auto) 6.8 Absolute Nucleated RBC 0.000 Nucleated RBC % (auto) 0.0 PT INR Sodium 137 Potassium 4.4 Chloride 103 Carbon Dioxide 22 Anion Gap 16 BUN 61 H D Creatinine 1.93 H Estim Creat Clear Calc 27.7 Estimated GFR 34 POC Glucose Random Glucose 261 H D Fasting Glucose Calcium 8.9 Total Bilirubin 0.4 AST 7 ALT 9 Alkaline Phosphatase 52 D Total Protein 6.6 Albumin 3.8 COVID-19 ([facility]) COVID-19 Clin Com Blood Type A Positive Antibody Screen NEGATIVE Crossmatch See Detail 05/04/21 05/04/21 05/05/21 13:31 22:31 05:23 WBC 9.7 RBC 2.71 L D Hgb 8.4 L D Hct 24.9 L D MCV 91.9 MCH 31.0 MCHC 33.7 RDW 14.1 Plt Count 279 MPV 11.7 Immature Gran % (Auto) Neut % (Auto) Lymph % (Auto) [place] % (Auto) Eos % (Auto) Baso % (Auto) Lymph # (Auto) [place] # (Auto) Eos # (Auto) Baso # (Auto) Abs Immat Gran (auto) Absolute Neuts (auto) Absolute Nucleated RBC 0.000 Nucleated RBC % (auto) 0.0 PT INR Sodium Potassium Chloride Carbon Dioxide Anion Gap BUN Creatinine Estim Creat Clear Calc Estimated GFR POC Glucose 168 H Random Glucose Fasting Glucose Calcium Total Bilirubin AST ALT Alkaline Phosphatase Total Protein Albumin COVID-19 ([facility]) Negative COVID-[facility] [place] Clin Com See Note Blood Type Antibody Screen Crossmatch 05/05/21 05/05/21 05/05/21 05:23 05:23 07:33 WBC RBC Hgb Hct MCV MCH MCHC RDW Plt Count MPV Immature Gran % (Auto) Neut % (Auto) Lymph % (Auto) [place] % (Auto) Eos % (Auto) Baso % (Auto) Lymph # (Auto) [place] # (Auto) Eos # (Auto) Baso # (Auto) Abs Immat Gran (auto) Absolute Neuts (auto) Absolute Nucleated RBC Nucleated RBC % (auto) PT 11.5 INR 1.0 Sodium 139 Potassium 4.1 Chloride 106 Carbon Dioxide 24 Anion Gap 13 BUN 51 H Creatinine 1.58 H Estim Creat Clear Calc 33.3 Estimated GFR 42 POC Glucose 130 H Random Glucose Fasting Glucose 127 H Calcium 8.8 Total Bilirubin AST ALT Alkaline Phosphatase Total Protein Albumin COVID-19 ([facility]) COVID-19 [facility] Blood Type Antibody Screen Crossmatch 05/05/21 05/05/21 05/05/21 11:22 16:10 20:41 WBC RBC Hgb Hct MCV MCH MCHC RDW Plt Count MPV Immature Gran % (Auto) Neut % (Auto) Lymph % (Auto) [place] % (Auto) Eos % (Auto) Baso % (Auto) Lymph # (Auto) [place] # (Auto) Eos # (Auto) Baso # (Auto) Abs Immat Gran (auto) Absolute Neuts (auto) Absolute Nucleated RBC Nucleated RBC % (auto) PT INR Sodium Potassium Chloride Carbon Dioxide Anion Gap BUN Creatinine Estim Creat Clear Calc Estimated GFR POC Glucose 141 H 142 H 136 H Random Glucose Fasting Glucose Calcium Total Bilirubin AST ALT Alkaline Phosphatase Total Protein Albumin COVID-19 ([facility]) [facility]-[place] [facility] Blood Type Antibody Screen Crossmatch 05/06/21 05/06/21 05/06/21 05:15 05:15 07:21 WBC 8.2 RBC 2.70 L Hgb 8.1 L Hct 24.8 L MCV 91.9 MCH 30.0 MCHC 32.7 RDW 14.4 Plt Count 291 MPV 11.5 Immature Gran % (Auto) Neut % (Auto) Lymph % (Auto) [place] % (Auto) Eos % (Auto) Baso % (Auto) Lymph # (Auto) [place] # (Auto) Eos # (Auto) Baso # (Auto) Abs Immat Gran (auto) Absolute Neuts (auto) Absolute Nucleated RBC 0.000 Nucleated RBC % (auto) 0.0 PT INR Sodium 139 Potassium 4.1 Chloride 106 Carbon Dioxide 24 Anion Gap 13 BUN 39 H Creatinine 1.42 H Estim Creat Clear Calc 37.1 Estimated GFR 48 POC Glucose 112 Random Glucose Fasting Glucose 96 Calcium 9.0 Total Bilirubin AST ALT Alkaline Phosphatase Total Protein Albumin COVID-19 ([facility]) COVID-19 [facility] Blood Type Antibody Screen Crossmatch 05/06/21 05/06/21 05/06/21 11:31 16:48 20:47 WBC RBC Hgb Hct MCV MCH MCHC RDW Plt Count MPV Immature Gran % (Auto) Neut % (Auto) Lymph % (Auto) [place] % (Auto) Eos % (Auto) Baso % (Auto) Lymph # (Auto) [place] # (Auto) Eos # (Auto) Baso # (Auto) Abs Immat Gran (auto) Absolute Neuts (auto) Absolute Nucleated RBC Nucleated RBC % (auto) PT INR Sodium Potassium Chloride Carbon Dioxide Anion Gap BUN Creatinine Estim Creat Clear Calc Estimated GFR POC Glucose 111 119 H 195 H Random Glucose Fasting Glucose Calcium Total Bilirubin AST ALT Alkaline Phosphatase Total Protein Albumin COVID-19 ([facility]) [facility] [place] [facility] Blood Type Antibody Screen Crossmatch 05/07/21 05/07/21 05/07/21 05:25 05:25 07:11 WBC 8.3 RBC 2.53 L Hgb 7.7 L Hct 23.5 L MCV 92.9 MCH 30.4 MCHC 32.8 RDW 14.6 Plt Count 290 MPV 11.3 Immature Gran % (Auto) Neut % (Auto) Lymph % (Auto) [place] % (Auto) Eos % (Auto) Baso % (Auto) Lymph # (Auto) [place] # (Auto) Eos # (Auto) Baso # (Auto) Abs Immat Gran (auto) Absolute Neuts (auto) Absolute Nucleated RBC 0.000 Nucleated RBC % (auto) 0.0 PT INR Sodium 140 Potassium 4.0 Chloride 109 H Carbon Dioxide 22 Anion Gap 13 BUN 29 H Creatinine 1.35 Estim Creat Clear Calc 39.0 Estimated GFR 51 POC Glucose 116 H Random Glucose Fasting Glucose 115 H Calcium 8.5 Total Bilirubin AST ALT Alkaline Phosphatase Total Protein Albumin COVID-19 ([facility]) [employer] [facility] Blood Type Antibody Screen Crossmatch 05/07/21 05/07/21 05/07/21 11:07 12:42 16:26 WBC RBC Hgb Hct MCV MCH MCHC RDW Plt Count MPV Immature Gran % (Auto) Neut % (Auto) Lymph % (Auto) [place] % (Auto) Eos % (Auto) Baso % (Auto) Lymph # (Auto) [place] # (Auto) Eos # (Auto) Baso # (Auto) Abs Immat Gran (auto) Absolute Neuts (auto) Absolute Nucleated RBC Nucleated RBC % (auto) PT INR Sodium Potassium Chloride Carbon Dioxide Anion Gap BUN Creatinine Estim Creat Clear Calc Estimated GFR POC Glucose 135 H 253 H 85 Random Glucose Fasting Glucose Calcium Total Bilirubin AST ALT Alkaline Phosphatase Total Protein Albumin COVID-19 ([facility]) COVID-19 [facility] Blood Type Antibody Screen Crossmatch 05/07/21 05/08/21 05/08/21 20:46 05:43 05:44 WBC 7.0 RBC 2.55 L Hgb 7.9 L Hct 23.7 L MCV 92.9 MCH 31.0 MCHC 33.3 RDW 14.7 Plt Count 316 MPV 10.9 Immature Gran % (Auto) Neut % (Auto) Lymph % (Auto) [place] % (Auto) Eos % (Auto) Baso % (Auto) Lymph # (Auto) [place] # (Auto) Eos # (Auto) Baso # (Auto) Abs Immat Gran (auto) Absolute Neuts (auto) Absolute Nucleated RBC 0.000 Nucleated RBC % (auto) 0.0 PT INR Sodium 140 Potassium 3.8 Chloride 109 H Carbon Dioxide 23 Anion Gap 12 BUN 23 H Creatinine 1.34 Estim Creat Clear Calc 39.3 Estimated GFR 51 POC Glucose 103 Random Glucose Fasting Glucose 50 L* Calcium 8.6 Total Bilirubin AST ALT Alkaline Phosphatase Total Protein Albumin COVID-19 ([facility]) COVID-19 [facility] Blood Type Antibody Screen Crossmatch 05/08/21 05/08/21 05/08/21 07:27 09:02 11:19 WBC RBC Hgb Hct MCV MCH MCHC RDW Plt Count MPV Immature Gran % (Auto) Neut % (Auto) Lymph % (Auto) [place] % (Auto) Eos % (Auto) Baso % (Auto) Lymph # (Auto) [place] # (Auto) Eos # (Auto) Baso # (Auto) Abs Immat Gran (auto) Absolute Neuts (auto) Absolute Nucleated RBC Nucleated RBC % (auto) PT INR Sodium Potassium Chloride Carbon Dioxide Anion Gap BUN Creatinine Estim Creat Clear Calc Estimated GFR POC Glucose 52 L* 92 158 H Random Glucose Fasting Glucose Calcium Total Bilirubin AST ALT Alkaline Phosphatase Total Protein Albumin COVID-19 ([facility]) COVID-19 [facility] Blood Type Antibody Screen Crossmatch 05/08/21 05/08/21 05/09/21 16:02 20:25 04:13 WBC Cancelled RBC Cancelled Hgb Cancelled Hct Cancelled MCV Cancelled MCH Cancelled MCHC Cancelled RDW Cancelled Plt Count Cancelled MPV Cancelled Immature Gran % (Auto) Neut % (Auto) Lymph % (Auto) [place] % (Auto) Eos % (Auto) Baso % (Auto) Lymph # (Auto) [place] # (Auto) Eos # (Auto) Baso # (Auto) Abs Immat Gran (auto) Absolute Neuts (auto) Absolute Nucleated RBC Cancelled Nucleated RBC % (auto) Cancelled PT INR Sodium Potassium Chloride Carbon Dioxide Anion Gap BUN Creatinine Estim Creat Clear Calc Estimated GFR POC Glucose 83 63 Random Glucose Fasting Glucose Calcium Total Bilirubin AST ALT Alkaline Phosphatase Total Protein Albumin COVID-19 ([facility]) COVID-19 [facility] Blood Type Antibody Screen Crossmatch 05/09/21 05/09/21 05/09/21 04:13 04:13 04:13 WBC 6.7 RBC 2.96 L Hgb 9.0 L Hct 27.6 L MCV 93.2 MCH 30.4 MCHC 32.6 RDW 14.9 Plt Count 347 MPV 11.0 Immature Gran % (Auto) 0.4 Neut % (Auto) 65.6 Lymph % (Auto) 23.1 [place] % (Auto) 8.5 Eos % (Auto) 2.1 Baso % (Auto) 0.3 Lymph # (Auto) 1.5 [place] # (Auto) 0.6 Eos # (Auto) 0.1 Baso # (Auto) 0.0 Abs Immat Gran (auto) 0.03 Absolute Neuts (auto) 4.4 Absolute Nucleated RBC 0.000 Nucleated RBC % (auto) 0.0 PT INR Sodium Cancelled 137 Potassium Cancelled 4.1 Chloride Cancelled 105 Carbon Dioxide Cancelled 21 L Anion Gap Cancelled 15 BUN Cancelled 17 H Creatinine Cancelled 1.23 Estim Creat Clear Calc Cancelled 42.8 Estimated GFR Cancelled 57 POC Glucose Random Glucose Fasting Glucose Cancelled 100 H D Calcium Cancelled 8.5 Total Bilirubin AST ALT Alkaline Phosphatase Total Protein Albumin COVID-19 ([facility]) COVID-19 [employer] [facility] Blood Type Antibody Screen Crossmatch 05/09/21 05/09/21 07:14 10:06 WBC RBC Hgb Hct MCV MCH MCHC RDW Plt Count MPV Immature Gran % (Auto) Neut % (Auto) Lymph % (Auto) [place] % (Auto) Eos % (Auto) Baso % (Auto) Lymph # (Auto) [place] # (Auto) Eos # (Auto) Baso # (Auto) Abs Immat Gran (auto) Absolute Neuts (auto) Absolute Nucleated RBC Nucleated RBC % (auto) PT INR Sodium Potassium Chloride Carbon Dioxide Anion Gap BUN Creatinine Estim Creat Clear Calc Estimated GFR POC Glucose 108 113 Random Glucose Fasting Glucose Calcium Total Bilirubin AST ALT Alkaline Phosphatase Total Protein Albumin COVID-19 ([facility]) COVID-19 [employer] [facility] Blood Type Antibody Screen Crossmatch Airway Mallampati Class: II (Edentulous) TM Dist: >3cm Neck ROM: Full Loose/Missing/Broken Teeth: Yes, Upper and Lower Heart: RRR Lungs: CTA Assessment and Plan Assessment Anesthesia Assessment: Anesthesia Plan Discussed and Chart Reviewed Final Anesthetic Review Family History of Problems with Anesthesia: No History of Problems with Anesthesia: No ASA Class: IV Final Preanesthetic Review: Meds/Allgs Chart Reviewed, Consent Obtained/Reviewed and Anes Risks/Benef Reviewed Patient Risk: High Procedure Risk: Low Anesthetic Plan Anesthetic Plan: MAC: Disposition: Standard PACU
--- NOTE | 2021-05-09 12:47 | P.EN_ITS ---
Event Note Date of Service: 05/09/21 Event Note: GI-Colonoscopy to the cecum and TI with snare polypectomy and clip ping x 2-Full note dictated Glucagon 1.0 mg IV given during the procedure . Approx 1.5cm polyp at 30cm on a long stalk. The tip of the polyp had some ulceration and a nipple-like protuberance. There was no bleeding. 2. 2 clips were placed at the base of the stalk with good deployment and blanching of the polyp 3. Polyp removed via snare polypectomy just above the clips--no bleeding and polyp was recovered 4. Sigmoid diverticulosis with a lot of spasm and areas of mucosal erythema 5. Internal hemorrhoids Plan Check path. Observe on full liquids for now in light of the polypectomy and his continued blood thinners. If stable, the diet can be advanced tomorrow. F/U Hgb. Possible small bowel video capsule as an outpatient if he continues to have bleeding. Thanks
--- NOTE | 2021-05-09 12:53 | PM.OP ---
Brief Operative Note Date of Service: 05/09/21 Pre-op diagnosis: GI Bleeding Post-op diagnosis: other (Colon polyp at 30cm) Procedure: Colonoscopy to the cecum and TI with clipping x 2 and snare polypectomy at 30cm Surgeon: Oc Bettencourt Anesthesia: MAC Was an Customer Engagement Representative used for this Procedure?: No Estimated blood loss (mL): 0 Pathology: other (A. Polyp at 30cm) Condition: stable Disposition: PACU
--- NOTE | 2021-05-09 13:42 | OP_ITS ---
SURGEON: Oc Bettencourt MD INDICATIONS: The patient presents for evaluation of GI bleeding. Full consent has been obtained from the patient and his daughter for the procedure, including risks of bleeding and perforation. PREOPERATIVE DIAGNOSIS: Gastrointestinal bleeding. POSTOPERATIVE DIAGNOSIS: PROCEDURE PERFORMED: Esophagogastroduodenoscopy. ESTIMATED BLOOD LOSS: COMPLICATIONS: ANESTHESIA: Monitored anesthesia care. 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 DESCRIPTION OF PROCEDURE: The patient was placed in the left lateral decubitus position. The Olympus video gastroscope was passed in the posterior oropharynx and upper esophagus under direct vision. The scope was passed slowly to the distal esophagus. The gastroesophageal junction appeared at 35 cm. There were small, less than 1 cm, areas of possible Reese's mucosa at this level. There was no evidence of any esophagitis nor any lesions. The scope entered into the stomach. There was a small hiatal hernia. The scope was advanced to the pylorus and the duodenum was cannulated to the descending portion. The duodenum including the bulb was carefully inspected. I did not visualize any sign of ulceration, bleeding, nor mass in the duodenum. However in the duodenum, just before entering the second portion, was what appeared to be a small opening with free flow of bile coming from it. This was not the region of the major papilla and I felt this may represent some type of fistula between the duodenum and biliary tract. There was no bleeding. The scope was withdrawn back in the stomach. The gastric antrum appeared normal with good peristalsis. The scope was retroflexed visualizing nodularity in the proximal stomach, but without mass or ulceration. In the stomach, on the lesser curvature, was what appeared to be a possible 4 or 5 mm nonbleeding gastric angiodysplasia, although this was not definitive. There was no bleeding. There was no associated ulceration. The scope was then withdrawn back into the esophagus. The esophageal mucosa otherwise appeared normal. The scope was withdrawn from the patient. He tolerated the procedure well and was returned to recovery area in stable condition. IMPRESSION: 1. Hiatal hernia, question of Reese's esophagus. 2. Nodularity of proximal stomach. 3. Questionable small nonbleeding gastric angiodysplasia. 4. 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 PLAN: At this point, the patient will have his diet advanced. He will be switched to an oral PPI. Given basically no significant findings on today's upper endoscopy, I would recommend further evaluation with colonoscopy during this hospitalization. Depending upon the results of that, he may need a small bowel video capsule study at some point. This has all been discussed with the patient and his daughter, Jessica, via a medical office asst in detail. They were comfortable with this plan. MD DURAN Hull/EUGENE / [id number] MTDD
--- NOTE | 2021-05-09 13:56 | HO.PM.IMPN ---
Subjective Subjective Date of Service: 05/09/21 Interval History: no compliants Cardiovascular Cardiovascular: Reports no additional cardiovascular complaints Respiratory Respiratory: Reports no additional respiratory complaints Physical Exam Vital Signs: Vital Signs: Last Vital Signs Temp 97.1 F 05/09/21 12:43 Pulse 80 05/09/21 12:58 Resp 16 05/09/21 12:58 BP 113/47 L 05/09/21 12:58 Pulse Ox 100 05/09/21 12:58 Body Mass Index 28.4 General: AO X 3, no acute distress Resp: CTA bilateral CVS: S1,S2,RRR GI: soft, non tender, non distended Neuro: motor grossly intact Psych: appropriate affect Objective Data Current Medications Generic Name Dose Route Start Last Admin Trade Name Freq PRN Reason Stop Dose Admin Acetaminophen 650 mg 05/07/21 04:02 05/09/21 06:03 Acetaminophen 325 Mg Tablet PO 650 mg Q6H PRN Administration Pain, Mild (Pain Scale 1-3) Aspirin 81 mg 05/05/21 09:00 05/09/21 08:31 Aspirin Enteric Coated 81 Mg Tablet. PO 81 mg DAILY FEROZ Administration Atorvastatin Calcium 40 mg 05/05/21 09:00 05/09/21 08:31 Atorvastatin Calcium 40 Mg Tablet PO 40 mg DAILY FEROZ Administration Dextrose 25 gm 05/04/21 15:58 Dextrose 50 % 25 Gm/50 Ml Vial IVPUSH Q15M PRN per Hypoglycemia Standing Ord. Protocol Folic Acid 1 mg 05/05/21 09:00 05/09/21 08:31 Folic Acid 1 Mg Tablet PO 1 mg DAILY FEROZ Administration Gabapentin 300 mg 05/04/21 21:00 05/09/21 08:31 Gabapentin 300 Mg Capsule PO 300 mg TID FEROZ Administration Glucose 15 gm 05/04/21 15:58 Glucose Gel 15 Gm Gel..Gram. PO Q15M PRN per Hypoglycemia Standing Ord. Protocol Insulin Glargine 20 unit 05/04/21 21:00 05/08/21 21:48 Insulin Glargine,Hum.Rec.Anlog 100 Unit/Ml 10 Ml Vial SUBCUT Not Given BEDTIME [facility] Insulin Human Lispro 0 unit 05/04/21 16:30 05/09/21 13:19 Insulin Lispro 100 Unit/Ml 3 Ml Vial SUBCUT Not Given QIDACHS [facility] Protocol Metoprolol Succinate 25 mg 05/05/21 09:00 05/09/21 08:32 Metoprolol Succinate Er 25 Mg Tab.Er.24h PO 25 mg DAILY FEROZ Administration Protocol Omeprazole 20 mg 05/07/21 06:30 05/09/21 06:03 Omeprazole 20 Mg Capsule.Dr PO Not Given DAILY@0630 [facility] Ondansetron HCl 4 mg 05/06/21 14:04 Ondansetron Hcl 4 Mg/2 Ml Vial IVPUSH ONCE PRN Nausea and Vomiting Pharmacy Consult 1 each 05/04/21 12:57 Consult Rx Perform Med Rec MISCELLANE ONCE PRN Consult order Sodium Chloride 3 ml 05/05/21 00:00 05/09/21 08:32 0.9 % Sodium Chloride Flush 3 Ml Syringe IVFLUSH 3 ml QSHIFT [facility] Administration Tamsulosin HCl 0.4 mg 05/04/21 21:00 05/08/21 22:21 Tamsulosin Hcl 0.4 Mg Capsule PO 0.4 mg BEDTIME FEROZ Administration Ticagrelor 90 mg 05/04/21 21:00 05/09/21 08:31 Ticagrelor 90 Mg Tablet PO 90 mg BID FEROZ Administration Trazodone HCl 50 mg 05/04/21 21:00 05/08/21 22:20 Trazodone Hcl 50 Mg Tablet PO 50 mg BEDTIME FEROZ Administration Labs CBC & Chem 7: 05/09/21 04:13 05/09/21 04:13 Labs: Laboratory Results - last 24 hr 05/08/21 05/08/21 05/09/21 16:02 20:25 04:13 MCV Cancelled MCH Cancelled MCHC Cancelled RDW Cancelled Plt Count Cancelled MPV Cancelled Immature Gran % (Auto) Neut % (Auto) Lymph % (Auto) Petroleum % (Auto) Eos % (Auto) Baso % (Auto) Lymph # (Auto) Petroleum # (Auto) Eos # (Auto) Baso # (Auto) Abs Immat Gran (auto) Absolute Neuts (auto) Absolute Nucleated RBC Cancelled Nucleated RBC % (auto) Cancelled Anion Gap Estim Creat Clear Calc Estimated GFR POC Glucose 83 63 Fasting Glucose Calcium 05/09/21 05/09/21 05/09/21 04:13 04:13 04:13 MCV 93.2 MCH 30.4 MCHC 32.6 RDW 14.9 Plt Count 347 MPV 11.0 Immature Gran % (Auto) 0.4 Neut % (Auto) 65.6 Lymph % (Auto) 23.1 Petroleum % (Auto) 8.5 Eos % (Auto) 2.1 Baso % (Auto) 0.3 Lymph # (Auto) 1.5 Petroleum # (Auto) 0.6 Eos # (Auto) 0.1 Baso # (Auto) 0.0 Abs Immat Gran (auto) 0.03 Absolute Neuts (auto) 4.4 Absolute Nucleated RBC 0.000 Nucleated RBC % (auto) 0.0 Anion Gap Cancelled 15 Estim Creat Clear Calc Cancelled 42.8 Estimated GFR Cancelled 57 POC Glucose Fasting Glucose Cancelled 100 H D Calcium Cancelled 8.5 05/09/21 05/09/21 07:14 10:06 MCV MCH MCHC RDW Plt Count MPV Immature Gran % (Auto) Neut % (Auto) Lymph % (Auto) Petroleum % (Auto) Eos % (Auto) Baso % (Auto) Lymph # (Auto) Petroleum # (Auto) Eos # (Auto) Baso # (Auto) Abs Immat Gran (auto) Absolute Neuts (auto) Absolute Nucleated RBC Nucleated RBC % (auto) Anion Gap Estim Creat Clear Calc Estimated GFR POC Glucose 108 113 Fasting Glucose Calcium Assessment and Plan (1) NSTEMI (non-ST elevated myocardial infarction): Status: Acute Assessment and Plan: 81M presented with melena acute blood loss anemia po PPI transfused 2 units prbc on 05/04, hgb responded appropriately 5.6 to 8.4, 7.9 today EGD 05/06 showed 1. Hiatal hernia 2. ? Small areas of Reese's esophagus, no esophagitis nor any lesions 3. ? of 4-5 mm nonbleeding gastric AVM on lesser curvature of stomach 4. Nodular proximal stomach colonoscopy 05/09 ?Approx 1.5cm polyp at 30cm on a long stalk. The tip of the polyp had some ulceration and a nipple-like protuberance. There was no bleeding. 2. 2 clips were placed at the base of the stalk with good deployment and blanching of the polyp 3. Polyp removed via snare polypectomy just above the clips--no bleeding and polyp was recovered 4. Sigmoid diverticulosis with a lot of spasm and areas of mucosal erythema 5. Internal hemorrhoids plan to observe another night, monitor for bleeding, advnace diet tomorrow to solids recent NSTEMI and LAD CELESTINO and ischemic cardiomyopathy with EF 25-30% d/w cardio and GI, continue DAPL, monitor closely continue statin toprol DM inuslin vte prophylaxis - mechanical due to gi bleed Quality Stroke Does the patient have a stroke diagnosis?: No VTE Prior VTE?: No VTE Risk Level:: Medical - moderate - high VTE Device Contraindication: N/A - Device Ordered VTE Drug Contraindication: Treatment Not Indicated
[2021-05-09 14:04] LABS: Glucose, Whole Blood 203 mg/dL (60-115)
--- NOTE | 2021-05-09 14:21 | MHC.CM.PN ---
per pt to have colonoscopy today no dc date at [facility]
--- NOTE | 2021-05-09 15:39 | OP_ITS ---
SURGEON: Oc Bettencourt MD INDICATIONS: The patient presents for evaluation of GI bleeding. Full consent has been obtained from him for this, including risks of bleeding and perforation. PREOPERATIVE DIAGNOSIS: Gastrointestinal bleeding. POSTOPERATIVE DIAGNOSIS: PROCEDURE PERFORMED: Colonoscopy to the cecum and terminal ileum with placement of 2 resolution clips and a snare polypectomy. ESTIMATED BLOOD LOSS: COMPLICATIONS: ANESTHESIA: Monitored anesthesia care and glucagon 1 mg IV x1 dose. ASSISTANTS: SPECIMENS: POSTOPERATIVE DIAGNOSES: Gastrointestinal bleeding, colon polyp at 30 cm, diverticulosis, internal hemorrhoids. DESCRIPTION OF PROCEDURE: The patient was placed in the left lateral decubitus position. The digital rectal exam revealed no abnormalities. The Olympus video pediatric colonoscope was entered into the rectum and advanced easily to the cecum. Once in the cecum, I did identify cecal pouch with appendiceal orifice and a normal-appearing ileocecal valve. The terminal ileum was cannulated and appeared normal. The scope was withdrawn back in the colon. The entire cecum and ileocecal valve appeared normal. The scope was then slowly withdrawn assessing all mucosal surfaces carefully. Preparation was excellent. At 30 cm, was a relatively large approximately 1.5 cm grossly adenomatous polyp on a long stalk. The tip of the polyp did appear to be somewhat inflamed and friable along with a small nipple like protuberance from the polyp itself. However, there was no bleeding. The sigmoid colon was also notable for a great deal of spasm, some edema, and some erythematous mucosal folds. However, I did not appreciate any other polyps nor masses in this area. There was also a moderate amount of sigmoid diverticulosis. Given the appearance of the polyp, I opted to remove it since I think this may have been a potential source of his recurrent GI bleeding that he has been having while on his blood thinners. As such, I placed 2 resolution clips at the base of the stalk with good deployment and good hemostasis. There was good blanching of the remainder of the stalk and head of the polyp itself. At this point, I used a snare to remove the polyp just above the level of the 2 clips on the stalk. There was no sign of bleeding. The polyp itself was recovered by suctioning it onto the tip of the scope and withdrawing it from the patient. The scope was advanced back to the polypectomy site. Again, there was no sign of any bleeding and the clips appeared to have deployed well with a good cautery site noted just above them. No other polyps, colitis, nor angiodysplasias were noted. In the rectum, the scope was retroflexed visualizing some internal hemorrhoids, but no other pathology. The rectal mucosa appeared normal. The scope was straightened out and withdrawn from the patient. He tolerated the procedure well and was returned to the recovery area in stable condition. IMPRESSION: 1. Colon polyp at 30 cm, status post placement of 2 resolution clips and snare polypectomy. 2. Diverticulosis. 3. Internal hemorrhoids. PLAN: The results of the pathology will be checked. As long as there is no malignancy, then I do not think any further followup would be needed nor would he need any further colonoscopies given his age and medical condition. At this point, I would recommend holding off on a small bowel video capsule study unless he has evidence of recurrent bleeding. He has already received his Brilinta and aspirin today. He will need to continue that daily due to the very recent placement of a coronary artery stent. This has been discussed with his daughter, Jessica, on the telephone with the director of medical services. MD DURAN Hull/EUGENE / [id number] MTDD
[2021-05-09 16:39] LABS: Glucose, Whole Blood 146 mg/dL (60-115)
[2021-05-09 20:31] LABS: Glucose, Whole Blood 115 mg/dL (60-115)
[2021-05-09] MEDS: Tamsulosin HCL 0.4 MG CAPSULE PO (21:03)
[2021-05-09] MEDS: traZODone HCL 50 MG TABLET PO (21:03)
[2021-05-10 03:27] VITALS: BP 104/62; PULSE 111; RESP 20; TEMP 36.8; O2SAT 95
[2021-05-10] MEDS: Omeprazole 20 MG CAPSULE.DR PO (05:31)
[2021-05-10 06:53] LABS: Hematocrit 28.2 % (42-52); Hemoglobin 9.2 g/dl (14.0-18.0); Mean Corpuscular HGB Conc 32.6 g/dl (31.0-36.0); Mean Corpuscular Hemoglobin 30.7 pg (27.0-33.0); Mean Platelet Volume 11.7 fL (9.4-12.4); Platelet Count 263 X10*3/uL (160-400); Red Cell Distribution Width 14.9 % (11.0-16.0); White Blood Count 8.6 X10*3/uL (4.8-10.8)
[2021-05-10 06:58] LABS: Glucose, Whole Blood 112 mg/dL (60-115)
[2021-05-10 07:05] LABS: Anion Gap 17 (12-20); Blood Urea Nitrogen 13 mg/dL (9-16); Calcium 8.4 mg/dL (8.4-10.2); Carbon Dioxide 17 mmol/L (22-29); Chloride 110 mmol/L (96-108); Creatinine Clr Calc Pharmacy 45.8; Estimated Glomerular Filt Rate > 60; Glucose Fasting 96 mg/dL (60-99); Potassium 4.5 mmol/L (3.3-5.1); Sodium 139 mmol/L (135-145)
[2021-05-10 07:17] LABS: Glucose, Whole Blood 109 mg/dL (60-115)
[2021-05-10 07:22] VITALS: BP 99/50; PULSE 93; RESP 20; TEMP 36.7; O2SAT 98
[2021-05-10] MEDS: 0.9 % Sodium Chloride Flush 3 ML SYRINGE IVFLUSH (08:09)
[2021-05-10 08:10] VITALS: BP 99/50; PULSE 93
[2021-05-10] MEDS: Aspirin Enteric Coated 81 MG TABLET.DR PO (08:10)
[2021-05-10] MEDS: Folic Acid 1 MG TABLET PO (08:10)
[2021-05-10] MEDS: Gabapentin 300 MG CAPSULE PO (08:10)
[2021-05-10] MEDS: Metoprolol Succinate ER 25 MG TAB.ER.24H PO (08:10)
[2021-05-10] MEDS: Ticagrelor 90 MG TABLET PO (08:10)
[2021-05-10] MEDS: Atorvastatin Calcium 40 MG TABLET PO (08:10)
--- NOTE | 2021-05-10 10:10 | HO.POSTANES ---
Post Anesthesia Evaluation Post Anesthesia Evaluation Vital Signs: Vital Signs Temp Pulse Resp BP Pulse Ox 05/10/21 08:10 93 99/50 L 05/10/21 07:22 98.0 F 93 20 99/50 L 98 05/10/21 03:27 98.2 F 111 H 20 104/62 95 05/09/21 23:00 97.1 F 95 18 117/80 95 Anesthesia: Monitored Mental Status: Awake Pain Control: Satisfactory Nausea/Vomiting: None Hydration: Adequate Anesthesia-Related Issues: No Anes. Related Issues
--- NOTE | 2021-05-10 10:16 | PM.DS ---
DS: Providers Provider Date of Service: 05/10/21 Date of admission: 05/04/21 16:07 Primary care physician: Karolina Carroll MD Consults: 05/04/21 15:56 Consult to Gastroenterology Routine Consulting Provider: Oc Bettencourt Reason for consultation: gi bleed, recent nstemi 05/04/21 19:03 Consult to Cardiology Routine Consulting Provider: Saleem Hill Reason for consultation: recent nstemi, EGD for sunday DS: Diagnosis Discharge Diagnosis (1) NSTEMI (non-ST elevated myocardial infarction): Status: Acute DS: Medications Discharge Medications Home Medications: Home Medications Medication Instructions Recorded Confirmed ferrous sulfate 324 mg (65 mg 324 mg PO DAILY 08/20/20 05/04/21 iron) tablet,delayed release insulin glargine 100 unit/mL (3 20 unit SUBCUT BEDTIME 08/20/20 05/04/21 mL) subcutaneous pen (Lantus Solostar U-100 Insulin) trazodone 50 mg tablet 50 mg PO BEDTIME 08/20/20 05/04/21 gabapentin 300 mg capsule 300 mg PO TID cap 11/18/20 05/04/21 ticagrelor 90 mg tablet 90 mg PO BID 03/14/21 05/04/21 aspirin 81 mg tablet,delayed 81 mg PO DAILY 03/23/21 05/04/21 release pantoprazole 40 mg tablet,delayed 40 mg PO DAILY@0630 03/23/21 05/04/21 release acetaminophen 325 mg tablet 975 mg PO Q6H PRN 05/04/21 05/04/21 atorvastatin 40 mg tablet 40 mg PO DAILY 05/04/21 05/04/21 docusate sodium 100 mg capsule 100 mg PO BID PRN 05/04/21 05/04/21 insulin lispro 100 unit/mL 5 unit SUBCUT TIDAC 05/04/21 05/04/21 subcutaneous pen (Humalog KwikPen (U-100) Insulin) metoprolol succinate 25 mg 25 mg PO DAILY 05/04/21 05/04/21 tablet,extended release 24 hr tobramycin 0.3 %-lotepred 0.5 % 1 drp OPHTHALMIC (EYE) TID 05/04/21 05/04/21 eye drops,suspension (Zylet) torsemide 20 mg tablet 20 mg PO DAILY 05/04/21 05/04/21 Previous Rx's Medication Instructions Recorded tamsulosin 0.4 mg capsule 0.4 mg PO BEDTIME #90 cap 07/27/20 folic acid 1 mg tablet 1 mg PO DAILY #90 tab 10/06/20 DS: Summary Hospital Course Hospital Course: Patient was admitted for acute blood loss anemia. He was transfused 2 units PRBC on 05/04 and hemoglobin responded appropriately from 5.6 to 8.4, it is 9.2 at time of discharge. Was given IV PPI, his antiplatelets were continued due to recent left main coronary stent. His melena resolved. He underwent EGD on 05/06 which showed: Hiatal hernia, small areas that look like Reese's esophagus, 4-5 mm non bleeding gastric AVM, nodular proximal stomach. It was not clear if this was the source of the bleeding, therefore, he underwent colonoscopy on 05/09 which showed: Polyp that was not bleeding, 2 clips were placed at the base of the stock and follow-up was removed, sigmoid diverticulosis and mucosal erythema, internal hemorrhoids. Diet was advanced, patient no further bleeding. If he does have further bleeding in the future may need capsule endoscopy. He is feeling much better will be discharged home. Time Spent with Patient Time attestation: Total time spent providing and/or coordinating discharge services: Discharge coordination time: Greater than 30 minutes Quality: Stroke Does the patient have a stroke diagnosis?: No Physical Exam Vital Signs: Vital Signs: Last Vital Signs Temp 98.0 F 05/10/21 07:22 Pulse 93 05/10/21 08:10 Resp 20 05/10/21 07:22 BP 99/50 L 05/10/21 08:10 Pulse Ox 98 05/10/21 07:22 Body Mass Index 28.4 General: AO X 3, no acute distress Resp: CTA bilateral CVS: S1,S2,RRR GI: soft, non tender, non distended Neuro: motor grossly intact Psych: appropriate affect DS: Data Data Completed and Pending Completed studies during hospitalization [Text1]: Procedures Transfusion of Nonautologous Red Blood Cells into Peripheral Vein, Percutaneous Approach (04/11/21) Pending studies at discharge: Pending at discharge 05/09/21 12:31 Surgical [PTH] Routine Labs on day of discharge: Laboratory Results - last 24 hr 08/05/09/21 05/09/21 13:55 16:30 20:24 WBC RBC Hgb Hct MCV MCH MCHC RDW Plt Count MPV Absolute Nucleated RBC Nucleated RBC % (auto) Sodium Potassium Chloride Carbon Dioxide Anion Gap BUN Creatinine Estim Creat Clear Calc Estimated GFR POC Glucose 203 H 146 H 115 Fasting Glucose Calcium 05/10/21 05/10/21 05/10/21 05:23 05:23 06:51 WBC 8.6 RBC 3.00 L Hgb 9.2 L Hct 28.2 L MCV 94.0 MCH 30.7 MCHC 32.6 RDW 14.9 Plt Count 263 MPV 11.7 Absolute Nucleated RBC 0.000 Nucleated RBC % (auto) 0.0 Sodium 139 Potassium 4.5 Chloride 110 H Carbon Dioxide 17 L Anion Gap 17 BUN 13 Creatinine 1.15 Estim Creat Clear Calc 45.8 Estimated GFR > 60 POC Glucose 112 Fasting Glucose 96 Calcium 8.4 05/10/21 07:14 WBC RBC Hgb Hct MCV MCH MCHC RDW Plt Count MPV Absolute Nucleated RBC Nucleated RBC % (auto) Sodium Potassium Chloride Carbon Dioxide Anion Gap BUN Creatinine Estim Creat Clear Calc Estimated GFR POC Glucose 109 Fasting Glucose Calcium Discharge Plan Discharge Patient Disposition: Home, Self-Care Discharge Diagnosis: gi bleed Referrals: Karolina Carroll MD [Primary Care Provider] - 05/11/21 3:00 pm (You have a primary care follow up appointment on Sunday, May 11 at 3 pm. Please call your doctor's office if you need to reschedule.) Discharge Medications: Continued tamsulosin 0.4 mg capsule 0.4 mg PO BEDTIME Qty: 90 RF: 5 folic acid 1 mg tablet 1 mg PO DAILY Qty: 90 RF: 1 Lantus Solostar U-100 Insulin 100 unit/mL (3 mL) Insulin Pen 20 unit SUBCUT BEDTIME RF: 0 Zylet 0.3-0.5 % Drops,Suspension 1 drp OPHTHALMIC (EYE) TID RF: 0 acetaminophen 325 mg Tablet 975 mg PO Q6H PRN (Reason: Pain (Scale Score 1-3)) RF: 0 torsemide 20 mg Tablet 20 mg PO DAILY RF: 0 metoprolol succinate 25 mg Tablet Extended Release 24 Hr 25 mg PO DAILY RF: 0 atorvastatin 40 mg Tablet 40 mg PO DAILY RF: 0 insulin lispro [Humalog KwikPen Insulin] 100 unit/mL Insulin Pen 5 unit SUBCUT TIDAC RF: 0 docusate sodium 100 mg Capsule 100 mg PO BID PRN (Reason: Constipation) RF: 0 trazodone 50 mg tablet 50 mg PO BEDTIME RF: 0 ferrous sulfate 324 mg (65 mg iron) tablet,delayed release (DR/EC) 324 mg PO DAILY RF: 0 gabapentin 300 mg capsule 300 mg PO TID RF: 0 ticagrelor 90 mg tablet 90 mg PO BID RF: 0 pantoprazole 40 mg tablet,delayed release (DR/EC) 40 mg PO DAILY@0630 RF: 0 aspirin 81 mg tablet,delayed release (DR/EC) 81 mg PO DAILY RF: 0 Discharge Orders: Discharge Order (Routine); Ordered 05/10/21 Ordered By: Rodrick Juarez Diet: advance to usual diet Activity on Discharge: As tolerated Stand Alone Forms: Patient Portal Discharge page Care Plan Goals: avoid bleeding Health Concerns: gi bleed Plan of Treatment: continue ppi and antiplatelets, follow up with gi, monitor for bleeding Assessment: see above
--- NOTE | 2021-05-10 10:33 | MHC.CM.PN ---
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
[2021-05-10 10:39] VITALS: BP 99/57; PULSE 88; RESP 20; TEMP 36.5; O2SAT 99
[2021-05-10 11:35] LABS: Glucose, Whole Blood 191 mg/dL (60-115)
== END 2021-05-10 12:19 | disposition home or self-care (01) | DRG 377 ==
LOC: HO.ED 15:38 → HO.EDOVER 17:11 → HO.IMC 05-05 04:08
PROVIDERS: Internal Medicine; Admitting Provider Internal Medicine; Emergency Provider Emergency Medicine; PCP Internal Medicine; Visit Provider Internal Medicine
PROC: 0DJ08ZZ Inspection of Upper Intestinal Tract, Via Natural or Artificial Opening Endoscopic (ICD-10-PCS; CPT 43235; principal; 2021-05-06 14:50)
PROC: 0DJD8ZZ Inspection of Lower Intestinal Tract, Via Natural or Artificial Opening Endoscopic (ICD-10-PCS; CPT 45378; principal; 2021-05-09 10:50)
DX: K55.21 Angiodysplasia of colon with hemorrhage (principal); I21.4 Non-ST elevation (NSTEMI) myocardial infarction; D62 Acute posthemorrhagic anemia; K44.9 Diaphragmatic hernia without obstruction or gangrene; K22.70 Barrett's esophagus without dysplasia; I25.5 Ischemic cardiomyopathy; Z20.822 Contact with and (suspected) exposure to COVID-19; K63.5 Polyp of colon; K57.31 Diverticulosis of large intestine without perforation or abscess with bleeding; K64.8 Other hemorrhoids; Z87.891 Personal history of nicotine dependence; Z95.0 Presence of cardiac pacemaker; Z88.0 Allergy status to penicillin; Z88.2 Allergy status to sulfonamides; Z88.6 Allergy status to analgesic agent; Z79.4 Long term (current) use of insulin; Z79.899 Other long term (current) drug therapy
CPT/HCPCS: 36415; 80048; 80053; 82947; 85025; 85027; 85610; 86850; 86900; 86901; 86923; 87635; 88305; 93005; 99285; J1610; J2250; P9016

== ENCOUNTER 2021-05-25 14:41 | Outpatient (REF) | payer MEDICARE, SELFPAY ==
[2021-05-25 15:10] LABS: MANUAL DIFF FLAG NO
[2021-05-25 15:28] LABS: Basophils Percent Auto 0.3 % (0-2); Eosinophils Absolute Auto 0.1 X10*3/uL (0.0-0.4); Eosinophils Percent Auto 0.7 % (0-4); Hematocrit 22.2 % (42-52); Hemoglobin 7.1 g/dl (14.0-18.0); Imm Gran Abs Auto 0.04 X10*3/uL (0.00-0.03); Imm Gran Pct Auto 0.5 % (0.0-0.4); Lymphocytes Absolute Auto 1.6 X10*3/uL (1.2-4.9); Mean Corpuscular Volume 93.7 fL (80-98); Monocytes Absolute Auto 0.6 X10*3/uL (0.1-1.2); Monocytes Percent Auto 7.7 % (2-11); Neutrophils Absolute Auto 5.2 X10*3/uL (2.0-8.3); Neutrophils Percent Auto 69.8 % (45-73); Platelet Count 241 X10*3/uL (160-400); Red Blood Count 2.37 X10*6/uL (4.60-5.80); Red Cell Distribution Width 15.1 % (11.0-16.0); White Blood Count 7.4 X10*3/uL (4.8-10.8)
[2021-05-25 15:54] LABS: Ferritin 45 ng/mL (20-250)
[2021-05-25 16:12] LABS: Folate > 20.0 ng/mL (> or = 4.0); Vitamin B12 341 pg/mL (200-900)
== END 2021-05-25 14:42 | disposition home or self-care (01) ==
LOC: HO.LAB 14:41
PROVIDERS: PCP Internal Medicine; Visit Provider Internal Medicine Gastroenterology
DX: D64.9 Anemia, unspecified (principal); D62 Acute posthemorrhagic anemia
CPT/HCPCS: 36415; 82607; 82728; 82746; 85025

== ENCOUNTER 2021-05-26 14:10 | Outpatient (REF) | payer MEDICARE, SELFPAY ==
[2021-05-26 15:25] LABS: MANUAL DIFF FLAG NO
[2021-05-26 15:29] LABS: Basophils Percent Auto 0.3 % (0-2); Eosinophils Absolute Auto 0.1 X10*3/uL (0.0-0.4); Eosinophils Percent Auto 1.1 % (0-4); Hematocrit 22.9 % (42-52); Hemoglobin 7.3 g/dl (14.0-18.0); Imm Gran Abs Auto 0.02 X10*3/uL (0.00-0.03); Imm Gran Pct Auto 0.3 % (0.0-0.4); Lymphocytes Absolute Auto 1.4 X10*3/uL (1.2-4.9); Lymphocytes Percent Auto 19.7 % (20-40); Mean Corpuscular HGB Conc 31.9 g/dl (31.0-36.0); Mean Corpuscular Hemoglobin 29.9 pg (27.0-33.0); Mean Corpuscular Volume 93.9 fL (80-98); Mean Platelet Volume 12.4 fL (9.4-12.4); Monocytes Absolute Auto 0.5 X10*3/uL (0.1-1.2); Monocytes Percent Auto 7.5 % (2-11); Neutrophils Absolute Auto 5.1 X10*3/uL (2.0-8.3); Neutrophils Percent Auto 71.1 % (45-73); Platelet Count 244 X10*3/uL (160-400); Red Blood Count 2.44 X10*6/uL (4.60-5.80); White Blood Count 7.2 X10*3/uL (4.8-10.8)
[2021-05-26 16:12] LABS: Ferritin 32 ng/mL (20-250)
== END 2021-05-26 14:11 | disposition home or self-care (01) ==
LOC: HO.LAB 14:10
PROVIDERS: PCP Internal Medicine; Visit Provider Internal Medicine Gastroenterology
DX: D62 Acute posthemorrhagic anemia (principal); D64.9 Anemia, unspecified; K92.2 Gastrointestinal hemorrhage, unspecified
CPT/HCPCS: 36415; 82728; 85025

== ENCOUNTER 2021-05-27 20:20 | Inpatient (IN) | payer MEDICARE, SELFPAY ==
--- NOTE | ~2021-05-27 | XR_ITS ---
EXAMINATION: XR CHEST CLINICAL INFORMATION: Cough COMPARISON: 04/11/2021 TECHNIQUE: Frontal view of the chest was obtained. FINDINGS: Diffuse bronchial wall thickening and bilateral perihilar streaky airspace opacities. Pulmonary venous congestion without overt edema. Mild cardiomegaly. Biventricular pacemaker stably position. Aorta is atherosclerotic. XR/XR chest 1V IMPRESSION: * Diffuse mild bronchial wall thickening could be compatible with bronchitis or atypical pneumonitis. Appearance is similar to prior.. * Pulmonary venous congestion without overt edema.
[2021-05-27 20:25] VITALS: BP 120/51; PULSE 103; RESP 18; TEMP 37.1; O2SAT 100; BMI 23.6
[2021-05-27 22:51] LABS: Basophils Percent Auto 0.3 % (0-2); Eosinophils Absolute Auto 0.1 X10*3/uL (0.0-0.4); Eosinophils Percent Auto 1.1 % (0-4); Hematocrit 22.5 % (42-52); Hemoglobin 7.3 g/dl (14.0-18.0); Imm Gran Abs Auto 0.02 X10*3/uL (0.00-0.03); Imm Gran Pct Auto 0.3 % (0.0-0.4); Lymphocytes Absolute Auto 1.7 X10*3/uL (1.2-4.9); Lymphocytes Percent Auto 23.3 % (20-40); MANUAL DIFF FLAG NO; Mean Corpuscular HGB Conc 32.4 g/dl (31.0-36.0); Mean Corpuscular Hemoglobin 30.2 pg (27.0-33.0); Mean Platelet Volume 11.7 fL (9.4-12.4); Monocytes Absolute Auto 0.7 X10*3/uL (0.1-1.2); Monocytes Percent Auto 8.7 % (2-11); Neutrophils Percent Auto 66.3 % (45-73); Platelet Count 262 X10*3/uL (160-400); Red Blood Count 2.42 X10*6/uL (4.60-5.80); Red Cell Distribution Width 15.2 % (11.0-16.0); White Blood Count 7.5 X10*3/uL (4.8-10.8)
[2021-05-27 23:07] LABS: Anion Gap 14 (12-20); Blood Urea Nitrogen 24 mg/dL (9-16); Calcium 8.5 mg/dL (8.4-10.2); Carbon Dioxide 25 mmol/L (22-29); Chloride 105 mmol/L (96-108); Creatinine Clr Calc Pharmacy 33.3; Estimated Glomerular Filt Rate 39; Glucose Random 201 mg/dL (60-115); Potassium 4.4 mmol/L (3.3-5.1); Sodium 140 mmol/L (135-145)
--- NOTE | 2021-05-27 23:58 | ED_ITS ---
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 Patient denies any headache but states he has been feeling somewhat lightheaded, denies any shortness of breath or palpitations (he has a pacemaker), denies any hematemesis or decrease in appetite and states that he does have dark stools but he is also taking blood thinners. Otherwise, patient has baseline mobility is with a walker and wheelchair. Related Data Home Medications Medication Instructions Recorded Confirmed ferrous sulfate 324 mg (65 mg 324 mg PO DAILY 08/20/20 05/04/21 iron) tablet,delayed release insulin glargine 100 unit/mL (3 20 unit SUBCUT BEDTIME 08/20/20 05/04/21 mL) subcutaneous pen (Lantus Solostar U-100 Insulin) trazodone 50 mg tablet 50 mg PO BEDTIME 08/20/20 05/04/21 gabapentin 300 mg capsule 300 mg PO TID cap 11/18/20 05/04/21 ticagrelor 90 mg tablet 90 mg PO BID 03/14/21 05/04/21 aspirin 81 mg tablet,delayed 81 mg PO DAILY 03/23/21 05/04/21 release pantoprazole 40 mg tablet,delayed 40 mg PO DAILY@0630 03/23/21 05/04/21 release acetaminophen 325 mg tablet 975 mg PO Q6H PRN 05/04/21 05/04/21 atorvastatin 40 mg tablet 40 mg PO DAILY 05/04/21 05/04/21 docusate sodium 100 mg capsule 100 mg PO BID PRN 05/04/21 05/04/21 insulin lispro 100 unit/mL 5 unit SUBCUT TIDAC 05/04/21 05/04/21 subcutaneous pen (Humalog KwikPen (U-100) Insulin) metoprolol succinate 25 mg 25 mg PO DAILY 05/04/21 05/04/21 tablet,extended release 24 hr tobramycin 0.3 %-lotepred 0.5 % 1 drp OPHTHALMIC (EYE) TID 05/04/21 05/04/21 eye drops,suspension (Zylet) torsemide 20 mg tablet 20 mg PO DAILY 05/04/21 05/04/21 Previous Rx's Medication Instructions Recorded tamsulosin 0.4 mg capsule 0.4 mg PO BEDTIME #90 cap 07/27/20 folic acid 1 mg tablet 1 mg PO DAILY #90 tab 10/06/20 bisacodyl 5 mg tablet,delayed 10 mg PO ONCE 1 Days #2 tab 05/26/21 release (Dulcolax (bisacodyl)) polyethylene glycol 3350 17 238 g PO ONCE 1 Days #238 g 05/26/21 gram/dose oral powder (Miralax) Allergies Allergy/AdvReac Type Severity Reaction Status Date / Time naproxen [From NAPROSYN] Allergy Intermediate ITCHY Verified 05/27/21 20:25 sulfasalazine Allergy Intermediate anxiety Verified 05/27/21 20:25 Penicillins [PENICILLINS] Allergy Mild ITCHY Verified 05/27/21 20:25 Review of Systems Review of Systems: Pertinent positives and negatives as stated in HPI and 10 point review of systems is otherwise negative. COUNT INCLUDES THE [facility] Past Medical History Source: nursing notes reviewed Medical History Acute coronary syndrome Aortic stenosis BPH (benign prostatic hyperplasia) CAD (coronary artery disease) CHB (complete heart block) Congestive heart failure (CHF) CVA (cerebral vascular accident) Diastolic CHF Essential hypertension Hemorrhage of gastrointestinal tract, unspecified HLD (hyperlipidemia) HTN (hypertension) Hx of cardiac pacemaker Left carotid stenosis Non-rheumatic aortic stenosis Normally functioning cardiac pacemaker present On anticoagulant therapy On beta randy at home Pacemaker (~06/2015) PAF (paroxysmal atrial fibrillation) Rheumatoid arthritis Type 2 diabetes mellitus with unspecified complications Surgical History H/O colonoscopy History of appendectomy History of esophagogastroduodenoscopy History of lumbar surgery History of prostate surgery Hx of cholecystectomy S/P cardiac cath (~08/2020) Status post biventricular pacemaker (~10/2020) Family History Family History Father Cancer Mother Cancer Social History Social History Household Members: Family Household Members Other:: around the clock [employer] services Housing: Apartment Do you presently have visiting nurse or other home services: Yes Alcohol intake: former Patient Tobacco Use Status: Former Tobacco user Years Smoked: 25 Advance Directives: Yes Advance Directives Date on File: 04/12/21 service: No Current occupational status: retired Physical Exam Vital Signs: Vital Signs: Last Vital Signs Temp 98.8 F 05/27/21 20:25 Pulse 103 H 05/27/21 20:25 Resp 18 05/27/21 20:25 BP 120/51 L 05/27/21 20:25 Pulse Ox 100 05/27/21 20:25 Body Mass Index 23.6 VITAL SIGNS: Reviewed. GENERAL: Well developed, well nourished, in no acute distress. HEAD: Normocephalic/atraumatic EYES: PERRLA, EOMI LUNGS: Normal breath sounds. No adventitious sounds or accessory muscle use. SpO2<100> CARDIOVASCULAR: Regular rate and rhythm without noted murmurs, no JVD 1+ extremity edema. ABDOMEN: Soft, non-tender, non-distended with bowel sounds. No rigidity. No guarding. No palpable masses or hernias noted KASIA: No tags or external hemorrhoids, soft/brownish stool in rectal vault without varsha blood, good rectal tone MUSCULOSKELETAL: No tenderness, deformities, or effusions noted on gross inspection. EXTREMITIES: No cyanosis, clubbing or edema. SKIN: Inspection of the skin reveals no rashes, but pallor NEUROLOGIC: Alert and oriented x 4. Strength and sensation to light touch were grossly intact x 4, but decreased on left when compared to right which is patient's baseline Course Course Course Narrative: 81-year-old male with history and clinical presentation consistent with GI bleed and is symptomatic for anemia with tachycardia and feelings of fatigue and lightheadedness. Review of all investigations demonstrates patient is significantly anemic, symptomatic, KASIA is negative for evidence of acute bleeding currently and patient remains otherwise hemodynamically stable. However, there is also evidence mild CHF and patient will be admitted for blood transfusion. This case was discussed with the inpatient hospitalist who accepts admission. MDM - Recheck/Abnormal Lab/Rx Lab Data Result diagrams: 05/27/21 22:36 05/27/21 22:36 Labs: Lab Results 05/27/21 05/27/21 05/28/21 Range/Units 22:36 22:36 00:30 WBC 7.5 (4.8-10.8) X10*3/uL RBC 2.42 L (4.60-5.80) X10*6/uL Hgb 7.3 L (14.0-18.0) g/dl Hct 22.5 L (42-52) % MCV 93.0 (80-98) fL MCH 30.2 (27.0-33.0) pg MCHC 32.4 (31.0-36.0) g/dl RDW 15.2 (11.0-16.0) % Plt Count 262 (160-400) X10*3/uL MPV 11.7 (9.4-12.4) fL Immature Gran % (Auto) 0.3 (0.0-0.4) % Neut % (Auto) 66.3 (45-73) % Lymph % (Auto) 23.3 (20-40) % [place] % (Auto) 8.7 (2-11) % Eos % (Auto) 1.1 (0-4) % Baso % (Auto) 0.3 (0-2) % Lymph # (Auto) 1.7 (1.2-4.9) X10*3/uL [place] # (Auto) 0.7 (0.1-1.2) X10*3/uL Eos # (Auto) 0.1 (0.0-0.4) X10*3/uL Baso # (Auto) 0.0 (0.0-0.2) X10*3/uL Abs Immat Gran (auto) 0.02 (0.00-0.03) X10*3/uL Absolute Neuts (auto) 5.0 (2.0-8.3) X10*3/uL Absolute Nucleated RBC 0.000 (0.0-0.012) X10*3/uL Nucleated RBC % (auto) 0.0 (0.0-0.2) /100WBC PT (9.9-13.0) SEC INR (0.9-1.1) Sodium 140 (135-145) mmol/L Potassium 4.4 (3.3-5.1) mmol/L Chloride 105 (96-108) mmol/L Carbon Dioxide 25 (22-29) mmol/L Anion Gap 14 (12-20) BUN 24 H D (9-16) mg/dL Creatinine 1.71 H (0.5-1.4) mg/dL Estim Creat Clear Calc 33.3 Estimated GFR 39 Random Glucose 201 H (60-115) mg/dL Calcium 8.5 (8.4-10.2) mg/dL B-Natriuretic Peptide (<100) pg/mL Stool Occult Blood NEGATIVE (NEGATIVE) COVID-19 (HIEU) (Negative) COVID-19 Clin Com Blood Type Antibody Screen Crossmatch 05/28/21 05/28/21 05/28/21 Range/Units 01:38 01:38 01:38 WBC (4.8-10.8) X10*3/uL RBC (4.60-5.80) X10*6/uL Hgb (14.0-18.0) g/dl Hct (42-52) % MCV (80-98) fL MCH (27.0-33.0) pg MCHC (31.0-36.0) g/dl RDW (11.0-16.0) % Plt Count (160-400) X10*3/uL MPV (9.4-12.4) fL Immature Gran % (Auto) (0.0-0.4) % Neut % (Auto) (45-73) % Lymph % (Auto) (20-40) % [place] % (Auto) (2-11) % Eos % (Auto) (0-4) % Baso % (Auto) (0-2) % Lymph # (Auto) (1.2-4.9) X10*3/uL [place] # (Auto) (0.1-1.2) X10*3/uL Eos # (Auto) (0.0-0.4) X10*3/uL Baso # (Auto) (0.0-0.2) X10*3/uL Abs Immat Gran (auto) (0.00-0.03) X10*3/uL Absolute Neuts (auto) (2.0-8.3) X10*3/uL Absolute Nucleated RBC (0.0-0.012) X10*3/uL Nucleated RBC % (auto) (0.0-0.2) /100WBC PT 11.5 (9.9-13.0) SEC INR 1.0 (0.9-1.1) Sodium (135-145) mmol/L Potassium (3.3-5.1) mmol/L Chloride (96-108) mmol/L Carbon Dioxide (22-29) mmol/L Anion Gap (12-20) BUN (9-16) mg/dL Creatinine (0.5-1.4) mg/dL Estim Creat Clear Calc Estimated GFR Random Glucose (60-115) mg/dL Calcium (8.4-10.2) mg/dL B-Natriuretic Peptide (<100) pg/mL Stool Occult Blood (NEGATIVE) COVID-19 (HIEU) Negative (Negative) COVID-19 Clin Com See Note Blood Type A Positive Antibody Screen NEGATIVE Crossmatch See Detail 05/28/21 Range/Units 22:36 WBC (4.8-10.8) X10*3/uL RBC (4.60-5.80) X10*6/uL Hgb (14.0-18.0) g/dl Hct (42-52) % MCV (80-98) fL MCH (27.0-33.0) pg MCHC (31.0-36.0) g/dl RDW (11.0-16.0) % Plt Count (160-400) X10*3/uL MPV (9.4-12.4) fL Immature Gran % (Auto) (0.0-0.4) % Neut % (Auto) (45-73) % Lymph % (Auto) (20-40) % [place] % (Auto) (2-11) % Eos % (Auto) (0-4) % Baso % (Auto) (0-2) % Lymph # (Auto) (1.2-4.9) X10*3/uL [place] # (Auto) (0.1-1.2) X10*3/uL Eos # (Auto) (0.0-0.4) X10*3/uL Baso # (Auto) (0.0-0.2) X10*3/uL Abs Immat Gran (auto) (0.00-0.03) X10*3/uL Absolute Neuts (auto) (2.0-8.3) X10*3/uL Absolute Nucleated RBC (0.0-0.012) X10*3/uL Nucleated RBC % (auto) (0.0-0.2) /100WBC PT (9.9-13.0) SEC INR (0.9-1.1) Sodium (135-145) mmol/L Potassium (3.3-5.1) mmol/L Chloride (96-108) mmol/L Carbon Dioxide (22-29) mmol/L Anion Gap (12-20) BUN (9-16) mg/dL Creatinine (0.5-1.4) mg/dL Estim Creat Clear Calc Estimated GFR Random Glucose (60-115) mg/dL Calcium (8.4-10.2) mg/dL B-Natriuretic Peptide 702 H (<100) pg/mL Stool Occult Blood (NEGATIVE) COVID-19 (HIEU) (Negative) COVID-19 Clin Com Blood Type Antibody Screen Crossmatch Discharge Plan Discharge Clinical Impression: Anemia, CHF (congestive heart failure) Patient Disposition: Admitted As Inpatient Prescriptions: No Action tamsulosin 0.4 mg capsule 0.4 mg PO BEDTIME Qty: 90 RF: 5 folic acid 1 mg tablet 1 mg PO DAILY Qty: 90 RF: 1 bisacodyl [Dulcolax (bisacodyl)] 5 mg tablet,delayed release (DR/EC) 10 mg PO ONCE 1 Days Qty: 2 RF: 0 polyethylene glycol 3350 [Miralax] 17 gram/dose powder 238 g PO ONCE 1 Days Qty: 238 RF: 0 Lantus Solostar U-100 Insulin 100 unit/mL (3 mL) Insulin Pen 20 unit SUBCUT BEDTIME RF: 0 Zylet 0.3-0.5 % Drops,Suspension 1 drp OPHTHALMIC (EYE) TID RF: 0 acetaminophen 325 mg Tablet 975 mg PO Q6H PRN (Reason: Pain (Scale Score 1-3)) RF: 0 torsemide 20 mg Tablet 20 mg PO DAILY RF: 0 metoprolol succinate 25 mg Tablet Extended Release 24 Hr 25 mg PO DAILY RF: 0 atorvastatin 40 mg Tablet 40 mg PO DAILY RF: 0 insulin lispro [Humalog KwikPen Insulin] 100 unit/mL Insulin Pen 5 unit SUBCUT TIDAC RF: 0 docusate sodium 100 mg Capsule 100 mg PO BID PRN (Reason: Constipation) RF: 0 trazodone 50 mg tablet 50 mg PO BEDTIME RF: 0 ferrous sulfate 324 mg (65 mg iron) tablet,delayed release (DR/EC) 324 mg PO DAILY RF: 0 gabapentin 300 mg capsule 300 mg PO TID RF: 0 ticagrelor 90 mg tablet 90 mg PO BID RF: 0 pantoprazole 40 mg tablet,delayed release (DR/EC) 40 mg PO DAILY@0630 RF: 0 aspirin 81 mg tablet,delayed release (DR/EC) 81 mg PO DAILY RF: 0
[2021-05-28] VITALS (13 sets, daily range): BP systolic 101–133; BP diastolic 45–66; PULSE 85–123; RESP 16–27; TEMP 36.4–36.9; O2SAT 94–100
[2021-05-28 00:36] LABS: OBS Int Ctl Valid YES; OBS1 NEGATIVE (NEGATIVE)
[2021-05-28 01:02] LABS: B Type Natriuretic Peptide 702 pg/mL (<100)
[2021-05-28 01:57] LABS: Prothrombin Time 11.5 SEC (9.9-13.0)
[2021-05-28 02:02] LABS: COVID-19 Test Negative (Negative)
--- NOTE | 2021-05-28 03:45 | PC.NURSE ---
director physical therapy made aware of questions regarding length of time blood products can be up on the floor prior to adminstration before having to be returned to the blood bank. This RN was having issues obtaining the blood transfusion protocol and called blood blank to confirm. The call was forwarded over to chemistry and this RN spoke with Sasha who informed this RN that blood products can be on the floor for 30 minutes prior to having to be returned. Information provided regarding reason for delay and blood being out of travel pack for over 15 minutes but because the length of time was under 30 minutes and the blood was ready to be administered staff was given the okay to hang the unit of RBCs. After speaking with chemistry this RN was able to view a copy of the blood transfusion protocol which confirmed the 30 minute window.
--- NOTE | 2021-05-28 03:51 | PC.NURSE ---
This RN called to bedside by primary RN John Mejia for verification of blood. This RN asks primary RN if consent to transfuse has been signed. John RN checked chart to verify consent was signed, noticed that there was no signed consent in pt's chart. This RN refused to continue with blood administration. John RN notified Dr Cummings that pt did not have signed consent to transfuse. John contacted reel operator. Upon reel operator's arrival to ED, Dr Cummings to bedside to obtain consent. Once consent is verified, this RN attempts to assist John in verification of blood but notes that blood had been issued >15minutes prior. director reactor projects Iris made aware. Iris contacted blood bank for confirmation that blood can be hung within 30 minutes of issue with ideal timeframe of 15m or less. Iris rec'd verbal confirmation that blood can be hung within 30m time frame, then printed protocol for further verification. This RN verified with John pt's administration of blood.
--- NOTE | 2021-05-28 05:38 | PC.NURSE ---
this nurse was informed by Sunshine MAE and Елена MAE that pt was c/o SOB. Елена MAE stopped blood transfusion and this nurse listened to pt lungs and auscultated bilateral crackles. hospitalist notified per hospitalist pt to be given Lasix and then blood tranfusion to be continued after Lasix is given.
--- NOTE | 2021-05-28 05:41 | PC.NURSE ---
This RN at nurses' station and hears pt calling out in Persian. This RN unable to understand Persian but pt pointing to his nose, leaning forward, tachypneic. This RN stopped blood transfusion. Pt noted to have O2 sat at ~90%. This RN placed pt on 2lpm NC and O2 sat noted to be 88%. O2 increased to 4lpm, pt O2 sat 97% then decreased to 3lpm and sat 95% and greater. Pt with crackles in bases upon auscultation. Pt RR decreasing to 29 from about 37, pt reports improvement in sx. Pt with audible crackles initially. Pt repositioned in bed (boosted to head of bed and sat upright.) Primary RN John to bedside. Dr Cummings to bedside. Dr Cummings attempting to gain additional PIV access via US. John RN called hospital Dr Feliz to notify her. Per Trini, plan for IV lasix then to resume blood transfusion
--- NOTE | 2021-05-28 05:42 | P.HPHOSP_ITS ---
History of Present Illness Date of Service: 05/28/21 Chief Complaint: Anemia Albanian-speaking This is an 81-year-old male With past medical history of CAD, aortic stenosis, complete heart block, CHF, CVA, diastolic heart failure, essential hypertension, history of GI bleed, HTN, HLD, paroxysmal AFib, his PCP called her for low H&H. Patient is Albanian-speaking and history is obtained with the help of in. jamila alan. Of note patient was admitted to the hospital in April for the same presentation of acute blood loss anemia. He was transfused 2 unit of PRBC on 05/04 and underwent EGD on 05/06 as well as colonoscopy on 05/09 which showed polyps that were not bleeding, 2 clips were placed at the base of the stalk and follow-up was recommended. Patient denies any bright red blood per rectum, no melena, den ies any headache, change in vision, reports generalized weakness or with no chest pain, no shortness of breath, no abdominal pain nausea or vomiting, no diarrhea constipation, no urinary symptoms. He reports it lower extremity edema is been going on for few days. Has some orthopnea and PND. Angles short of breath on exertion. On arrival to the ED hemodynamically Stable with vital significant for temp of 98.8?, heart rate of 103, respiratory rate of 18, blood pressure 120/51, satting 100% on room air Labs are significant for WBC count 7.5, hemoglobin of 7.3 although last hemoglobin of 9.2 on discharge on 05/10, BUN of 24, creatinine of 1.71 with a baseline around 1.15, BNP of 7 O2, stool occult negative for any bleeding. Chest x-ray shows pulmonary congestion 1 unit of PRBC ordered by the ED physician, while receiving the transfusion patient started developing shortness of breath, will be treated with Lasix Review of Systems Review of Systems: Yes all other systems are reviewed and are negative [facility] Medical History Acute coronary syndrome Aortic stenosis BPH (benign prostatic hyperplasia) CAD (coronary artery disease) CHB (complete heart block) Congestive heart failure (CHF) CVA (cerebral vascular accident) Diastolic CHF Essential hypertension Hemorrhage of gastrointestinal tract, unspecified HLD (hyperlipidemia) HTN (hypertension) Hx of cardiac pacemaker Left carotid stenosis Non-rheumatic aortic stenosis Normally functioning cardiac pacemaker present On anticoagulant therapy On beta randy at home Pacemaker (~06/2015) PAF (paroxysmal atrial fibrillation) Rheumatoid arthritis Type 2 diabetes mellitus with unspecified complications Family History Father Cancer Mother Cancer Surgical History H/O colonoscopy History of appendectomy History of esophagogastroduodenoscopy History of lumbar surgery History of prostate surgery Hx of cholecystectomy S/P cardiac cath (~08/2020) Status post biventricular pacemaker (~10/2020) Social History Household Members: Family Household Members Other:: around the clock [employer] services Housing: Apartment Do you presently have visiting nurse or other home services: Yes Alcohol intake: former Patient Tobacco Use Status: Former Tobacco user Years Smoked: 25 Advance Directives: Yes Advance Directives Date on File: 04/12/21 service: No Current occupational status: retired Meds Allergies Allergy/AdvReac Type Severity Reaction Status Date / Time naproxen [From NAPROSYN] Allergy Intermediate ITCHY Verified 05/27/21 20:25 sulfasalazine Allergy Intermediate anxiety Verified 05/27/21 20:25 Penicillins [PENICILLINS] Allergy Mild ITCHY Verified 05/27/21 20:25 Active Medications: Current Medications Generic Name Dose Route Start Last Admin Trade Name Freq PRN Reason Stop Dose Admin Acetaminophen 650 mg 05/28/21 05:31 Acetaminophen 325 Mg Tablet PO Q6H PRN Pain, Severe (Pain Scale 7-10) Docusate Sodium 100 mg 05/28/21 03:58 Docusate Sodium 100 Mg Capsule PO DAILY PRN Constipation Furosemide 40 mg 05/28/21 05:40 Furosemide 40 Mg/4 Ml Vial IVPUSH BID@0900,1800 [facility] Protocol Ondansetron HCl 4 mg 05/28/21 03:58 Ondansetron Hcl 4 Mg/2 Ml Vial IVPUSH Q8H PRN Nausea and Vomiting Sodium Chloride 3 ml 05/28/21 08:00 0.9 % Sodium Chloride Flush 3 Ml Syringe IVFLUSH QSHIFT [facility] Home Medications Medication Instructions Recorded Confirmed Last Taken Type ferrous sulfate 324 mg (65 mg 324 mg PO DAILY 08/20/20 05/04/2105/04/21 History iron) tablet,delayed release insulin glargine 100 unit/mL (3 20 unit SUBCUT BEDTIME 08/20/20 05/04/21 05/03/21 History mL) subcutaneous pen (Lantus Solostar U-100 Insulin) trazodone 50 mg tablet 50 mg PO BEDTIME 08/20/20 05/04/21 05/03/21 History gabapentin 300 mg capsule 300 mg PO TID cap 11/18/20 05/04/21 05/04/21 History ticagrelor 90 mg tablet 90 mg PO BID 03/14/21 05/04/21 05/04/21 History aspirin 81 mg tablet,delayed 81 mg PO DAILY 03/23/21 05/04/21 05/04/21 History release pantoprazole 40 mg tablet,delayed 40 mg PO DAILY@0630 03/23/21 05/04/21 05/04/21 History release acetaminophen 325 mg tablet 975 mg PO Q6H PRN 05/04/21 05/04/21 Unknown History atorvastatin 40 mg tablet 40 mg PO DAILY 05/04/21 05/04/21 05/04/21 History docusate sodium 100 mg capsule 100 mg PO BID PRN 05/04/21 05/04/21 Unknown History insulin lispro 100 unit/mL 5 unit SUBCUT TIDAC 05/04/21 05/04/21 Unknown History subcutaneous pen (Humalog KwikPen (U-100) Insulin) metoprolol succinate 25 mg 25 mg PO DAILY 05/04/21 05/04/21 05/04/21 History tablet,extended release 24 hr tobramycin 0.3 %-lotepred 0.5 % 1 drp OPHTHALMIC (EYE) TID 05/04/21 05/04/21 Unknown History eye drops,suspension (Zylet) torsemide 20 mg tablet 20 mg PO DAILY 05/04/21 05/04/21 05/04/21 History Physical Exam Vital Signs and Narrative: Vital Signs: Last Vital Signs Temp 97.9 F 05/28/21 04:06 Pulse 100 05/28/21 04:06 Resp 16 05/28/21 04:06 BP 101/45 L 05/28/21 04:06 Pulse Ox 95 05/28/21 04:06 Body Mass Index 23.6 Const: General: cooperative and no acute distress Orientation/consciousness: patient oriented x3 Eyes: General: appearance normal, both eyes and all related structures Pupils: Equal, round and reactive pupils present Resp: Other: Bilateral crackles Effort & Inspection: normal respiratory effort Cardio: Rate: regular rate Rhythm: regular rhythm GI: Palpation (GI): Soft to palpation Auscultation: normal bowel sounds Skin: General skin exam: no rashes or lesions noted Neuro: General: patient oriented x3 Cranial nerves: Yes Equal, round and reactive pupils present Cognition (Neuro): normal cognition Extrem: Other: 2+ pitting edema bilaterally General: Yes normal to inspection Results Labs CBC and Chem 7: 05/27/21 22:36 05/27/21 22:36 Labs: Laboratory Results - last 24 hr 05/27/21 05/27/21 05/28/21 22:36 22:36 00:30 MCV 93.0 MCH 30.2 MCHC 32.4 RDW 15.2 Plt Count 262 MPV 11.7 Immature Gran % (Auto) 0.3 Neut % (Auto) 66.3 Lymph % (Auto) 23.3 [place] % (Auto) 8.7 Eos % (Auto) 1.1 Baso % (Auto) 0.3 Lymph # (Auto) 1.7 [place] # (Auto) 0.7 Eos # (Auto) 0.1 Baso # (Auto) 0.0 Abs Immat Gran (auto) 0.02 Absolute Neuts (auto) 5.0 Absolute Nucleated RBC 0.000 Nucleated RBC % (auto) 0.0 PT INR Anion Gap 14 Estim Creat Clear Calc 33.3 Estimated GFR 39 Random Glucose 201 H Calcium 8.5 B-Natriuretic Peptide Stool Occult Blood NEGATIVE COVID-19 ([facility]) COVID-19 Clin Com Blood Type Antibody Screen Crossmatch 05/28/21 05/28/21 05/28/21 01:38 01:38 01:38 MCV MCH MCHC RDW Plt Count MPV Immature Gran % (Auto) Neut % (Auto) Lymph % (Auto) [place] % (Auto) Eos % (Auto) Baso % (Auto) Lymph # (Auto) [place] # (Auto) Eos # (Auto) Baso # (Auto) Abs Immat Gran (auto) Absolute Neuts (auto) Absolute Nucleated RBC Nucleated RBC % (auto) PT 11.5 INR 1.0 Anion Gap Estim Creat Clear Calc Estimated GFR Random Glucose Calcium B-Natriuretic Peptide Stool Occult Blood COVID-19 (HIEU) Negative COVID-19 Clin Com See Note Blood Type A Positive Antibody Screen NEGATIVE Crossmatch See Detail 05/28/21 22:36 MCV MCH MCHC RDW Plt Count MPV Immature Gran % (Auto) Neut % (Auto) Lymph % (Auto) [place] % (Auto) Eos % (Auto) Baso % (Auto) Lymph # (Auto) [place] # (Auto) Eos # (Auto) Baso # (Auto) Abs Immat Gran (auto) Absolute Neuts (auto) Absolute Nucleated RBC Nucleated RBC % (auto) PT INR Anion Gap Estim Creat Clear Calc Estimated GFR Random Glucose Calcium B-Natriuretic Peptide 702 H Stool Occult Blood COVID-19 ([facility]IEU) COVID-19 Clin Com Blood Type Antibody Screen Crossmatch Imaging Radiologist's Impressions: Impressions Chest X-Ray 05/28/21 01:13 IMPRESSION: * Diffuse mild bronchial wall thickening could be compatible with bronchitis or atypical pneumonitis. Appearance is similar to prior.. * Pulmonary venous congestion without overt edema. Assessment and Plan (1) Normocytic anemia: Status: Acute (2) CHF (congestive heart failure): Status: Acute (3) JAMA (acute kidney injury): Status: Acute This is an 81-year-old male with past medical history of GI bleed, AFib on anticoagulation, heart failure, presents to the hospital after routine labs by PCP showed drop in hemoglobin # normocytic anemia - unclear etiology, possible GI source as patient has history ofGastric AVMs - patient underwent EGD on 05/06 as well as colonoscopy on 05/09 without definitive source of bleed - patient hemoglobin 7.3 today with negative stool occult blood - patient receiving 1 unit of PRBC by ED - will send for ferritin, B12, folic acid, and consult Gastroenterology - hold Brilinta - pantoprazole 40 IV b.i.d. # CHF exacerbation - patient has dyspnea, orthopnea, lower extremity edema, as well as elevated BNP and chest x-ray evidence of pulmonary congestion - developed significant shortness of breath following transfusion - will start him on IV Lasix 40 b.i.d. - low-sodium diet, daily weight, strict I&O - patient last echo done in March of this year shows an ejection fraction of 25- 30% - will consult Cardiology # JAMA - most likely prerenal secondary to CHF - patient will be treated with Lasix - follow BMP # paroxysmal AFib - will continue metoprolol - patient does not appear to be on any anticoagulation at this time # history of CAD - continue Lopressor, and aspirin ( aspirin will be continued as patient does not have significant overt bleed at this time) - hold Brilinta # diabetes - continue home insulin - add low-dose sliding scale insulin - diabetic diet DVT prophylaxis: SCDs given the anemia Quality Stroke Does the patient have a stroke diagnosis?: No VTE Prior VTE?: No VTE Risk Level:: Medical - moderate - high VTE Device Contraindication: Treatment Not Indicated VTE Drug Contraindication: N/A - Med Ordered
[2021-05-28] MEDS: Furosemide 40 MG/4 ML VIAL IVPUSH ×2 (05:45→18:46)
[2021-05-28 06:34] LABS: MANUAL DIFF FLAG NO
[2021-05-28 06:41] LABS: Basophils Percent Auto 0.4 % (0-2); Eosinophils Absolute Auto 0.1 X10*3/uL (0.0-0.4); Eosinophils Percent Auto 1.8 % (0-4); Hematocrit 25.5 % (42-52); Hemoglobin 8.2 g/dl (14.0-18.0); Imm Gran Abs Auto 0.03 X10*3/uL (0.00-0.03); Imm Gran Pct Auto 0.4 % (0.0-0.4); Lymphocytes Absolute Auto 1.8 X10*3/uL (1.2-4.9); Lymphocytes Percent Auto 25.4 % (20-40); Mean Corpuscular HGB Conc 32.2 g/dl (31.0-36.0); Mean Corpuscular Hemoglobin 29.6 pg (27.0-33.0); Mean Corpuscular Volume 92.1 fL (80-98); Mean Platelet Volume 11.8 fL (9.4-12.4); Monocytes Absolute Auto 0.5 X10*3/uL (0.1-1.2); Monocytes Percent Auto 7.3 % (2-11); Neutrophils Absolute Auto 4.7 X10*3/uL (2.0-8.3); Neutrophils Percent Auto 64.7 % (45-73); Platelet Count 269 X10*3/uL (160-400); Red Blood Count 2.77 X10*6/uL (4.60-5.80); Red Cell Distribution Width 15.6 % (11.0-16.0); White Blood Count 7.2 X10*3/uL (4.8-10.8)
[2021-05-28 06:52] LABS: Anion Gap 16 (12-20); Blood Urea Nitrogen 22 mg/dL (9-16); Calcium 8.4 mg/dL (8.4-10.2); Carbon Dioxide 24 mmol/L (22-29); Chloride 105 mmol/L (96-108); Creatinine Clr Calc Pharmacy 34.3; Estimated Glomerular Filt Rate 40; Glucose Random 191 mg/dL (60-115); Potassium 4.1 mmol/L (3.3-5.1); Sodium 141 mmol/L (135-145)
[2021-05-28 07:05] LABS: Troponin-I High Sensitivity 106.2 ng/L (<3.5-35.0)
[2021-05-28 07:15] LABS: Ferritin 31 ng/mL (20-250)
--- NOTE | 2021-05-28 07:38 | PC.NURSE ---
transfusion completed. pt ls- clear but dim in bilateral bases. vss.
[2021-05-28] MEDS: 0.9 % Sodium Chloride Flush 3 ML SYRINGE IVFLUSH ×2 (08:05→15:47)
[2021-05-28] MEDS: Pantoprazole Sodium 40 MG/10 ML VIAL IVPUSH ×2 (08:05→15:46)
[2021-05-28 10:20] LABS: Troponin-I High Sensitivity 128.4 ng/L (<3.5-35.0)
--- NOTE | 2021-05-28 11:34 | PM.CNCAR ---
History of Present Illness History of Present Illness Date of Service: 05/28/21 Chief complaint: Anemia Narrative: This is a cardiology consultation regarding elevated troponins and congestive heart failure. Patient has a long and complicated cardiac history with multiple hospitalizations for coronary issues, congestive heart failure, gastrointestinal bleeding on other concerns-almost 10-15 times in the last several months. The gastrointestinal bleeding issue has itself been ongoing problem without definitive therapy as yet. He continues to be anemic. It seems that his hemoglobin was low and he was sent to the ER by PCP. And as he receive some blood in the ER, he got short of breath and probably that of some heart failure requiring Lasix. Today he states that he is actually feeling quite well no cardiac symptoms whatsoever. No angina. Denies any shortness of breath or any other cardiac complaints at this time. Review of Systems Review of Systems: Yes all other systems are reviewed and are negative Cardiovascular: Cardiovascular: Reports as per HPI, Reports no additional cardiovascular complaints, Denies acrocyanosis, Denies cool extremities, Denies painful fingertips, Denies chest pain, Denies chest pain at rest, Denies diaphoresis, Denies syncope, Denies irregular heart rhythm, Denies claudication, Denies leg edema, Denies lightheadedness, Denies palpitations and Denies dyspnea Respiratory: Respiratory: Denies dyspnea Neurologic: Denies syncope Endocrine: Endocrine: Denies palpitations [facility] Past Medical History Medical History (Updated 05/28/21 @ 11:40 by Saleem Hill MD) Acute coronary syndrome Aortic stenosis BPH (benign prostatic hyperplasia) CAD (coronary artery disease) CHB (complete heart block) Congestive heart failure (CHF) CVA (cerebral vascular accident) Diastolic CHF Essential hypertension Hemorrhage of gastrointestinal tract, unspecified HLD (hyperlipidemia) HTN (hypertension) Hx of cardiac pacemaker Left carotid stenosis Non-rheumatic aortic stenosis Normally functioning cardiac pacemaker present On anticoagulant therapy On beta randy at home Pacemaker (~06/2015) PAF (paroxysmal atrial fibrillation) Rheumatoid arthritis Type 2 diabetes mellitus with unspecified complications Family History Family History Father Cancer Mother Cancer Surgical History Surgical History H/O colonoscopy History of appendectomy History of esophagogastroduodenoscopy History of lumbar surgery History of prostate surgery Hx of cholecystectomy S/P cardiac cath (~08/2020) Status post biventricular pacemaker (~10/2020) Social History Social History Household Members: Family 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 Housing: Apartment Do you presently have visiting nurse or other home services: Yes Alcohol intake: former Patient Tobacco Use Status: Former Tobacco user Years Smoked: 25 Advance Directives: Yes Advance Directives Date on File: 04/12/21 service: No Current occupational status: retired Meds Allergies Allergy/AdvReac Type Severity Reaction Status Date / Time naproxen [From NAPROSYN] Allergy Intermediate ITCHY Verified 05/27/21 20:25 sulfasalazine Allergy Intermediate anxiety Verified 05/27/21 20:25 Penicillins [PENICILLINS] Allergy Mild ITCHY Verified 05/27/21 20:25 Active Medications: Current Medications Generic Name Dose Route Start Last Admin Trade Name Freq PRN Reason Stop Dose Admin Acetaminophen 650 mg 05/28/21 05:31 Acetaminophen 325 Mg Tablet PO Q6H PRN Pain, Severe (Pain Scale 7-10) Docusate Sodium 100 mg 05/28/21 03:58 Docusate Sodium 100 Mg Capsule PO DAILY PRN Constipation Furosemide 40 mg 05/28/21 18:00 Furosemide 40 Mg/4 Ml Vial IVPUSH BID@0900,1800 [facility] Protocol Ondansetron HCl 4 mg 05/28/21 03:58 Ondansetron Hcl 4 Mg/2 Ml Vial IVPUSH Q8H PRN Nausea and Vomiting Pantoprazole Sodium 40 mg 05/28/21 06:30 05/28/21 08:05 Pantoprazole Sodium 40 Mg/10 Ml Vial IVPUSH 40 mg BID@0630,1630 [facility] Administration Sodium Chloride 3 ml 05/28/21 08:00 05/28/21 08:05 0.9 % Sodium Chloride Flush 3 Ml Syringe IVFLUSH 3 ml QSHIFT [facility] Administration Home Medications Medication Instructions Recorded Confirmed Last Taken Type ferrous sulfate 324 mg (65 mg 324 mg PO DAILY 08/20/20 05/04/21 05/04/21 History iron) tablet,delayed release insulin glargine 100 unit/mL (3 20 unit SUBCUT BEDTIME 08/20/20 05/04/21 05/03/21 History mL) subcutaneous pen (Lantus Solostar U-100 Insulin) trazodone 50 mg tablet 50 mg PO BEDTIME 08/20/20 05/04/21 05/03/21 History gabapentin 300 mg capsule 300 mg PO TID cap 11/18/20 05/04/21 05/04/21 History ticagrelor 90 mg tablet 90 mg PO BID 03/14/21 05/04/21 05/04/21 History aspirin 81 mg tablet,delayed 81 mg PO DAILY 03/23/21 05/04/21 05/04/21 History release pantoprazole 40 mg tablet,delayed 40 mg PO DAILY@0630 03/23/21 05/28/21 05/04/21 History release acetaminophen 325 mg tablet 975 mg PO Q6H PRN 05/04/21 05/04/21 Unknown History atorvastatin 40 mg tablet 40 mg PO DAILY 05/04/21 05/04/21 05/04/21 History docusate sodium 100 mg capsule 100 mg PO BID PRN 05/04/21 05/04/21 Unknown History insulin lispro 100 unit/mL 5 unit SUBCUT TIDAC 05/04/21 05/04/21 Unknown History subcutaneous pen (Humalog KwikPen (U-100) Insulin) metoprolol succinate 25 mg 25 mg PO DAILY 05/04/21 05/04/21 05/04/21 History tablet,extended release 24 hr tobramycin 0.3 %-lotepred 0.5 % 1 drp OPHTHALMIC (EYE) TID 05/04/21 05/04/21 Unknown History eye drops,suspension (Zylet) torsemide 20 mg tablet 20 mg PO DAILY 05/04/21 05/28/21 05/04/21 History Physical Exam Vital Signs: Vital Signs: Last Vital Signs Temp 97.6 F 05/28/21 07:34 Pulse 85 05/28/21 11:13 Resp 16 05/28/21 07:34 BP 114/50 L 05/28/21 11:13 Pulse Ox 98 05/28/21 11:13 Body Mass Index 23.6 Const: General: cooperative and no acute distress HENMT: Other: Unremarkable Neck: Neck: Yes normal visual inspection Chest: Chest palpation & inspection: normal inspection of the chest Resp: Auscultation: clear to auscultation bilaterally, no crackles and no wheezes Cardio: Jugular venous distension: no JVD Palpation: normal PMI Heart sounds: S1 normal heart sound present, S2 normal heart sound present, no gallops, Murmur heart sound present (3/6 MARSHAL aortic area) and no rubs GI: Palpation (GI): Soft to palpation Back/Spine/Pelvis: Other: unremarkable Skin: General skin exam: no rashes or lesions noted Neuro: Cranial nerves: Yes Other cranial nerve findings present Extrem: General: Yes no clubbing, cyanosis or edema Psych: Mental Status: other Results Labs and Meds Result diagrams: 05/28/21 06:20 05/28/21 06:20 Lab results: Laboratory Results - last 24 hr 05/27/21 05/27/21 05/28/21 22:36 22:36 00:30 WBC 7.5 RBC 2.42 L Hgb 7.3 L Hct 22.5 L MCV 93.0 MCH 30.2 MCHC 32.4 RDW 15.2 Plt Count 262 MPV 11.7 Immature Gran % (Auto) 0.3 Neut % (Auto) 66.3 Lymph % (Auto) 23.3 [place] % (Auto) 8.7 Eos % (Auto) 1.1 Baso % (Auto) 0.3 Lymph # (Auto) 1.7 [place] # (Auto) 0.7 Eos # (Auto) 0.1 Baso # (Auto) 0.0 Abs Immat Gran (auto) 0.02 Absolute Neuts (auto) 5.0 Absolute Nucleated RBC 0.000 Nucleated RBC % (auto) 0.0 PT INR Sodium 140 Potassium 4.4 Chloride 105 Carbon Dioxide 25 Anion Gap 14 BUN 24 H D Creatinine 1.71 H Estim Creat Clear Calc 33.3 Estimated GFR 39 Random Glucose 201 H Calcium 8.5 Ferritin Troponin I High Sens B-Natriuretic Peptide Stool Occult Blood NEGATIVE COVID-19 ([facility]) COVID-19 Clin Com Blood Type Antibody Screen Crossmatch 05/28/21 05/28/21 05/28/21 01:38 01:38 01:38 WBC RBC Hgb Hct MCV MCH MCHC RDW Plt Count MPV Immature Gran % (Auto) Neut % (Auto) Lymph % (Auto) [place] % (Auto) Eos % (Auto) Baso % (Auto) Lymph # (Auto) [place] # (Auto) Eos # (Auto) Baso # (Auto) Abs Immat Gran (auto) Absolute Neuts (auto) Absolute Nucleated RBC Nucleated RBC % (auto) PT 11.5 INR 1.0 Sodium Potassium Chloride Carbon Dioxide Anion Gap BUN Creatinine Estim Creat Clear Calc Estimated GFR Random Glucose Calcium Ferritin Troponin I High Sens B-Natriuretic Peptide Stool Occult Blood COVID-19 ([facility]IEU) Negative COVID-19 Clin Com See Note Blood Type A Positive Antibody Screen NEGATIVE Crossmatch See Detail 05/28/21 05/28/21 05/28/21 06:20 06:20 06:20 WBC 7.2 RBC 2.77 L Hgb 8.2 L Hct 25.5 L MCV 92.1 MCH 29.6 MCHC 32.2 RDW 15.6 Plt Count 269 MPV 11.8 Immature Gran % (Auto) 0.4 Neut % (Auto) 64.7 Lymph % (Auto) 25.4 [place] % (Auto) 7.3 Eos % (Auto) 1.8 Baso % (Auto) 0.4 Lymph # (Auto) 1.8 [place] # (Auto) 0.5 Eos # (Auto) 0.1 Baso # (Auto) 0.0 Abs Immat Gran (auto) 0.03 Absolute Neuts (auto) 4.7 Absolute Nucleated RBC 0.000 Nucleated RBC % (auto) 0.0 PT INR Sodium 141 Potassium 4.1 Chloride 105 Carbon Dioxide 24 Anion Gap 16 BUN 22 H Creatinine 1.66 H Estim Creat Clear Calc 34.3 Estimated GFR 40 Random Glucose 191 H Calcium 8.4 Ferritin 31 Troponin I High Sens 106.2 H* D B-Natriuretic Peptide Stool Occult Blood COVID-19 ([facility]IEU) COVID-19 Clin Com Blood Type Antibody Screen Crossmatch 05/28/21 05/28/21 09:32 22:36 WBC RBC Hgb Hct MCV MCH MCHC RDW Plt Count MPV Immature Gran % (Auto) Neut % (Auto) Lymph % (Auto) [place] % (Auto) Eos % (Auto) Baso % (Auto) Lymph # (Auto) [place] # (Auto) Eos # (Auto) Baso # (Auto) Abs Immat Gran (auto) Absolute Neuts (auto) Absolute Nucleated RBC Nucleated RBC % (auto) PT INR Sodium Potassium Chloride Carbon Dioxide Anion Gap BUN Creatinine Estim Creat Clear Calc Estimated GFR Random Glucose Calcium Ferritin Troponin I High Sens 128.4 H* B-Natriuretic Peptide 702 H Stool Occult Blood COVID-19 ([facility]IEU) COVID-19 Clin Com Blood Type Antibody Screen Crossmatch ECG Interpretation: EKG with atrially sensed, biventricular paced rhythm at 90/Min. Imaging Radiologist's impression: Impressions Chest X-Ray 05/28/21 01:13 IMPRESSION: * Diffuse mild bronchial wall thickening could be compatible with bronchitis or atypical pneumonitis. Appearance is similar to prior.. * Pulmonary venous congestion without overt edema. Assessment and Plan (1) Acute blood loss anemia: Status: Acute (2) Acute on chronic systolic (congestive) heart failure: Status: Acute (3) Elevated troponin: Status: Acute (4) Non-rheumatic aortic stenosis: Status: Acute Pertinent data reviewed. Most recent hemoglobin is 8.2. BUN is 22. Creatinine is 1.66. High sensitive troponins are 106 and 128. Cardiac BNP 702 which is lower than the prior value of 1556 from March. Chest x-ray reported to have diffuse mild bronchial wall thickening compatible with bronchitis or atypical pneumonia and similar to prior with pulmonary vascular congestion. Overall, probably some heart failure related to blood transfusion but that seems improved. His anemia itself is an ongoing issue and will need GI workup either as an in or outpatient. With regard to elevated troponins, this is not an acute coronary syndrome and most likely related to ongoing hemodynamic stress related to anemia and possibly some heart failure. With regard to cardiac procedures, his last catheterization was on April 18 at that time he had drug-eluting stent of left main to LAD. The last few months he has also had stents from left main to LAD and circumflex, but inflation of ISR of circumflex among others. Hence continue dual antiplatelet therapy without interruptions. Will follow-up with you. Procedures Date of Service Date of Service: 05/28/21
--- NOTE | 2021-05-28 14:00 | P.EN_ITS ---
Event Note Date of Service: 05/28/21 Event Note: Patient presented to emergency room due to low H&H, On arrival to the ED he was hemodynamically Stable with vital significant for temp of 98.8?, heart rate of 103, respiratory rate of 18, blood pressure 120/51, satting 100% on room air Labs are significant for WBC count 7.5, hemoglobin of 7.3 although last hemoglobin of 9.2 on discharge on 05/10, BUN of 24, creatinine of 1.71 with a baseline around 1.15, BNP of 702, stool occult negative . Chest x-ray shows pulmonary congestion 1 unit of PRBC ordered by the ED physician, while receiving the transfusion patient started developing shortness of breath, will be treated with Lasix At present patient is resting comfortably, denies chest pain or shortness of breath General patient resting comfortably in no acute distress alert oriented x3 Neck supple no JVD. CVS regular rate rhythm, systolic murmur Respiratory lungs clear to auscultation, diminished breath sounds, no respiratory distress, no wheeze, no rhonchi. Gastrointestinal abdomen soft, nontender, bowel sounds audible Extremities bilateral pitting edema. Neuro nonfocal, speech clear. Skin no rash Assessment plan 81-year-old male with past medical history of GI bleed, AFib on anticoagulation, heart failure, presents to the hospital after routine labs by PCP showed drop in hemoglobin # acute on chronic anemia no hematemesis or melena, chronic dark stools, recent EGD on 05/06 as well as colonoscopy on 05/09 without definitive source of bleed,hb 7.3 today improved to 8.2 after 1 unit of blood transfusion Case discussed with Dr. tyler he will arrange for video capsule study, will resume diet and Brilinta, continue PPI. # acute on chronic systolic CHF exacerbation - patient presented with dyspnea, orthopnea, lower extremity edema, as well as elevated BNP and chest x-ray evidence of pulmonary congestion that improved with IV Lasix Will place him back on by mouth Lasix, continue low-sodium diet, daily weight, strict I&O patient last echo done in March of this year shows an ejection fraction of 25- 30%, case discussed with Cardiology # JAMA - most likely prerenal secondary to CHF, follow BMP. # paroxysmal AFib - will continue metoprolol not on AC # elevated troponin with history of CAD High troponin likely due to JAMA, anemia, case discussed with Cardiology they recommend to continue Lopressor, resume Brilinta and aspirin # diabetes - continue home insulin,sliding scale insulin and diabetic diet
[2021-05-28] MEDS: Gabapentin 300 MG CAPSULE PO ×2 (15:44→20:48)
[2021-05-28] MEDS: Acetaminophen 325 MG TABLET 650 MG PO (15:45)
--- NOTE | 2021-05-28 16:30 | PC.NURSE ---
Pt resting quietly. Food given per request. VSS. Lg bm with no evidence of bleeding. Stool brown.
--- NOTE | 2021-05-28 19:03 | PC.NURSE ---
This RN reviewing pt's chart including provider's H&P, this RN notes that pt does not have order for sliding scale insulin despite that being listed as a plan for diabetic mgmt. THis rn TT Dr Feliz to make her aware; awaiting response/orders
--- NOTE | 2021-05-28 19:16 | PC.NURSE ---
Update given to daughter Jessica who is pt's HCP.
[2021-05-28 20:17] LABS: Glucose, Whole Blood 277 mg/dL (60-115)
[2021-05-28 20:47] LABS: Glucose, Whole Blood 223 mg/dL (60-115)
[2021-05-28] MEDS: Ticagrelor 90 MG TABLET PO (20:48)
[2021-05-28] MEDS: Insulin Lispro 100 UNIT/ML 3 ML VIAL SUBCUT (20:58)
[2021-05-29] MEDS: 0.9 % Sodium Chloride Flush 3 ML SYRINGE IVFLUSH ×4 (00:34→20:16)
[2021-05-29 03:59] VITALS: BP 118/60; PULSE 92; RESP 18; TEMP 37; O2SAT 98
[2021-05-29 04:55] VITALS: BMI 24.2
[2021-05-29] MEDS: Pantoprazole Sodium 40 MG/10 ML VIAL IVPUSH (05:44)
[2021-05-29 07:31] VITALS: BP 117/60; PULSE 93; RESP 18; TEMP 37.1; O2SAT 98
--- NOTE | 2021-05-29 07:35 | P.CNGI_ITS ---
History of Present Illness Data of Consult Service Date: 05/29/21 Requesting physician: Tanika Henry Primary Care Provider: Karolina Carroll MD HPI Reason for consult: anemia 81-year-old male with past medical history of DM, HTN, CHB, GI bleed, AFib on anticoagulation, heart failure (EF 25-30%--biventricular PM in place)), who I am asked to see for assessment of acute on chronic anemia and who presents to the hospital after routine labs by PCP showed drop in hemoglobin. Patient had work up prior for anemia and had recent EGD on 05/06 as well as colonoscopy on 05/09 with large polyp tubular adenoma removed. He has no hematemesis or melena, but has chronic dark stools (but not melenic). No abdo pain and no nausea or vomiting. HGB on admission around 7 g/dl and received 1 unit PRBC with improvement to 8 g/dl. He is also being treated for CHF excerbation and has c/o dyspnea, edema, and elevated BNP with pulm congestion on cxr, receiving lasix. He has had carfic stents placed 05/07 and cardiology advised dual anti platelets without interruption. Review of Systems Review of Systems: Yes all other systems are reviewed and are negative Cardiovascular: Cardiovascular: Reports as per HPI, Reports no additional cardiovascular complaints, Denies acrocyanosis, Denies cool extremities, Denies painful fingertips, Denies chest pain, Denies chest pain at rest, Denies diaphoresis, Denies syncope, Denies irregular heart rhythm, Denies claudication, Denies leg edema, Denies lightheadedness, Denies palpitations and Denies dyspnea Respiratory: Respiratory: Denies dyspnea Neurologic: Denies syncope Endocrine: Endocrine: Denies palpitations [facility] Past Medical History Medical History (Updated 05/28/21 @ 11:40 by Saleem Hill MD) Acute coronary syndrome Aortic stenosis BPH (benign prostatic hyperplasia) CAD (coronary artery disease) CHB (complete heart block) Congestive heart failure (CHF) CVA (cerebral vascular accident) Diastolic CHF Essential hypertension Hemorrhage of gastrointestinal tract, unspecified HLD (hyperlipidemia) HTN (hypertension) Hx of cardiac pacemaker Left carotid stenosis Non-rheumatic aortic stenosis Normally functioning cardiac pacemaker present On anticoagulant therapy On beta randy at home Pacemaker (~06/2015) PAF (paroxysmal atrial fibrillation) Rheumatoid arthritis Type 2 diabetes mellitus with unspecified complications Family History Family History Father Cancer Mother Cancer Surgical History Surgical History H/O colonoscopy History of appendectomy History of esophagogastroduodenoscopy History of lumbar surgery History of prostate surgery Hx of cholecystectomy S/P cardiac cath (~08/2020) Status post biventricular pacemaker (~10/2020) Social History Social History Household Members: Children Household Members Other:: [employer] the [employer] Housing: Apartment Do you presently have visiting nurse or other home services: Yes ([employer]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) Alcohol intake: never Patient Tobacco Use Status: Former Tobacco user Years Smoked: 25 Advance Directives Date on File: 04/12/21 service: No Current occupational status: retired Meds Allergies Allergy/AdvReac Type Severity Reaction Status Date / Time naproxen [From NAPROSYN] Allergy Intermediate ITCHY Verified 05/27/21 20:25 sulfasalazine Allergy Intermediate anxiety Verified 05/27/21 20:25 Penicillins [PENICILLINS] Allergy Mild ITCHY Verified 05/27/21 20:25 Active Medications: Current Medications Generic Name Dose Route Start Last Admin Trade Name Freq PRN Reason Stop Dose Admin Acetaminophen 650 mg 05/28/21 05:31 05/28/21 15:45 Acetaminophen 325 Mg Tablet PO 650 mg Q6H PRN Administration Pain, Severe (Pain Scale 7-10) Aspirin 81 mg 05/29/21 09:00 Aspirin Enteric Coated 81 Mg Tablet. PO DAILY [facility] Atorvastatin Calcium 40 mg 05/29/21 09:00 Atorvastatin Calcium 40 Mg Tablet PO DAILY [facility] Dextrose 25 gm 05/28/21 19:05 Dextrose 50 % 25 Gm/50 Ml Vial IVPUSH Q15M PRN per Hypoglycemia Standing Ord. Protocol Docusate Sodium 100 mg 05/28/21 03:58 Docusate Sodium 100 Mg Capsule PO DAILY PRN Constipation Ferrous Sulfate 324 mg 05/29/21 09:00 Ferrous Sulfate 324 Mg Tablet. PO DAILY [facility] Folic Acid 1 mg 05/29/21 09:00 Folic Acid 1 Mg Tablet PO DAILY [facility] Furosemide 40 mg 05/28/21 18:00 05/28/21 18:46 Furosemide 40 Mg/4 Ml Vial IVPUSH 40 mg BID@0900,1800 [facility] Administration Protocol Gabapentin 300 mg 05/28/21 15:00 05/28/21 20:48 Gabapentin 300 Mg Capsule PO 300 mg TID [facility] Administration Glucose 15 gm 05/28/21 19:05 Glucose Gel 15 Gm Gel..Gram. PO Q15M PRN per Hypoglycemia Standing Ord. Protocol Insulin Glargine 20 unit 05/29/21 09:00 Insulin Glargine,Hum.Rec.Anlog 100 Unit/Ml 10 Ml Vial SUBCUT DAILY [facility] Insulin Human Lispro 0 unit 05/28/21 21:00 05/28/21 20:58 Insulin Lispro 100 Unit/Ml 3 Ml Vial SUBCUT 4 unit QIDACHS [facility] Administration Protocol Metoprolol Succinate 25 mg 05/29/21 09:00 Metoprolol Succinate Er 25 Mg Tab.Er.24h PO DAILY [facility] Protocol Ondansetron HCl 4 mg 05/28/21 03:58 Ondansetron Hcl 4 Mg/2 Ml Vial IVPUSH Q8H PRN Nausea and Vomiting Pantoprazole Sodium 40 mg 05/28/21 06:30 05/29/21 05:44 Pantoprazole Sodium 40 Mg/10 Ml Vial IVPUSH 40 mg BID@0630,1630 [facility] Administration Sodium Chloride 3 ml 05/28/21 08:00 05/29/21 00:34 0.9 % Sodium Chloride Flush 3 Ml Syringe IVFLUSH 3 ml QSHIFT [facility] Administration Tamsulosin HCl 0.4 mg 05/29/21 09:00 Tamsulosin Hcl 0.4 Mg Capsule PO DAILY [facility] Ticagrelor 90 mg 05/28/21 21:00 05/28/21 20:48 Ticagrelor 90 Mg Tablet PO 90 mg BID [facility] Administration Torsemide 20 mg 05/29/21 09:00 Torsemide 20 Mg Tablet PO DAILY [facility] Protocol Trazodone HCl 50 mg 05/28/21 14:12 Trazodone Hcl 50 Mg Tablet PO BEDTIME PRN Insomnia Home Medications Medication Instructions Recorded Confirmed Last Taken Type ferrous sulfate 324 mg (65 mg 324 mg PO DAILY 08/20/20 05/28/21 05/27/21 History iron) tablet,delayed release insulin glargine 100 unit/mL (3 20 unit SUBCUT DAILY 08/20/20 05/28/21 05/27/21 History mL) subcutaneous pen (Lantus Solostar U-100 Insulin) trazodone 50 mg tablet 50 mg PO BEDTIME PRN 08/20/20 05/28/21 05/27/21 History gabapentin 300 mg capsule 300 mg PO TID cap 11/18/20 05/28/21 05/27/21 History ticagrelor 90 mg tablet 90 mg PO BID 03/14/21 05/28/21 05/27/21 History aspirin 81 mg tablet,delayed 81 mg PO DAILY 03/23/21 05/28/21 05/27/21 History release pantoprazole 40 mg tablet,delayed 40 mg PO DAILY 03/23/21 05/28/21 05/27/21 History release atorvastatin 40 mg tablet 40 mg PO DAILY 05/04/21 05/28/21 05/27/21 History insulin lispro 100 unit/mL 5 unit SUBCUT TIDAC 05/04/21 05/28/21 05/27/21 History subcutaneous pen (Humalog KwikPen (U-100) Insulin) metoprolol succinate 25 mg 25 mg PO DAILY 05/04/21 05/28/21 05/27/21 History tablet,extended release 24 hr torsemide 20 mg tablet 20 mg PO DAILY 05/04/21 05/28/21 05/27/21 History tamsulosin 0.4 mg capsule 0.4 mg PO DAILY 05/28/21 05/28/21 05/27/21 History Physical Exam Vital Signs: Vital Signs: Last Vital Signs Temp 98.6 F 05/29/21 03:59 Pulse 92 05/29/21 03:59 Resp 18 05/29/21 03:59 BP 118/60 05/29/21 03:59 Pulse Ox 98 05/29/21 03:59 Body Mass Index 24.2 Const: General: cooperative and no acute distress Orientation/consciousness: patient oriented x3 HENMT: Other: Unremarkable Eyes: General: appearance normal, both eyes and all related structures Pupils: Equal, round and reactive pupils present Neck: Neck: Yes normal visual inspection Chest: Chest palpation & inspection: normal inspection of the chest Resp: Effort & Inspection: normal respiratory effort Auscultation: clear to auscultation bilaterally, no crackles and no wheezes Cardio: Jugular venous distension: no JVD Palpation: normal PMI Rate: regular rate Rhythm: regular rhythm Heart sounds: S1 normal heart sound present, S2 normal heart sound present, no gallops, Murmur heart sound present (3/6 MARSHAL aortic area) and no rubs GI: Palpation (GI): Soft to palpation Auscultation: normal bowel sounds Back/Spine/Pelvis: Other: unremarkable Skin: General skin exam: no rashes or lesions noted Neuro: General: patient oriented x3 Cranial nerves: Yes Equal, round and reactive pupils present and Yes Other cranial nerve findings present Cognition (Neuro): normal cognition Extrem: General: Yes normal to inspection and Yes no clubbing, cyanosis or edema Psych: Mental Status: other Results Labs CBC & Chem 7: 05/28/21 06:20 05/28/21 06:20 Assessment and Plan (1) Acute blood loss anemia: Status: Acute 1/ Acute on chronc anemia, occult blood loss, no overt bleeding, ddx; AVM, ulceraton, enteropathy, malabsoprtion, mucosal losses due to anti platelet therapy Plan: 1/ Patient already had x 2 EGD at least and recent colonoscopy, will try ot get inpatient capsule endoscopy, maybe Sunday before can be done. Keep on clears tomorrow and bowel prep tomorrow evening if capsule confirmed for sunday. Tranfuse to hgb target 9 g/dl. Procedures Date of Service Date of Service: 05/29/21
[2021-05-29 07:48] LABS: Glucose, Whole Blood 217 mg/dL (60-115)
[2021-05-29] MEDS: Insulin Lispro 100 UNIT/ML 3 ML VIAL SUBCUT ×3 (08:12→20:15)
[2021-05-29] MEDS: Furosemide 40 MG/4 ML VIAL IVPUSH (08:12)
[2021-05-29 08:13] VITALS: BP 117/60; PULSE 93
[2021-05-29] MEDS: Torsemide 20 MG TABLET PO (08:13)
[2021-05-29] MEDS: Insulin Glargine,Hum.rec.anlog 100 UNIT/ML 10 ML VIAL 20 UNIT SUBCUT (08:13)
[2021-05-29] MEDS: Ticagrelor 90 MG TABLET PO ×2 (08:13→20:16)
[2021-05-29] MEDS: Gabapentin 300 MG CAPSULE PO ×3 (08:13→20:16)
[2021-05-29] MEDS: Atorvastatin Calcium 40 MG TABLET PO (08:13)
[2021-05-29] MEDS: Metoprolol Succinate ER 25 MG TAB.ER.24H PO (08:13)
[2021-05-29] MEDS: Tamsulosin HCL 0.4 MG CAPSULE PO (08:14)
[2021-05-29] MEDS: Folic Acid 1 MG TABLET PO (08:14)
[2021-05-29] MEDS: Ferrous Sulfate 324 MG TABLET.DR PO (08:14)
[2021-05-29] MEDS: Aspirin Enteric Coated 81 MG TABLET.DR PO (08:14)
--- NOTE | 2021-05-29 10:44 | P.PNIM_ITS ---
Subjective Subjective Date of Service: 05/29/21 Interval History: Patient being followed for anemia, patient denies abdominal pain no episode of hematemesis or melena has chronic dark-colored stools. Review of Systems General no headache, no dizziness no fever chills. CVS no chest pain, no palpitation. Respiratory no cough no sob. Gastrointestinal no nausea, no vomiting, no abdominal pain Review of Systems: Yes all other systems are reviewed and are negative Physical Exam Vital Signs: Vital Signs: Last Vital Signs Temp 98.7 F 05/29/21 07:31 Pulse 93 05/29/21 08:13 Resp 18 05/29/21 07:31 BP 117/60 05/29/21 08:13 Pulse Ox 98 05/29/21 07:31 Body Mass Index 24.2 General patient resting comfortably in no acute distress alert oriented x3? Neck? supple no JVD. CVS? regular rate rhythm, systolic murmur Respiratory lungs clear to auscultation, diminished breath sounds, no respiratory distress, no wheeze, no rhonchi. Gastrointestinal abdomen soft, nontender, bowel sounds audible Extremities edema resolved. Neuro nonfocal, speech clear. Skin no rash Psych appropriate affect Objective Data Active Medications Acetaminophen (Acetaminophen 325 Mg Tablet) 650 mg PO Q6H PRN PRN Reason: Pain, Severe (Pain Scale 7-10) Last Admin: 05/28/21 15:45 Dose: 650 mg Documented by: DAY Aspirin (Aspirin Enteric Coated 81 Mg Tablet.) 81 mg PO DAILY [facility] Last Admin: 05/29/21 08:14 Dose: 81 mg Documented by: ASHLY Atorvastatin Calcium (Atorvastatin Calcium 40 Mg Tablet) 40 mg PO DAILY [facility] Last Admin: 05/29/21 08:13 Dose: 40 mg Documented by: ASHLY Dextrose (Dextrose 50 % 25 Gm/50 Ml Vial) 25 gm IVPUSH Q15M PRN; Protocol PRN Reason: per Hypoglycemia Standing Ord. Docusate Sodium (Docusate Sodium 100 Mg Capsule) 100 mg PO DAILY PRN PRN Reason: Constipation Ferrous Sulfate (Ferrous Sulfate 324 Mg Tablet.) 324 mg PO DAILY [facility] Last Admin: 05/29/21 08:14 Dose: 324 mg Documented by: ASHLY Folic Acid (Folic Acid 1 Mg Tablet) 1 mg PO DAILY [facility] Last Admin: 05/29/21 08:14 Dose: 1 mg Documented by: ASHLY Gabapentin (Gabapentin 300 Mg Capsule) 300 mg PO TID [facility] Last Admin: 05/29/21 08:13 Dose: 300 mg Documented by: ASHLY Glucose (Glucose Gel 15 Gm Gel..Gram.) 15 gm PO Q15M PRN; Protocol PRN Reason: per Hypoglycemia Standing Ord. Insulin Glargine (Insulin Glargine,Hum.Rec.Anlog 100 Unit/Ml 10 Ml Vial) 20 unit SUBCUT DAILY [facility] Last Admin: 05/29/21 08:13 Dose: 20 unit Documented by: ASHLY Insulin Human Lispro (Insulin Lispro 100 Unit/Ml 3 Ml Vial) 0 unit SUBCUT QIDACHS [facility]; Protocol Last Admin: 05/29/21 08:12 Dose: 4 unit Documented by: ASHLY Metoprolol Succinate (Metoprolol Succinate Er 25 Mg Tab.Er.24h) 25 mg PO DAILY [facility]; Protocol Last Admin: 05/29/21 08:13 Dose: 25 mg Documented by: ASHLY Ondansetron HCl (Ondansetron Hcl 4 Mg/2 Ml Vial) 4 mg IVPUSH Q8H PRN PRN Reason: Nausea and Vomiting Pantoprazole Sodium (Pantoprazole Sodium 40 Mg/10 Ml Vial) 40 mg IVPUSH BID@0630,1630 [facility] Last Admin: 05/29/21 05:44 Dose: 40 mg Documented by: KADE Sodium Chloride (0.9 % Sodium Chloride Flush 3 Ml Syringe) 3 ml IVFLUSH QSHIFT [facility] Last Admin: 05/29/21 08:14 Dose: 3 ml Documented by: ASHLY Tamsulosin HCl (Tamsulosin Hcl 0.4 Mg Capsule) 0.4 mg PO DAILY [facility] Last Admin: 05/29/21 08:14 Dose: 0.4 mg Documented by: ASHLY Ticagrelor (Ticagrelor 90 Mg Tablet) 90 mg PO BID [facility] Last Admin: 05/29/21 08:13 Dose: 90 mg Documented by: ASHLY Torsemide (Torsemide 20 Mg Tablet) 20 mg PO DAILY [facility]; Protocol Last Admin: 05/29/21 08:13 Dose: 20 mg Documented by: ASHLY Trazodone HCl (Trazodone Hcl 50 Mg Tablet) 50 mg PO BEDTIME PRN PRN Reason: Insomnia Labs CBC & Chem 7: 05/28/21 06:20 05/28/21 06:20 Labs: Laboratory Results - last 24 hr 05/28/21 05/28/21 05/29/21 20:13 20:40 07:29 POC Glucose 277 H 223 H 217 H Assessment and Plan (1) Non-rheumatic aortic stenosis: Status: Acute (2) Acute on chronic systolic (congestive) heart failure: Status: Acute (3) JAMA (acute kidney injury): Status: Acute (4) Normocytic anemia: Status: Acute Assessment and Plan: 81-year-old male with past medical history of GI bleed, AFib on anticoagulation, heart failure, presents to the hospital after routine labs by PCP showed drop in hemoglobin # acute on chronic anemia ?? no hematemesis or melena, chronic dark stools, recent EGD on 05/06 as well as colonoscopy on 05/09 without definitive source of bleed,hb 7.3 on admission improved to 8.2 after 1 unit of blood transfusion ?? Case discussed with Dr. Kearns he will arrange for video capsule study on sunday clear liqs tommorrow ordered , stool guaiac neg,cont. Brilinta/asa, continue PPI change to po.? # acute on chronic systolic CHF exacerbation - patient presented with dyspnea, orthopnea, lower extremity edema, as well as elevated BNP and chest x-ray evidence of pulmonary congestion that improved with IV Lasix ? cont home Lasix, continue low-sodium diet, daily weight, strict I&O ? patient last echo done in March of this year shows an ejection fraction of 25- 30%, case discussed with Dr. Hill, he recommend home medications and no further cardiac workup. # JAMA - most likely prerenal secondary to CHF, follow BMP. # paroxysmal AFib - continue metoprolol not on AC likely due to anemia and to all antiplatelet agents # elevated troponin with? history of CAD ?? High troponin likely due to JAMA, anemia, case discussed with Cardiology they recommend to continue Lopressor, resume Brilinta and aspirin, no further cardiac workup # diabetes - continue home insulin,sliding scale insulin and diabetic diet bs around 200 # DVT prophylaxis with compression boots Quality Stroke Does the patient have a stroke diagnosis?: No VTE Prior VTE?: No VTE Risk Level:: Medical - moderate - high VTE Device Contraindication: Treatment Not Indicated VTE Drug Contraindication: N/A - Med Ordered
[2021-05-29 11:15] VITALS: BP 95/50; PULSE 88; RESP 18; TEMP 36.2; O2SAT 100
[2021-05-29 11:23] LABS: Glucose, Whole Blood 259 mg/dL (60-115)
[2021-05-29 15:08] VITALS: BP 98/53; PULSE 91; RESP 18; TEMP 36.4; O2SAT 100
[2021-05-29 15:53] LABS: Glucose, Whole Blood 143 mg/dL (60-115)
[2021-05-29] MEDS: Acetaminophen 325 MG TABLET 650 MG PO (17:35)
[2021-05-29 19:13] VITALS: BP 105/54; PULSE 101; RESP 18; TEMP 36.4; O2SAT 96
[2021-05-29 19:49] LABS: Glucose, Whole Blood 235 mg/dL (60-115)
[2021-05-30] VITALS (7 sets, daily range): BP systolic 104–122; BP diastolic 51–58; PULSE 73–96; RESP 18; TEMP 36.1–37; O2SAT 95–100; BMI 25.0
[2021-05-30 06:49] LABS: Hematocrit 27.5 % (42-52); Hemoglobin 8.9 g/dl (14.0-18.0); Mean Corpuscular HGB Conc 32.4 g/dl (31.0-36.0); Mean Corpuscular Hemoglobin 28.9 pg (27.0-33.0); Mean Corpuscular Volume 89.3 fL (80-98); Mean Platelet Volume 11.9 fL (9.4-12.4); Platelet Count 289 X10*3/uL (160-400); Red Blood Count 3.08 X10*6/uL (4.60-5.80); Red Cell Distribution Width 17.2 % (11.0-16.0)
[2021-05-30 07:04] LABS: Glucose, Whole Blood 139 mg/dL (60-115)
[2021-05-30 07:21] LABS: Anion Gap 16 (12-20); Blood Urea Nitrogen 24 mg/dL (9-16); Calcium 8.4 mg/dL (8.4-10.2); Carbon Dioxide 23 mmol/L (22-29); Chloride 106 mmol/L (96-108); Estimated Glomerular Filt Rate 44; Glucose Random 126 mg/dL (60-115); Potassium 4.2 mmol/L (3.3-5.1); Sodium 141 mmol/L (135-145)
[2021-05-30] MEDS: Omeprazole 40 MG CAPSULE.DR PO (07:40)
[2021-05-30 09:03] LABS: Folate > 20.0 ng/mL (> or = 4.0); Vitamin B12 307 pg/mL (200-900)
--- NOTE | 2021-05-30 10:18 | MHC.CM.PN ---
Patient not available, CM spoke with Daughter/HCP/Jessica @ [phone] and addressed IMM with her, mailing original certified mail to her and placing a copy the chart. Jessica is very involved and explains that patient has strong family support and is never alone. . Patient lives in an apartment with his , he is active with [facility] (unsure of agency name) & [employer] [facility] and the goal for dc is for Patient to return home and resume same services. STEFANIE has initiated and will follow for dc planning. PCP is Dr. Karolina Carroll.
[2021-05-30 11:01] LABS: Glucose, Whole Blood 210 mg/dL (60-115)
[2021-05-30] MEDS: Gabapentin 300 MG CAPSULE PO ×3 (11:16→21:46)
[2021-05-30] MEDS: Ferrous Sulfate 324 MG TABLET.DR PO (11:16)
[2021-05-30] MEDS: Aspirin Enteric Coated 81 MG TABLET.DR PO (11:16)
[2021-05-30] MEDS: Tamsulosin HCL 0.4 MG CAPSULE PO (11:16)
[2021-05-30] MEDS: Folic Acid 1 MG TABLET PO (11:16)
[2021-05-30] MEDS: Metoprolol Succinate ER 25 MG TAB.ER.24H PO (11:16)
[2021-05-30] MEDS: Atorvastatin Calcium 40 MG TABLET PO (11:16)
[2021-05-30] MEDS: Torsemide 20 MG TABLET PO (11:16)
[2021-05-30] MEDS: Ticagrelor 90 MG TABLET PO ×2 (11:17→21:46)
[2021-05-30] MEDS: 0.9 % Sodium Chloride Flush 3 ML SYRINGE IVFLUSH ×3 (11:17→23:14)
[2021-05-30] MEDS: Insulin Glargine,Hum.rec.anlog 100 UNIT/ML 10 ML VIAL 20 UNIT SUBCUT (11:17)
[2021-05-30] MEDS: Insulin Lispro 100 UNIT/ML 3 ML VIAL SUBCUT (12:52)
--- NOTE | 2021-05-30 15:18 | HO.PM.IMPN ---
Subjective Subjective Date of Service: 05/30/21 Interval History: history taken in [place] Islander from pt no abd pain no melena or hematochezia Review of Systems Review of Systems: Yes all other systems are reviewed and are negative Physical Exam Vital Signs: Vital Signs: Last Vital Signs Temp 98.0 F 05/30/21 11:19 Pulse 86 05/30/21 11:19 Resp 18 05/30/21 11:19 BP 122/58 L 05/30/21 11:19 Pulse Ox 97 05/30/21 11:19 Body Mass Index 25.0 Gen: in no acute distress HEENT: sclera anicteric, moist mucus membranes Neck: supple Lungs: clear to auscultation bilaterally Heart: regular rate and rhythm, no murmurs Abd: soft, non-tender, non-distended Ext: no edema Skin: warm/well-perfused Neuro: alert and oriented x3, no focal findings Psych: appropriate affect Objective Data Active Medications Acetaminophen (Acetaminophen 325 Mg Tablet) 650 mg PO Q6H PRN PRN Reason: Pain, Severe (Pain Scale 7-10) Last Admin: 05/29/21 17:35 Dose: 650 mg Documented by: ASHLY Aspirin (Aspirin Enteric Coated 81 Mg Tablet.) 81 mg PO DAILY [facility] Last Admin: 05/30/21 11:16 Dose: 81 mg Documented by: TAMMY Atorvastatin Calcium (Atorvastatin Calcium 40 Mg Tablet) 40 mg PO DAILY [facility] Last Admin: 05/30/21 11:16 Dose: 40 mg Documented by: TAMMY Dextrose (Dextrose 50 % 25 Gm/50 Ml Vial) 25 gm IVPUSH Q15M PRN; Protocol PRN Reason: per Hypoglycemia Standing Ord. Docusate Sodium (Docusate Sodium 100 Mg Capsule) 100 mg PO DAILY PRN PRN Reason: Constipation Ferrous Sulfate (Ferrous Sulfate 324 Mg Tablet.) 324 mg PO DAILY [facility] Last Admin: 05/30/21 11:16 Dose: 324 mg Documented by: TAMMY Folic Acid (Folic Acid 1 Mg Tablet) 1 mg PO DAILY [facility] Last Admin: 05/30/21 11:16 Dose: 1 mg Documented by: TAMMY Gabapentin (Gabapentin 300 Mg Capsule) 300 mg PO TID [facility] Last Admin: 05/30/21 11:16 Dose: 300 mg Documented by: TAMMY Glucose (Glucose Gel 15 Gm Gel..Gram.) 15 gm PO Q15M PRN; Protocol PRN Reason: per Hypoglycemia Standing Ord. Insulin Glargine (Insulin Glargine,Hum.Rec.Anlog 100 Unit/Ml 10 Ml Vial) 20 unit SUBCUT DAILY [facility] Last Admin: 05/30/21 11:17 Dose: 20 unit Documented by: TAMMY Insulin Human Lispro (Insulin Lispro 100 Unit/Ml 3 Ml Vial) 0 unit SUBCUT QIDACHS [facility]; Protocol Last Admin: 05/30/21 12:52 Dose: 4 unit Documented by: TAMMY Metoprolol Succinate (Metoprolol Succinate Er 25 Mg Tab.Er.24h) 25 mg PO DAILY [facility]; Protocol Last Admin: 05/30/21 11:16 Dose: 25 mg Documented by: TAMMY Omeprazole (Omeprazole 40 Mg Capsule.Dr) 40 mg PO DAILY@0630 [facility] Last Admin: 05/30/21 07:40 Dose: 40 mg Documented by: KADE Ondansetron HCl (Ondansetron Hcl 4 Mg/2 Ml Vial) 4 mg IVPUSH Q8H PRN PRN Reason: Nausea and Vomiting Sodium Chloride (0.9 % Sodium Chloride Flush 3 Ml Syringe) 3 ml IVFLUSH QSHIFT [facility] Last Admin: 05/30/21 12:53 Dose: 3 ml Documented by: TAMMY Tamsulosin HCl (Tamsulosin Hcl 0.4 Mg Capsule) 0.4 mg PO DAILY [facility] Last Admin: 05/30/21 11:16 Dose: 0.4 mg Documented by: TAMMY Ticagrelor (Ticagrelor 90 Mg Tablet) 90 mg PO BID [facility] Last Admin: 05/30/21 11:17 Dose: 90 mg Documented by: TAMMY Torsemide (Torsemide 20 Mg Tablet) 20 mg PO DAILY [facility]; Protocol Last Admin: 05/30/21 11:16 Dose: 20 mg Documented by: TAMMY Trazodone HCl (Trazodone Hcl 50 Mg Tablet) 50 mg PO BEDTIME PRN PRN Reason: Insomnia Labs CBC & Chem 7: 05/30/21 05:51 05/30/21 05:51 Labs: Laboratory Results - last 24 hr 05/28/21 05/29/21 05/29/21 06:20 15:40 19:39 MCV MCH MCHC RDW Plt Count MPV Absolute Nucleated RBC Nucleated RBC % (auto) Anion Gap Estim Creat Clear Calc Estimated GFR POC Glucose 143 H 235 H Random Glucose Calcium Vitamin B12 307 Folate > 20.0 05/30/21 05/30/21 05/30/21 05:51 05:51 06:56 MCV 89.3 MCH 28.9 MCHC 32.4 RDW 17.2 H Plt Count 289 MPV 11.9 Absolute Nucleated RBC 0.000 Nucleated RBC % (auto) 0.0 Anion Gap 16 Estim Creat Clear Calc 37.0 Estimated GFR 44 POC Glucose 139 H Random Glucose 126 H Calcium 8.4 Vitamin B12 Folate 05/30/21 10:55 MCV MCH MCHC RDW Plt Count MPV Absolute Nucleated RBC Nucleated RBC % (auto) Anion Gap Estim Creat Clear Calc Estimated GFR POC Glucose 210 H Random Glucose Calcium Vitamin B12 Folate Assessment and Plan (1) Non-rheumatic aortic stenosis: Status: Acute (2) Acute on chronic systolic (congestive) heart failure: Status: Acute (3) JAMA (acute kidney injury): Status: Acute (4) Normocytic anemia: Status: Acute Assessment and Plan: hospital d#3 81yo M with hx reucrrent CAD, aortic stenosis, HFrEF, CVA, HTN, recurrent anemia admitted for acute/chronic anemia noted on routine labs by PCP # acute/chronic anemia, possible GI source though FOBT negative 05/28/21 -? no hematemesis or melena, chronic dark stools - recent EGD on 05/06 as well as colonoscopy on 05/09 without definitive source of bleed - Hb 7.3 on admission improved to 8.2 after 1 unit of blood transfusion, now 8.9 - GI consulted, plan inpt video capsule study tomorrow- clear liquid diet. OK to continue DAPT. PPI. # acute on chronic systolic HF exacerbation - appears euvolemic, IV furosemide -> PO bumetanide - continue b-randy - Cardiology consulted; no further workup # JAMA - improving after transfusion + diuresis, continue to follow BMP and avoid nephrotoxins # paroxysmal AFib - continue metoprolol not on AC due to anemi # CAD - continue metoprolol + DAPT + statin # DM2 - continue Lantus + Humalog # VTE ppx - SCDs Quality Stroke Does the patient have a stroke diagnosis?: No VTE Prior VTE?: No VTE Risk Level:: Medical - moderate - high VTE Device Contraindication: Treatment Not Indicated VTE Drug Contraindication: N/A - Med Ordered
[2021-05-30 15:56] LABS: Glucose, Whole Blood 94 mg/dL (60-115)
[2021-05-30 20:02] LABS: Glucose, Whole Blood 193 mg/dL (60-115)
[2021-05-30] MEDS: PEG 3350/Na Sulf,Bicarb,Cl/KCL 4,000 ML SOLN.RECON 4000 ML PO (21:45)
[2021-05-31] VITALS (7 sets, daily range): BP systolic 93–125; BP diastolic 48–81; PULSE 67–88; RESP 18–20; TEMP 35.8–37.1; O2SAT 95–100; BMI 25.0
[2021-05-31] MEDS: Omeprazole 40 MG CAPSULE.DR PO (05:17)
[2021-05-31 07:11] LABS: Hematocrit 27.2 % (42-52); Hemoglobin 8.8 g/dl (14.0-18.0); Mean Corpuscular HGB Conc 32.4 g/dl (31.0-36.0); Mean Corpuscular Hemoglobin 28.9 pg (27.0-33.0); Mean Corpuscular Volume 89.5 fL (80-98); Mean Platelet Volume 11.8 fL (9.4-12.4); Platelet Count 276 X10*3/uL (160-400); Red Blood Count 3.04 X10*6/uL (4.60-5.80); White Blood Count 6.5 X10*3/uL (4.8-10.8)
[2021-05-31 07:27] LABS: B Type Natriuretic Peptide 1119 pg/mL (<100)
[2021-05-31 07:42] LABS: Glucose, Whole Blood 72 mg/dL (60-115)
[2021-05-31 07:53] LABS: Anion Gap 14 (12-20); Blood Urea Nitrogen 19 mg/dL (9-16); Calcium 8.1 mg/dL (8.4-10.2); Carbon Dioxide 26 mmol/L (22-29); Chloride 103 mmol/L (96-108); Creatinine Clr Calc Pharmacy 43.1; Estimated Glomerular Filt Rate 52; Glucose Random 69 mg/dL (60-115); Potassium 3.9 mmol/L (3.3-5.1); Sodium 139 mmol/L (135-145)
[2021-05-31] MEDS: Atorvastatin Calcium 40 MG TABLET PO (09:54)
[2021-05-31] MEDS: 0.9 % Sodium Chloride Flush 3 ML SYRINGE IVFLUSH ×3 (09:54→20:39)
[2021-05-31] MEDS: Metoprolol Succinate ER 25 MG TAB.ER.24H PO (09:54)
[2021-05-31] MEDS: Ticagrelor 90 MG TABLET PO ×2 (09:54→20:38)
[2021-05-31] MEDS: Gabapentin 300 MG CAPSULE PO ×3 (09:54→20:38)
[2021-05-31] MEDS: Tamsulosin HCL 0.4 MG CAPSULE PO (09:54)
[2021-05-31] MEDS: Aspirin Enteric Coated 81 MG TABLET.DR PO (09:54)
[2021-05-31] MEDS: Torsemide 20 MG TABLET PO (09:54)
[2021-05-31] MEDS: Ferrous Sulfate 324 MG TABLET.DR PO (09:54)
[2021-05-31] MEDS: Folic Acid 1 MG TABLET PO (09:55)
[2021-05-31 11:42] LABS: Glucose, Whole Blood 95 mg/dL (60-115)
--- NOTE | 2021-05-31 13:01 | P.PNIM_ITS ---
Subjective Subjective Date of Service: 05/31/21 Interval History: history taken from pt in [place]ian denies lightheadedness no abd pain or overt GI bleeding no chest pain or dyspnea Review of Systems Review of Systems: Yes all other systems are reviewed and are negative Physical Exam Vital Signs: Vital Signs: Last Vital Signs Temp 96.4 F L 05/31/21 11:20 Pulse 74 05/31/21 11:20 Resp 20 05/31/21 11:20 BP 112/55 L 05/31/21 11:20 Pulse Ox 98 05/31/21 11:20 Body Mass Index 25.0 Gen: in no acute distress HEENT: sclera anicteric, moist mucus membranes Neck: supple Lungs: clear to auscultation bilaterally Heart: regular rate and rhythm, no murmurs Abd: soft, non-tender, non-distended Ext: no edema Skin: warm/well-perfused Neuro: alert and oriented x3, no focal findings Psych: appropriate affect Objective Data Active Medications Acetaminophen (Acetaminophen 325 Mg Tablet) 650 mg PO Q6H PRN PRN Reason: Pain, Severe (Pain Scale 7-10) Last Admin: 05/29/21 17:35 Dose: 650 mg Documented by: ASHLY Aspirin (Aspirin Enteric Coated 81 Mg Tablet.) 81 mg PO DAILY [facility] Last Admin: 05/31/21 09:54 Dose: 81 mg Documented by: TAMMY Atorvastatin Calcium (Atorvastatin Calcium 40 Mg Tablet) 40 mg PO DAILY [facility] Last Admin: 05/31/21 09:54 Dose: 40 mg Documented by: TAMMY Dextrose (Dextrose 50 % 25 Gm/50 Ml Vial) 25 gm IVPUSH Q15M PRN; Protocol PRN Reason: per Hypoglycemia Standing Ord. Docusate Sodium (Docusate Sodium 100 Mg Capsule) 100 mg PO DAILY PRN PRN Reason: Constipation Ferrous Sulfate (Ferrous Sulfate 324 Mg Tablet.) 324 mg PO DAILY [facility] Last Admin: 05/31/21 09:54 Dose: 324 mg Documented by: TAMMY Folic Acid (Folic Acid 1 Mg Tablet) 1 mg PO DAILY [facility] Last Admin: 05/31/21 09:55 Dose: 1 mg Documented by: TAMMY Gabapentin (Gabapentin 300 Mg Capsule) 300 mg PO TID [facility] Last Admin: 05/31/21 09:54 Dose: 300 mg Documented by: TAMMY Glucose (Glucose Gel 15 Gm Gel..Gram.) 15 gm PO Q15M PRN; Protocol PRN Reason: per Hypoglycemia Standing Ord. Insulin Glargine (Insulin Glargine,Hum.Rec.Anlog 100 Unit/Ml 10 Ml Vial) 20 unit SUBCUT DAILY [facility] Last Admin: 05/31/21 09:55 Dose: Not Given Documented by: TAMMY Non-Admin Reason: NPO Insulin Human Lispro (Insulin Lispro 100 Unit/Ml 3 Ml Vial) 0 unit SUBCUT QIDACHS [facility]; Protocol Last Admin: 05/31/21 11:56 Dose: Not Given Documented by: TAMMY Non-Admin Reason: No Insulin Coverage Metoprolol Succinate (Metoprolol Succinate Er 25 Mg Tab.Er.24h) 25 mg PO DAILY [facility]; Protocol Last Admin: 05/31/21 09:54 Dose: 25 mg Documented by: TAMMY Omeprazole (Omeprazole 40 Mg Capsule.Dr) 40 mg PO DAILY@0630 [facility] Last Admin: 05/31/21 05:17 Dose: 40 mg Documented by: MIGUEL ANGEL Ondansetron HCl (Ondansetron Hcl 4 Mg/2 Ml Vial) 4 mg IVPUSH Q8H PRN PRN Reason: Nausea and Vomiting Sodium Chloride (0.9 % Sodium Chloride Flush 3 Ml Syringe) 3 ml IVFLUSH QSHIFT [facility] Last Admin: 05/31/21 09:54 Dose: 3 ml Documented by: TAMMY Tamsulosin HCl (Tamsulosin Hcl 0.4 Mg Capsule) 0.4 mg PO DAILY [facility] Last Admin: 05/31/21 09:54 Dose: 0.4 mg Documented by: TAMMY Ticagrelor (Ticagrelor 90 Mg Tablet) 90 mg PO BID [facility] Last Admin: 05/31/21 09:54 Dose: 90 mg Documented by: TAMMY Torsemide (Torsemide 20 Mg Tablet) 20 mg PO DAILY [facility]; Protocol Last Admin: 05/31/21 09:54 Dose: 20 mg Documented by: TAMMY Trazodone HCl (Trazodone Hcl 50 Mg Tablet) 50 mg PO BEDTIME PRN PRN Reason: Insomnia Labs CBC & Chem 7: 05/31/21 06:18 05/31/21 06:18 Labs: Laboratory Results - last 24 hr 05/30/21 05/30/21 05/31/21 15:50 19:57 06:18 MCV 89.5 MCH 28.9 MCHC 32.4 RDW 17.0 H Plt Count 276 MPV 11.8 Absolute Nucleated RBC 0.000 Nucleated RBC % (auto) 0.0 Anion Gap Estim Creat Clear Calc Estimated GFR POC Glucose 94 193 H Random Glucose Calcium B-Natriuretic Peptide 05/31/21 05/31/21 05/31/21 06:18 06:18 07:38 MCV MCH MCHC RDW Plt Count MPV Absolute Nucleated RBC Nucleated RBC % (auto) Anion Gap 14 Estim Creat Clear Calc 43.1 Estimated GFR 52 POC Glucose 72 Random Glucose 69 D Calcium 8.1 L B-Natriuretic Peptide 1119 H 05/31/21 11:33 MCV MCH MCHC RDW Plt Count MPV Absolute Nucleated RBC Nucleated RBC % (auto) Anion Gap Estim Creat Clear Calc Estimated GFR POC Glucose 95 Random Glucose Calcium B-Natriuretic Peptide Assessment and Plan (1) Non-rheumatic aortic stenosis: Status: Acute (2) Acute on chronic systolic (congestive) heart failure: Status: Acute (3) JAMA (acute kidney injury): Status: Acute (4) Normocytic anemia: Status: Acute Assessment and Plan: hospital d#4 81yo M with hx reucrrent CAD, aortic stenosis, HFrEF, CVA, HTN, recurrent anemia admitted for acute/chronic anemia noted on routine labs by PCP # acute/chronic anemia, possible GI source though FOBT negative 05/28/21 -?no hematemesis or melena; chronic dark stools - recent EGD on 05/06 as well as colonoscopy on 05/09 without definitive source of bleed - Hb 7.3 on admission improved to 8.2 after 1 unit of blood transfusion, now 8.8 - GI consulted; video capsule study today and OK to continue DAPT. continue PPI. # acute on chronic systolic HF exacerbation - appears euvolemic, IV furosemide changed to PO bumetanide - continue b-randy - Cardiology consulted; no further workup # JAMA - continues to improve after transfusion + diuresis, continue to follow BMP and avoid nephrotoxins # paroxysmal AFib - continue metoprolol; not on AC due to chronic anemia # CAD - continue metoprolol + DAPT + statin # DM2 - continue Lantus + Humalog # VTE ppx - SCDs Quality Stroke Does the patient have a stroke diagnosis?: No VTE Prior VTE?: No VTE Risk Level:: Medical - moderate - high VTE Device Contraindication: Treatment Not Indicated VTE Drug Contraindication: N/A - Med Ordered
[2021-05-31 16:04] LABS: Glucose, Whole Blood 289 mg/dL (60-115)
[2021-05-31] MEDS: Insulin Lispro 100 UNIT/ML 3 ML VIAL SUBCUT (18:26)
[2021-05-31] MEDS: traZODone HCL 50 MG TABLET PO (20:38)
[2021-05-31 21:16] LABS: Glucose, Whole Blood 92 mg/dL (60-115)
--- NOTE | 2021-05-31 21:33 | PM.EVENT ---
Event Note Date of Service: 05/31/21 Event Note: capsule endoscopy: Date of service- 05/31/21 Indication: blood loss anemia esophagus and stomach appeared normal, duodenum entered at 3 mins. Prep was good, no active bleeding seen, few small non bleeding AVM seen in proximal and mid mall bowel. lymphangiectasia seen in distal small bowel which is a benign lesion. Cecum entered at 7 hr 49 mins. RECS: No active bleeding, non bleeding AVM noted. Can consider octreotide, thalidomide or cont with periodic monitoring and iron replacement. Can also consider repeat capsule during acute bleed and push enterosocpy with ablation of AVM. R/O hemolysis and malabsorption as causes of anemia
[2021-06-01 03:12] VITALS: BP 105/55; PULSE 98; RESP 20; TEMP 37; O2SAT 100
[2021-06-01 04:43] VITALS: BMI 25.0
[2021-06-01] MEDS: Omeprazole 40 MG CAPSULE.DR PO (05:57)
[2021-06-01 06:16] LABS: Hemoglobin 8.5 g/dl (14.0-18.0)
[2021-06-01 07:06] VITALS: BP 109/68; PULSE 99; RESP 20; TEMP 36.1; O2SAT 99
[2021-06-01 07:14] LABS: Glucose, Whole Blood 114 mg/dL (60-115)
[2021-06-01 08:46] LABS: Immature Retic Fraction 12.5 % (2.3-13.4); Retic HGB Equivalent 31.3 pg (30.0-35.0); Reticulocyte Percent 2.3 % (0.5-1.8); Reticulocytes Absolute 0.068 X10*6/uL (0.026-0.095)
[2021-06-01] MEDS: Ticagrelor 90 MG TABLET PO (08:52)
[2021-06-01] MEDS: Torsemide 20 MG TABLET PO (08:52)
[2021-06-01] MEDS: Gabapentin 300 MG CAPSULE PO (08:52)
[2021-06-01] MEDS: Tamsulosin HCL 0.4 MG CAPSULE PO (08:52)
[2021-06-01] MEDS: Aspirin Enteric Coated 81 MG TABLET.DR PO (08:52)
[2021-06-01] MEDS: Insulin Glargine,Hum.rec.anlog 100 UNIT/ML 10 ML VIAL 20 UNIT SUBCUT (08:53)
[2021-06-01] MEDS: Folic Acid 1 MG TABLET PO (08:53)
[2021-06-01] MEDS: Atorvastatin Calcium 40 MG TABLET PO (08:53)
[2021-06-01] MEDS: Ferrous Sulfate 324 MG TABLET.DR PO (08:53)
[2021-06-01] MEDS: 0.9 % Sodium Chloride Flush 3 ML SYRINGE IVFLUSH (08:53)
[2021-06-01 08:57] VITALS: BP 112/68; PULSE 99
[2021-06-01] MEDS: Metoprolol Succinate ER 25 MG TAB.ER.24H PO (08:57)
[2021-06-01 09:50] LABS: Iron 30 mcg/dL (45-160); Percent Iron Saturation 11 % (15-50); Total Iron Binding Capacity 280 mcg/dL (228-428); Unsaturated Iron Binding 250 ug/dL
[2021-06-01 10:10] LABS: Ferritin 103 ng/mL (20-250)
[2021-06-01 11:18] LABS: Glucose, Whole Blood 208 mg/dL (60-115)
--- NOTE | 2021-06-01 11:31 | MHC.CM.PN ---
Perv ROUNDS discussion, Patient is not yet medically cleared for dc (? need for BID Octreotide Injections). Home/resume VNA is the goal for dc and CM will continue to follow for possible need to adjust the dc plan.
[2021-06-01 11:54] VITALS: BP 104/55; PULSE 88; RESP 20; TEMP 36.2; O2SAT 100
[2021-06-01] MEDS: Insulin Lispro 100 UNIT/ML 3 ML VIAL SUBCUT (12:32)
--- NOTE | 2021-06-01 13:31 | P.DS_ITS ---
DS: Providers Provider Date of Service: 06/01/21 Date of admission: 05/28/21 02:56 Primary care physician: Karolina Carroll MD Consults: 05/28/21 03:58 Consult to Gastroenterology Routine Consulting Provider: Oc Bettencourt Reason for consultation: Anemia w hx of GI bleed Has provider been notified: No 05/28/21 05:55 Consult to Cardiology Routine Consulting Provider: Saleem Hill Reason for consultation: CHF Has provider been notified: No DS: Diagnosis Discharge Diagnosis (1) Acute blood loss anemia: Status: Acute (2) Acute GI bleeding: Status: Acute (3) Small bowel arteriovenous malformation: Status: Acute (4) Iron deficiency anemia: Status: Acute (5) JAMA (acute kidney injury): Status: Acute (6) Acute on chronic systolic (congestive) heart failure: Status: Acute DS: Summary Hospital Course Hospital Course: From admission H+P by hospitalist Marcello Feliz, 05/28/21: This is an 81-year-old male With past medical history of CAD, aortic stenosis, complete heart block, CHF, CVA, diastolic heart failure, essential hypertension, history of GI bleed, HTN, HLD, paroxysmal AFib, his PCP called her for low H&H.? Patient is Pryde[place]-speaking and history is obtained with the help of in. piña. Of note patient was admitted to the hospital in April for the same presentation of acute blood loss anemia.? He was transfused 2 unit of PRBC on 05/04 and underwent EGD on 05/06 as well as colonoscopy on 05/09 which showed polyps that were not bleeding, 2 clips were placed at the base of the stalk and follow-up was recommended.? Patient denies any bright red blood per rectum, no melena, denies any headache, change in vision, reports generalized weakness or with no chest pain, no shortness of breath, no abdominal pain nausea or vomiting, no diarrhea constipation, no urinary symptoms.? He reports it lower extremity edema is been going on for few days.? Has some orthopnea and PND.? Angles short of breath on exertion. On arrival to the ED hemodynamically Stable with vital significant for temp of 98.8?, heart rate of 103, respiratory rate of 18, blood pressure 120/51, satting 100% on room air Labs are significant for WBC count 7.5, hemoglobin of 7.3 although last hemoglobin of 9.2 on discharge on 05/10, BUN of 24, creatinine of 1.71 with a baseline around 1.15, BNP of 7 O2, stool occult negative for any bleeding. Chest x-ray shows pulmonary congestion 1 unit of PRBC ordered by the ED physician, while receiving the transfusion patient started developing shortness of breath, will be treated with Lasix This 81yo M with CAD, aortic stenosis, HFrEF, CVA, HTN, and recurrent anemia was admitted for acute/chronic anemia noted on routine labs by PCP. There was no hematemesis or melena. Hemoglobin improved from 7.3 to 8.2 after 1 unit of packed red blood cell transfusion. Gastroenterology was consulted and he underwent an inpatient video capsule endoscopy on 05/31, which showed: esophagus and stomach appeared normal, duodenum entered at 3 mins. Prep was good, no active bleeding seen, few small non bleeding AVM seen in proximal and mid mall bowel.? lymphangiectasia seen in distal small bowel which is a benign lesion. Cecum entered at 7 hr 49 mins. Consideration can be given to octreotide injections to decrease risk of bleeding, though this will require prior authorization. He should follow up with his primary care doctor in [address] King in 2 weeks. Weekly hemoglobin and hematocrit should be monitored for now to ensure Hb >=8. He should continue oral iron supplementation. In terms of other medical issues that came up, he had an exacerbation of CHF after the transfusion, for which he required IV furosemide. Once euvolemic, he was placed back on his maintenance diuretic. He presented with acute kidney injury that resolved after transfusion and diuresis. Time Spent with Patient Time attestation: Total time spent providing and/or coordinating discharge services: Discharge coordination time: Greater than 30 minutes Quality: Stroke Does the patient have a stroke diagnosis?: No Physical Exam Vital Signs: Vital Signs: Last Vital Signs Temp 97.1 F 06/01/21 11:54 Pulse 88 06/01/21 11:54 Resp 20 06/01/21 11:54 BP 104/55 L 06/01/21 11:54 Pulse Ox 100 06/01/21 11:54 Body Mass Index 25.0 Gen: in no acute distress HEENT: sclera anicteric, moist mucus membranes Neck: supple Lungs: clear to auscultation bilaterally Heart: regular rate and rhythm, no murmurs Abd: soft, non-tender, non-distended Ext: no edema Skin: warm/well-perfused Neuro: alert and oriented x3, no focal findings Psych: appropriate affect DS: Data Data Completed and Pending Completed studies during hospitalization [Text1]: Laboratory Results WBC 6.5 X10*3/uL (4.8-10.8) 05/31/21 06:18 RBC 3.04 X10*6/uL (4.60-5.80) L 05/31/21 06:18 Hgb 8.5 g/dl (14.0-18.0) L 06/01/21 05:45 Hct 26.0 % (42-52) L 06/01/21 05:45 MCV 89.5 fL (80-98) 05/31/21 06:18 MCH 28.9 pg (27.0-33.0) 05/31/21 06:18 MCHC 32.4 g/dl (31.0-36.0) 05/31/21 06:18 RDW 17.0 % (11.0-16.0) H 05/31/21 06:18 Plt Count 276 X10*3/uL (160-400) 05/31/21 06:18 MPV 11.8 fL (9.4-12.4) 05/31/21 06:18 Immature Gran % (Auto) 0.4 % (0.0-0.4) 05/28/21 06:20 Neut % (Auto) 64.7 % (45-73) 05/28/21 06:20 Lymph % (Auto) 25.4 % (20-40) 05/28/21 06:20 [place] % (Auto) 7.3 % (2-11) 05/28/21 06:20 Eos % (Auto) 1.8 % (0-4) 05/28/21 06:20 Baso % (Auto) 0.4 % (0-2) 05/28/21 06:20 Lymph # (Auto) 1.8 X10*3/uL (1.2-4.9) 05/28/21 06:20 [place] # (Auto) 0.5 X10*3/uL (0.1-1.2) 05/28/21 06:20 Eos # (Auto) 0.1 X10*3/uL (0.0-0.4) 05/28/21 06:20 Baso # (Auto) 0.0 X10*3/uL (0.0-0.2) 05/28/21 06:20 Abs Immat Gran (auto) 0.03 X10*3/uL (0.00-0.03) 05/28/21 06:20 Absolute Neuts (auto) 4.7 X10*3/uL (2.0-8.3) 05/28/21 06:20 Absolute Nucleated RBC 0.000 X10*3/uL (0.0-0.012) 05/31/21 06:18 Nucleated RBC % (auto) 0.0 /100WBC (0.0-0.2) 05/31/21 06:18 Smear Path Review SEE NOTE 06/01/21 05:45 Absolute Retic 0.068 X10*6/uL (0.026-0.095) 06/01/21 05:45 Percent Retic 2.3 % (0.5-1.8) H 06/01/21 05:45 Immature Retic Fraction 12.5 % (2.3-13.4) 06/01/21 05:45 Retic Hgb Equivalent 31.3 pg (30.0-35.0) 06/01/21 05:45 PT 11.5 SEC (9.9-13.0) 05/28/21 01:38 INR 1.0 (0.9-1.1) 05/28/21 01:38 Sodium 139 mmol/L (135-145) 05/31/21 06:18 Potassium 3.9 mmol/L (3.3-5.1) 05/31/21 06:18 Chloride 103 mmol/L (96-108) 05/31/21 06:18 Carbon Dioxide 26 mmol/L (22-29) 05/31/21 06:18 Anion Gap 14 (12-20) 05/31/21 06:18 BUN 19 mg/dL (9-16) H 05/31/21 06:18 Creatinine 1.32 mg/dL (0.5-1.4) 05/31/21 06:18 Estim Creat Clear Calc 43.1 05/31/21 06:18 Estimated GFR 52 05/31/21 06:18 POC Glucose 208 mg/dL (60-115) H 06/01/21 11:10 Random Glucose 69 mg/dL (60-115) D 05/31/21 06:18 Calcium 8.1 mg/dL (8.4-10.2) L 05/31/21 06:18 Iron 30 mcg/dL (45-160) L 06/01/21 09:23 TIBC 280 mcg/dL (228-428) 06/01/21 09:23 % Saturation 11 % (15-50) L 06/01/21 09:23 Unsat Iron Binding 250 ug/dL 06/01/21 09:23 Ferritin 103 ng/mL (20-250) 06/01/21 09:23 Troponin I High Sens 128.4 ng/L (<3.5-35.0) H* 05/28/21 09:32 B-Natriuretic Peptide 1119 pg/mL (<100) H 05/31/21 06:18 Vitamin B12 307 pg/mL (200-900) 05/28/21 06:20 Folate > 20.0 ng/mL (> or = 4.0) 05/28/21 06:20 Stool Occult Blood NEGATIVE (NEGATIVE) 05/28/21 00:30 COVID-19 (HIEU) Negative (Negative) 05/28/21 01:38 COVID-19 Clin Com See Note 05/28/21 01:38 Blood Type A Positive 05/28/21 01:38 Antibody Screen NEGATIVE 05/28/21 01:38 PERNELL, Polyspecific NEGATIVE 06/01/21 05:45 Positive PERNELL Work-up TNP 06/01/21 05:45 Crossmatch See Detail 05/28/21 01:38 Impressions Chest X-Ray 05/28/21 01:13 IMPRESSION: * Diffuse mild bronchial wall thickening could be compatible with bronchitis or atypical pneumonitis. Appearance is similar to prior.. * Pulmonary venous congestion without overt edema. Discharge Plan Discharge Patient Disposition: Home Health Service Discharge Diagnosis: anemia, iron deficiency, small bowel AVM Referrals: [facility] [Outside] - 1 Week Karolina Carroll MD [Primary Care Provider] - 1 Week Andres King MD [Physician] - 2 Weeks Discharge Medications: New octreotide acetate 50 mcg/mL (1 mL) syringe 50 mcg subcut BID Qty: 60 RF: 0 Continued folic acid 1 mg tablet 1 mg PO DAILY Qty: 90 RF: 1 Lantus Solostar U-100 Insulin 100 unit/mL (3 mL) Insulin Pen 20 unit SUBCUT DAILY RF: 0 torsemide 20 mg Tablet 20 mg PO DAILY RF: 0 metoprolol succinate 25 mg Tablet Extended Release 24 Hr 25 mg PO DAILY RF: 0 atorvastatin 40 mg Tablet 40 mg PO DAILY RF: 0 insulin lispro [Humalog KwikPen Insulin] 100 unit/mL Insulin Pen 5 unit SUBCUT TIDAC RF: 0 tamsulosin 0.4 mg capsule 0.4 mg PO DAILY RF: 0 trazodone 50 mg tablet 50 mg PO BEDTIME PRN (Reason: Insomnia) RF: 0 ferrous sulfate 324 mg (65 mg iron) tablet,delayed release (DR/EC) 324 mg PO DAILY RF: 0 gabapentin 300 mg capsule 300 mg PO TID RF: 0 ticagrelor 90 mg tablet 90 mg PO BID RF: 0 pantoprazole 40 mg tablet,delayed release (DR/EC) 40 mg PO DAILY RF: 0 aspirin 81 mg tablet,delayed release (DR/EC) 81 mg PO DAILY RF: 0 Discharge Orders: Discharge Order (Routine); Ordered 06/01/21 Ordered By: Pankaj Seo Diet: advance to usual diet Activity on Discharge: As tolerated Stand Alone Forms: Patient Portal Discharge page Other Ambulatory Orders: Hemoglobin and Hematocrit (Routine) Timeframe: 1 Week Facility: [facility] - Location: Laboratory Ordered By: Pankaj Seo Hemoglobin and Hematocrit (Routine) Timeframe: 2 Weeks Facility: [facility] - Location: Laboratory Ordered By: Pankaj Seo Care Plan Goals: control of GI bleeding improvement of anemia avoidance of CHF exacerbations Health Concerns: iron deficiency anemia due to GI blood loss due to small bowel AVM CHF exacerbation due to transfusion Plan of Treatment: continue iron check hemoglobin/hematocrit weekly take octreotide 50 mcg subcutaneous injection twice daily [once prior authorization is obtained] continue all other medications low-sodium diet; weigh yourself daily and call MD is weight goes up by 5 lb or more follow up with GI [Dr King] in 2 weeks see your primary care doctor in 1 week Assessment: as above Patient Instructions: Arteriovenous Malformation (DC)
--- NOTE | 2021-06-01 13:31 | P.F2F_ITS ---
Service Date Service Date: 06/01/21 Encounter Date of encounter: 06/01/21 Reasons for Services Reason for care home: administration of IV, SQ, or IM injection, medication management, medication treatment and teach disease management Reason for occupational therapy: home safety and mobility, therapeutic exercises, gait/transfer training, assess need for DME, ADL training and energy conservation MD Overseeing Care: Karolina Carroll Homebound: Leaving the home is medically contraindicated at this time without the asist of a device and/or another person due th the listed conditions above and below. Certification: Based on the above findings, I certify that this patient is confined to the home and needs intermittent care home care, physical therapy and/or speech therapy, or continues to need occupational therapy. The patient is under my care, and I have initiated the establishment of the plan of care. The patient will be followed by a physician who will periodically review the plan of care.
[2021-06-01 13:57] LABS: Bilirubin Direct 0.3 mg/dL (0.0-0.5); Bilirubin Total 0.9 mg/dL (0.0-1.0); Lactate Dehydrogenase 153 U/L (118-273)
--- NOTE | 2021-06-01 14:18 | MHC.CM.PN ---
Patient has been medically cleared for dc to home today, with services. CM spoke with Patient's CHESTNUT TANNER/Kristin, who indicated that Patient was active with [facility]. A referral back to [facility] has been placed in [facility]H&P, DC Summary has been uploaded into [facility] and [facility] has been informed of today's dc.Last IMM addressed on 05/30/21. CM has provided MD with Patient's Pharmacy information ([facility] [facility] at [phone], in order for MD to call in a script for Octreotide Injections and then once that is done, Pharmacist will need to fax Prior Auth form to MD for completion. CM will follow.
--- NOTE | 2021-06-01 14:37 | MHC.CM.PN ---
DC Summary has been faxed to [facility] at [phone] and uploaded into [facility] [employer] [facility].
--- NOTE | 2021-06-01 15:13 | MHC.CM.PN ---
STEFANIE received a call from Nurse/Joanna @ [facility] ([phone]), who had a few questions regarding Octreotide Injections. STEFANIE requested MD to phone Joanna and he is agreeable to do so.
[2021-06-06 13:41] LABS: Haptoglobin 263 mg/dL (43-212)
== END 2021-06-01 15:25 | disposition home health service (06) | DRG 393 ==
LOC: HO.ED 05-28 03:09 → HO.EDOVER 05-28 03:12 → HO.IMC 05-28 19:34
PROVIDERS: Hospitalist; Admitting Provider Internal Medicine; Emergency Provider Student in an Organized Health Care Education/Training Program; PCP Internal Medicine; Visit Provider Family Medicine
DX: K55.20 Angiodysplasia of colon without hemorrhage (principal); I50.23 Acute on chronic systolic (congestive) heart failure; D62 Acute posthemorrhagic anemia; I69.954 Hemiplegia and hemiparesis following unspecified cerebrovascular disease affecting left non-dominant side; N17.9 Acute kidney failure, unspecified; I35.0 Nonrheumatic aortic (valve) stenosis; Z20.822 Contact with and (suspected) exposure to COVID-19; I25.10 Atherosclerotic heart disease of native coronary artery without angina pectoris; I48.0 Paroxysmal atrial fibrillation; I11.0 Hypertensive heart disease with heart failure; Z87.891 Personal history of nicotine dependence; E11.9 Type 2 diabetes mellitus without complications; Z88.0 Allergy status to penicillin; Z88.2 Allergy status to sulfonamides; Z88.6 Allergy status to analgesic agent; Z79.4 Long term (current) use of insulin; Z79.01 Long term (current) use of anticoagulants; Z79.82 Long term (current) use of aspirin; Z79.899 Other long term (current) drug therapy
CPT/HCPCS: 36415; 36430; 71045; 80048; 82247; 82248; 82272; 82607; 82728; 82746; 82947; 83010; 83540; 83615; 83880; 84484; 85014; 85018; 85025; 85027; 85045; 85610; 86850; 86880; 86900; 86901; 86923; 87635; 99285; J1940; P9016

== ENCOUNTER 2021-06-06 15:42 | Outpatient (REF) | payer MEDICARE, SELFPAY ==
[2021-06-06 17:05] LABS: MANUAL DIFF FLAG NO
[2021-06-06 17:28] LABS: Basophils Percent Auto 0.3 % (0-2); Eosinophils Absolute Auto 0.2 X10*3/uL (0.0-0.4); Hematocrit 24.1 % (42-52); Hemoglobin 7.6 g/dl (14.0-18.0); Imm Gran Abs Auto 0.03 X10*3/uL (0.00-0.03); Imm Gran Pct Auto 0.4 % (0.0-0.4); Lymphocytes Absolute Auto 1.4 X10*3/uL (1.2-4.9); Lymphocytes Percent Auto 18.7 % (20-40); Mean Corpuscular HGB Conc 31.5 g/dl (31.0-36.0); Mean Corpuscular Hemoglobin 29.2 pg (27.0-33.0); Mean Corpuscular Volume 92.7 fL (80-98); Mean Platelet Volume 11.6 fL (9.4-12.4); Monocytes Absolute Auto 0.6 X10*3/uL (0.1-1.2); Monocytes Percent Auto 7.8 % (2-11); Neutrophils Absolute Auto 5.4 X10*3/uL (2.0-8.3); Neutrophils Percent Auto 70.8 % (45-73); Platelet Count 288 X10*3/uL (160-400); Red Cell Distribution Width 16.6 % (11.0-16.0); White Blood Count 7.7 X10*3/uL (4.8-10.8)
[2021-06-06 17:35] LABS: Alanine Aminotransferase 6 U/L (0-40); Albumin Level 3.8 g/dL (3.5-5.0); Alkaline Phosphatase 74 U/L (39-117); Anion Gap 15 (12-20); Aspartate Amino Transferase 7 U/L (5-37); Bilirubin Total 0.5 mg/dL (0.0-1.0); Blood Urea Nitrogen 26 mg/dL (9-16); Calcium 8.9 mg/dL (8.4-10.2); Carbon Dioxide 24 mmol/L (22-29); Chloride 105 mmol/L (96-108); Cholesterol 120 mg/dL; Estimated Glomerular Filt Rate 37; Glucose Random 182 mg/dL (60-115); HDL Cholesterol 29 mg/dL; LDL Cholesterol Calculated 64 mg/dl; Potassium 4.2 mmol/L (3.3-5.1); Sodium 140 mmol/L (135-145); Total Protein 6.6 g/dL (6.5-8.0); Triglycerides 136 mg/dL
[2021-06-06 17:56] LABS: Ferritin 55 ng/mL (20-250)
[2021-06-06 18:02] LABS: Vitamin B12 317 pg/mL (200-900)
[2021-06-07 04:38] LABS: Estimated Average Glucose 120 mg/dL; Hemoglobin A1c % 5.8 %
== END 2021-06-06 15:43 | disposition home or self-care (01) ==
LOC: HO.LAB 15:42
PROVIDERS: PCP Internal Medicine; Visit Provider Internal Medicine
DX: D50.0 Iron deficiency anemia secondary to blood loss (chronic) (principal); E11.40 Type 2 diabetes mellitus with diabetic neuropathy, unspecified; E11.65 Type 2 diabetes mellitus with hyperglycemia; E78.00 Pure hypercholesterolemia, unspecified
CPT/HCPCS: 36415; 80053; 80061; 82607; 82728; 83036; 85025

== ENCOUNTER 2021-06-07 12:34 | Outpatient (REF) | payer MEDICARE, SELFPAY ==
[2021-06-07 13:39] LABS: Creatinine Urine 99.72 mg/dL
== END 2021-06-07 12:35 | disposition home or self-care (01) ==
LOC: HO.LAB 12:34
PROVIDERS: Visit Provider Internal Medicine
DX: D50.0 Iron deficiency anemia secondary to blood loss (chronic) (principal); E11.40 Type 2 diabetes mellitus with diabetic neuropathy, unspecified; E11.65 Type 2 diabetes mellitus with hyperglycemia; E78.00 Pure hypercholesterolemia, unspecified
CPT/HCPCS: 82043

== ENCOUNTER 2021-06-09 13:14 | Outpatient (REF) | payer MEDICARE, SELFPAY ==
[2021-06-09 14:04] LABS: Hematocrit 24.7 % (42-52); Hemoglobin 7.7 g/dl (14.0-18.0)
== END 2021-06-09 13:15 | disposition home or self-care (01) ==
LOC: HO.LAB 13:14
PROVIDERS: Absent Provider Internal Medicine; PCP Internal Medicine; Visit Provider Family Medicine
DX: D64.9 Anemia, unspecified (principal)
CPT/HCPCS: 36415; 85014; 85018

== ENCOUNTER → 2021-06-23 14:01 | Outpatient (BNVA) | payer MEDICARE, SELFPAY | PROVIDERS: PCP Internal Medicine; Visit Provider Internal Medicine | DX: I21.4 Non-ST elevation (NSTEMI) myocardial infarction (principal); I25.5 Ischemic cardiomyopathy; I65.22 Occlusion and stenosis of left carotid artery; I10 Essential (primary) hypertension; I35.0 Nonrheumatic aortic (valve) stenosis; E11.8 Type 2 diabetes mellitus with unspecified complications; D50.9 Iron deficiency anemia, unspecified; Z95.0 Presence of cardiac pacemaker | CPT/HCPCS: 99212 ==

== ENCOUNTER 2021-06-28 10:55 | Outpatient (REF) | payer MEDICARE, SELFPAY ==
[2021-06-28 13:32] LABS: Hematocrit 22.9 % (42-52); Hemoglobin 7.2 g/dl (14.0-18.0); Mean Corpuscular HGB Conc 31.4 g/dl (31.0-36.0); Mean Corpuscular Hemoglobin 28.3 pg (27.0-33.0); Mean Corpuscular Volume 90.2 fL (80-98); Platelet Count 275 X10*3/uL (160-400); Red Blood Count 2.54 X10*6/uL (4.60-5.80); White Blood Count 7.9 X10*3/uL (4.8-10.8)
[2021-06-28 14:25] LABS: MANUAL DIFF FLAG NO
[2021-06-28 14:26] LABS: Basophils Percent Auto 0.1 % (0-2); Eosinophils Percent Auto 0.5 % (0-4); Imm Gran Abs Auto 0.03 X10*3/uL (0.00-0.03); Imm Gran Pct Auto 0.4 % (0.0-0.4); Lymphocytes Absolute Auto 1.2 X10*3/uL (1.2-4.9); Lymphocytes Percent Auto 14.2 % (20-40); Monocytes Absolute Auto 0.4 X10*3/uL (0.1-1.2); Monocytes Percent Auto 5.2 % (2-11); Neutrophils Absolute Auto 6.5 X10*3/uL (2.0-8.3); Neutrophils Percent Auto 79.6 % (45-73)
== END 2021-06-28 10:56 | disposition home or self-care (01) ==
LOC: HO.LABR 10:55
PROVIDERS: Internal Medicine; Absent Provider Internal Medicine Gastroenterology; PCP Internal Medicine; Visit Provider Internal Medicine
DX: K92.2 Gastrointestinal hemorrhage, unspecified (principal)
CPT/HCPCS: 36415; 80048; 85025; 85027

== ENCOUNTER 2021-07-14 09:50 | Outpatient (REF) | payer MEDICARE, SELFPAY ==
[2021-07-14 11:55] LABS: Basophils Percent Auto 0.4 % (0-2); Eosinophils Absolute Auto 0.1 X10*3/uL (0.0-0.4); Eosinophils Percent Auto 1.1 % (0-4); Hematocrit 26.4 % (42-52); Hemoglobin 8.7 g/dl (14.0-18.0); Imm Gran Abs Auto 0.04 X10*3/uL (0.00-0.03); Imm Gran Pct Auto 0.5 % (0.0-0.4); Lymphocytes Absolute Auto 1.3 X10*3/uL (1.2-4.9); Lymphocytes Percent Auto 17.2 % (20-40); MANUAL DIFF FLAG SCAN; Mean Corpuscular Hemoglobin 29.9 pg (27.0-33.0); Mean Corpuscular Volume 90.7 fL (80-98); Monocytes Absolute Auto 0.5 X10*3/uL (0.1-1.2); Monocytes Percent Auto 7.2 % (2-11); Neutrophils Absolute Auto 5.4 X10*3/uL (2.0-8.3); Neutrophils Percent Auto 73.6 % (45-73); PLT CLUMP 1; Red Blood Count 2.91 X10*6/uL (4.60-5.80); Red Cell Distribution Width 14.9 % (11.0-16.0); SCAN SMEAR FLAG 1
[2021-07-14 12:08] LABS: Alanine Aminotransferase 7 U/L (0-40); Albumin Level 4.4 g/dL (3.5-5.0); Alkaline Phosphatase 71 U/L (39-117); Anion Gap 19 (12-20); Aspartate Amino Transferase 12 U/L (5-37); Bilirubin Total 0.5 mg/dL (0.0-1.0); Blood Urea Nitrogen 52 mg/dL (9-16); Carbon Dioxide 20 mmol/L (22-29); Chloride 102 mmol/L (96-108); Cholesterol 123 mg/dL; Estimated Glomerular Filt Rate 34; Glucose Random 280 mg/dL (60-115); HDL Cholesterol 28 mg/dL; LDL Cholesterol Calculated 62 mg/dl; Sodium 137 mmol/L (135-145); Triglycerides 166 mg/dL
[2021-07-14 12:20] LABS: Platelet Count 235 X10*3/uL (160-400); White Blood Count 7.3 X10*3/uL (4.8-10.8)
[2021-07-14 12:21] LABS: SLIDE REVIEW VERIFIED
[2021-07-14 12:23] LABS: Estimated Average Glucose 137 mg/dL; Hemoglobin A1c % 6.4 %
== END 2021-07-14 09:51 | disposition home or self-care (01) ==
LOC: HO.LAB 09:50
PROVIDERS: Absent Provider Internal Medicine; PCP Internal Medicine; Visit Provider Internal Medicine Gastroenterology
DX: D50.9 Iron deficiency anemia, unspecified (principal); K92.2 Gastrointestinal hemorrhage, unspecified; K55.20 Angiodysplasia of colon without hemorrhage
CPT/HCPCS: 36415; 80053; 80061; 83036; 85025; 99212